=== PATIENT | female | born 1950 | race Caucasian/White ===

== ENCOUNTER 2016-11-13 13:39 | Emergency (ER) | payer MEDICARE, OTHER ==
--- NOTE | 2016-11-13 14:30 | EKG REPORT ---
SEVERITY:- NORMAL ECG - SINUS RHYTHM : Confirmed by: Royce Yeung 13-Nov-2016 14:30:10
--- NOTE | 2016-11-13 14:57 | ER Document Report ---
ED Medical Screen (RME) - General Chief Complaint: Chest Pain Stated Complaint: BODY PAIN,CHEST PAIN Time Seen by Provider: 11/13/16 14:43 Notes: Patient says that she went to her primary care provider here in town for a routine follow-up appointment today and was advised that her heart was swollen and she needed to come here for further evaluation. Patient says she has no symptoms and specifically denies having any chest pains, shortness of breath or difficulty breathing, swelling of her extremities, fever, chills, etc. Patient says she did have an x-ray taken at her doctor's office. Patient says that she has had some vomiting and nausea yesterday as well as some diarrhea a couple of weeks ago. She has some mild generalized abdominal pain. She describes having chronic chest and body aches for a couple of months but nothing new or different today. TRAVEL OUTSIDE OF THE [place] IN LAST 30 DAYS: No - Related Data Allergies/Adverse Reactions: aspirin [Aspirin] Allergy (Verified 06/24/12 12:50) Penicillins Allergy (Verified 11/13/16 13:57) Past Medical History - Past Medical History Cardiac Medical History: Reports: Hx Hypertension Renal/ Medical History: Denies: Hx Peritoneal Dialysis - Immunizations Hx Diphtheria, Pertussis, Tetanus Vaccination: No Physical Exam - Vital signs Vitals: Temp Pulse Resp BP Pulse Ox 98.3 F 95 22 H 107/58 L 93 11/13/16 13:57 11/13/16 13:57 11/13/16 13:57 11/13/16 13:57 11/13/16 13:57 Course - Vital Signs Vital signs: Temp Pulse Resp BP Pulse Ox 98.3 F 95 22 H 107/58 L 93 11/13/16 13:57 11/13/16 13:57 11/13/16 13:57 11/13/16 13:57 11/13/16 13:57
--- NOTE | 2016-11-13 16:39 | RADIOLOGY REPORT (SQ) ---
EXAM DESCRIPTION: CHEST PA/LAT COMPLETED DATE/TIME: 11/13/2016 4:32 pm REASON FOR STUDY: Patient told her heart was enlarged COMPARISON: 01/20/2015 EXAM PARAMETERS: NUMBER OF VIEWS: two views TECHNIQUE: Digital Frontal and Lateral radiographic views of the chest acquired. RADIATION DOSE: NA LIMITATIONS: none FINDINGS: LUNGS AND PLEURA: No opacities, masses or pneumothorax. No pleural effusion. MEDIASTINUM AND HILAR STRUCTURES: No masses or contour abnormalities. HEART AND VASCULAR STRUCTURES: Heart normal size. No evidence for failure. BONES: No acute findings. HARDWARE: None in the chest. OTHER: No other significant finding. IMPRESSION: NO SIGNIFICANT RADIOGRAPHIC FINDING IN THE CHEST. TECHNICAL DOCUMENTATION: JOB ID: [id number] [employer]- All Rights Reserved
--- NOTE | 2016-11-13 17:06 | ER Document Report ---
ED General - General Chief Complaint: Chest Pain Stated Complaint: BODY PAIN,CHEST PAIN Time Seen by Provider: 11/13/16 14:43 Mode of Arrival: Ambulatory Information source: Patient Notes: 66-year-old female hx of htn presents after an annual physical where xray was ocncerning for chf. pt denies any chest pain, sob, difficutly breathing or edema TRAVEL OUTSIDE OF THE [place] IN LAST 30 DAYS: No - HPI Onset: Just prior to arrival Onset/Duration: Sudden Quality of pain: No pain Severity: None Pain Level: Denies Associated symptoms: None Exacerbated by: Denies Relieved by: Denies Similar symptoms previously: No Recently seen / treated by doctor: Yes - sent by pcp - Related Data Allergies/Adverse Reactions: aspirin [Aspirin] Allergy (Verified 06/24/12 12:50) Penicillins Allergy (Verified 11/13/16 13:57) Past Medical History - Social History Smoking Status: Unknown if Ever Smoked Cigarette use (# per day): No Chew tobacco use (# tins/day): No Smoking Education Provided: No Family History: Reviewed & Not Pertinent Patient has suicidal ideation: No Patient has homicidal ideation: No - Past Medical History Cardiac Medical History: Reports: Hx Hypertension Renal/ Medical History: Denies: Hx Peritoneal Dialysis - Immunizations Hx Diphtheria, Pertussis, Tetanus Vaccination: No Review of Systems - Review of Systems Notes: REVIEW OF SYSTEMS: CONSTITUTIONAL : Denies fever, chills, or sweats. Denies recent illness. EENT: Denies eye, ear, throat, or mouth pain or symptoms. Denies nasal or sinus congestion or discharge. Denies throat, tongue, or mouth swelling or difficulty swallowing. CARDIOVASCULAR: Denies chest pain. Denies palpitations or racing or irregular heart beat. Denies ankle edema. RESPIRATORY: Denies cough, cold, or chest congestion. Denies shortness of breath, difficulty breathing, or wheezing. GASTROINTESTINAL: Denies abdominal pain or distention. Denies nausea, vomiting , or diarrhea. Denies blood in vomitus, stools, or per rectum. Denies black, tarry stools. Denies constipation. GENITOURINARY: Denies difficulty urinating, painful urination, burning, frequency, blood in urine, or discharge. FEMALE GENITOURINARY: Denies vaginal bleeding, heavy or abnormal periods, irregular periods. Denies vaginal discharge or odor. MUSCULOSKELETAL: Denies back or neck pain or stiffness. Denies joint pain or swelling. SKIN: Denies rash, lesions or sores. HEMATOLOGIC : Denies easy bruising or bleeding. LYMPHATIC: Denies swollen, enlarged glands. NEUROLOGICAL: Denies confusion or altered mental status. Denies passing out or loss of consciousness. Denies dizziness or lightheadedness. Denies headache. Denies weakness or paralysis or loss of use of either side. Denies problems with gait or speech. Denies sensory loss, numbness, or tingling. Denies seizures. PSYCHIATRIC: Denies anxiety or stress. Denies depression, suicidal ideation, or homicidal ideation. ALL OTHER SYSTEMS REVIEWED AND NEGATIVE. Dictation was performed using [employer] voice recognition software PHYSICAL EXAMINATION: GENERAL: Well-appearing, well-nourished and in no acute distress. HEAD: Atraumatic, normocephalic. EYES: Pupils equal round and reactive to light, extraocular movements intact, conjunctiva are normal. ENT: Nares patent, oropharynx clear without exudates. Moist mucous membranes. NECK: Normal range of motion, supple without lymphadenopathy LUNGS: Breath sounds clear to auscultation bilaterally and equal. No wheezes rales or rhonchi. HEART: Regular rate and rhythm without murmurs ABDOMEN: Soft, nontender, nondistended abdomen. No guarding, no rebound. No masses appreciated. Female : deferred Musculoskeletal: Normal range of motion, no pitting or edema. No cyanosis. NEUROLOGICAL: Cranial nerves grossly intact. Normal speech, normal gait. Normal sensory, motor exams PSYCH: Normal mood, normal affect. SKIN: Warm, Dry, normal turgor, no rashes or lesions noted. Physical Exam - Vital signs Vitals: Temp Pulse Resp BP Pulse Ox 98.3 F 95 22 H 107/58 L 93 11/13/16 13:57 11/13/16 13:57 11/13/16 13:57 11/13/16 13:57 11/13/16 13:57 Course - Re-evaluation Re-evalutation: 11/13/16 17:14 Patient is completely asymptomatic at this time, cardiac workup has been ordered and I am awaiting results I did speak with the patient's primary care physician with concerns for congestive heart failure 11/13/16 20:15 CT a was consistent with lung mass with metastases to liver. Patient and have been made aware of this, we have has been given to them. I will give them oncologist to follow-up with. I contacted patient's primary care physician as well After performing a Medical Screening Examination, I estimate there is LOW risk for ACUTE CORONARY SYNDROME, RESPIRATORY FAILURE, SEPSIS OR MENINGITIS, thus I consider the discharge disposition reasonable. I have reevaluated this patient multiple times and no significant life threatening changes are noted. The patient and I have discussed the diagnosis and risks, and we agree with discharging home with close follow-up. We also discussed returning to the Emergency Department immediately if new or worsening symptoms occur. We have discussed the symptoms which are most concerning (e.g., changing or worsening pain, trouble swallowing or breathing, neck stiffness, fever) that necessitate immediate return. - Vital Signs Vital signs: Temp Pulse Resp BP Pulse Ox 98.3 F 95 25 H 117/73 93 11/13/16 13:57 11/13/16 13:57 11/13/16 17:01 11/13/16 17:01 11/13/16 17:01 - Laboratory Result Diagrams: 11/13/16 17:02 11/13/16 17:02 Laboratory results interpreted by me: 11/13/16 11/13/16 17:02 17:02 WBC 20.6 H Seg Neuts % (Manual) 84 H Lymphocytes % (Manual) 10 L Monocytes % (Manual) 2 L Abs Neuts (Manual) 17.9 H Potassium 3.3 L Chloride 92 L Est GFR (Non-Af Amer) 49 L Direct Bilirubin 0.5 H AST 45 H ALT 56 H Albumin 3.3 L - Diagnostic Test Radiology reviewed: Image reviewed, Reports reviewed - report given to patient Discharge - Discharge Clinical Impression: Liver metastases Lung cancer Qualifiers: Laterality: right Lung location: upper lobe of lung Qualified Code(s): C34.11 - Malignant neoplasm of upper lobe, right bronchus or lung Condition: Stable Disposition: HOME, SELF-CARE Referrals: IVY TOTH MD [ACTIVE STAFF] - Follow up as needed CHELY DICKSON MD [ACTIVE STAFF] - Follow up tomorrow GEARRDO DRIVER MD [ACTIVE STAFF] - Follow up tomorrow KAMRAN SAAB MD [Primary Care Provider] - Follow up tomorrow
[2016-11-13 17:26] LABS: HEMATOCRIT 43.9 % (36.0-47.0); HEMOGLOBIN 14.5 g/dL (12.0-15.5); HGB HCT DIFFERENCE -0.4; MEAN CORPUSCULAR HEMOGLOBIN 29.6 pg (27.0-33.4); MEAN CORPUSCULAR HGB CONC 33.2 g/dL (32.0-36.0); MEAN CORPUSCULAR VOLUME 89 fl (80-97); RED BLOOD COUNT 4.91 10^6/uL (3.72-5.28); RED CELL DISTRIBUTION WIDTH 12.7 % (11.5-14.0); WHITE BLOOD COUNT 20.6 10^3/uL (4.0-10.5)
[2016-11-13 17:39] LABS: ALANINE AMINOTRANSFERASE 56 U/L (9-52); ALBUMIN 3.3 g/dL (3.5-5.0); ALKALINE PHOSPHATASE 110 U/L (38-126); ANION GAP 17 (5-19); ASPARTATE AMINO TRANSFERASE 45 U/L (14-36); BILIRUBIN,DIRECT 0.5 mg/dL (0.0-0.4); BILIRUBIN,TOTAL 0.9 mg/dL (0.2-1.3); BLOOD UREA NITROGEN 20 mg/dL (7-20); CALCIUM 10.2 mg/dL (8.4-10.2); CARBON DIOXIDE 29 mmol/L (22-30); CHLORIDE 92 mmol/L (98-107); GLUCOSE 100 mg/dL (75-110); POTASSIUM 3.3 mmol/L (3.6-5.0); SODIUM 137.5 mmol/L (137-145)
[2016-11-13 17:49] LABS: BAND NEUTROPHILS % (MANUAL) 3 % (3-5); BASOPHILS % (MANUAL) 0 % (0-2); EOSINOPHILS % (MANUAL) 1 % (0-6); LYMPHOCYTES % (MANUAL) 10 % (13-45); TOTAL CELLS COUNTED 100
[2016-11-13 17:50] LABS: TOXIC GRANULATION SLIGHT; TOXIC VACUOLATION PRESENT
[2016-11-13 17:51] LABS: RBC MORPHOLOGY COMMENT NORMO-CYTIC/CHROMIC
[2016-11-13 18:01] LABS: CREATINE KINASE MB 1.21 ng/mL (<4.55); TROPONIN I 0.017 ng/mL
--- NOTE | 2016-11-13 19:56 | RADIOLOGY REPORT (SQ) ---
EXAM DESCRIPTION: CTA CHEST COMPLETED DATE/TIME: 11/13/2016 7:17 pm REASON FOR STUDY: sob COMPARISON: Chest x-ray dated 11/13/2006 TECHNIQUE: CT scan of the chest performed using helical scanning technique with dynamic intravenous contrast injection. Images reviewed with lung, soft tissue and bone windows. Reconstructed coronal and sagittal MPR images reviewed. Additional 3 dimensional post-processing performed to develop Maximal Intensity Projection images (NE P). All images stored on PACS. All CT scanners at this facility use dose modulation, iterative reconstruction, and/or weight based d osing when appropriate to reduce radiation dose to as low as reasonably achievable (ALARA). [facility]: Dose Right [facility]: CareDose [facility]: Dose Right [facility]: Teradose 4D [facility]: OY LX Therapies CONTRAST TYPE AND DOSE: 80 mL Isovue 370 RENAL FUNCTION: Creatinine 1.1 RADIATION DOSE: 56.90 mGy. LIMITATIONS: None. FINDINGS: LUNGS AND PLEURA: A 1.6 cm in diameter mass lesion is identified in the right upper lung f ield best seen on image number 27 which could represent a primary lung neoplasm or metastatic disease . No other pulmonary nodules are identified. No airspace consolidations or pleural effusions are id entified. AORTA AND GREAT VESSELS: No aneurysm or dissection. HEART: No pericardial effusion. PULMONARY ARTERIES: No emboli visualized in the main pulmonary arteries or the segmental branches. HILAR AND MEDIASTINAL STRUCTURES: No hilar adenopathy is seen. There are enlarged pretracheal lymph nodes. HARDWARE: None in the chest. UPPER ABDOMEN: There is a 1.5 cm in diameter relative low density area in the right lobe of the liver which could possibly represent metastatic disease. There is loss of definition of the pancreatic ta il with surrounds relative low density which could represent edematous or inflammatory changes. Ther e are similar but less pronounced findings in the pancreatic head. The possibility of pancreatitis s hould be considered. Clinical correlation is recommended. I would recommend followup studies to exc lude an underlying mass. THYROID AND OTHER SOFT TISSUES: No masses. No adenopathy. BONES: No acute or significant finding. 3D MIPS: Confirm above findings. OTHER: No other significant finding. IMPRESSION: 1.6 cm in diameter mass lesion in the right upper lung field as noted above which could represent a primary lung neoplasm or metastatic disease. No other pulmonary nodules are identified. No airspace consolidations or pleural effusions are identified. No evidence for pulmonary embolic d isease. There are enlarged pretracheal lymph nodes. There is a 1.5 cm in diameter relative low dens ity area in the right lobe of the liver which could possibly represent metastatic disease. There is loss of definition of pancreatic tail with surrounding relative low density which could represent charly matous or inflammatory changes. There are similar but less pronounced findings in the pancreatic hea d. The possibility of pancreatitis should be considered. Clinical correlation is recommended. I wo uld recommend followup studies to exclude an underlying mass lesion. Other findings as noted above TECHNICAL DOCUMENTATION: JOB ID: [id number] Quality ID # [id number]: Final reports with documentation of one or more dose reduction techniques (e.g., Au tomated exposure control, adjustment of the mA and/or kV according to patient size, use of iterative reconstruction technique) 2010 [employer]- All Rights Reserved
[2016-11-13 20:31] VITALS: BP 124/60
== END 2016-11-13 20:28 | disposition home or self-care (01) ==
LOC: ER 13:39
DX: C34.11 Malignant neoplasm of upper lobe, right bronchus or lung (principal); C78.7 Secondary malignant neoplasm of liver and intrahepatic bile duct; I10 Essential (primary) hypertension; Z88.6 Allergy status to analgesic agent; Z88.0 Allergy status to penicillin
CPT/HCPCS: 36415; 71020; 71275; 80053; 82553; 83880; 84484; 85025; 93005; 93010; 99285

== ENCOUNTER 2016-11-22 06:00 | Day surgery (SDC) | payer MEDICARE, OTHER ==
[2016-11-22 06:45] LABS: HEMATOCRIT 42.2 % (36.0-47.0); HEMOGLOBIN 13.9 g/dL (12.0-15.5); HGB HCT DIFFERENCE -0.5; MEAN CORPUSCULAR HEMOGLOBIN 29.6 pg (27.0-33.4); MEAN CORPUSCULAR HGB CONC 32.9 g/dL (32.0-36.0); MEAN CORPUSCULAR VOLUME 90 fl (80-97); RED BLOOD COUNT 4.69 10^6/uL (3.72-5.28); RED CELL DISTRIBUTION WIDTH 13.3 % (11.5-14.0); WHITE BLOOD COUNT 11.6 10^3/uL (4.0-10.5)
[2016-11-22 06:56] LABS: BLOOD UREA NITROGEN 16 mg/dL (7-20); CREATININE RESULT 0.77 mg/dL (0.52-1.25)
[2016-11-22 06:59] LABS: PROTHROMBIN TIME 14.1 SEC (11.4-15.4)
[2016-11-22 07:00] LABS: PARTIAL THROMBOPLASTIN TIME 29.7 SEC (23.5-35.8)
[2016-11-22] MEDS ORDERED: FENTANYL CITRATE INJ/PF 100 MCG/2 ML AMPUL ONE (09:08)
[2016-11-22] MEDS ORDERED: MIDAZOLAM 2 MG/2 ML INJ ONE (09:08)
--- NOTE | 2016-11-22 10:05 | RADIOLOGY REPORT (SQ) ---
EXAM DESCRIPTION: CHEST SINGLE VIEW COMPLETED DATE/TIME: 11/22/2016 9:50 am REASON FOR STUDY: POST RIGHT LUNG BIOPSY COMPARISON: None. EXAM PARAMETERS: NUMBER OF VIEWS: One view. TECHNIQUE: Single frontal radiographic view of the chest acquired. RADIATION DOSE: NA LIMITATIONS: None. FINDINGS: LUNGS AND PLEURA: Increased density noted in the medial right upper lung field likely rela luis to biopsy blood patch/hemorrhage and the nodule. No pneumothorax is present. No other focal opa cities. MEDIASTINUM AND HILAR STRUCTURES: No masses. Contour normal. HEART AND VASCULAR STRUCTURES: Heart normal in size. Normal vasculature. BONES: No acute findings. HARDWARE: None in the chest. OTHER: No other significant finding. IMPRESSION: No pneumothorax post biopsy. Opacity needle all right upper lung field likely represent s a combination of the nodule and hemorrhage/ blood patch. TECHNICAL DOCUMENTATION: JOB ID: [id number]
--- NOTE | 2016-11-22 10:08 | RADIOLOGY REPORT (SQ) ---
EXAM DESCRIPTION: CT BIOPSY LUNG/MEDIASTINUM; CT NEEDLE PLACEMENT COMPLETED DATE/TIME: 11/22/2016 9:55 am REASON FOR STUDY: SOLITARY PULMONARY NODULE; LUNG BIOPSY R91.1 SOLITARY PULMONARY NODULE Z79.899 O THER RETIREMENT (CURRENT) DRUG THERAPY Z79.01 RETIREMENT (CURRENT) USE OF ANTICOAGULANTS COMPARISON: None. FLUORO TIME: 45 seconds LIMITATIONS: None. PROCEDURE: After obtaining informed consent, the patient was brought to the CT suite and was placed right lateral decubitus position on the CT table. The patient was prepped and draped in the usual bob rile fashion . Axial images were obtained for targeting of theright upper lobe mass. An appropriate access site was selected. IV sedation was administered and physician direction by the registered nurs e using 2 milligrams of Versed and 75 micrograms of fentanyl. Physiologic monitoring was provided bef ore, during, and after sedation. The total sedation time was 45 minutes. Documentation face to face time, the performing interventional radiologist, spent monitoring the eamon ent: 15minutes. The skin, soft tissues, pleural surface were anesthetized using 1% lidocaine. A small skin incision was made. Under CT fluoroscopic guidance, a 17 gauge Temno coaxial outer guiding trocar was advanced into to the right upper lobe nodule. Needle position was confirmed with dedicated CT imaging. The inner stylet was removed and multiple core biopsy samples were obtained using 18 gauge Temno coaxial core biopsy needle. Biopsy samples were placed in formalin and sent to the lab for analysis. Static noted in trocar was then removed as a visceral blood patch was applied. Postprocedural images demon strate hemorrhage/ blood patch adjacent to the biopsied nodule. No pneumothorax. A sterile dressing was placed over the wound. The patient left the CT suite in stable condition. No immediate complic ations identified. IMPRESSION: CT-guided right upper lobe lung nodule biopsy. Pathology pending. COMMENT: Patient medication list reviewed:Yes- Quality ID# [id number]:Eligible professional attests to docu menting in the medical record they obtained, updated, or reviewed the patient's current medications. Quality ID #76: The patient was prepped and draped using maximum sterile barrier technique including cap, mask, sterile gown, sterile gloves, a large sterile sheet, hand hygiene, and 2% Chlorhexidine fo r cutaneous antisepsis. When ultrasound is used, sterile ultrasound techniques are followed requiring sterile gel and sterile probes. Quality ID 145: Final reports for procedures using fluoroscopy that document radiation exposure misti ramses, or exposure time and number of fluorographic images (if radiation exposure indices are not avail able) TECHNICAL DOCUMENTATION: JOB ID: [id number] [employer]- All Rights Reserved
--- NOTE | 2016-11-22 12:52 | RADIOLOGY REPORT (SQ) ---
EXAM DESCRIPTION: CHEST SINGLE VIEW COMPLETED DATE/TIME: 11/22/2016 12:44 pm REASON FOR STUDY: POST RIGHT LUNG BIOPSY--- 2 HR FILM COMPARISON: None. EXAM PARAMETERS: NUMBER OF VIEWS: One view. TECHNIQUE: Single frontal radiographic view of the chest acquired. RADIATION DOSE: NA LIMITATIONS: None. FINDINGS: LUNGS AND PLEURA: No pneumothorax 2 hours post biopsy. The opacity in the right lung apex has decreased in comparison the prior study. MEDIASTINUM AND HILAR STRUCTURES: Stable HEART AND VASCULAR STRUCTURES: Stable BONES: No acute findings. HARDWARE: None in the chest. OTHER: No other significant finding. IMPRESSION: No pneumothorax 2 hours post biopsy. TECHNICAL DOCUMENTATION: JOB ID: [id number]
[2016-11-22 13:07] VITALS: BP 126/73
== END 2016-11-22 12:30 | disposition home or self-care (01) ==
LOC: RAD 06:00
PROVIDERS: ATTEND Internal Medicine Medical Oncology
PROC: 0BBC3ZX Excision of Right Upper Lung Lobe, Percutaneous Approach, Diagnostic (ICD-10-PCS; principal; 2016-11-22)
DX: C34.11 Malignant neoplasm of upper lobe, right bronchus or lung (principal); Z79.899 Other long term (current) drug therapy; Z79.01 Long term (current) use of anticoagulants; Z88.0 Allergy status to penicillin; Z88.6 Allergy status to analgesic agent
CPT/HCPCS: 36415; 84520; 82565; 85027; 85610; 85730; 88342 ×2; 88341 ×2; 88305 ×2; 88313 ×2; 71010; 77012; 32405; J2250; J3010

== ENCOUNTER 2016-12-13 10:01 | Emergency (ER) | payer MEDICARE, OTHER ==
[2016-12-13] MEDS ORDERED: NORMAL SALINE 1000 ML 1,000 ML IV ONE ×2 (10:25→13:29)
[2016-12-13] MEDS ORDERED: ONDANSETRON HCL INJ/PF 4 MG/2 ML SDV IV ONE (10:31)
--- NOTE | 2016-12-13 10:33 | ER Document Report ---
HPI - HPI Notes: Patient with a history of lung cancer with metastases to the liver presents to the ED finding of generalized weakness. Patient states that she has had this weakness for over a month but has worsened over the last couple days. Patient did have a dose of chemo last week which was her first 1. She was scheduled to have her labs for the 2nd course of chemo today but came to the ED because of the weakness. Patient also has associated nausea without vomiting. Patient has had a decreased appetite but is trying to drink fluids. Patient states her mouth has been dry in her urinary habits have been decreased from usual. Her last bowel movement was a day and a half ago. She continues to have abdominal cramping that has been there for the last month as well, but patient states that that discomfort and cramping is actually improved over the course of this month. Otherwise she has a history of hypertension. Denies any headaches, fever, changes in vision/mentation/speech, URI, sore throat, chest pain, palpitations, syncope, cough, wheeze, shortness breath, dyspnea, diarrhea, melena, hematochezia, hematuria, dysuria, focal muscle weakness/paralysis, or rash. - ROS Notes: REVIEW OF SYSTEMS: CONSTITUTIONAL : Denies fever, chills, or sweats. Denies recent illness. EENT: Denies eye, ear, throat, or mouth pain or symptoms. Denies nasal or sinus congestion or discharge. Denies throat, tongue, or mouth swelling or difficulty swallowing. CARDIOVASCULAR: Denies chest pain. Denies palpitations or racing or irregular heart beat. Denies ankle edema. RESPIRATORY: Denies cough, cold, or chest congestion. Denies shortness of breath, difficulty breathing, or wheezing. GASTROINTESTINAL: see hpi GENITOURINARY: Denies difficulty urinating, painful urination, burning, frequency, blood in urine, or discharge. FEMALE GENITOURINARY: Denies vaginal bleeding, heavy or abnormal periods, irregular periods. Denies vaginal discharge or odor. MUSCULOSKELETAL: Denies back or neck pain or stiffness. Denies joint pain or swelling. SKIN: Denies rash, lesions or sores. NEUROLOGICAL: Denies confusion or altered mental status. Denies passing out or loss of consciousness. Denies dizziness or lightheadedness. Denies headache. Denies paralysis or loss of use of either side. Denies problems with gait or speech. Denies sensory loss, numbness, or tingling. Denies seizures. PSYCHIATRIC: Denies anxiety or stress. Denies depression, suicidal ideation, or homicidal ideation. ALL OTHER SYSTEMS REVIEWED AND NEGATIVE. Dictation was performed using [employer] voice recognition software Past Medical History - Social History Smoking Status: Former Smoker Family History: Reviewed & Not Pertinent - Past Medical History Cardiac Medical History: Reports: Hx Hypertension Denies: Hx Coronary Artery Disease, Hx Heart Attack Pulmonary Medical History: Denies: Hx Asthma, Hx Bronchitis, Hx COPD, Hx Pneumonia Neurological Medical History: Denies: Hx Cerebrovascular Accident, Hx Seizures Renal/ Medical History: Denies: Hx Peritoneal Dialysis Musculoskeltal Medical History: Denies Hx Arthritis - Immunizations Hx Diphtheria, Pertussis, Tetanus Vaccination: No Vertical Provider Document - CONSTITUTIONAL Notes: PHYSICAL EXAMINATION: GENERAL: Well-appearing, well-nourished and in no acute distress. HEAD: Atraumatic, normocephalic. EYES: Pupils equal round and reactive to light, extraocular movements intact, sclera anicteric, conjunctiva are normal. ENT: EAC clear b/l. TM's intact b/l without erythema, fluid, or perforation. Nares patent and without discharge. oropharynx clear without exudates. No tonsilar hypertrophy or erythema. Moist mucous membranes. No sinus tenderness. Mouth: dry NECK: Normal range of motion, supple without lymphadenopathy. No rigidity. LUNGS: Breath sounds clear to auscultation bilaterally and equal. No wheezes rales or rhonchi. HEART: Regular rate and rhythm without murmurs, rubs, gallops. ABDOMEN: Soft, nondistended abdomen. No guarding, no rebound. No masses appreciated. Normal bowel sounds present. No CVA tenderness bilaterally. + mild tenderness, generalized. Musculoskeletal: FROM to passive/active. Strength 5+/5 b/l to extremities. No focal deficit noted. Extremities: No cyanosis, clubbing, or edema b/l. Peripheral pulses 2+. Capillary refill less than 3 seconds. NEUROLOGICAL: MSME intact. Cranial nerves grossly intact. Normal speech, Normal sensory, motor exams. GISSELLE's intact. pronator drift neg. Heel-sarabia, finger-nose intact. PSYCH: Normal mood, normal affect. SKIN: Warm, Dry, normal turgor, no rashes or lesions noted. - INFECTION CONTROL TRAVEL OUTSIDE OF THE [place] IN LAST 30 DAYS: No Course - Re-evaluation Re-evalutation: 12/13/16 14:[address] Loya: Patient is a 66-year-old afebrile female who presents the ED with generalized weakness. Vitals are stable. PE otherwise unremarkable for any neurological focal deficits. 2 L normal saline provided today along with IV Zofran, blood work, and EKG. Patient states that she is already feeling better than she had upon arrival. Blood work generally unremarkable for acute pathology that would keep her in the hospital. EKG did not show any acute ST-T changes. Cardiac enzymes unremarkable without any cardiac or respiratory symptoms. Patient's returned and she now has a ride home. Pt is feeling much better. Conservative measures for symptoms. Recheck with your oncologist and PCM the next couple days. Return to ED with any worsening/concerning symptoms as above otherwise reviewed. Patient is in agreement. - Laboratory Result Diagrams: 12/13/16 10:15 12/13/16 10:15 Discharge - Discharge Clinical Impression: Generalized weakness Condition: Stable Disposition: HOME, SELF-CARE Additional Instructions: Push fluids/food May use protein shakes if tolerated Continue medications as directed Strengthening exercises at home daily Recheck with PCM in 2-3 days Recheck and call your Oncologist in the next 1-2 days Return to the ED with any worsening symptoms and/or development of fever, headache, chest pain, palpitations, syncope, shortness of breath, trouble breathing, abdominal pain, n/v/d, blood in stool/urine, urinary retention, muscle weakness/paralysis, or other worsening symptoms that are concerning to you. Forms: Elevated Blood Pressure Referrals: LORENA KAISER FNP-C [Primary Care Provider] - Follow up as needed CHELY DICKSON MD [ACTIVE STAFF] - Follow up as needed
[2016-12-13 10:42] LABS: ABSOLUTE BASOPHILS # (AUTO) 0.1 10^3/uL (0.0-0.2); ABSOLUTE LYMPHOCYTES (AUTO) 2.2 10^3/uL (0.5-4.7); ABSOLUTE NEUT (AUTO) 11.4 10^3/uL (1.7-8.2); BASOPHILS % (AUTO) 0.5 % (0-2); EOSINOPHILS % (AUTO) 0.2 % (0-6); HEMOGLOBIN 13.5 g/dL (12.0-15.5); HGB HCT DIFFERENCE -0.5; MEAN CORPUSCULAR VOLUME 88 fl (80-97); MONOCYTES % (AUTO) 6.8 % (3-13); RED BLOOD COUNT 4.67 10^6/uL (3.72-5.28); RED CELL DISTRIBUTION WIDTH 13.6 % (11.5-14.0); SEGMENTED NEUTROPHILS % (AUTO) 77.5 % (42-78); WHITE BLOOD COUNT 14.7 10^3/uL (4.0-10.5)
[2016-12-13 10:49] LABS: ALANINE AMINOTRANSFERASE 39 U/L (9-52); ALBUMIN 2.9 g/dL (3.5-5.0); ALKALINE PHOSPHATASE 92 U/L (38-126); ANION GAP 11 (5-19); ASPARTATE AMINO TRANSFERASE 55 U/L (14-36); BILIRUBIN,DIRECT 0.7 mg/dL (0.0-0.4); BILIRUBIN,TOTAL 1.2 mg/dL (0.2-1.3); BLOOD UREA NITROGEN 17 mg/dL (7-20); CALCIUM 9.8 mg/dL (8.4-10.2); CARBON DIOXIDE 30 mmol/L (22-30); CHLORIDE 95 mmol/L (98-107); CREATINE KINASE 24 U/L (30-135); CREATININE RESULT 0.77 mg/dL (0.52-1.25); GLUCOSE 86 mg/dL (75-110); LIPASE 153.2 U/L (23-300); MAGNESIUM 1.7 mg/dL (1.6-2.3); POTASSIUM 3.5 mmol/L (3.6-5.0); SODIUM 136.4 mmol/L (137-145); TOTAL PROTEIN 6.5 g/dL (6.3-8.2)
[2016-12-13 10:52] LABS: PROTHROMBIN TIME 16.1 SEC (11.4-15.4)
[2016-12-13 11:01] LABS: CREATINE KINASE MB 0.83 ng/mL (<4.55)
[2016-12-13 11:18] LABS: TROPONIN I 0.04 ng/mL
--- NOTE | 2016-12-13 12:27 | RADIOLOGY REPORT (SQ) ---
EXAM DESCRIPTION: KUB/ABDOMEN (SINGLE VIEW)/ portable COMPLETED DATE/TIME: 12/13/2016 11:25 am REASON FOR STUDY: abdominal cramping COMPARISON: Chest x-ray 11/22/[address] chest 11/13/2016 TECHNIQUE: 2 portable supine views of the abdomen. LIMITATIONS: Detail limited on portable filming. FINDINGS: Mass effect left abdomen, with displacement of bowel. Corresponds to the pancreatic and mesenteric abnormality on prior CT chest. Consider current dedicated CT abdomen pelvis. Nonobstruc tive bowel pattern. Elevation noted left hemidiaphragm. Lungs clear. IMPRESSION: Large mass effect left abdomen. Nonobstructive bowel pattern. TECHNICAL DOCUMENTATION: JOB ID: [id number] [employer]- All Rights Reserved
--- NOTE | 2016-12-13 13:00 | EKG REPORT ---
SEVERITY:- NORMAL ECG - SINUS RHYTHM : Confirmed by: Nathaniel Xavier MD 13-Dec-2016 12:59:23
[2016-12-13 13:33] LABS: APPEARANCE,URINE SLIGHTLY-CLOUDY; BILIRUBIN,URINE NEGATIVE (NEGATIVE); GLUCOSE, URINE NEGATIVE (NEGATIVE); KETONES,URINE TRACE mg/dL (NEGATIVE); LEUKOCYTE ESTERASE,URINE NEGATIVE (NEGATIVE); NITRITE,URINE NEGATIVE (NEGATIVE); PROTEIN,URINE NEGATIVE (NEGATIVE); URINE SPECIFIC GRAVITY 1.015
[2016-12-13 15:33] VITALS: BP 141/77
== END 2016-12-13 15:33 | disposition home or self-care (01) ==
LOC: ER 10:01
DX: R53.1 Weakness (principal); C34.90 Malignant neoplasm of unspecified part of unspecified bronchus or lung; C78.7 Secondary malignant neoplasm of liver and intrahepatic bile duct; R11.0 Nausea; I10 Essential (primary) hypertension
CPT/HCPCS: 93005; 99285; 96361; 96374; 36415; 82553; 82140; 82550; 83690; 83735; 85025; 85610; 80053; 81001; 84484; 74000; 93010; J2405; J7030

== ENCOUNTER 2016-12-26 14:16 | Observation (INO) | payer MEDICARE, OTHER ==
--- NOTE | 2016-12-26 14:44 | ER Document Report ---
ED Syncope and Near Syncope - General Stated Complaint: POSSIBLE SYNCOPE Information source: Patient Notes: History all ready obtained from MRI as well as patient amnestic for the event. TRAVEL OUTSIDE OF THE [place] IN LAST 30 DAYS: No - HPI Notes: 66-year-old female history of fairly recently diagnosed lung cancer and hypertension presents as a CODE BLUE, probably more like a rapid response from MRI with the patient was undergoing an outpatient MRI of her liver for further evaluation. Taken her normal medication including Ativan for anxiety prior to the MRI. The tach was discussion with the patient and the patient stated she was feeling weak and developing some nausea and anxiety. He was able to help her get to the table but she ended up having a syncopal episode and was unresponsive for approximately 20-30 seconds and then slowly came around. There was no incontinence, seizure activity. She denies any other symptoms except being amnestic for the event as well as having some mild anxiety now. Denies any palpitations chest pain. No new focal neurologic symptoms numbness weakness or tingling. She has undergone she states approximately 4 rounds of chemotherapy to this point now. - Related Data Allergies/Adverse Reactions: aspirin [Aspirin] Allergy (Verified 12/26/16 15:13) lorazepam [From Ativan] Allergy (Verified 12/26/16 15:13) Penicillins Allergy (Verified 12/26/16 15:13) Past Medical History - Social History Smoking Status: Former Smoker Family History: Reviewed & Not Pertinent - Past Medical History Cardiac Medical History: Reports: Hx Hypertension Denies: Hx Coronary Artery Disease, Hx Heart Attack Pulmonary Medical History: Denies: Hx Asthma, Hx Bronchitis, Hx COPD, Hx Pneumonia Neurological Medical History: Denies: Hx Cerebrovascular Accident, Hx Seizures Renal/ Medical History: Denies: Hx Peritoneal Dialysis Musculoskeltal Medical History: Denies Hx Arthritis - Immunizations Hx Diphtheria, Pertussis, Tetanus Vaccination: No Review of Systems - Review of Systems -: Yes All other systems reviewed and negative Physical Exam - Vital signs Vitals: Temp Pulse Resp BP Pulse Ox 97.6 F 98 20 79/54 L 100 12/26/16 14:17 12/26/16 14:17 12/26/16 14:17 12/26/16 14:17 12/26/16 14:17 Interpretation: Normal, Hypotensive - Init pressure 79/54 - Notes Notes: Physical Exam: GENERAL: VS as per nursing doc. Well-appearing, well-nourished and in no acute distress. HEAD: Atraumatic, normocephalic. EYES: Pupils equal round and reactive to light, extraocular movements intact, sclera anicteric, no conjunctival injection or discharge. ENT: Nares patent, oropharynx clear without exudates. Moist mucous membranes. NECK: Normal range of motion, supple without lymphadenopathy. No JVD. No Carotid Bruits. LUNGS: Breath sounds clear to auscultation bilaterally and equal. No wheezes rales or rhonchi. HEART: Normal S1S2. Regular rate and rhythm without murmurs. Equal peripheral pulses. ABDOMEN: Soft, non-tender. No pulsatile mass. EXTREMITIES: Normal range of motion. No calf tenderness. Negative Homans. No edema. NEUROLOGICAL: Cranial nerves grossly intact. Normal speech. Normal sensory and motor exams. No gross cerebellar abnormalities. PSYCH: Normal mood, normal affect. SKIN: Warm, dry, no cyanosis, no splinter hemorrhages. Cap refill < 2 sec. Course - Re-evaluation Re-evalutation: 12/26/16 19:08 The patient has been hemodynamically stable here. I discussed discharge with her. Her repeat troponin only minimally elevated. She never had any chest pain. We discussed the associated risk and she does not feel comfortable with discharge at this point and is requesting admission. I will speak to the hospitalist and discuss potential for an observation admission. - Vital Signs Vital signs: Temp Pulse Resp BP Pulse Ox 97.6 F 82 28 H 102/82 98 12/26/16 14:17 12/26/16 19:55 12/26/16 19:53 12/26/16 19:55 12/26/16 19:53 - Laboratory Result Diagrams: 12/26/16 14:40 12/26/16 14:40 Laboratory results interpreted by me: 12/26/16 12/26/16 14:40 14:40 WBC 3.5 L Hct 35.7 L RDW 14.3 H Seg Neutrophils % 32.5 L Lymphocytes % 52.2 H Monocytes % 13.7 H Absolute Neutrophils 1.1 L Sodium 136.2 L Est GFR (Non-Af Amer) 56 L Glucose 128 H Direct Bilirubin 0.5 H AST 53 H Albumin 3.3 L - Diagnostic Test Radiology reviewed: Image reviewed, Reports reviewed - No acute process. - EKG Interpretation by Me EKG shows normal: Sinus rhythm - No clear ischemia noted. Rate 94. Normal sinus rhythm. Some J-point elevation. QRS of normal duration otherwise. - Consults Hospitalist Dr. Marla Esteban Time consulted: 20:01 Reason for consultation: 12/26/16 20:08 Admission but no answer to 2md call 12/26/16 20:[address] Esteban Reason for consultation: 12/26/16 20:10 Consult for admission but no answer exceptional children teacher #1. Dr. Esteban Time consulted: 20:10 Reason for consultation: 12/26/16 20:12 Discussion regarding admission for observation for syncope, arrhythmia versus other cause. After discussion, he did not feel patient warranted further observation in the hospital. Discussed with him the patient's comfort with this and he will come see the patient in the ED. Discharge - Discharge Clinical Impression: Syncope and collapse Condition: Fair
[2016-12-26 14:52] LABS: ABSOLUTE LYMPHOCYTES (AUTO) 1.8 10^3/uL (0.5-4.7); ABSOLUTE MONOCYTES (AUTO) 0.5 10^3/uL (0.1-1.4); ABSOLUTE NEUT (AUTO) 1.1 10^3/uL (1.7-8.2); BASOPHILS % (AUTO) 1.1 % (0-2); EOSINOPHILS % (AUTO) 0.5 % (0-6); HEMATOCRIT 35.7 % (36.0-47.0); HGB HCT DIFFERENCE 0.3; LYMPHOCYTES % (AUTO) 52.2 % (13-45); MEAN CORPUSCULAR HGB CONC 33.6 g/dL (32.0-36.0); MEAN CORPUSCULAR VOLUME 87 fl (80-97); MONOCYTES % (AUTO) 13.7 % (3-13); RED BLOOD COUNT 4.13 10^6/uL (3.72-5.28); RED CELL DISTRIBUTION WIDTH 14.3 % (11.5-14.0); SEGMENTED NEUTROPHILS % (AUTO) 32.5 % (42-78); WHITE BLOOD COUNT 3.5 10^3/uL (4.0-10.5)
[2016-12-26] MEDS ORDERED: NORMAL SALINE 1000 ML 2,000 ML IV ONE (14:57)
[2016-12-26 15:11] LABS: ALANINE AMINOTRANSFERASE 32 U/L (9-52); ALBUMIN 3.3 g/dL (3.5-5.0); ALKALINE PHOSPHATASE 81 U/L (38-126); ANION GAP 13 (5-19); ASPARTATE AMINO TRANSFERASE 53 U/L (14-36); BILIRUBIN,DIRECT 0.5 mg/dL (0.0-0.4); BILIRUBIN,TOTAL 1.1 mg/dL (0.2-1.3); BLOOD UREA NITROGEN 14 mg/dL (7-20); CARBON DIOXIDE 22 mmol/L (22-30); CHLORIDE 101 mmol/L (98-107); CREATININE RESULT 0.99 mg/dL (0.52-1.25); GLUCOSE 128 mg/dL (75-110); POTASSIUM 3.6 mmol/L (3.6-5.0); SODIUM 136.2 mmol/L (137-145); TOTAL PROTEIN 7.1 g/dL (6.3-8.2)
--- NOTE | 2016-12-26 16:01 | RADIOLOGY REPORT (SQ) ---
EXAM DESCRIPTION: CHEST SINGLE VIEW COMPLETED DATE/TIME: 12/26/2016 3:35 pm REASON FOR STUDY: Syncope COMPARISON: None. EXAM PARAMETERS: NUMBER OF VIEWS: One view. TECHNIQUE: Single frontal radiographic view of the chest acquired. RADIATION DOSE: NA LIMITATIONS: None. FINDINGS: LUNGS AND PLEURA: No opacities, masses or pneumothorax. No pleural effusion. MEDIASTINUM AND HILAR STRUCTURES: Thoracic aorta is tortuous. HEART AND VASCULAR STRUCTURES: Heart normal in size. Normal vasculature. BONES: No acute findings. HARDWARE: None in the chest. OTHER: No other significant finding. IMPRESSION: NO ACUTE RADIOGRAPHIC FINDING IN THE CHEST. TECHNICAL DOCUMENTATION: JOB ID: [id number]
--- NOTE | 2016-12-26 19:52 | EKG REPORT ---
SEVERITY:- NORMAL ECG - SINUS RHYTHM : Confirmed by: Royce Yeung 26-Dec-2016 19:51:45
[2016-12-26] MEDS ORDERED: MAG HYDROX/AL HYDROX/SIMETH SUSP 30 ML UDCUP PO PRN (23:19)
[2016-12-26] MEDS ORDERED: MAGNESIUM HYDROXIDE SUSP 30 ML UDCUP PO PRN (23:19)
[2016-12-26] MEDS ORDERED: ACETAMINOPHEN 325 MG TABLET PO PRN (23:19)
[2016-12-26] MEDS ORDERED: NORMAL SALINE 1000 ML 1,000 ML IV ONE (23:21)
[2016-12-26] MEDS ORDERED: TRAZODONE HCL 50 MG TABLET PO ONE (23:59)
[2016-12-27 00:37] LABS: CREATINE KINASE MB 1.79 ng/mL (<4.55)
[2016-12-27 00:40] LABS: TROPONIN I 0.044 ng/mL
[2016-12-27 04:58] VITALS: BP 133/70
--- NOTE | 2016-12-27 05:19 | PDOC H&P ---
History of Present Illness Admission Date/PCP: 12/26/16 23:19 Patient complains of: Syncope History of Present Illness: XIOMARA SETHI is a 66 year old female with history of hypertension, anxiety and recently diagnosed lung cancer status post chemotherapy 4 who was at [facility] for outpatient MRI and workup of possible hepatic metastasis. The patient had taken Ativan prior to arrival in anticipation of significant anxiety provoking MRI during preparation for the study she complained of nausea , weakness and panic to the fingerprint technician. She was assisted to the table and had a 20-30 seconds episode of unresponsiveness which resolved spontaneously without intervention. She has no limb shaking incontinence or injury or postictal state. She denies chest pain shortness of breath or nausea but admits to persistent anxiety she is brought to the emergency room for evaluation and has a unremarkable workup with exception of indeterminate troponin. She is referred to the hospitalist for observation. She denies recent change in medication with exception to Ativan taken 1 hour prior to study. Past Medical History Cardiac Medical History: Reports: Hypertension Denies: Coronary Artery Disease, Myocardial Infarction Pulmonary Medical History: Denies: Asthma, Bronchitis, Chronic Obstructive Pulmonary Disease (COPD), Pneumonia Neurological Medical History: Denies: Seizures Endocrine Medical History: Reports: Obesity Malignancy Medical History: Reports: Lung Cancer Musculoskeltal Medical History: Denies: Arthritis Psychiatric Medical History: Reports: General Anxiety Disorder Hematology: Denies: Anemia Social History Information Source: Patient, Relative, [facility] Records Lives with: Spouse/Significant other Smoking Status: Former Smoker Frequency of Alcohol Use: None Drugs: None - Advance Directive Resuscitation Status: Full Code Family History Family History: Hypertension Parental Family History Reviewed: Yes Children Family History Reviewed: Yes Sibling(s) Family History Reviewed.: Yes Medication/Allergy Home Medications: Amlodipine Besylate [Norvasc 2.5 mg Tablet] mg PO DAILY 06/24/12 Amlodipine Besylate/Benazepril [Lotrel 5-20 mg Capsule] 1 each PO DAILY #30 capsule 06/24/12 Metoprolol Tartrate [Lopressor 25 Mg Tablet] mg PO DAILY 06/24/12 Sertraline HCl [Zoloft 50 Mg Tablet] 50 mg PO DAILY 06/24/12 Allergies/Adverse Reactions: aspirin [Aspirin] Allergy (Verified 12/26/16 15:13) lorazepam [From Ativan] Allergy (Verified 12/26/16 15:13) Penicillins Allergy (Verified 12/26/16 15:13) Review of Systems Constitutional: PRESENT: fatigue, weakness, weight loss Eyes: ABSENT: visual disturbances Ears: ABSENT: hearing changes Cardiovascular: ABSENT: chest pain, dyspnea on exertion, edema, orthropnea, palpitations Respiratory: ABSENT: cough, hemoptysis Gastrointestinal: ABSENT: abdominal pain, constipation, diarrhea, hematemesis, hematochezia, nausea, vomiting Genitourinary: ABSENT: dysuria, hematuria Musculoskeletal: PRESENT: muscle weakness. ABSENT: joint swelling Integumentary: ABSENT: rash, wounds Neurological: PRESENT: memory loss. ABSENT: abnormal gait, abnormal speech, confusion, dizziness, focal weakness, syncope Psychiatric: PRESENT: anxiety. ABSENT: depression, homidical ideation, suicidal ideation Endocrine: ABSENT: cold intolerance, heat intolerance, polydipsia, polyuria Hematologic/Lymphatic: ABSENT: easy bleeding, easy bruising Physical Exam Vital Signs: Temp Pulse Resp BP Pulse Ox 97.8 F 85 22 H 113/76 95 12/27/16 03:17 12/27/16 04:18 12/27/16 03:17 12/27/16 03:17 12/27/16 03:17 General appearance: PRESENT: no acute distress, cooperative, mild distress - Visibly anxious, obese Head exam: PRESENT: atraumatic, normocephalic Eye exam: PRESENT: conjunctiva pink, EOMI, PERRLA. ABSENT: scleral icterus Ear exam: PRESENT: normal external ear exam Mouth exam: PRESENT: moist, tongue midline Neck exam: ABSENT: carotid bruit, JVD, lymphadenopathy, thyromegaly Respiratory exam: PRESENT: clear to auscultation melinda. ABSENT: rales, rhonchi, wheezes Cardiovascular exam: PRESENT: RRR. ABSENT: diastolic murmur, rubs, systolic murmur Pulses: PRESENT: normal dorsalis pedis pul Vascular exam: PRESENT: normal capillary refill GI/Abdominal exam: PRESENT: normal bowel sounds, soft. ABSENT: distended, guarding, mass, organolmegaly, rebound, tenderness Rectal exam: PRESENT: deferred Extremities exam: PRESENT: full ROM. ABSENT: calf tenderness, clubbing, pedal edema Neurological exam: PRESENT: alert, awake, oriented to person, oriented to place , oriented to time, oriented to situation, abnormal gait - Patient has had difficulty with ambulation since beginning chemotherapy requiring able to transfer from bed to chair otherwise requiring wheelchair, CN II-XII grossly intact. ABSENT: motor sensory deficit, normal gait Psychiatric exam: PRESENT: appropriate affect, normal mood. ABSENT: homicidal ideation, suicidal ideation Skin exam: PRESENT: dry, intact, warm. ABSENT: cyanosis, rash Results Laboratory Results: 12/27/16 00:04 TSH 2.13 12/27/16 12/27/16 00:04 00:04 Creatine Kinase < 20 L CK-MB (CK-2) 1.79 Troponin I 0.044 Impressions: Chest X-Ray 12/26/16 14:38 IMPRESSION: NO ACUTE RADIOGRAPHIC FINDING IN THE CHEST. Assessment & Plan - Diagnosis (1) Syncope and collapse Is this a current diagnosis for this admission?: YesPlan: Presentation strongly suggest hyperventilation syndrome related to panic observe her on monitored bed obtain serial cardiac enzymes. No tachycardia or hypoxia. Orthostatic vital signs were ordered. (2) Panic attack Is this a current diagnosis for this admission?: YesPlan: Ativan discontinued. Trazodone initiated. Consider medical cause TSH is ordered to follow-up (3) Encephalopathy Is this a current diagnosis for this admission?: YesPlan: Differential diagnosis may include chemotherapy related encephalopathy though chemotherapeutic agents are unknown to patient and MD. Consider consultation with her oncologist Dr. Darnell. (4) Obesity Is this a current diagnosis for this admission?: YesPlan: Obesity will evaluate for metabolic cause with evaluation of thyroid function and consider dietitian consultation.
[2016-12-27] MEDS ORDERED: HEPARIN SOD (PORCINE) 5,000 UNIT/ML 1 ML SYRINGE SUBCUT SCH (06:00)
[2016-12-27 06:25] LABS: CREATINE KINASE MB 2.05 ng/mL (<4.55); TROPONIN I 0.042 ng/mL
[2016-12-27] MEDS ORDERED: SERTRALINE HCL 50 MG TABLET PO SCH (10:00)
[2016-12-27] MEDS ORDERED: AMLODIPINE BESYLATE 2.5 MG TABLET PO SCH (10:00)
[2016-12-27] MEDS ORDERED: METOPROLOL TARTRATE 25 MG TABLET PO SCH (10:00)
--- NOTE | 2016-12-27 11:41 | PDOC DISCHARGE SUMMARY ---
General - Admit/Disc Date/PCP Admission Date/Primary Care Provider: 12/26/16 23:19 Discharge Date: 12/27/16 - Discharge Diagnosis (1) Syncope and collapse Is this a current diagnosis for this admission?: YesSummary: Likely vasovagal episode secondary to anxiety associated with the MRI. (2) Hypertension Is this a current diagnosis for this admission?: Yes (3) Lung cancer Is this a current diagnosis for this admission?: Yes (4) Obesity Is this a current diagnosis for this admission?: Yes - Additional Information Resuscitation Status: Full Code Discharge Diet: Cardiac Discharge Activity: Activity As Tolerated Home Medications: Amlodipine Besylate [Norvasc 2.5 mg Tablet] 2.5 mg PO DAILY tablet 12/27/16 Metoprolol Tartrate [Lopressor 25 mg Tablet] 25 mg PO DAILY tablet 12/27/16 Sertraline HCl [Zoloft 50 mg Tablet] 50 mg PO DAILY tablet 12/27/16 History of Present Illness History of Present Illness: XIOMARA SETHI is a 66 year old female history of hypertension anxiety who was recently diagnosed with chemotherapy. The patient presented to [facility] for outpatient MRI. The patient had taken Ativan prior to arrival but became very anxious and developed nausea and had a syncopal episode. Patient regained consciousness after 20-30 seconds and there was no evidence for any postictal state. She was transferred from the radiology department to the emergency room and admitted for overnight workup. Hospital Course Hospital Course: [id number] female with lung cancer and anxiety who presented to the radiology department for an outpatient MRI. She became very anxious and had a syncopal episode. The patient was monitored overnight and no cardiac arrhythmias. She had normal blood pressures also. It is felt that this most likely represented a vasovagal episode secondary to anxiety associated with the MRI. No changes made in her medications and she is to follow-up with the primary care doctor in the next week. Physical Exam Vital Signs: Temp Pulse Resp BP Pulse Ox 97.9 F 85 17 133/70 H 96 12/27/16 08:48 12/27/16 08:48 12/27/16 08:48 12/27/16 08:48 12/27/16 08:48 Intake & Output 12/26/16 12/27/16 12/28/16 06:59 06:59 06:59 Intake Total 120 Output Total 0 Balance 120 Weight 88.4 kg General appearance: PRESENT: no acute distress Eye exam: PRESENT: conjunctiva pink. ABSENT: scleral icterus Mouth exam: PRESENT: moist, tongue midline Neck exam: ABSENT: carotid bruit, JVD, lymphadenopathy, thyromegaly Respiratory exam: PRESENT: clear to auscultation melinda. ABSENT: rales, rhonchi, wheezes Cardiovascular exam: PRESENT: RRR. ABSENT: diastolic murmur, rubs, systolic murmur GI/Abdominal exam: PRESENT: normal bowel sounds, soft. ABSENT: distended, guarding, mass, organolmegaly, rebound, tenderness Extremities exam: ABSENT: calf tenderness, clubbing, pedal edema Neurological exam: PRESENT: alert, awake, oriented to person, oriented to place , oriented to time, oriented to situation, CN II-XII grossly intact. ABSENT: motor sensory deficit Psychiatric exam: PRESENT: appropriate affect Skin exam: PRESENT: dry, intact, warm. ABSENT: cyanosis, rash Results Laboratory Results: 12/27/16 00:04 TSH 2.13 12/27/16 12/27/16 12/27/16 00:04 00:04 05:35 Creatine Kinase < 20 L 24 L CK-MB (CK-2) 1.79 Troponin I 0.044 12/27/16 05:35 Creatine Kinase CK-MB (CK-2) 2.05 Troponin I 0.042 Impressions: Chest X-Ray 12/26/16 14:38 IMPRESSION: NO ACUTE RADIOGRAPHIC FINDING IN THE CHEST. Qualifiers PATEINT BEING DISCHARGED WITH ANY OF THE FOLLOWING DIAGNOSIS?: No Plan Discharge Plan: Patient is discharged to home. Follow-up with primary care in 1 week. Time Spent: Less than 30 Minutes
== END 2016-12-27 09:26 | disposition home or self-care (01) ==
LOC: ER 14:16 → EH 23:19 → 4S 12-27 04:06
PROVIDERS: ADMIT Internal Medicine; ATTEND Internal Medicine
DX: R55 Syncope and collapse (principal); I10 Essential (primary) hypertension; C34.90 Malignant neoplasm of unspecified part of unspecified bronchus or lung; E66.9 Obesity, unspecified; F41.1 Generalized anxiety disorder; R11.0 Nausea; R41.3 Other amnesia; F41.0 Panic disorder [episodic paroxysmal anxiety]; R26.2 Difficulty in walking, not elsewhere classified; T45.1X5S Adverse effect of antineoplastic and immunosuppressive drugs, sequela; G93.40 Encephalopathy, unspecified; I95.9 Hypotension, unspecified; Z99.3 Dependence on wheelchair; Z68.31 Body mass index [BMI] 31.0-31.9, adult; Z87.891 Personal history of nicotine dependence; Z79.899 Other long term (current) drug therapy; Z82.49 Family history of ischemic heart disease and other diseases of the circulatory system
CPT/HCPCS: 93005; 99285; 36415 ×2; 82553; 82550; 84443; 85025; 80053; 84484 ×2; 71010; 93010; A9270; J7030; G0378

== ENCOUNTER → 2016-12-26 | Outpatient (CLI) | payer MEDICARE, OTHER | LOC: RAD 12-19 10:55 | PROVIDERS: ATTEND Internal Medicine Medical Oncology | DX: R93.5 Abnormal findings on diagnostic imaging of other abdominal regions, including retroperitoneum (principal); Z53.8 Procedure and treatment not carried out for other reasons ==

== ENCOUNTER 2017-01-03 10:53 | Inpatient (IN) | payer MEDICARE, OTHER ==
[2017-01-03] MEDS ORDERED: NORMAL SALINE 1000 ML 1,000 ML IV ONE (11:34)
--- NOTE | 2017-01-03 11:36 | ER Document Report ---
ED Syncope and Near Syncope - General Chief Complaint: Passed Out Prior to Arrival Stated Complaint: POSSIBLE SYNCOPE Time Seen by Provider: 01/03/17 10:58 Mode of Arrival: Medic Information source: Patient Notes: Patient states that she had nausea last night and did not feel well. Patient reports that she went to her oncologist office today and passed out. Patient does report having diarrhea yesterday with one episode today. Patient denies any chest pain, shortness of breath, or abdominal pain. Patient is currently receiving chemotherapy every 3 weeks to treat lung cancer. TRAVEL OUTSIDE OF THE [place] IN LAST 30 DAYS: No - HPI Patient complains to provider of: Fainting Episode witnessed (by whom): Yes Symptoms prior to episode: Diarrhea, Nausea/vomiting - Nausea. No: Back pain, Chest pain, Fever, Headache, Short of breath Quality of pain: No pain Pain Level: Denies Context: Lost consciousness. denies: Confused after event, Recent seizures Injury location: None Current symptoms: Nausea Similar symptoms previously: Yes Recently seen / treated by doctor: Yes - Related Data Allergies/Adverse Reactions: aspirin [Aspirin] Allergy (Verified 01/03/17 12:57) lorazepam [From Ativan] Allergy (Verified 01/03/17 12:57) Penicillins Allergy (Verified 01/03/17 12:57) Past Medical History - General Information source: Patient - Social History Smoking Status: Never Smoker Frequency of alcohol use: None Drug Abuse: None Occupation: none Lives with: Spouse/Significant other Family History: Hypertension - Past Medical History Cardiac Medical History: Reports: Hx Hypertension Denies: Hx Coronary Artery Disease, Hx Heart Attack Pulmonary Medical History: Denies: Hx Asthma, Hx Bronchitis, Hx COPD, Hx Pneumonia Neurological Medical History: Denies: Hx Cerebrovascular Accident, Hx Seizures Renal/ Medical History: Denies: Hx Peritoneal Dialysis Malignancy Medical History: Reports: Hx Lung Cancer Musculoskeltal Medical History: Denies Hx Arthritis Psychiatric Medical History: Reports: Hx Anxiety Surgical Hx: Negative - Immunizations Hx Diphtheria, Pertussis, Tetanus Vaccination: No Review of Systems - Review of Systems Constitutional: No symptoms reported. denies: Fever, Recent illness EENT: No symptoms reported Cardiovascular: Syncope. denies: Chest pain, Palpitations, Dizziness Respiratory: No symptoms reported. denies: Cough, Short of breath Gastrointestinal: Nausea. denies: Vomiting Genitourinary: No symptoms reported Female Genitourinary: No symptoms reported Musculoskeletal: No symptoms reported. denies: Back pain Skin: No symptoms reported Hematologic/Lymphatic: No symptoms reported Neurological/Psychological: Lost consciousness. denies: Confusion, Headaches Physical Exam - Vital signs Vitals: Resp BP Pulse Ox 18 83/57 L 96 01/03/17 11:01 01/03/17 11:01 01/03/17 11:01 - General General appearance: Alert In distress: None - HEENT Head: Normocephalic, Atraumatic Eyes: Normal Conjunctiva: Normal Nasal: Normal Mouth/Lips: Normal Mucous membranes: Dry - cracked lips Pharynx: Normal. No: Erythema Neck: Normal, Supple - Respiratory Respiratory status: No respiratory distress Chest status: Nontender Breath sounds: Normal Chest palpation: Normal - Cardiovascular Rhythm: Tachycardia Heart sounds: S1 appreciated, S2 appreciated Murmur: No - Abdominal Inspection: Obese Distension: No distension Bowel sounds: Normal Tenderness: Tender - diffuse tendernss Organomegaly: No organomegaly - Back Back: Normal, Nontender. No: CVA tenderness - Extremities General upper extremity: Normal inspection, Normal ROM General lower extremity: Normal inspection, Normal ROM - Neurological Neuro grossly intact: Yes Cognition: Normal Donovan Coma Scale Eye Opening: Spontaneous Donovan Coma Scale Verbal: Oriented Donovan Coma Scale Motor: Obeys Commands Donovan Coma Scale Total: 15 - Psychological Associated symptoms: Normal affect, Normal mood - Skin Skin Temperature: Warm Skin Moisture: Dry Skin Color: Normal Course - Re-evaluation Re-evalutation: 01/03/17 12:[address] Zelaya who advises CTA, abd and pelvis after chemistry is resulted. 01/03/17 14:56 radiologist called critical report. consult placed to dr shankar, who recommends starting patient on Lovenox twice a day as well as surgical consultation regarding further evaluation of possible pancreatic mass. Dr. Zelaya recommends starting IV antibiotics to treat just in case for abdominal infection, recommends Flagyl as well as Cipro. 01/03/17 15:[address] Wood who agrees to come and evaluate patient. Consulted with Dr. Hood who agrees to admit patient to IMCU. Patient updated and is agreeable with plan of care. - Vital Signs Vital signs: Temp Pulse Resp BP Pulse Ox 22 H 101/65 98 01/03/17 17:01 01/03/17 17:01 01/03/17 17:40 - Laboratory Result Diagrams: 01/03/17 12:58 01/03/17 11:45 Laboratory results interpreted by me: 01/03/17 01/03/17 01/03/17 11:45 11:45 12:58 WBC 12.2 H RBC 3.69 L Hgb 10.9 L Hct 32.2 L RDW 15.1 H Seg Neutrophils % 83.5 H Lymphocytes % 8.9 L Absolute Neutrophils 10.2 H PT 16.4 H Sodium 134.0 L Potassium 3.5 L Chloride 95 L Glucose 121 H Direct Bilirubin 0.7 H AST 48 H Creatine Kinase < 20 L Albumin 2.7 L Labs- Entire Visit 01/03/17 01/03/17 01/03/17 11:45 11:45 11:45 WBC Cancelled RBC Cancelled Hgb Cancelled Hct Cancelled MCV Cancelled MCH Cancelled MCHC Cancelled RDW Cancelled Plt Count Cancelled Seg Neutrophils % Cancelled Lymphocytes % Cancelled Monocytes % Cancelled Eosinophils % Cancelled Basophils % Cancelled Absolute Neutrophils Cancelled Absolute Lymphocytes Cancelled Absolute Monocytes Cancelled Absolute Eosinophils Cancelled Absolute Basophils Cancelled Platelet Estimate Cancelled PT 16.4 H INR 1.24 VBG pH VBG pCO2 VBG HCO3 VBG Base Excess Sodium 134.0 L Potassium 3.5 L Chloride 95 L Carbon Dioxide 28 Anion Gap 11 BUN 14 Creatinine 0.85 Est GFR ( Amer) > 60 Est GFR (Non-Af Amer) > 60 Glucose 121 H Lactic Acid Calcium 9.1 Total Bilirubin 1.3 Direct Bilirubin 0.7 H Indirect Bilirubin Not Reportable Neonat Total Bilirubin Not Reportable AST 48 H ALT 39 Alkaline Phosphatase 91 Creatine Kinase < 20 L CK-MB (CK-2) Troponin I Total Protein 6.4 Albumin 2.7 L Slides for Path Review Cancelled 01/03/17 01/03/17 01/03/17 11:45 12:58 12:58 WBC RBC Hgb Hct MCV MCH MCHC RDW Plt Count Seg Neutrophils % Lymphocytes % Monocytes % Eosinophils % Basophils % Absolute Neutrophils Absolute Lymphocytes Absolute Monocytes Absolute Eosinophils Absolute Basophils Platelet Estimate PT INR VBG pH 7.41 VBG pCO2 49.4 VBG HCO3 30.3 VBG Base Excess 4.6 Sodium Potassium Chloride Carbon Dioxide Anion Gap BUN Creatinine Est GFR ( Amer) Est GFR (Non-Af Amer) Glucose Lactic Acid 1.7 Calcium Total Bilirubin Direct Bilirubin Indirect Bilirubin Neonat Total Bilirubin AST ALT Alkaline Phosphatase Creatine Kinase CK-MB (CK-2) 0.58 Troponin I 0.028 Total Protein Albumin Slides for Path Review 01/03/17 12:58 WBC 12.2 H RBC 3.69 L Hgb 10.9 L Hct 32.2 L MCV 87 MCH 29.6 MCHC 33.9 RDW 15.1 H Plt Count 243 Seg Neutrophils % 83.5 H Lymphocytes % 8.9 L Monocytes % 7.1 Eosinophils % 0.1 Basophils % 0.4 Absolute Neutrophils 10.2 H Absolute Lymphocytes 1.1 Absolute Monocytes 0.9 Absolute Eosinophils 0.0 Absolute Basophils 0.0 Platelet Estimate PT INR VBG pH VBG pCO2 VBG HCO3 VBG Base Excess Sodium Potassium Chloride Carbon Dioxide Anion Gap BUN Creatinine Est GFR ( Amer) Est GFR (Non-Af Amer) Glucose Lactic Acid Calcium Total Bilirubin Direct Bilirubin Indirect Bilirubin Neonat Total Bilirubin AST ALT Alkaline Phosphatase Creatine Kinase CK-MB (CK-2) Troponin I Total Protein Albumin Slides for Path Review - Diagnostic Test Radiology reviewed: Reports reviewed Discharge - Discharge Clinical Impression: Syncope and collapse, Bilateral pulmonary embolism Lung cancer Qualifiers: Laterality: unspecified laterality Lung location: unspecified part of lung Qualified Code(s): C34.90 - Malignant neoplasm of unspecified part of unspecified bronchus or lung Abdominal pain Qualifiers: Abdominal location: generalized Qualified Code(s): R10.84 - Generalized abdominal pain Abdominal mass Qualifiers: Abdominal location: unspecified location Qualified Code(s): R19.00 - Intra- abdominal and pelvic swelling, mass and lump, unspecified site Admitting Provider: Hospitalist Unit Admitted: [facility]
[2017-01-03] MEDS ORDERED: ONDANSETRON HCL INJ/PF 4 MG/2 ML SDV IV ONE (11:39)
[2017-01-03 12:10] LABS: PROTHROMBIN TIME 16.4 SEC (11.4-15.4)
[2017-01-03 12:17] LABS: ALANINE AMINOTRANSFERASE 39 U/L (9-52); ALBUMIN 2.7 g/dL (3.5-5.0); ALKALINE PHOSPHATASE 91 U/L (38-126); ANION GAP 11 (5-19); ASPARTATE AMINO TRANSFERASE 48 U/L (14-36); BILIRUBIN,DIRECT 0.7 mg/dL (0.0-0.4); BILIRUBIN,TOTAL 1.3 mg/dL (0.2-1.3); BLOOD UREA NITROGEN 14 mg/dL (7-20); CALCIUM 9.1 mg/dL (8.4-10.2); CARBON DIOXIDE 28 mmol/L (22-30); CHLORIDE 95 mmol/L (98-107); CREATININE RESULT 0.85 mg/dL (0.52-1.25); GLUCOSE 121 mg/dL (75-110); POTASSIUM 3.5 mmol/L (3.6-5.0); TOTAL PROTEIN 6.4 g/dL (6.3-8.2)
[2017-01-03 12:22] LABS: CREATINE KINASE < 20 U/L (30-135)
[2017-01-03 12:25] LABS: CREATINE KINASE MB 0.58 ng/mL (<4.55); TROPONIN I 0.028 ng/mL
--- NOTE | 2017-01-03 12:27 | RADIOLOGY REPORT (SQ) ---
EXAM DESCRIPTION: CT HEAD WITHOUT COMPLETED DATE/TIME: 01/03/2017 12:00 pm REASON FOR STUDY: syncope, hx lung Ca COMPARISON: None. TECHNIQUE: Axial images acquired through the brain without intravenous contrast. Images reviewed wi th bone, brain and subdural windows. Images stored on PACS. All CT scanners at this facility use dose modulation, iterative reconstruction, and/or weight based d osing when appropriate to reduce radiation dose to as low as reasonably achievable (ALARA). [facility]: Dose Right [facility]: CareDose [facility]: Dose Right [facility]: Teradose 4D [facility]: Smart [employer] RADIATION DOSE: Up-to-date CT equipment and radiation dose reduction techniques were employed. CTDIv ol: 64.6 mGy. DLP: 1034 mGy-cm. mGy. LIMITATIONS: None. FINDINGS: VENTRICLES: Prominent. CEREBRUM: No masses. No hemorrhage. No midline shift. Areas of low density in the white matter mos t likely due to chronic micro-vascular ischemic change. No evidence for acute infarction. CEREBELLUM: No masses. No hemorrhage. No alteration of density. No evidence for acute infarction. EXTRAAXIAL SPACES: Mild age-related involutional change. No fluid collections. No masses. ORBITS AND GLOBE: No intra- or extraconal masses. Normal contour of globe without masses. CALVARIUM: No fracture. PARANASAL SINUSES: Mucosal nodule in the right maxillary sinus. SOFT TISSUES: No mass or hematoma. OTHER: No other significant finding. IMPRESSION: MILD CHRONIC CHANGES OF ATROPHY AND MICROVASCULAR ISCHEMIA. NO ACUTE PROCESS. TECHNICAL DOCUMENTATION: JOB ID: [id number] Quality ID # [id number]: Final reports with documentation of one or more dose reduction techniques (e.g., Au tomated exposure control, adjustment of the mA and/or kV according to patient size, use of iterative reconstruction technique) 2010 [employer]- All Rights Reserved
--- NOTE | 2017-01-03 12:35 | RADIOLOGY REPORT (SQ) ---
EXAM DESCRIPTION: ACUTE ABDOMEN SERIES COMPLETED DATE/TIME: 01/03/2017 12:19 pm REASON FOR STUDY: hypotension, hx lung CA, abd tenderness COMPARISON: 12/13/2016. NUMBER OF VIEWS: Three views. TECHNIQUE: Frontal chest, supine abdomen and upright/decubitus abdomen radiographic images acquired. LIMITATIONS: None. FINDINGS: CHEST: Lungs clear of infiltrates. FREE AIR: None. No abnormal gas collections. BOWEL GAS PATTERN: Small bowel dilation. No air-fluid levels. CALCIFICATIONS: No suspicious calcifications. HARDWARE: None in the abdomen. SOFT TISSUES: No gross mass or suggestion of organomegaly. BONES: No acute fracture. Degenerative changes in the spine. No worrisome bone lesions. OTHER: No other significant finding. IMPRESSION: SMALL BOWEL DILATION. ILEUS VERSUS EARLY OBSTRUCTION. TECHNICAL DOCUMENTATION: JOB ID: [id number] [employer]- All Rights Reserved
[2017-01-03 13:12] LABS: ABSOLUTE LYMPHOCYTES (AUTO) 1.1 10^3/uL (0.5-4.7); ABSOLUTE MONOCYTES (AUTO) 0.9 10^3/uL (0.1-1.4); ABSOLUTE NEUT (AUTO) 10.2 10^3/uL (1.7-8.2); BASOPHILS % (AUTO) 0.4 % (0-2); EOSINOPHILS % (AUTO) 0.1 % (0-6); HEMATOCRIT 32.2 % (36.0-47.0); HEMOGLOBIN 10.9 g/dL (12.0-15.5); HGB HCT DIFFERENCE 0.5; LYMPHOCYTES % (AUTO) 8.9 % (13-45); MEAN CORPUSCULAR HEMOGLOBIN 29.6 pg (27.0-33.4); MEAN CORPUSCULAR HGB CONC 33.9 g/dL (32.0-36.0); MEAN CORPUSCULAR VOLUME 87 fl (80-97); MONOCYTES % (AUTO) 7.1 % (3-13); RED BLOOD COUNT 3.69 10^6/uL (3.72-5.28); RED CELL DISTRIBUTION WIDTH 15.1 % (11.5-14.0); SEGMENTED NEUTROPHILS % (AUTO) 83.5 % (42-78); VENOUS BLOOD BASE EXCESS 4.6 mmol/L; VENOUS BLOOD HCO3 30.3 mmol/L (20-32); VENOUS BLOOD PCO2 49.4 mmHg (35-63); VENOUS BLOOD PH 7.41 (7.30-7.42); WHITE BLOOD COUNT 12.2 10^3/uL (4.0-10.5)
--- NOTE | 2017-01-03 14:32 | RADIOLOGY REPORT (SQ) ---
EXAM DESCRIPTION: CTA CHEST COMPLETED DATE/TIME: 01/03/2017 2:09 pm REASON FOR STUDY: syncope, hx lung Ca COMPARISON: 11/13/2016. TECHNIQUE: CT scan of the chest performed using helical scanning technique with dynamic intravenous contrast injection. Images reviewed with lung, soft tissue and bone windows. Reconstructed coronal and sagittal MPR images reviewed. Additional 3 dimensional post-processing performed to develop Maximal Intensity Projection images (MN P). All images stored on PACS. All CT scanners at this facility use dose modulation, iterative reconstruction, and/or weight based d osing when appropriate to reduce radiation dose to as low as reasonably achievable (ALARA). [facility]: Dose Right [facility]: CareDose [facility]: Dose Right [facility]: Teradose 4D [facility]: Palmap CONTRAST TYPE AND DOSE: contrast/concentration: Isovue 370.00 mg/ml; Total Contrast Delivered: 77.0 ml; Total Saline Delivered: 76.0 ml RENAL FUNCTION: BUN 14 creatinine 0.85. RADIATION DOSE: Up-to-date CT equipment and radiation dose reduction techniques were employed. CTDIv ol: 13.2 - 24.5 mGy. DLP: 3235 mGy-cm. . LIMITATIONS: None. FINDINGS: LUNGS AND PLEURA: Previously seen mass in the right upper lobe has resolved. No masses, i nfiltrates, pneumothorax. No pleural effusions, calcifications. AORTA AND GREAT VESSELS: No aneurysm or dissection. HEART: No pericardial effusion. PULMONARY ARTERIES: Numerous filling defects in the pulmonary arteries bilaterally. HILAR AND MEDIASTINAL STRUCTURES: Interval improvement of the paratracheal adenopathy. HARDWARE: None in the chest. UPPER ABDOMEN: See separate report of the CT of the abdomen. THYROID AND OTHER SOFT TISSUES: No masses. No adenopathy. BONES: No acute or significant finding. 3D MIPS: Confirm above findings. OTHER: No other significant finding. IMPRESSION: 1. FAIRLY EXTENSIVE BILATERAL PULMONARY EMBOLISM. 2. PREVIOUS SEEN MASS IN THE RIGHT UPPER LOBE HAS RESOLVED FOLLOWING TREATMENT. THERE IS ALSO IMPROV EMENT IN THE PARATRACHEAL ADENOPATHY. COMMENT: Pertinent findings on the imaging study reported as a CRITICAL RESULT to ROBERT SETHI NP at14:27 on 01/03/2017. Category of Critical Result: Pulmonary embolism. TECHNICAL DOCUMENTATION: JOB ID: [id number] Quality ID # [id number]: Final reports with documentation of one or more dose reduction techniques (e.g., Au tomated exposure control, adjustment of the mA and/or kV according to patient size, use of iterative reconstruction technique) 2010 [employer]- All Rights Reserved
[2017-01-03] MEDS ORDERED: METRONIDAZOLE 500 MG/NS RTU 100 ML IV ONE (14:48)
[2017-01-03] MEDS ORDERED: CIPROFLOXACIN 400 MG/D5W RTU 200 ML IV ONE (14:48)
--- NOTE | 2017-01-03 14:52 | RADIOLOGY REPORT (SQ) ---
EXAM DESCRIPTION: CT ABD/PELVIS WITH IV ONLY COMPLETED DATE/TIME: 01/03/2017 2:09 pm REASON FOR STUDY: syncope, diffuse abd pain COMPARISON: CT chest dated 11/13/2016. TECHNIQUE: CT scan of the abdomen and pelvis performed using helical scanning technique with dynamic intravenous contrast injection. No oral contrast. Images reviewed with lung, soft tissue, and bone windows. Reconstructed coronal and sagittal MPR images reviewed. Delayed images for evaluation of the urinary system also acquired. All images stored on PACS. All CT scanners at this facility use dose modulation, iterative reconstruction, and/or weight based d osing when appropriate to reduce radiation dose to as low as reasonably achievable (ALARA). [facility]: Dose Right [facility]: CareDose [facility]: Dose Right [facility]: Teradose 4D [facility]: textmetix CONTRAST TYPE AND DOSE: 77 mm Isovue 370- low osmolar. RENAL FUNCTION: BUN 14 creatinine 0.85. RADIATION DOSE: . LIMITATIONS: None. FINDINGS: LOWER CHEST: See separate report of the CT of the chest. LIVER: Normal size. Small cyst in the right lobe unchanged No solid masses. No dilated ducts. SPLEEN: Normal size. No focal lesions. PANCREAS: No masses. No significant calcifications. Pancreatic duct not dilated. Large heterogenous fluid collection covering and surrounding almost the entire body and tail of the pancreas. Extensiv e gas throughout the fluid. The largest portion is adjacent to the tail of the pancreas, measuring 8 x 13 cm. GALLBLADDER: No identified stones by CT criteria. No inflammatory changes to suggest cholecystitis. ADRENAL GLANDS: No significant masses or asymmetry. RIGHT KIDNEY AND URETER: Stable small cortical cysts. No solid masses. No significant calcificatio ns. No hydronephrosis or hydroureter. LEFT KIDNEY AND URETER: Stable small cortical cysts. No solid masses. No significant calcification s. No hydronephrosis or hydroureter. AORTA AND VESSELS: No aneurysm. No dissection. Renal arteries, SMA, celiac without stenosis. RETROPERITONEUM: No retroperitoneal adenopathy, hemorrhage or masses. BOWEL AND PERITONEAL CAVITY: No masses or inflammatory changes. Mild small bowel dilation. No free fluid or peritoneal masses. APPENDIX: Not visualized. PELVIS: No mass. No free fluid. Normal bladder. ABDOMINAL WALL: No masses. No hernias. BONES: No significant or acute findings. OTHER: No other significant finding. IMPRESSION: 1. LARGE FLUID COLLECTION SURROUNDING THE BODY AND TAIL OF THE PANCREAS DESCRIBED WITH SCATTERED G . ON THE PRIOR CT THERE WAS SOFT TISSUE VERSUS INFLAMMATION IN THIS AREA. THIS MAY INDICATE A LAR GE PANCREATIC ABSCESS OR INFECTED PSEUDOCYST. LESS LIKELY WOULD BE OMENTAL TUMOR WITH NECROSIS. 2. SMALL CYST IN THE RIGHT LOBE OF THE LIVER AND NUMEROUS SMALL RENAL CYSTS UNCHANGED. 3. MILD SMALL BOWEL DILATION PROBABLY DUE TO ILEUS. OBSTRUCTION UNLIKELY. 4. NO OTHER SIGNIFICANT FINDINGS. TECHNICAL DOCUMENTATION: JOB ID: [id number] Quality ID # [id number]: Final reports with documentation of one or more dose reduction techniques (e.g., Au tomated exposure control, adjustment of the mA and/or kV according to patient size, use of iterative reconstruction technique) 2010 [employer]- All Rights Reserved
[2017-01-03] MEDS ORDERED: ACETAMINOPHEN 325 MG TABLET PO PRN (16:00)
[2017-01-03] MEDS ORDERED: ONDANSETRON HCL INJ/PF 4 MG/2 ML SDV IV PRN (16:00)
--- NOTE | 2017-01-03 16:21 | EKG REPORT ---
SEVERITY:- ABNORMAL ECG - SINUS TACHYCARDIA VENTRICULAR PREMATURE COMPLEX NONSPECIFIC T ABNORMALITIES, LATERAL LEADS : Confirmed by: Aixa Albright MD 03-Jan-2017 16:21:12
--- NOTE | 2017-01-03 16:39 | PDOC CONSULTATION ---
Consultation Consult Date: 01/03/17 Attending physician:: TERENCE CESAR Consult reason:: abdominal fullness History of Present Illness Admission Date/PCP: [facility] Patient complains of: abdominal fullness and pain upon turning x 2 months History of Present Illness: XIOMARA SETHI is a 66 year old female who states that she had nausea last night and did not feel well. Patient reports that she went to her oncologist office today and passed out. Patient does report having diarrhea yesterday with one episode today. Patient denies any chest pain, shortness of breath, or abdominal pain. Patient is currently receiving chemotherapy every 3 weeks to treat lung cancer. She has a hx of abdominal fullness, pain and nausea with little appetite for the past [address] scan A/P was done i November and revealed a possible pancreatic mas/abscess. A CT scan A/P done today reveals a large amount of fluid around the pancreas with bubbles of gas as per pancreatic abscess versus (less likely) metastatic tumor growing into the greater omentum with necrosis. A CT scan of the chest shows bilateral pulmonary emboli. The patient reports poor appetite, flatus and stools recently. Past Medical History Cardiac Medical History: Reports: Hypertension Denies: Coronary Artery Disease, Myocardial Infarction Pulmonary Medical History: Denies: Asthma, Bronchitis, Chronic Obstructive Pulmonary Disease (COPD), Pneumonia Neurological Medical History: Denies: Seizures Malignancy Medical History: Reports: Lung Cancer Musculoskeltal Medical History: Denies: Arthritis Hematology: Denies: Anemia Social History Lives with: Spouse/Significant other Smoking Status: Never Smoker Frequency of Alcohol Use: None Drugs: None Family History Family History: Hypertension Parental Family History Reviewed: No - unknown Children Family History Reviewed: Unknown - unknown Sibling(s) Family History Reviewed.: Unknown - unknown Medication/Allergy Home Medications: Amlodipine Besylate [Norvasc 2.5 mg Tablet] 2.5 mg PO DAILY tablet 12/27/16 Metoprolol Tartrate [Lopressor 25 mg Tablet] 25 mg PO DAILY tablet 12/27/16 Sertraline HCl [Zoloft 50 mg Tablet] 50 mg PO DAILY tablet 12/27/16 Allergies/Adverse Reactions: aspirin [Aspirin] Allergy (Verified 01/03/17 12:57) lorazepam [From Ativan] Allergy (Verified 01/03/17 12:57) Penicillins Allergy (Verified 01/03/17 12:57) Physical Exam Vital Signs: Temp Pulse Resp BP Pulse Ox 22 H 105/68 99 01/03/17 13:34 01/03/17 13:34 01/03/17 13:34 Intake & Output 01/02/17 01/03/17 01/04/17 06:59 06:59 06:59 Weight 86.5 kg General appearance: PRESENT: mild distress Eye exam: PRESENT: EOMI Neck exam: PRESENT: full ROM Respiratory exam: PRESENT: clear to auscultation melinda Cardiovascular exam: PRESENT: RRR GI/Abdominal exam: PRESENT: distended, firm, hypoactive bowel sounds Rectal exam: PRESENT: deferred Extremities exam: PRESENT: full ROM Results Laboratory Results: 01/03/17 12:58 01/03/17 11:45 01/03/17 01/03/17 01/03/17 11:45 11:45 12:58 WBC Cancelled RBC Cancelled Hgb Cancelled Hct Cancelled MCV Cancelled MCH Cancelled MCHC Cancelled RDW Cancelled Plt Count Cancelled Seg Neutrophils % Cancelled Lymphocytes % Cancelled Monocytes % Cancelled Eosinophils % Cancelled Basophils % Cancelled Absolute Neutrophils Cancelled Absolute Lymphocytes Cancelled Absolute Monocytes Cancelled Absolute Eosinophils Cancelled Absolute Basophils Cancelled VBG pH VBG pCO2 VBG HCO3 VBG Base Excess Sodium 134.0 L Potassium 3.5 L Chloride 95 L Carbon Dioxide 28 Anion Gap 11 BUN 14 Creatinine 0.85 Est GFR ( Amer) > 60 Est GFR (Non-Af Amer) > 60 Glucose 121 H Lactic Acid 1.7 Calcium 9.1 Total Bilirubin 1.3 AST 48 H ALT 39 Alkaline Phosphatase 91 Total Protein 6.4 Albumin 2.7 L 01/03/17 01/03/17 12:58 12:58 WBC 12.2 H RBC 3.69 L Hgb 10.9 L Hct 32.2 L MCV 87 MCH 29.6 MCHC 33.9 RDW 15.1 H Plt Count 243 Seg Neutrophils % 83.5 H Lymphocytes % 8.9 L Monocytes % 7.1 Eosinophils % 0.1 Basophils % 0.4 Absolute Neutrophils 10.2 H Absolute Lymphocytes 1.1 Absolute Monocytes 0.9 Absolute Eosinophils 0.0 Absolute Basophils 0.0 VBG pH 7.41 VBG pCO2 49.4 VBG HCO3 30.3 VBG Base Excess 4.6 Sodium Potassium Chloride Carbon Dioxide Anion Gap BUN Creatinine Est GFR ( Amer) Est GFR (Non-Af Amer) Glucose Lactic Acid Calcium Total Bilirubin AST ALT Alkaline Phosphatase Total Protein Albumin 01/03/17 01/03/17 11:45 11:45 Creatine Kinase < 20 L CK-MB (CK-2) 0.58 Troponin I 0.028 Impressions: Acute Abdomen Series 01/03/17 11:27 IMPRESSION: SMALL BOWEL DILATION. ILEUS VERSUS EARLY OBSTRUCTION. Head CT 01/03/17 11:27 IMPRESSION: MILD CHRONIC CHANGES OF ATROPHY AND MICROVASCULAR ISCHEMIA. NO ACUTE PROCESS. Abdomen/Pelvis CT 01/03/17 12:30 IMPRESSION: 1. LARGE FLUID COLLECTION SURROUNDING THE BODY AND TAIL OF THE PANCREAS DESCRIBED WITH SCATTERED GAS. ON THE PRIOR CT THERE WAS SOFT TISSUE VERSUS INFLAMMATION IN THIS AREA. THIS MAY INDICATE A LARGE PANCREATIC ABSCESS OR INFECTED PSEUDOCYST. LESS LIKELY WOULD BE OMENTAL TUMOR WITH NECROSIS. 2. SMALL CYST IN THE RIGHT LOBE OF THE LIVER AND NUMEROUS SMALL RENAL CYSTS UNCHANGED. 3. MILD SMALL BOWEL DILATION PROBABLY DUE TO ILEUS. OBSTRUCTION UNLIKELY. 4. NO OTHER SIGNIFICANT FINDINGS. Chest/Abdomen CTA 01/03/17 12:30 IMPRESSION: 1. FAIRLY EXTENSIVE BILATERAL PULMONARY EMBOLISM. 2. PREVIOUS SEEN MASS IN THE RIGHT UPPER LOBE HAS RESOLVED FOLLOWING TREATMENT. THERE IS ALSO IMPROVEMENT IN THE PARATRACHEAL ADENOPATHY. Assessment & Plan - Plan Summary Plan Summary: Assessment: Lung cancer, with radiographic regression large fluid collection of the upper abdomen around the pancreas I doubt that the fluid collection is secondary to a pancreatic infection as the patient is not very symptomatic The differencial diagnosis is tumor vs. infectious process. Plan: No General Surgery issues identified which might require our intervention Such a fluid collection is amenable of IR drainage with catheter placement We recommend that the fluid be examined for cytology and cultured for bacteria and fungi. At this point we will sign off. Please, call us back with questions.
[2017-01-03] MEDS ORDERED: HEPARIN SOD (PORCINE) 1,000 UNIT/ML 10 ML VIAL IV PRN (16:45)
[2017-01-03] MEDS ORDERED: HEPARIN SOD (PORCINE) 1,000 UNIT/ML 10 ML VIAL IV ONE (16:45)
--- NOTE | 2017-01-03 16:47 | PDOC H&P ---
History of Present Illness Admission Date/PCP: 01/03/17 16:00 [facility] Patient complains of: Syncope History of Present Illness: XIOMARA SETHI is a 66 year old female who states that she had nausea last night and did not feel well. Patient reports that she went to her oncologist office today and passed out. Patient does report having diarrhea yesterday with one episode today. Patient denies any chest pain, shortness of breath, or abdominal pain. Patient is currently receiving chemotherapy every 3 weeks to treat lung cancer. She has a hx of abdominal fullness, pain and nausea with little appetite for the past [address] scan A/P was done in November and revealed a possible pancreatic mass/abscess. A CT scan done today reveals a large amount of fluid around the pancreas with bubbles of gas as per pancreatic abscess versus (less likely) metastatic tumor growing into the greater omentum with necrosis. A CT scan of the chest shows bilateral pulmonary emboli. The patient reports poor appetite, flatus and stools recently. Past Medical History Cardiac Medical History: Reports: Hypertension Denies: Coronary Artery Disease, Myocardial Infarction Pulmonary Medical History: Denies: Asthma, Bronchitis, Chronic Obstructive Pulmonary Disease (COPD), Pneumonia Neurological Medical History: Denies: Seizures Malignancy Medical History: Reports: Lung Cancer Musculoskeltal Medical History: Denies: Arthritis Psychiatric Medical History: Reports: General Anxiety Disorder Hematology: Denies: Anemia Social History Information Source: Patient Lives with: Spouse/Significant other Smoking Status: Former Smoker Frequency of Alcohol Use: None Drugs: None - Advance Directive Resuscitation Status: Full Code Family History Family History: Hypertension Parental Family History Reviewed: Yes Children Family History Reviewed: Yes Sibling(s) Family History Reviewed.: Yes Medication/Allergy Home Medications: Amlodipine Besylate [Norvasc 2.5 mg Tablet] 2.5 mg PO DAILY tablet 12/27/16 Metoprolol Tartrate [Lopressor 25 mg Tablet] 25 mg PO DAILY tablet 12/27/16 Sertraline HCl [Zoloft 50 mg Tablet] 50 mg PO DAILY tablet 12/27/16 Allergies/Adverse Reactions: aspirin [Aspirin] Allergy (Verified 01/03/17 12:57) lorazepam [From Ativan] Allergy (Verified 01/03/17 12:57) Penicillins Allergy (Verified 01/03/17 12:57) Review of Systems Constitutional: ABSENT: chills, fever(s), headache(s), weight gain, weight loss Eyes: ABSENT: visual disturbances Ears: ABSENT: hearing changes Cardiovascular: ABSENT: chest pain, dyspnea on exertion, edema, orthropnea, palpitations Respiratory: PRESENT: dyspnea. ABSENT: cough, hemoptysis Gastrointestinal: PRESENT: abdominal pain. ABSENT: constipation, diarrhea, hematemesis, hematochezia, nausea, vomiting Genitourinary: ABSENT: dysuria, hematuria Musculoskeletal: ABSENT: joint swelling Integumentary: ABSENT: rash, wounds Neurological: PRESENT: syncope. ABSENT: abnormal gait, abnormal speech, confusion, dizziness, focal weakness Psychiatric: ABSENT: anxiety, depression, homidical ideation, suicidal ideation Endocrine: ABSENT: cold intolerance, heat intolerance, polydipsia, polyuria Hematologic/Lymphatic: ABSENT: easy bleeding, easy bruising Physical Exam Vital Signs: Temp Pulse Resp BP Pulse Ox 22 H 105/68 99 01/03/17 13:34 01/03/17 13:34 01/03/17 13:34 PHYSICAL EXAM: GENERAL: Appears well, no acute distress HEENT: Normocephalic, no scleral icterus, conjunctiva clear, EOEM intact, PERRLA , moist mucous membranes NECK: trachea midline, no thyromegally RESPIRATORY: Clear to auscultation, no wheezes/rhonchi CARDIAC: Regular rate and rhythm, no murmur/millie/rub ABDOMEN: Soft, no distension, upper abdominal tenderness, palpable mass in left upper quadrant, no guarding, normal bowel sounds, negative Whiteside sign RECTAL: deferred : deferred EXTREMITIES: No edema, cyanosis, clubbing MUSCULOSKELETAL: No joint swelling or deformity VASCULAR: normal peripheral pulses NEUROLOGIC: Alert, oriented to person/place/time, normal speech, cranial nerves grossly intact, 5/5 strength in all extremities, tactile sensation intact in all extremities SKIN: No rash, no wounds, no worrisome skin lesions PSYCHIATRIC: Normal mood, normal affect Results Laboratory Results: Labs- All tests 24 hr 01/03/17 01/03/17 01/03/17 11:45 11:45 11:45 WBC Cancelled RBC Cancelled Hgb Cancelled Hct Cancelled MCV Cancelled MCH Cancelled MCHC Cancelled RDW Cancelled Plt Count Cancelled Seg Neutrophils % Cancelled Lymphocytes % Cancelled Monocytes % Cancelled Eosinophils % Cancelled Basophils % Cancelled Absolute Neutrophils Cancelled Absolute Lymphocytes Cancelled Absolute Monocytes Cancelled Absolute Eosinophils Cancelled Absolute Basophils Cancelled Platelet Estimate Cancelled PT 16.4 H INR 1.24 VBG pH VBG pCO2 VBG HCO3 VBG Base Excess Sodium 134.0 L Potassium 3.5 L Chloride 95 L Carbon Dioxide 28 Anion Gap 11 BUN 14 Creatinine 0.85 Est GFR ( Amer) > 60 Est GFR (Non-Af Amer) > 60 Glucose 121 H Lactic Acid Calcium 9.1 Total Bilirubin 1.3 Direct Bilirubin 0.7 H Indirect Bilirubin Not Reportable Neonat Total Bilirubin Not Reportable AST 48 H ALT 39 Alkaline Phosphatase 91 Creatine Kinase < 20 L CK-MB (CK-2) Troponin I Total Protein 6.4 Albumin 2.7 L Slides for Path Review Cancelled 01/03/17 01/03/17 01/03/17 11:45 12:58 12:58 WBC RBC Hgb Hct MCV MCH MCHC RDW Plt Count Seg Neutrophils % Lymphocytes % Monocytes % Eosinophils % Basophils % Absolute Neutrophils Absolute Lymphocytes Absolute Monocytes Absolute Eosinophils Absolute Basophils Platelet Estimate PT INR VBG pH 7.41 VBG pCO2 49.4 VBG HCO3 30.3 VBG Base Excess 4.6 Sodium Potassium Chloride Carbon Dioxide Anion Gap BUN Creatinine Est GFR ( Amer) Est GFR (Non-Af Amer) Glucose Lactic Acid 1.7 Calcium Total Bilirubin Direct Bilirubin Indirect Bilirubin Neonat Total Bilirubin AST ALT Alkaline Phosphatase Creatine Kinase CK-MB (CK-2) 0.58 Troponin I 0.028 Total Protein Albumin Slides for Path Review 01/03/17 12:58 WBC 12.2 H RBC 3.69 L Hgb 10.9 L Hct 32.2 L MCV 87 MCH 29.6 MCHC 33.9 RDW 15.1 H Plt Count 243 Seg Neutrophils % 83.5 H Lymphocytes % 8.9 L Monocytes % 7.1 Eosinophils % 0.1 Basophils % 0.4 Absolute Neutrophils 10.2 H Absolute Lymphocytes 1.1 Absolute Monocytes 0.9 Absolute Eosinophils 0.0 Absolute Basophils 0.0 Platelet Estimate PT INR VBG pH VBG pCO2 VBG HCO3 VBG Base Excess Sodium Potassium Chloride Carbon Dioxide Anion Gap BUN Creatinine Est GFR ( Amer) Est GFR (Non-Af Amer) Glucose Lactic Acid Calcium Total Bilirubin Direct Bilirubin Indirect Bilirubin Neonat Total Bilirubin AST ALT Alkaline Phosphatase Creatine Kinase CK-MB (CK-2) Troponin I Total Protein Albumin Slides for Path Review Impressions: Acute Abdomen Series 01/03/17 11:27 IMPRESSION: SMALL BOWEL DILATION. ILEUS VERSUS EARLY OBSTRUCTION. Head CT 01/03/17 11:27 IMPRESSION: MILD CHRONIC CHANGES OF ATROPHY AND MICROVASCULAR ISCHEMIA. NO ACUTE PROCESS. Abdomen/Pelvis CT 01/03/17 12:30 IMPRESSION: 1. LARGE FLUID COLLECTION SURROUNDING THE BODY AND TAIL OF THE PANCREAS DESCRIBED WITH SCATTERED GAS. ON THE PRIOR CT THERE WAS SOFT TISSUE VERSUS INFLAMMATION IN THIS AREA. THIS MAY INDICATE A LARGE PANCREATIC ABSCESS OR INFECTED PSEUDOCYST. LESS LIKELY WOULD BE OMENTAL TUMOR WITH NECROSIS. 2. SMALL CYST IN THE RIGHT LOBE OF THE LIVER AND NUMEROUS SMALL RENAL CYSTS UNCHANGED. 3. MILD SMALL BOWEL DILATION PROBABLY DUE TO ILEUS. OBSTRUCTION UNLIKELY. 4. NO OTHER SIGNIFICANT FINDINGS. Chest/Abdomen CTA 01/03/17 12:30 IMPRESSION: 1. FAIRLY EXTENSIVE BILATERAL PULMONARY EMBOLISM. 2. PREVIOUS SEEN MASS IN THE RIGHT UPPER LOBE HAS RESOLVED FOLLOWING TREATMENT. THERE IS ALSO IMPROVEMENT IN THE PARATRACHEAL ADENOPATHY. Assessment & Plan - Diagnosis (1) Bilateral pulmonary embolism Is this a current diagnosis for this admission?: YesPlan: Case discussed with Dr. Darnell of hematology oncology. She is advised starting patient on anticoagulation. I think it would like to start patient on heparin drip so this can be abruptly stopped if she has she has advised consulting Dr. Gilmore for IVC filter placement. I will place consult for Dr. Darnell. I have had extensive discussion with patient regarding the risk of full anticoagulation in the setting of abdominal mass and lung malignancy. She understands risk and would like to treat pulmonary emboli. (2) Syncope and collapse Is this a current diagnosis for this admission?: YesPlan: Likely secondary to extensive pulmonary emboli. (3) Abdominal mass Qualifiers: Abdominal location: unspecified location Qualified Code(s): R19.00 - Intra-abdominal and pelvic swelling, mass and lump, unspecified site Is this a current diagnosis for this admission?: YesPlan: Patient was seen by Dr. Wood of surgery and he does not feel that surgical intervention is appropriate at this time. He has advised interventional radiology for biopsy of pancreatic mass. We will probably arrange this once patient has been stable on anticoagulation for couple of days from a pulmonary standpoint. Unfortunately anticoagulation will have to be held around the time of procedure. (4) Hypokalemia Is this a current diagnosis for this admission?: Yes (5) Hyponatremia Is this a current diagnosis for this admission?: Yes (6) Lung cancer Qualifiers: Laterality: unspecified laterality Lung location: unspecified part of lung Qualified Code(s): C34.90 - Malignant neoplasm of unspecified part of unspecified bronchus or lung Is this a current diagnosis for this admission?: YesPlan: Consult Dr. Darnell from oncology for recommendations. (7) Hypertension Is this a current diagnosis for this admission?: Yes - Time Time Spent: Greater than 70 Minutes
[2017-01-03 17:17] LABS: APPEARANCE,URINE CLOUDY; BILIRUBIN,URINE NEGATIVE (NEGATIVE); GLUCOSE, URINE NEGATIVE (NEGATIVE); KETONES,URINE TRACE mg/dL (NEGATIVE); LEUKOCYTE ESTERASE,URINE MODERATE (NEGATIVE); NITRITE,URINE NEGATIVE (NEGATIVE); PROTEIN,URINE NEGATIVE (NEGATIVE); URINE SPECIFIC GRAVITY 1.039
[2017-01-03] MEDS: HEPARIN SODIUM,PORCINE/D5W 250 ML IV PRN (18:21)
[2017-01-03] MEDS: POTASSI CL 20 MEQ/NS 1L 1,000 ML IV PRN (20:39)
[2017-01-03] MEDS ORDERED: ENOXAPARIN SODIUM INJ 100 MG/1 ML DISP.SYRIN SUBCUT SCH ×2 (22:00)
[2017-01-04 06:53] LABS: ABSOLUTE LYMPHOCYTES (AUTO) 1.2 10^3/uL (0.5-4.7); ABSOLUTE MONOCYTES (AUTO) 0.7 10^3/uL (0.1-1.4); BASOPHILS % (AUTO) 0.3 % (0-2); EOSINOPHILS % (AUTO) 0.1 % (0-6); HEMATOCRIT 29.2 % (36.0-47.0); HGB HCT DIFFERENCE 0.8; LYMPHOCYTES % (AUTO) 13.3 % (13-45); MEAN CORPUSCULAR HEMOGLOBIN 29.8 pg (27.0-33.4); MEAN CORPUSCULAR HGB CONC 34.4 g/dL (32.0-36.0); MEAN CORPUSCULAR VOLUME 87 fl (80-97); MONOCYTES % (AUTO) 7.7 % (3-13); RED BLOOD COUNT 3.37 10^6/uL (3.72-5.28); RED CELL DISTRIBUTION WIDTH 15.2 % (11.5-14.0); SEGMENTED NEUTROPHILS % (AUTO) 78.6 % (42-78); WHITE BLOOD COUNT 8.9 10^3/uL (4.0-10.5)
[2017-01-04] MEDS: POTASSI CL 20 MEQ/NS 1L 1,000 ML IV PRN (07:14)
[2017-01-04 07:24] LABS: ANION GAP 10 (5-19); BLOOD UREA NITROGEN 13 mg/dL (7-20); CALCIUM 8.7 mg/dL (8.4-10.2); CARBON DIOXIDE 26 mmol/L (22-30); CHLORIDE 99 mmol/L (98-107); CREATININE RESULT 0.73 mg/dL (0.52-1.25); GLUCOSE 91 mg/dL (75-110); MAGNESIUM 1.3 mg/dL (1.6-2.3); SODIUM 134.7 mmol/L (137-145)
[2017-01-04 07:29] LABS: POTASSIUM 2.7 mmol/L (3.6-5.0)
[2017-01-04] MEDS: MAGNESIUM SULFATE/D5W 100 ML IV SCH ×2 (08:30→09:56)
[2017-01-04] MEDS: POTASSI CL 20 MEQ/50 ML RIDER 20 MEQ/50 ML RTUPB IV SCH ×3 (09:28→12:30)
--- NOTE | 2017-01-04 10:15 | PDOC PROGRESS REPORT ---
Subjective Progress Note for:: 01/04/17 Subjective:: Patient has been stable overnight. Shortness of breath has improved. She states she has been having intermittent loose stools recently. No bleeding issues reported. Patient denies fever, chills, headache, new focal weakness, chest pain, abdominal pain, nausea, vomiting, diarrhea, constipation. Physical Exam Vital Signs: Temp Pulse Resp BP Pulse Ox 98.3 F 92 22 H 113/57 L 91 L 01/04/17 07:18 01/04/17 07:18 01/04/17 07:18 01/04/17 07:18 01/04/17 07:18 Intake & Output 01/03/17 01/04/17 01/05/17 06:59 06:59 06:59 Intake Total 1542 Balance 1542 Weight 84.7 kg GENERAL: No acute distress HEENT: Conjunctiva clear, nonicteric, moist mucous membranes, no JVD, midline trachea RESPIRATORY: Clear to auscultation bilaterally, no wheezes, no rhonchi CARDIAC: Regular rate and rhythm, no murmurs/gallops/rubs ABDOMEN: Soft, nondistended, nontender, positive bowel sounds, no rebound, no guarding EXTREMETIES: No edema, cyanosis, clubbing NEUROLOGIC: Alert, oriented to person/place/time, CN's grossly intact, no focal deficits SKIN: No rash, wounds PSYCH: Normal mood, normal affect Results Laboratory Results: 01/04/17 05:58 01/04/17 05:58 01/03/17 01/04/17 01/04/17 16:52 05:58 05:58 WBC 8.9 RBC 3.37 L Hgb 10.0 L Hct 29.2 L MCV 87 MCH 29.8 MCHC 34.4 RDW 15.2 H Plt Count 188 Seg Neutrophils % 78.6 H Lymphocytes % 13.3 Monocytes % 7.7 Eosinophils % 0.1 Basophils % 0.3 Absolute Neutrophils 7.0 Absolute Lymphocytes 1.2 Absolute Monocytes 0.7 Absolute Eosinophils 0.0 Absolute Basophils 0.0 Sodium 134.7 L Potassium 2.7 L* Chloride 99 Carbon Dioxide 26 Anion Gap 10 BUN 13 Creatinine 0.73 Est GFR ( Amer) > 60 Est GFR (Non-Af Amer) > 60 Glucose 91 Calcium 8.7 Magnesium 1.3 L Urine Color YELLOW Urine Appearance CLOUDY Urine pH 5.0 Ur Specific [place] 1.039 Urine Protein NEGATIVE Urine Glucose (UA) NEGATIVE Urine Ketones TRACE H Urine Blood SMALL H Urine Nitrite NEGATIVE Ur Leukocyte Esterase MODERATE H Urine WBC (Auto) 101 Urine RBC (Auto) 1 Impressions: Acute Abdomen Series 01/03/17 11:27 IMPRESSION: SMALL BOWEL DILATION. ILEUS VERSUS EARLY OBSTRUCTION. Head CT 01/03/17 11:27 IMPRESSION: MILD CHRONIC CHANGES OF ATROPHY AND MICROVASCULAR ISCHEMIA. NO ACUTE PROCESS. Abdomen/Pelvis CT 01/03/17 12:30 IMPRESSION: 1. LARGE FLUID COLLECTION SURROUNDING THE BODY AND TAIL OF THE PANCREAS DESCRIBED WITH SCATTERED GAS. ON THE PRIOR CT THERE WAS SOFT TISSUE VERSUS INFLAMMATION IN THIS AREA. THIS MAY INDICATE A LARGE PANCREATIC ABSCESS OR INFECTED PSEUDOCYST. LESS LIKELY WOULD BE OMENTAL TUMOR WITH NECROSIS. 2. SMALL CYST IN THE RIGHT LOBE OF THE LIVER AND NUMEROUS SMALL RENAL CYSTS UNCHANGED. 3. MILD SMALL BOWEL DILATION PROBABLY DUE TO ILEUS. OBSTRUCTION UNLIKELY. 4. NO OTHER SIGNIFICANT FINDINGS. Chest/Abdomen CTA 01/03/17 12:30 IMPRESSION: 1. FAIRLY EXTENSIVE BILATERAL PULMONARY EMBOLISM. 2. PREVIOUS SEEN MASS IN THE RIGHT UPPER LOBE HAS RESOLVED FOLLOWING TREATMENT. THERE IS ALSO IMPROVEMENT IN THE PARATRACHEAL ADENOPATHY. Assessment & Plan - Diagnosis (1) Bilateral pulmonary embolism Is this a current diagnosis for this admission?: YesPlan: Likely secondary to hypercoagulable state associated with lung malignancy. Case discussed with Dr. Darnell of hematology oncology. She is advised starting patient on anticoagulation. I think it would like to start patient on heparin drip so this can be abruptly stopped if she has bleeding complications. Dr. Darnell has advised consulting Dr. Gilmore for IVC filter placement. I will place consult for Dr. Darnell as well. (2) Syncope and collapse Is this a current diagnosis for this admission?: Yes (3) Abdominal mass Qualifiers: Abdominal location: unspecified location Qualified Code(s): R19.00 - Intra-abdominal and pelvic swelling, mass and lump, unspecified site Is this a current diagnosis for this admission?: YesPlan: Patient was seen by Dr. Wood of surgery and he does not feel that surgical intervention is appropriate at this time. He has advised interventional radiology for biopsy of pancreatic mass. We will probably arrange this once patient has been stable on anticoagulation for couple of days from a pulmonary standpoint. Unfortunately anticoagulation will have to be held around the time of procedure. I would like to coordinate biopsy with IVC filter placement so that anticoagulation only has to be held on one occasion. (4) Hypokalemia Is this a current diagnosis for this admission?: YesPlan: Replace. Repeat potassium and magnesium level in the morning (5) Hyponatremia Is this a current diagnosis for this admission?: Yes (6) Lung cancer Qualifiers: Laterality: unspecified laterality Lung location: unspecified part of lung Qualified Code(s): C34.90 - Malignant neoplasm of unspecified part of unspecified bronchus or lung Is this a current diagnosis for this admission?: YesPlan: Consult Dr. Darnell from oncology for recommendations. (7) Hypertension Is this a current diagnosis for this admission?: YesPlan: Continue to hold blood pressure medications secondary to low blood pressures. (8) Abnormal urinalysis Is this a current diagnosis for this admission?: YesPlan: Levaquin pending urine culture. (9) Hypomagnesemia Is this a current diagnosis for this admission?: YesPlan: Replace. (10) Diarrhea Is this a current diagnosis for this admission?: YesPlan: Possibly chemotherapy related. Check stool for C. difficile. - Time Time Spent with patient: 35 or more minutes
[2017-01-04] MEDS: NYSTATIN TOPICAL POWDER 15 GM TP SCH ×2 (11:00→16:50)
--- NOTE | 2017-01-04 11:52 | RADIOLOGY REPORT (SQ) ---
EXAM DESCRIPTION: PICC INSERTION; FLUORO/CV PLACEMENT; U/S GUIDE FOR VASCULAR ACCESS COMPLETED DATE/TIME: 01/04/2017 11:35 am REASON FOR STUDY: prolonged hospitalization, mult IV meds; IV ACCESS FOR ABX COMPARISON: None. FLUOROSCOPY TIME: 36 seconds 2 Images saved to PACS. TECHNIQUE: Fluoroscopic and ultrasound guided PICC placement. LIMITATIONS: None. PROCEDURE: After written consent and assessment were obtained, the patient was brought into the fluo roscopy room and place supine on the table. Ultrasound was used on the patient's right arm for PICC access. The right arm was prepped and draped in a sterile fashion along with the ultrasound probe. Th e entry site was anesthetized with 1% lidocaine. A 21 gauge 7 cm needle was advanced through the skin and into the basilic vein under live ultrasound guidance. An ultrasound image was saved to PACS con firming access site. A .018 guide wire was then inserted through the needle and into the venous syst em. The needle was the removed and an 11 blade scalpel was used to make a 1cm skin incision. A 5 fr peel-away sheath was advanced over the wire and into the venous system. A measurement was then made u sing the existing wire and live fluoroscopic guidance. The wire was then removed and the trimmed. The PICC was advanced through the peel-away sheath and into the venous system. The peel-away sheath was removed and the catheter was adhered to the patients arm with a stat lock. The catheter was then aspi rated and flushed and a sterile bandage was placed over the access site. A fluoroscopic spot image w as saved to PACS confirming the catheter tip within the SVC. IMPRESSION: SUCCESSFUL PLACEMENT OF A 5 FR DUAL LUMEN 36 CM PICC IN THE right basilic VEIN. COMMENT: Patient medication list reviewed: Yes- Quality ID# [id number]:Eligible professional attests to doc umenting in the medical record they obtained, updated, or reviewed the patient's current medications. . Quality ID 145: Final reports for procedures using fluoroscopy that document radiation exposure misti ramses, or exposure time and number of fluorographic images (if radiation exposure indices are not avail able) Quality ID #76: The patient was prepped and draped using maximum sterile barrier technique including cap, mask, sterile gown, sterile gloves, a large sterile sheet, hand hygiene, and 2% Chlorhexidine fo r cutaneous antisepsis. When ultrasound is used, sterile ultrasound techniques are followed requiring sterile gel and sterile probes. TECHNICAL DOCUMENTATION: JOB ID: [id number] [employer]- All Rights Reserved
[2017-01-04] MEDS: LEVOFLOXACIN 750 MG/D5W RTU 150 ML IV SCH (12:11)
[2017-01-04] MEDS: LOPERAMIDE HCL 2 MG CAPSULE PO PRN ×2 (12:12→17:58)
[2017-01-04] MEDS ORDERED: ONDANSETRON HCL INJ/PF 4 MG/2 ML SDV IV PRN (14:05)
[2017-01-04] MEDS ORDERED: NORMAL SALINE 10 ML SDV (AFTER EACH USE) IV PRN (14:17)
--- NOTE | 2017-01-04 15:43 | CONSULTATION REPORT E ---
Consultation Report NAME: XIOMARA SETHI : 1950 AGE: 66Y DATE: 01/04/2017 324 A TO: CHELY DICKSON M.D. FROM: CARSON CASTELAN Requesting Physician REASON FOR CONSULTATION Lung cancer. HISTORY OF PRESENT ILLNESS: The patient is a 66-year-old woman who was diagnosed with lung cancer, non-small cell, squamous cell. She was started on chemotherapy with Taxol and Carboplatin. She is status post 2 cycles. She came into the office this week for evaluation and unfortunately in the parking lot she had a syncopal episode. She was admitted into the hospital and found to have bilateral pulmonary embolism. In addition, a CAT scan of the abdomen that was done had shown possible pancreatic soft tissue area suggestive of abscess versus pseudocyst versus tumor necrosis. She is presently in the hospital on heparin drip. PAST MEDICAL HISTORY: As stated above, includes a history of lung cancer for which she is on chemotherapy. Other medical problems include heartburn, constipation, anxiety, depression. SOCIAL HISTORY: She lives at home with her boyfriend. PHYSICAL EXAMINATION: GENERAL: She is an elderly woman, frail, alert and answered all questions appropriately. VITAL SIGNS: Blood pressure 105/68, respiratory rate is about 20. She is on oxygen by nasal cannula. TEST RESULTS: CAT scan and CT of head January 03, 2017, fairly extensive bilateral pulmonary embolism, previously seen mass in the right upper lobe has resolved following treatment, also improvement in the prior tracheal adenopathy. CAT scan of the abdomen and pelvis, large fluid collection surrounding the body and the tail of the pancreas, small cyst on the right lobe of the liver, numerous small renal cysts. IMPRESSION/PLAN: The patient is a 66-year-old with non-small cell lung cancer squamous cell on chemotherapy with Taxol and carboplatin. She is status post 2 cycles. CAT scan showed improvement. Unfortunately, she now has bilateral pulmonary embolism. She had been started on heparin and she states that she is breathing a little bit easier, but she still continues to complain of tiredness and generalized feeling of being unwell. I agree with her management so far. It would be prudent to place an IVC filter due to the fact that she is high risk of bleeding and long-term anticoagulation might not be possible. I will also recommend obtaining a CT-guided biopsy of the pancreatic lesion to ascertain that this is not a new primary. With regards to her lung cancer, she appears to be improving on the chemotherapy she is on right now. This will be held until she is discharged from the hospital. I will be glad to follow as an outpatient following discharge from the hospital. I thank you for taking care of her during this hospitalization. Thank you for allowing me to be part of her care. DICTATING PHYSICIAN: CHELY DICKSON M.D. [id number] PHY#: [id number] ID: [id number] JOB#: [id number] ACCT: [id number] cc:CHELY DICKSON M.D. >
[2017-01-04] MEDS: NORMAL SALINE 10 ML SDV (SCHEDULED) IV SCH (21:49)
[2017-01-05] MEDS: HEPARIN SODIUM,PORCINE/D5W 250 ML IV PRN ×2 (02:26→20:25)
[2017-01-05 05:22] LABS: HEMOGLOBIN 9.5 g/dL (12.0-15.5); HGB HCT DIFFERENCE 0.5; MEAN CORPUSCULAR HEMOGLOBIN 29.6 pg (27.0-33.4); MEAN CORPUSCULAR HGB CONC 34.1 g/dL (32.0-36.0); MEAN CORPUSCULAR VOLUME 87 fl (80-97); RED BLOOD COUNT 3.22 10^6/uL (3.72-5.28); RED CELL DISTRIBUTION WIDTH 15.5 % (11.5-14.0); WHITE BLOOD COUNT 6.5 10^3/uL (4.0-10.5)
[2017-01-05 05:37] LABS: ANION GAP 7 (5-19); BLOOD UREA NITROGEN 9 mg/dL (7-20); CALCIUM 8.7 mg/dL (8.4-10.2); CARBON DIOXIDE 30 mmol/L (22-30); CHLORIDE 99 mmol/L (98-107); CREATININE RESULT 0.61 mg/dL (0.52-1.25); GLUCOSE 83 mg/dL (75-110); MAGNESIUM 1.6 mg/dL (1.6-2.3)
[2017-01-05 05:57] LABS: POTASSIUM 2.9 mmol/L (3.6-5.0)
[2017-01-05] MEDS: POTASSIUM CHLORIDE 20 MEQ/15 ML UDCUP PO SCH ×4 (06:20→12:13)
[2017-01-05] MEDS: LEVOFLOXACIN 750 MG/D5W RTU 150 ML IV SCH (09:56)
[2017-01-05] MEDS: MAGNESIUM OXIDE 400 MG TABLET PO SCH ×2 (09:56→18:22)
[2017-01-05] MEDS: NORMAL SALINE 10 ML SDV (SCHEDULED) IV SCH ×2 (10:00→20:28)
[2017-01-05] MEDS: NYSTATIN TOPICAL POWDER 15 GM TP SCH ×2 (10:00→18:20)
--- NOTE | 2017-01-05 12:06 | PDOC PROGRESS REPORT ---
Subjective Progress Note for:: 01/05/17 Subjective:: Patient states her shortness of breath is much improved. Patient denies fever, chills, headache, new focal weakness, chest pain, abdominal pain, nausea, vomiting, diarrhea, constipation. Physical Exam Vital Signs: Temp Pulse Resp BP Pulse Ox 98.4 F 89 22 H 114/69 96 01/05/17 08:00 01/05/17 08:00 01/05/17 08:00 01/05/17 08:00 01/05/17 08:00 Intake & Output 01/04/17 01/05/17 01/06/17 06:59 06:59 06:59 Intake Total 1542 1726 Balance 1542 1726 Weight 84.7 kg 84.9 kg GENERAL: No acute distress HEENT: Conjunctiva clear, nonicteric, moist mucous membranes, no JVD, midline trachea RESPIRATORY: Clear to auscultation bilaterally, no wheezes, no rhonchi CARDIAC: Regular rate and rhythm, no murmurs/gallops/rubs ABDOMEN: Soft, nondistended, nontender, positive bowel sounds, no rebound, no guarding EXTREMETIES: No edema, cyanosis, clubbing NEUROLOGIC: Alert, oriented to person/place/time, CN's grossly intact, no focal deficits SKIN: No rash, wounds PSYCH: Normal mood, normal affect Results Laboratory Results: 01/05/17 05:00 01/05/17 05:00 01/05/17 01/05/17 05:00 05:00 WBC 6.5 RBC 3.22 L Hgb 9.5 L Hct 28.0 L MCV 87 MCH 29.6 MCHC 34.1 RDW 15.5 H Plt Count 155 Sodium 136.0 L Potassium 2.9 L* Chloride 99 Carbon Dioxide 30 Anion Gap 7 BUN 9 Creatinine 0.61 Est GFR ( Amer) > 60 Est GFR (Non-Af Amer) > 60 Glucose 83 Calcium 8.7 Magnesium 1.6 Impressions: Acute Abdomen Series 01/03/17 11:27 IMPRESSION: SMALL BOWEL DILATION. ILEUS VERSUS EARLY OBSTRUCTION. Head CT 01/03/17 11:27 IMPRESSION: MILD CHRONIC CHANGES OF ATROPHY AND MICROVASCULAR ISCHEMIA. NO ACUTE PROCESS. Abdomen/Pelvis CT 01/03/17 12:30 IMPRESSION: 1. LARGE FLUID COLLECTION SURROUNDING THE BODY AND TAIL OF THE PANCREAS DESCRIBED WITH SCATTERED GAS. ON THE PRIOR CT THERE WAS SOFT TISSUE VERSUS INFLAMMATION IN THIS AREA. THIS MAY INDICATE A LARGE PANCREATIC ABSCESS OR INFECTED PSEUDOCYST. LESS LIKELY WOULD BE OMENTAL TUMOR WITH NECROSIS. 2. SMALL CYST IN THE RIGHT LOBE OF THE LIVER AND NUMEROUS SMALL RENAL CYSTS UNCHANGED. 3. MILD SMALL BOWEL DILATION PROBABLY DUE TO ILEUS. OBSTRUCTION UNLIKELY. 4. NO OTHER SIGNIFICANT FINDINGS. Chest/Abdomen CTA 01/03/17 12:30 IMPRESSION: 1. FAIRLY EXTENSIVE BILATERAL PULMONARY EMBOLISM. 2. PREVIOUS SEEN MASS IN THE RIGHT UPPER LOBE HAS RESOLVED FOLLOWING TREATMENT. THERE IS ALSO IMPROVEMENT IN THE PARATRACHEAL ADENOPATHY. Guidance Fluoroscopy 01/04/17 00:00 IMPRESSION: SUCCESSFUL PLACEMENT OF A 5 FR DUAL LUMEN 36 CM PICC IN THE right basilic VEIN. Interventional Vascular Procedure 01/04/17 00:00 IMPRESSION: SUCCESSFUL PLACEMENT OF A 5 FR DUAL LUMEN 36 CM PICC IN THE right basilic VEIN. PICC Line Insertion 01/04/17 00:00 IMPRESSION: SUCCESSFUL PLACEMENT OF A 5 FR DUAL LUMEN 36 CM PICC IN THE right basilic VEIN. Assessment & Plan - Diagnosis (1) Bilateral pulmonary embolism Is this a current diagnosis for this admission?: YesPlan: Likely secondary to hypercoagulable state associated with lung malignancy. Continue heparin drip. Dr. Darnell has advised consulting Dr. Gilmore for IVC filter placement. Consult from Dr. Darnell appreciated. (2) Syncope and collapse Is this a current diagnosis for this admission?: YesPlan: Likely secondary to extensive pulmonary emboli. (3) Abdominal mass Qualifiers: Abdominal location: unspecified location Qualified Code(s): R19.00 - Intra-abdominal and pelvic swelling, mass and lump, unspecified site Is this a current diagnosis for this admission?: YesPlan: Patient was seen by Dr. Wood of surgery and he does not feel that surgical intervention is appropriate at this time. He has advised interventional radiology for biopsy of pancreatic mass. We will probably arrange this once patient has been stable on anticoagulation for couple of days from a pulmonary standpoint. Unfortunately anticoagulation will have to be held around the time of procedure. I would like to coordinate biopsy with IVC filter placement so that anticoagulation only has to be held on one occasion. (4) Hypokalemia Is this a current diagnosis for this admission?: YesPlan: Replace. Repeat potassium and magnesium level in the morning (5) Hyponatremia Is this a current diagnosis for this admission?: Yes (6) Lung cancer Qualifiers: Laterality: unspecified laterality Lung location: unspecified part of lung Qualified Code(s): C34.90 - Malignant neoplasm of unspecified part of unspecified bronchus or lung Is this a current diagnosis for this admission?: YesPlan: Follow-up with Dr. Darnell as an outpatient. (7) Hypertension Is this a current diagnosis for this admission?: YesPlan: Continue to hold blood pressure medications secondary to low blood pressures. (8) Hypomagnesemia Is this a current diagnosis for this admission?: YesPlan: Replace. (9) Diarrhea Is this a current diagnosis for this admission?: Yes (10) Anemia Is this a current diagnosis for this admission?: YesPlan: Monitor H&H closely on heparin drip. (11) UTI (urinary tract infection) Is this a current diagnosis for this admission?: YesPlan: Continue Levaquin - Time Time Spent with patient: 35 or more minutes
[2017-01-05] MEDS: ACETAMINOPHEN 325 MG TABLET PO PRN (18:22)
[2017-01-06 06:35] LABS: ABSOLUTE LYMPHOCYTES (AUTO) 0.8 10^3/uL (0.5-4.7); ABSOLUTE MONOCYTES (AUTO) 0.5 10^3/uL (0.1-1.4); ABSOLUTE NEUT (AUTO) 4.4 10^3/uL (1.7-8.2); BASOPHILS % (AUTO) 0.3 % (0-2); EOSINOPHILS % (AUTO) 0.1 % (0-6); HEMATOCRIT 28.3 % (36.0-47.0); HEMOGLOBIN 9.7 g/dL (12.0-15.5); HGB HCT DIFFERENCE 0.8; LYMPHOCYTES % (AUTO) 14.4 % (13-45); MEAN CORPUSCULAR HGB CONC 34.1 g/dL (32.0-36.0); MEAN CORPUSCULAR VOLUME 88 fl (80-97); MONOCYTES % (AUTO) 8.3 % (3-13); RED BLOOD COUNT 3.22 10^6/uL (3.72-5.28); RED CELL DISTRIBUTION WIDTH 15.4 % (11.5-14.0); SEGMENTED NEUTROPHILS % (AUTO) 76.9 % (42-78); WHITE BLOOD COUNT 5.7 10^3/uL (4.0-10.5)
[2017-01-06 07:03] LABS: ANION GAP 7 (5-19); BLOOD UREA NITROGEN 9 mg/dL (7-20); CALCIUM 9.1 mg/dL (8.4-10.2); CARBON DIOXIDE 29 mmol/L (22-30); CHLORIDE 100 mmol/L (98-107); GLUCOSE 93 mg/dL (75-110); MAGNESIUM 1.5 mg/dL (1.6-2.3); POTASSIUM 3.5 mmol/L (3.6-5.0); SODIUM 136.1 mmol/L (137-145)
[2017-01-06] MEDS ORDERED: POTASSIUM CHLORIDE 10 MEQ TABLET.SA PO ONE (07:30)
[2017-01-06] MEDS: ACETAMINOPHEN 325 MG TABLET PO PRN (08:58)
--- NOTE | 2017-01-06 09:36 | PDOC PROGRESS REPORT ---
Subjective Progress Note for:: 01/06/17 Subjective:: Shortness of breath is much improved. Patient has continued diarrhea. She denies fever, chills, headache, chest pain, abdominal pain, nausea, vomiting. He denies any bleeding. Physical Exam Vital Signs: Temp Pulse Resp BP Pulse Ox 97.8 F 84 18 111/76 97 01/06/17 07:08 01/06/17 07:08 01/06/17 07:08 01/06/17 07:08 01/06/17 07:08 Intake & Output 01/05/17 01/06/17 01/07/17 06:59 06:59 06:59 Intake Total 1726 1209 Balance 1726 1209 Weight 84.9 kg GENERAL: No acute distress HEENT: Conjunctiva clear, nonicteric, moist mucous membranes, no JVD, midline trachea RESPIRATORY: Clear to auscultation bilaterally, no wheezes, no rhonchi CARDIAC: Regular rate and rhythm, no murmurs/gallops/rubs ABDOMEN: Soft, nondistended, nontender, positive bowel sounds, no rebound, no guarding EXTREMETIES: No edema, cyanosis, clubbing NEUROLOGIC: Alert, oriented to person/place/time, CN's grossly intact, no focal deficits SKIN: No rash, wounds PSYCH: Normal mood, normal affect Results Laboratory Results: 01/06/17 06:20 01/06/17 06:20 01/06/17 01/06/17 06:20 06:20 WBC 5.7 RBC 3.22 L Hgb 9.7 L Hct 28.3 L MCV 88 MCH 30.0 MCHC 34.1 RDW 15.4 H Plt Count 158 Seg Neutrophils % 76.9 Lymphocytes % 14.4 Monocytes % 8.3 Eosinophils % 0.1 Basophils % 0.3 Absolute Neutrophils 4.4 Absolute Lymphocytes 0.8 Absolute Monocytes 0.5 Absolute Eosinophils 0.0 Absolute Basophils 0.0 Sodium 136.1 L Potassium 3.5 L Chloride 100 Carbon Dioxide 29 Anion Gap 7 BUN 9 Creatinine 0.60 Est GFR ( Amer) > 60 Est GFR (Non-Af Amer) > 60 Glucose 93 Calcium 9.1 Magnesium 1.5 L 01/03/17 16:52 Catheterized Urine Urine Culture - Final Viridans Streptococcus Mixed Urogenital Gladys Impressions: Acute Abdomen Series 01/03/17 11:27 IMPRESSION: SMALL BOWEL DILATION. ILEUS VERSUS EARLY OBSTRUCTION. Head CT 01/03/17 11:27 IMPRESSION: MILD CHRONIC CHANGES OF ATROPHY AND MICROVASCULAR ISCHEMIA. NO ACUTE PROCESS. Abdomen/Pelvis CT 01/03/17 12:30 IMPRESSION: 1. LARGE FLUID COLLECTION SURROUNDING THE BODY AND TAIL OF THE PANCREAS DESCRIBED WITH SCATTERED GAS. ON THE PRIOR CT THERE WAS SOFT TISSUE VERSUS INFLAMMATION IN THIS AREA. THIS MAY INDICATE A LARGE PANCREATIC ABSCESS OR INFECTED PSEUDOCYST. LESS LIKELY WOULD BE OMENTAL TUMOR WITH NECROSIS. 2. SMALL CYST IN THE RIGHT LOBE OF THE LIVER AND NUMEROUS SMALL RENAL CYSTS UNCHANGED. 3. MILD SMALL BOWEL DILATION PROBABLY DUE TO ILEUS. OBSTRUCTION UNLIKELY. 4. NO OTHER SIGNIFICANT FINDINGS. Chest/Abdomen CTA 01/03/17 12:30 IMPRESSION: 1. FAIRLY EXTENSIVE BILATERAL PULMONARY EMBOLISM. 2. PREVIOUS SEEN MASS IN THE RIGHT UPPER LOBE HAS RESOLVED FOLLOWING TREATMENT. THERE IS ALSO IMPROVEMENT IN THE PARATRACHEAL ADENOPATHY. Guidance Fluoroscopy 01/04/17 00:00 IMPRESSION: SUCCESSFUL PLACEMENT OF A 5 FR DUAL LUMEN 36 CM PICC IN THE right basilic VEIN. Interventional Vascular Procedure 01/04/17 00:00 IMPRESSION: SUCCESSFUL PLACEMENT OF A 5 FR DUAL LUMEN 36 CM PICC IN THE right basilic VEIN. PICC Line Insertion 01/04/17 00:00 IMPRESSION: SUCCESSFUL PLACEMENT OF A 5 FR DUAL LUMEN 36 CM PICC IN THE right basilic VEIN. Assessment & Plan - Diagnosis (1) Bilateral pulmonary embolism Is this a current diagnosis for this admission?: YesPlan: Likely secondary to hypercoagulable state associated with lung malignancy. Continue heparin drip. Dr. Darnell has advised consulting Dr. Gilmore for IVC filter placement. (2) Syncope and collapse Is this a current diagnosis for this admission?: Yes (3) Abdominal mass Qualifiers: Abdominal location: unspecified location Qualified Code(s): R19.00 - Intra-abdominal and pelvic swelling, mass and lump, unspecified site Is this a current diagnosis for this admission?: YesPlan: Patient was seen by Dr. Wood of surgery and he does not feel that surgical intervention is appropriate at this time. He has advised interventional radiology for biopsy of pancreatic mass. We will probably arrange this once patient has been stable on anticoagulation for couple of days from a pulmonary standpoint. Anticoagulation will have to be held around the time of procedure. (4) Hypokalemia Is this a current diagnosis for this admission?: YesPlan: Replace. Repeat potassium and magnesium level in the morning (5) Hyponatremia Is this a current diagnosis for this admission?: Yes (6) Lung cancer Qualifiers: Laterality: unspecified laterality Lung location: unspecified part of lung Qualified Code(s): C34.90 - Malignant neoplasm of unspecified part of unspecified bronchus or lung Is this a current diagnosis for this admission?: YesPlan: Follow-up with Dr. Darnell as an outpatient. (7) Hypertension Is this a current diagnosis for this admission?: Yes (8) Hypomagnesemia Is this a current diagnosis for this admission?: Yes (9) Diarrhea Is this a current diagnosis for this admission?: YesPlan: Possibly chemotherapy related. C. difficile negative. Start probiotic. As needed Imodium. (10) Anemia Is this a current diagnosis for this admission?: YesPlan: Monitor H&H closely on heparin drip. (11) UTI (urinary tract infection) Is this a current diagnosis for this admission?: YesPlan: Continue Levaquin. - Time Time Spent with patient: 35 or more minutes
[2017-01-06] MEDS: LACTOBACILLUS ACIDOPHILUS 250 MG TAB PO SCH ×2 (10:44→18:11)
[2017-01-06] MEDS: MAGNESIUM OXIDE 400 MG TABLET PO SCH ×4 (10:45→18:13)
[2017-01-06] MEDS: LEVOFLOXACIN 750 MG TABLET PO SCH (10:45)
[2017-01-06] MEDS: NORMAL SALINE 10 ML SDV (SCHEDULED) IV SCH ×2 (10:46→21:47)
[2017-01-06] MEDS: NYSTATIN TOPICAL POWDER 15 GM TP SCH ×2 (10:47→18:13)
[2017-01-06] MEDS: LOPERAMIDE HCL 2 MG CAPSULE PO PRN (10:48)
[2017-01-06] MEDS: HEPARIN SODIUM,PORCINE/D5W 250 ML IV PRN (12:38)
[2017-01-07 06:15] LABS: ABSOLUTE LYMPHOCYTES (AUTO) 1.1 10^3/uL (0.5-4.7); ABSOLUTE MONOCYTES (AUTO) 0.5 10^3/uL (0.1-1.4); ABSOLUTE NEUT (AUTO) 3.3 10^3/uL (1.7-8.2); BASOPHILS % (AUTO) 0.3 % (0-2); EOSINOPHILS % (AUTO) 0.2 % (0-6); HEMATOCRIT 28.7 % (36.0-47.0); HEMOGLOBIN 9.7 g/dL (12.0-15.5); HGB HCT DIFFERENCE 0.4; LYMPHOCYTES % (AUTO) 21.9 % (13-45); MEAN CORPUSCULAR HEMOGLOBIN 30.1 pg (27.0-33.4); MEAN CORPUSCULAR VOLUME 89 fl (80-97); MONOCYTES % (AUTO) 10.1 % (3-13); RED BLOOD COUNT 3.24 10^6/uL (3.72-5.28); RED CELL DISTRIBUTION WIDTH 15.4 % (11.5-14.0); SEGMENTED NEUTROPHILS % (AUTO) 67.5 % (42-78); WHITE BLOOD COUNT 4.9 10^3/uL (4.0-10.5)
[2017-01-07 06:40] LABS: ANION GAP 6 (5-19); BLOOD UREA NITROGEN 11 mg/dL (7-20); CALCIUM 9.2 mg/dL (8.4-10.2); CARBON DIOXIDE 29 mmol/L (22-30); CHLORIDE 102 mmol/L (98-107); GLUCOSE 89 mg/dL (75-110); MAGNESIUM 1.5 mg/dL (1.6-2.3); POTASSIUM 3.7 mmol/L (3.6-5.0); SODIUM 137.2 mmol/L (137-145)
[2017-01-07] MEDS ORDERED: MAGNESIUM SULFATE/D5W 1 GM/100 ML RTUPB IV ONE (08:45)
[2017-01-07] MEDS ORDERED: LORAZEPAM 0.5 MG TABLET PO PRN (10:55)
[2017-01-07] MEDS ORDERED: HYDROCODONE/ACETAMINOPHEN 5-325 MG TABLET PO PRN ×2 (10:55→11:23)
[2017-01-07] MEDS: MAGNESIUM OXIDE 400 MG TABLET PO SCH ×2 (10:57→18:43)
[2017-01-07] MEDS: LACTOBACILLUS ACIDOPHILUS 250 MG TAB PO SCH ×2 (10:58→18:43)
[2017-01-07] MEDS: LEVOFLOXACIN 750 MG TABLET PO SCH (10:58)
[2017-01-07] MEDS: NORMAL SALINE 10 ML SDV (SCHEDULED) IV SCH ×2 (10:59→22:15)
--- NOTE | 2017-01-07 11:00 | PDOC PROGRESS REPORT ---
Subjective Progress Note for:: 01/07/17 Subjective:: Shortness of breath is much improved. Patient has continued diarrhea and also complaint of somatic pain worse with movement. She denies fever, chills, headache, chest pain, abdominal pain, nausea, vomiting. He denies any bleeding. Physical Exam Vital Signs: Temp Pulse Resp BP Pulse Ox 97.5 F 80 20 126/74 H 98 01/07/17 07:31 01/07/17 07:31 01/07/17 07:31 01/07/17 07:31 01/07/17 07:31 Intake & Output 01/06/17 01/07/17 01/08/17 06:59 06:59 06:59 Intake Total 1209 1175 Output Total 0 Balance 1209 1175 GENERAL: No acute distress HEENT: Conjunctiva clear, nonicteric, moist mucous membranes, no JVD, midline trachea RESPIRATORY: Clear to auscultation bilaterally, no wheezes, no rhonchi CARDIAC: Regular rate and rhythm, no murmurs/gallops/rubs ABDOMEN: Soft, obese, palpable mass in left upper quadrant, positive bowel sounds, no rebound, no guarding EXTREMETIES: No edema, cyanosis, clubbing NEUROLOGIC: Alert, oriented to person/place/time, CN's grossly intact, no focal deficits SKIN: No rash, wounds PSYCH: Normal mood, normal affect Results Laboratory Results: 01/07/17 06:00 01/07/17 06:00 01/07/17 01/07/17 06:00 06:00 WBC 4.9 RBC 3.24 L Hgb 9.7 L Hct 28.7 L MCV 89 MCH 30.1 MCHC 34.0 RDW 15.4 H Plt Count 168 Seg Neutrophils % 67.5 Lymphocytes % 21.9 Monocytes % 10.1 Eosinophils % 0.2 Basophils % 0.3 Absolute Neutrophils 3.3 Absolute Lymphocytes 1.1 Absolute Monocytes 0.5 Absolute Eosinophils 0.0 Absolute Basophils 0.0 Sodium 137.2 Potassium 3.7 Chloride 102 Carbon Dioxide 29 Anion Gap 6 BUN 11 Creatinine 0.60 Est GFR ( Amer) > 60 Est GFR (Non-Af Amer) > 60 Glucose 89 Calcium 9.2 Magnesium 1.5 L Impressions: Acute Abdomen Series 01/03/17 11:27 IMPRESSION: SMALL BOWEL DILATION. ILEUS VERSUS EARLY OBSTRUCTION. Head CT 01/03/17 11:27 IMPRESSION: MILD CHRONIC CHANGES OF ATROPHY AND MICROVASCULAR ISCHEMIA. NO ACUTE PROCESS. Abdomen/Pelvis CT 01/03/17 12:30 IMPRESSION: 1. LARGE FLUID COLLECTION SURROUNDING THE BODY AND TAIL OF THE PANCREAS DESCRIBED WITH SCATTERED GAS. ON THE PRIOR CT THERE WAS SOFT TISSUE VERSUS INFLAMMATION IN THIS AREA. THIS MAY INDICATE A LARGE PANCREATIC ABSCESS OR INFECTED PSEUDOCYST. LESS LIKELY WOULD BE OMENTAL TUMOR WITH NECROSIS. 2. SMALL CYST IN THE RIGHT LOBE OF THE LIVER AND NUMEROUS SMALL RENAL CYSTS UNCHANGED. 3. MILD SMALL BOWEL DILATION PROBABLY DUE TO ILEUS. OBSTRUCTION UNLIKELY. 4. NO OTHER SIGNIFICANT FINDINGS. Chest/Abdomen CTA 01/03/17 12:30 IMPRESSION: 1. FAIRLY EXTENSIVE BILATERAL PULMONARY EMBOLISM. 2. PREVIOUS SEEN MASS IN THE RIGHT UPPER LOBE HAS RESOLVED FOLLOWING TREATMENT. THERE IS ALSO IMPROVEMENT IN THE PARATRACHEAL ADENOPATHY. Guidance Fluoroscopy 01/04/17 00:00 IMPRESSION: SUCCESSFUL PLACEMENT OF A 5 FR DUAL LUMEN 36 CM PICC IN THE right basilic VEIN. Interventional Vascular Procedure 01/04/17 00:00 IMPRESSION: SUCCESSFUL PLACEMENT OF A 5 FR DUAL LUMEN 36 CM PICC IN THE right basilic VEIN. PICC Line Insertion 01/04/17 00:00 IMPRESSION: SUCCESSFUL PLACEMENT OF A 5 FR DUAL LUMEN 36 CM PICC IN THE right basilic VEIN. Assessment & Plan - Diagnosis (1) Bilateral pulmonary embolism Is this a current diagnosis for this admission?: YesPlan: Likely secondary to hypercoagulable state associated with lung malignancy. Continue heparin drip. Dr. Darnell has advised consulting Dr. Gilmore for IVC filter placement. (2) Abdominal mass Qualifiers: Abdominal location: unspecified location Qualified Code(s): R19.00 - Intra-abdominal and pelvic swelling, mass and lump, unspecified site Is this a current diagnosis for this admission?: YesPlan: Patient was seen by Dr. Wood of surgery and he does not feel that surgical intervention is appropriate at this time. He has advised interventional radiology for biopsy of pancreatic mass. We will probably arrange this once patient has been stable on anticoagulation for couple of days from a pulmonary standpoint. Anticoagulation will have to be held around the time of procedure. (3) Lung cancer Qualifiers: Laterality: unspecified laterality Lung location: unspecified part of lung Qualified Code(s): C34.90 - Malignant neoplasm of unspecified part of unspecified bronchus or lung Is this a current diagnosis for this admission?: YesPlan: Follow-up with Dr. Darnell as an outpatient. (4) Syncope and collapse Is this a current diagnosis for this admission?: Yes (5) Hypokalemia Is this a current diagnosis for this admission?: Yes (6) Hyponatremia Is this a current diagnosis for this admission?: Yes (7) Hypertension Is this a current diagnosis for this admission?: Yes (8) Hypomagnesemia Is this a current diagnosis for this admission?: YesPlan: Replace. (9) Diarrhea Is this a current diagnosis for this admission?: YesPlan: Possibly chemotherapy related. C. difficile negative. Continue probiotic. As needed Imodium. (10) Anemia Is this a current diagnosis for this admission?: YesPlan: Monitor H&H closely on heparin drip. (11) UTI (urinary tract infection) Is this a current diagnosis for this admission?: YesPlan: Continue Levaquin. - Time Time Spent with patient: 35 or more minutes
[2017-01-07] MEDS: HEPARIN SODIUM,PORCINE/D5W 250 ML IV PRN (11:01)
[2017-01-07] MEDS: NYSTATIN TOPICAL POWDER 15 GM TP SCH ×2 (11:06→18:44)
[2017-01-07] MEDS: LOPERAMIDE HCL 2 MG CAPSULE PO PRN (11:23)
[2017-01-08] MEDS: HEPARIN SODIUM,PORCINE/D5W 250 ML IV PRN (02:57)
[2017-01-08 06:39] LABS: HEMATOCRIT 31.5 % (36.0-47.0); HEMOGLOBIN 10.8 g/dL (12.0-15.5); HGB HCT DIFFERENCE 0.9; MEAN CORPUSCULAR HEMOGLOBIN 30.6 pg (27.0-33.4); MEAN CORPUSCULAR HGB CONC 34.4 g/dL (32.0-36.0); MEAN CORPUSCULAR VOLUME 89 fl (80-97); RED BLOOD COUNT 3.54 10^6/uL (3.72-5.28); RED CELL DISTRIBUTION WIDTH 15.8 % (11.5-14.0); WHITE BLOOD COUNT 4.7 10^3/uL (4.0-10.5)
[2017-01-08] MEDS: NYSTATIN TOPICAL POWDER 15 GM TP SCH ×2 (11:08→18:12)
[2017-01-08] MEDS: NORMAL SALINE 10 ML SDV (SCHEDULED) IV SCH ×2 (11:12→23:26)
[2017-01-08] MEDS: LEVOFLOXACIN 750 MG TABLET PO SCH (11:14)
[2017-01-08] MEDS: MAGNESIUM OXIDE 400 MG TABLET PO SCH ×2 (11:15→18:12)
[2017-01-08] MEDS: LACTOBACILLUS ACIDOPHILUS 250 MG TAB PO SCH ×2 (11:15→18:12)
[2017-01-08] MEDS ORDERED: LISINOPRIL 10 MG TABLET PO ONE (12:00)
[2017-01-08] MEDS ORDERED: DEXTROSE 50%-WATER 25 GM/50 ML DISP.SYRIN IV PRN (12:49)
--- NOTE | 2017-01-08 13:00 | PDOC PROGRESS REPORT ---
Subjective Progress Note for:: 01/08/17 Subjective:: Shortness of breath is much improved. Patient has continued diarrhea and also complaint of somatic pain worse with movement. She denies fever, chills, headache, chest pain, abdominal pain, nausea, vomiting. He denies any bleeding. Physical Exam Vital Signs: Temp Pulse Resp BP Pulse Ox 97.6 F 83 18 145/76 H 95 01/08/17 11:10 01/08/17 11:10 01/08/17 11:10 01/08/17 11:10 01/08/17 11:10 Intake & Output 01/07/17 01/08/17 01/09/17 06:59 06:59 06:59 Intake Total 1175 601 0 Output Total 0 0 Balance 1175 601 0 GENERAL: No acute distress HEENT: Conjunctiva clear, nonicteric, moist mucous membranes, no JVD, midline trachea RESPIRATORY: Clear to auscultation bilaterally, no wheezes, no rhonchi CARDIAC: Regular rate and rhythm, no murmurs/gallops/rubs ABDOMEN: Soft, obese, palpable mass in left upper quadrant, positive bowel sounds, no rebound, no guarding EXTREMETIES: No edema, cyanosis, clubbing NEUROLOGIC: Alert, oriented to person/place/time, CN's grossly intact, no focal deficits SKIN: No rash, wounds PSYCH: Normal mood, normal affect Results Laboratory Results: 01/08/17 06:20 01/07/17 06:00 01/08/17 06:20 WBC 4.7 RBC 3.54 L Hgb 10.8 L Hct 31.5 L MCV 89 MCH 30.6 MCHC 34.4 RDW 15.8 H Plt Count 196 Impressions: Acute Abdomen Series 01/03/17 11:27 IMPRESSION: SMALL BOWEL DILATION. ILEUS VERSUS EARLY OBSTRUCTION. Head CT 01/03/17 11:27 IMPRESSION: MILD CHRONIC CHANGES OF ATROPHY AND MICROVASCULAR ISCHEMIA. NO ACUTE PROCESS. Abdomen/Pelvis CT 01/03/17 12:30 IMPRESSION: 1. LARGE FLUID COLLECTION SURROUNDING THE BODY AND TAIL OF THE PANCREAS DESCRIBED WITH SCATTERED GAS. ON THE PRIOR CT THERE WAS SOFT TISSUE VERSUS INFLAMMATION IN THIS AREA. THIS MAY INDICATE A LARGE PANCREATIC ABSCESS OR INFECTED PSEUDOCYST. LESS LIKELY WOULD BE OMENTAL TUMOR WITH NECROSIS. 2. SMALL CYST IN THE RIGHT LOBE OF THE LIVER AND NUMEROUS SMALL RENAL CYSTS UNCHANGED. 3. MILD SMALL BOWEL DILATION PROBABLY DUE TO ILEUS. OBSTRUCTION UNLIKELY. 4. NO OTHER SIGNIFICANT FINDINGS. Chest/Abdomen CTA 01/03/17 12:30 IMPRESSION: 1. FAIRLY EXTENSIVE BILATERAL PULMONARY EMBOLISM. 2. PREVIOUS SEEN MASS IN THE RIGHT UPPER LOBE HAS RESOLVED FOLLOWING TREATMENT. THERE IS ALSO IMPROVEMENT IN THE PARATRACHEAL ADENOPATHY. Guidance Fluoroscopy 01/04/17 00:00 IMPRESSION: SUCCESSFUL PLACEMENT OF A 5 FR DUAL LUMEN 36 CM PICC IN THE right basilic VEIN. Interventional Vascular Procedure 01/04/17 00:00 IMPRESSION: SUCCESSFUL PLACEMENT OF A 5 FR DUAL LUMEN 36 CM PICC IN THE right basilic VEIN. PICC Line Insertion 01/04/17 00:00 IMPRESSION: SUCCESSFUL PLACEMENT OF A 5 FR DUAL LUMEN 36 CM PICC IN THE right basilic VEIN. Assessment & Plan - Diagnosis (1) Bilateral pulmonary embolism Is this a current diagnosis for this admission?: YesPlan: Likely secondary to hypercoagulable state associated with lung malignancy. Continue heparin drip. Dr. Darnell has advised consulting Dr. Gilmore for IVC filter placement. I have discussed the case with Dr. Gilmore today and he states he will plan on placing an IVC filter on 01/09/2017. I will hold heparin drip in the morning in anticipation. (2) Abdominal mass Qualifiers: Abdominal location: unspecified location Qualified Code(s): R19.00 - Intra-abdominal and pelvic swelling, mass and lump, unspecified site Is this a current diagnosis for this admission?: YesPlan: Patient was seen by Dr. Wood of surgery and he does not feel that surgical intervention is appropriate at this time. He has advised interventional radiology for biopsy of pancreatic mass. I have discussed the case with radiology interventional MEENU Orellana and he will plan on coordinating this procedure on 01/09/[address] Gilmore for IVC filter placement. I will hold heparin in the morning in preparation. Patient will be made n.p.o. after midnight. (3) Lung cancer Qualifiers: Laterality: unspecified laterality Lung location: unspecified part of lung Qualified Code(s): C34.90 - Malignant neoplasm of unspecified part of unspecified bronchus or lung Is this a current diagnosis for this admission?: YesPlan: Follow-up with Dr. Darnell as an outpatient. (4) Syncope and collapse Is this a current diagnosis for this admission?: Yes (5) Hypokalemia Is this a current diagnosis for this admission?: Yes (6) Hyponatremia Is this a current diagnosis for this admission?: Yes (7) Hypertension Is this a current diagnosis for this admission?: YesPlan: Restart lisinopril 20 mg daily. Continue to hold HCTZ secondary to hyponatremia. (8) Hypomagnesemia Is this a current diagnosis for this admission?: Yes (9) Diarrhea Is this a current diagnosis for this admission?: Yes (10) Anemia Is this a current diagnosis for this admission?: YesPlan: Monitor H&H closely on heparin drip. (11) UTI (urinary tract infection) Is this a current diagnosis for this admission?: Yes - Time Time Spent with patient: 35 or more minutes
[2017-01-08] MEDS: POTASSI CL 20 MEQ/D5NS 1L 1,000 ML IV PRN (18:12)
--- NOTE | 2017-01-08 22:14 | RADIOLOGY REPORT (SQ) ---
EXAM DESCRIPTION: CT HEAD WITHOUT COMPLETED DATE/TIME: 01/08/2017 9:34 pm REASON FOR STUDY: AVILES, dizziness, on heparin drip COMPARISON: 01/05/2017 TECHNIQUE: Axial images acquired through the brain without intravenous contrast. Images reviewed wi th bone, brain and subdural windows. Images stored on PACS. All CT scanners at this facility use dose modulation, iterative reconstruction, and/or weight based d osing when appropriate to reduce radiation dose to as low as reasonably achievable (ALARA). [facility]: Dose Right [facility]: CareDose [facility]: Dose Right [facility]: Teradose 4D [facility]: [employer] RADIATION DOSE: Up-to-date CT equipment and radiation dose reduction techniques were employed. CTDIv ol: 49.8 mGy. DLP: 878 mGy-cm. mGy. LIMITATIONS: None. FINDINGS: VENTRICLES: Prominent. CEREBRUM: No masses. No hemorrhage. No midline shift. Areas of low density in the white matter mos t likely due to chronic micro-vascular ischemic change. No evidence for acute infarction. CEREBELLUM: No masses. No hemorrhage. No alteration of density. No evidence for acute infarction. EXTRAAXIAL SPACES: Mild age-related involutional change. No fluid collections. No masses. ORBITS AND GLOBE: No intra- or extraconal masses. Normal contour of globe without masses. CALVARIUM: No fracture. PARANASAL SINUSES: Small mucosal polyp or retention cyst is again identified in the right maxillary a ntra SOFT TISSUES: No mass or hematoma. OTHER: No other significant finding. IMPRESSION: MILD CHRONIC CHANGES OF ATROPHY AND MICROVASCULAR ISCHEMIA. NO ACUTE PROCESS. TECHNICAL DOCUMENTATION: JOB ID: [id number] Quality ID # [id number]: Final reports with documentation of one or more dose reduction techniques (e.g., Au tomated exposure control, adjustment of the mA and/or kV according to patient size, use of iterative reconstruction technique) 2010 [employer]- All Rights Reserved
[2017-01-08] MEDS: DEXTROSE 5%-1/2 NORMAL SALINE 1,000 ML IV PRN (23:27)
[2017-01-08] MEDS: HEPARIN SODIUM,PORCINE/D5W 25,000 UNIT/250 ML RTUINJ IV PRN (23:58)
[2017-01-09] MEDS ORDERED: CLINDAMYCIN 600 MG/D5W RTU 600 MG/50 ML RTUPB IV PRN (05:00)
[2017-01-09 05:51] LABS: ABSOLUTE MONOCYTES (AUTO) 0.5 10^3/uL (0.1-1.4); ABSOLUTE NEUT (AUTO) 3.2 10^3/uL (1.7-8.2); BASOPHILS % (AUTO) 0.3 % (0-2); EOSINOPHILS % (AUTO) 0.2 % (0-6); HEMATOCRIT 28.8 % (36.0-47.0); HEMOGLOBIN 9.8 g/dL (12.0-15.5); HGB HCT DIFFERENCE 0.6; MEAN CORPUSCULAR HEMOGLOBIN 29.9 pg (27.0-33.4); MEAN CORPUSCULAR HGB CONC 33.9 g/dL (32.0-36.0); MEAN CORPUSCULAR VOLUME 88 fl (80-97); MONOCYTES % (AUTO) 11.2 % (3-13); RED BLOOD COUNT 3.26 10^6/uL (3.72-5.28); RED CELL DISTRIBUTION WIDTH 16.1 % (11.5-14.0); SEGMENTED NEUTROPHILS % (AUTO) 67.3 % (42-78); WHITE BLOOD COUNT 4.8 10^3/uL (4.0-10.5)
[2017-01-09 06:06] LABS: ALANINE AMINOTRANSFERASE 22 U/L (9-52); ALBUMIN 2.1 g/dL (3.5-5.0); ALKALINE PHOSPHATASE 73 U/L (38-126); ANION GAP 6 (5-19); ASPARTATE AMINO TRANSFERASE 24 U/L (14-36); BILIRUBIN,DIRECT 0.3 mg/dL (0.0-0.4); BILIRUBIN,TOTAL 0.4 mg/dL (0.2-1.3); BLOOD UREA NITROGEN 8 mg/dL (7-20); CARBON DIOXIDE 27 mmol/L (22-30); CHLORIDE 101 mmol/L (98-107); CREATININE RESULT 0.65 mg/dL (0.52-1.25); GLUCOSE 180 mg/dL (75-110); MAGNESIUM 1.8 mg/dL (1.6-2.3); POTASSIUM 3.6 mmol/L (3.6-5.0); TOTAL PROTEIN 5.4 g/dL (6.3-8.2)
[2017-01-09] MEDS ORDERED: ALBUTEROL SULFATE HFA (90 MCG/PUFF) 8 GM MDI (1 MDI/ER DISP) IH PRN (07:40)
[2017-01-09] MEDS ORDERED: ALBUTEROL SULFATE HFA (90 MCG/PUFF) 200 PUFF/8.5 GM MDI IH PRN (07:50)
[2017-01-09] MEDS: NORMAL SALINE 10 ML SDV (SCHEDULED) IV SCH ×2 (09:29→22:18)
[2017-01-09] MEDS: LISINOPRIL 10 MG TABLET PO SCH (09:29)
[2017-01-09] MEDS: LACTOBACILLUS ACIDOPHILUS 250 MG TAB PO SCH ×2 (09:30→17:24)
[2017-01-09] MEDS: MAGNESIUM OXIDE 400 MG TABLET PO SCH ×2 (09:30→17:24)
[2017-01-09] MEDS: NYSTATIN TOPICAL POWDER 15 GM TP SCH ×2 (09:30→17:24)
[2017-01-09] MEDS ORDERED: ZINC OXIDE 20% OINTMENT 28.35 GM TP PRN (09:37)
[2017-01-09] MEDS ORDERED: BUPIVACAINE HCL 0.25 % INJ/PF (2.5 MG/1 ML) 30 ML VIAL ONE (10:30)
[2017-01-09] MEDS ORDERED: LIDOCAINE 0.5% INJ-PF (5 MG/ML) 50 ML SDV ONE (10:30)
[2017-01-09] MEDS ORDERED: FENTANYL CITRATE INJ/PF 100 MCG/2 ML AMPUL ONE (10:54)
[2017-01-09] MEDS ORDERED: MIDAZOLAM 2 MG/2 ML INJ ONE ×2 (10:54→10:55)
[2017-01-09] MEDS ORDERED: EPHEDRINE SULFATE INJ 50 MG/1 ML AMPULE ONE (10:55)
[2017-01-09] MEDS ORDERED: PROPOFOL INJ 200 MG/20 ML VIAL IV ONE (10:55)
[2017-01-09] MEDS ORDERED: FENTANYL CITRATE INJ/PF 100 MCG/2 ML AMPUL IV PRN ×3 (12:25)
[2017-01-09] MEDS ORDERED: DIPHENHYDRAMINE HCL 50 MG/ML VIAL IV PRN (12:25)
--- NOTE | 2017-01-09 13:03 | Operative Report ---
Operative Report DATE OF SURGERY: 01/09/17 PREOPERATIVE DIAGNOSIS: 1. Pulmonary embolism. 2. History of lung cancer. 3. Pancreatic mass. 4. Hypertension. POSTOPERATIVE DIAGNOSIS: 1. Pulmonary embolism. Post insertion of inferior vena cava filter. 2. History of lung cancer. 3. Pancreatic mass. 4. Hypertension. OPERATION: 1. Ultrasound evaluation of the right internal jugular vein. 2. Insertion of inferior vena cava filter via real-time access in the right internal jugular vein. 3. Angiogram and interpretation. SURGEON: MC GOMES PLATFORM SOFTWARE ENGINEER: None ANESTHESIA: LMAC TISSUE REMOVED OR ALTERED: Not applicable. COMPLICATIONS: None ESTIMATED BLOOD LOSS: 2 mL. INTRAOPERATIVE FINDINGS: Satisfactory right internal jugular vein, somewhat small, perhaps about 1 cm in diameter. Adequate for access. Ultrasound of great value and safe access. The right renal renal vein blush seen nicely. The filter placed at about L3. Follow-up angiogram demonstrated patent filter patent IVC with the filter in the more distal IVC. The apex of the right lung looks fine the PICC line in place noted. Hard copy documentation done throughout. PROCEDURE: After obtaining informed consent, the patient was taken to the operating room and positioned supine. The right neck and upper chest were prepared with chlorhexidine and draped out with sterile linen. After the " universal timeout ", in which it was verified that the patient continued to receive antibiotic, the procedure commenced. A steriley sheathed ultrasound probe was used to evaluate the right external and internal jugular vein. Local anesthesia was infiltrated adjacent to the probe. Access into the right external jugular vein was obtained using a micropuncture needle, followed by micropuncture wire and then a micropuncture catheter. Manipulation into the central system proved difficult. A brief angiogram was done which showed a torturous route into the central system. Real-time ultrasound guidance was now used to access the internal jugular vein. This was done with a micropuncture needle, micropuncture wire followed by micropuncture catheter. This was followed by introduction of a 0.035 guidewire the tip of which was placed down into the inferior vena cava . The inferior vena cava filter introducer was now placed over the 0.035 Glidewire. The Glidewire was removed and an inferior vena cava angiogram obtained. A satisfactory position for the filter was ascertained and temporarily marked on the video screen. An appropriate angiogram still was placed on the adjacent screen. An [place] filter was now inserted into the introducer and positioned with the push arianna so that it was just in the sheath. Gentle manipulation optimally positioned the filter which is now deployed by removing the introducer sheath over the push arianna. The push arianna was removed and the inferior vena cava angiogram done demonstrates a patency of the filter in appropriate position. The introducer was removed. Pressure was placed on the entry point for several minutes before applying a band aid. Time: 2.4 minutes minutes. Exposure: 53.1 mcg/cms2. Contrast : 15 mils of Isovue-300, low osmolality. Copies of the dictated operative report for Dr. Mc Gilmore MD.
--- NOTE | 2017-01-09 13:08 | PDOC TRANSFER SUMMARY ---
General Admission Date/PCP: 01/03/17 16:00 BAO PHAM Admission Date: 01/03/17 Transfer Date: 01/09/17 Accepting Facility: [facility] Accepting Physician: Dr. mckee, medicine Resuscitation Status: Full Code - Transfer Diagnosis (1) Infected pancreatic pseudocyst Is this a current diagnosis for this admission?: Yes (2) Anemia Is this a current diagnosis for this admission?: Yes (3) Bilateral pulmonary embolism Is this a current diagnosis for this admission?: Yes (4) Hypomagnesemia Is this a current diagnosis for this admission?: Yes (5) Hyponatremia Is this a current diagnosis for this admission?: Yes (6) Lung cancer Is this a current diagnosis for this admission?: Yes (7) Syncope and collapse Is this a current diagnosis for this admission?: Yes (8) UTI (urinary tract infection) Is this a current diagnosis for this admission?: Yes (9) Encephalopathy Is this a current diagnosis for this admission?: Yes (10) Hypertension Is this a current diagnosis for this admission?: Yes (11) Obesity Is this a current diagnosis for this admission?: Yes (12) Physical debility Is this a current diagnosis for this admission?: Yes - Transfer Medications Home Medications: Albuterol Sulfate [Ventolin Hfa] 2 puff IH Q4HP PRN 01/03/17 Amlodipine Besylate [Norvasc 5 mg Tablet] 5 mg PO DAILY 01/03/17 Furosemide [Furosemide] 20 mg PO DAILY 01/03/17 Lisinopril/Hydrochlorothiazide [Lisinopril-Hctz 20-12.5 mg Tab] 1 each PO DAILY 01/03/17 Nystatin [Mycostatin Topical Powder 15 gm] 1 applic TP QID 01/03/17 Alprazolam [Xanax 0.25 mg Tablet] 0.25 mg PO Q8HP PRN 01/04/17 Diphenoxylate HCl/Atrop Sulf [Lomotil 2.5 mg Tablet] 1 tab PO Q6HP PRN 01/04/17 Hydrocodone Bit/Acetaminophen [Hydrocodon-Acetaminophen 5-325] 1 each PO Q8HP PRN 01/04/17 Lorazepam [Ativan 0.5 mg Tablet] 0.5 mg PO Q8HP PRN 01/04/17 Prochlorperazine Maleate [Compazine 10 mg Tablet] 10 mg PO Q6HP PRN 01/04/17 Transfer Medications: Current Medications Acetaminophen (Tylenol 325 Mg Tablet) 650 mg PO Q4HP PRN PRN Reason: FOR PAIN OR TEMP Stop: 02/04/17 16:47 Last Admin: 01/06/17 08:58 Dose: 650 mg Acetaminophen/Hydrocodone Bitart ([place] 5-325 Mg Tablet) 1 tab PO Q8HP PRN PRN Reason: FOR PAIN Stop: 01/14/17 11:22 Last Admin: 01/08/17 11:18 Dose: 1 tab Albuterol (Proair Hfa Inhalation Aerosol 8.5 Gm Mdi) 2 puff IH Q4HP PRN PRN Reason: SHORTNESS OF BREATH Stop: 02/08/17 07:49 Dextrose (Dextrose Inj 50% Syringe (25 Gm/50 Ml)) 25 gm IV PRN PRN; Protocol PRN Reason: See Label Comments Stop: 02/07/17 12:48 Fluticasone Propionate (Flonase Nasal [place] 50 Mcg/[place] 16 Gm) 2 spray NASL Q12 YAHAIRA Stop: 02/08/17 09:59 Heparin Sodium (Porcine) (Heparin Inj 1,000 Unit/Ml 10 Ml Vial) 0 - 15,000 unit IV .BOLUS PER PROTOCOL PRN; Protocol PRN Reason: RESPOND TO aPTT VALUE Stop: 02/02/17 16:44 Heparin Sodium (Porcine) (Heparin Flush 10 Unit/Ml 5 Ml Disp.Syrg) 30 unit IV Q12 YAHAIRA Stop: 02/03/17 21:59 Last Admin: 01/09/17 09:29 Dose: 30 unit Heparin Sodium (Porcine) (Heparin Flush 10 Unit/Ml 5 Ml Disp.Syrg) 30 unit IV .AFTER EACH USE PRN Stop: 02/03/17 14:16 Potassium Chloride/Dextrose/Sod Cl (D5ns 1000 Ml/Kcl 20 Meq Premix Bag) 1,000 mls @ 100 mls/hr IV CONTINUOUS PRN PRN Reason: THIS MED IS NOT "PRN" Stop: 02/07/17 12:49 Last Admin: 01/08/17 18:12 Dose: 1,000 ml Clindamycin Phosphate/Dextrose (Cleocin Rtu 600 Mg/D5w 50 Ml Premix) 600 mg in 50 mls @ 50 mls/hr IV .PROCEDURE PRN PRN Reason: THIS MED IS NOT "PRN" Stop: 01/09/17 23:59 Dextrose/Sodium Chloride (D5-1/2ns 1000 Ml Iv Soln) 1,000 mls @ 80 mls/hr IV CONTINUOUS PRN PRN Reason: THIS MED IS NOT "PRN" Stop: 01/09/17 23:59 Last Admin: 01/08/17 23:27 Dose: 1,000 ml Heparin Sodium/Dextrose (Heparin Rtu 25,000 Unit/250 Ml D5w Premix) 25,000 unit in 250 mls @ 0 mls/hr IV CONTINUOUS PRN; Protocol; Titrate PRN Reason: THIS MED IS NOT "PRN" Stop: 02/02/17 16:44 Last Admin: 01/08/17 23:58 Dose: 250 ml Ertapenem 1 gm/ Sodium (Chloride) 50 mls @ 100 mls/hr IV NOON [facility] Stop: 01/16/17 11:59 Lactobacillus Acidophilus (Bacid 250 Mg Tablet) 500 mg PO BID [facility] Stop: 02/05/17 09:59 Last Admin: 01/09/17 09:30 Dose: 500 mg Lisinopril (Prinivil 10 Mg Tablet) 20 mg PO DAILY [facility] Stop: 02/08/17 09:59 Last Admin: 01/09/17 09:29 Dose: 20 mg Loperamide HCl (Imodium 2 Mg Capsule) 2 mg PO Q6HP PRN Stop: 02/03/17 10:09 Last Admin: 01/07/17 11:23 Dose: 2 mg Magnesium Oxide (Mag-Ox 400 Mg Tablet) 800 mg PO BID [facility] Stop: 02/05/17 09:59 Last Admin: 01/09/17 09:30 Dose: 800 mg Multi-Ingredient Ointment (Zinc Oxide 20% Ointment 28.35 Gm) 1 applic TP TIDP PRN Stop: 02/08/17 09:36 Nystatin (Mycostatin Topical Powder 15 Gm) 1 applic TP BID [facility] Stop: 01/11/17 09:59 Last Admin: 01/09/17 09:30 Dose: 1 applic Nystatin (Mycostatin Cream 15 Gm) 1 applic TP BID [facility] Stop: 01/16/17 09:59 Ondansetron HCl (Zofran Inj/Pf 4 Mg/2 Ml Sdv) 4 mg IV Q8HP PRN PRN Reason: FOR NAUSEA/VOMITING Stop: 02/02/17 15:59 Sodium Chloride (Saline Flush 2.5 Ml Monoject Prefil Syrin) 2.5 ml IV Q8 YAHAIRA Stop: 02/02/17 21:59 Last Admin: 01/09/17 06:10 Dose: Not Given Sodium Chloride (Nacl 0.9% Inj/Pf 10 Ml Sdv) 10 ml IV Q12 YAHAIRA Stop: 02/03/17 21:59 Last Admin: 01/09/17 09:29 Dose: 10 ml Sodium Chloride (Nacl 0.9% Inj/Pf 10 Ml Sdv) 10 ml IV .AFTER EACH USE PRN Stop: 02/03/17 14:16 - Allergies Allergies/Adverse Reactions: aspirin [Aspirin] Allergy (Verified 01/03/17 12:57) lorazepam [From Ativan] Allergy (Verified 01/03/17 12:57) Penicillins Allergy (Verified 01/03/17 12:57) - Diet/Activity Discharge Diet: Cardiac Discharge Activity: Activity As Tolerated Hospital Course Hospital Course: XIOMARA SETHI is a 66 year old female who states that she had nausea last night and did not feel well. Patient reports that she went to her oncologist office today and passed out. Patient does report having diarrhea yesterday with one episode today. Patient denies any chest pain, shortness of breath, or abdominal pain. Patient is currently receiving chemotherapy every 3 weeks to treat NSCLC (squamous cell) lung cancer. She has a hx of abdominal fullness, pain and nausea with little appetite for the past [address] scan A/P was done in November and revealed a pancreatic mass/abscess. A CT scan done today reveals a large amount of fluid around the pancreas with bubbles of gas as per pancreatic abscess versus (less likely) metastatic tumor growing into the greater omentum with necrosis. A CT scan of the chest shows bilateral pulmonary emboli. The patient reports poor appetite, flatus and stools recently. Patient was admitted and started on a heparin drip and oxygen. Patient has been improving from a pulmonary standpoint. Patient was also started on Levaquin for apparent UTI whcih grew streptococcus viridins and felt to be a skin contaminant. Patient has been transitioned to Ertapenem for pancreatic pseudocyst with necrotic debris. Patient has significant abdominal pain over her palpable mass. Patient was found to be hyponatremic and her HCTZ was stopped with improvement. Patient was seen by her oncologist, Dr. Darnell, for her PE and recommended IVC filter placement, which was preformed today by Dr. Gilmore, vascular surgery. Patient was seen by surgery here who recommended IR drainage. IR is not comfortable with this and recommends transfer to outside facility. Risks and benefits were discussed with patient who is in agreement for transfer. Dr. Mckee, [facility], kindly accepted patient in transfer. Surgery at [facility] also agreed to see patient in transfer. Currently, here, GI is also unavailable. Physical Exam Vital Signs: Temp Pulse Resp BP Pulse Ox 98.1 F 85 21 H 126/73 H 100 01/09/17 07:43 01/09/17 07:43 01/09/17 07:43 01/09/17 07:43 01/09/17 07:43 Intake & Output 01/08/17 01/09/17 01/10/17 06:59 06:59 06:59 Intake Total 601 1692 Output Total 0 Balance 601 1692 Exam: GENERAL: No acute distress HEENT: Conjunctiva clear, nonicteric, moist mucous membranes, no JVD, midline trachea RESPIRATORY: Clear to auscultation bilaterally, no wheezes, no rhonchi CARDIAC: Regular rate and rhythm, no murmurs/gallops/rubs ABDOMEN: obese, soft, LUQ TTP, palpable mass in left upper quadrant, positive bowel sounds, no rebound, no guarding EXTREMETIES: No edema, cyanosis, clubbing NEUROLOGIC: Alert, oriented to person/place/time, CN's grossly intact, no focal deficits SKIN: excoriation and erythema of perineum PSYCH: flat mood and affect Results Laboratory Results: 01/09/17 05:26 01/09/17 05:26 01/08/17 01/09/17 01/09/17 21:00 05:26 05:26 WBC 4.8 RBC 3.26 L Hgb 9.8 L Hct 28.8 L MCV 88 MCH 29.9 MCHC 33.9 RDW 16.1 H Plt Count 214 Seg Neutrophils % 67.3 Lymphocytes % 21.0 Monocytes % 11.2 Eosinophils % 0.2 Basophils % 0.3 Absolute Neutrophils 3.2 Absolute Lymphocytes 1.0 Absolute Monocytes 0.5 Absolute Eosinophils 0.0 Absolute Basophils 0.0 Sodium 134.0 L Potassium 3.6 Chloride 101 Carbon Dioxide 27 Anion Gap 6 BUN 8 Creatinine 0.65 Est GFR ( Amer) > 60 Est GFR (Non-Af Amer) > 60 Glucose 180 H Calcium 9.0 Magnesium 1.8 Total Bilirubin 0.4 AST 24 ALT 22 Alkaline Phosphatase 73 Total Protein 5.4 L Albumin 2.1 L Lipase Stool Occult Blood NEGATIVE 01/09/17 05:26 WBC RBC Hgb Hct MCV MCH MCHC RDW Plt Count Seg Neutrophils % Lymphocytes % Monocytes % Eosinophils % Basophils % Absolute Neutrophils Absolute Lymphocytes Absolute Monocytes Absolute Eosinophils Absolute Basophils Sodium Potassium Chloride Carbon Dioxide Anion Gap BUN Creatinine Est GFR ( Amer) Est GFR (Non-Af Amer) Glucose Calcium Magnesium Total Bilirubin AST ALT Alkaline Phosphatase Total Protein Albumin Lipase 20.6 L Stool Occult Blood Impressions: Acute Abdomen Series 01/03/17 11:27 IMPRESSION: SMALL BOWEL DILATION. ILEUS VERSUS EARLY OBSTRUCTION. Abdomen/Pelvis CT 01/03/17 12:30 IMPRESSION: 1. LARGE FLUID COLLECTION SURROUNDING THE BODY AND TAIL OF THE PANCREAS DESCRIBED WITH SCATTERED GAS. ON THE PRIOR CT THERE WAS SOFT TISSUE VERSUS INFLAMMATION IN THIS AREA. THIS MAY INDICATE A LARGE PANCREATIC ABSCESS OR INFECTED PSEUDOCYST. LESS LIKELY WOULD BE OMENTAL TUMOR WITH NECROSIS. 2. SMALL CYST IN THE RIGHT LOBE OF THE LIVER AND NUMEROUS SMALL RENAL CYSTS UNCHANGED. 3. MILD SMALL BOWEL DILATION PROBABLY DUE TO ILEUS. OBSTRUCTION UNLIKELY. 4. NO OTHER SIGNIFICANT FINDINGS. Chest/Abdomen CTA 01/03/17 12:30 IMPRESSION: 1. FAIRLY EXTENSIVE BILATERAL PULMONARY EMBOLISM. 2. PREVIOUS SEEN MASS IN THE RIGHT UPPER LOBE HAS RESOLVED FOLLOWING TREATMENT. THERE IS ALSO IMPROVEMENT IN THE PARATRACHEAL ADENOPATHY. Guidance Fluoroscopy 01/04/17 00:00 IMPRESSION: SUCCESSFUL PLACEMENT OF A 5 FR DUAL LUMEN 36 CM PICC IN THE right basilic VEIN. Interventional Vascular Procedure 01/04/17 00:00 IMPRESSION: SUCCESSFUL PLACEMENT OF A 5 FR DUAL LUMEN 36 CM PICC IN THE right basilic VEIN. PICC Line Insertion 01/04/17 00:00 IMPRESSION: SUCCESSFUL PLACEMENT OF A 5 FR DUAL LUMEN 36 CM PICC IN THE right basilic VEIN. Head CT 01/08/17 00:00 IMPRESSION: MILD CHRONIC CHANGES OF ATROPHY AND MICROVASCULAR ISCHEMIA. NO ACUTE PROCESS. Status: Imported from PACS Plan Time Spent: Greater than 30 Minutes
[2017-01-09] MEDS: ERTAPENEM SODIUM 1 GM in NORMAL SALINE 50 ML IV SCH (13:18)
--- NOTE | 2017-01-09 14:10 | RADIOLOGY REPORT (SQ) ---
EXAM DESCRIPTION: NO CHG FLUORO; KUB/ABDOMEN (SINGLE VIEW) COMPLETED DATE/TIME: 01/09/2017 1:58 pm REASON FOR STUDY: IVC FILTER COMPARISON: None. FLUOROSCOPY TIME: 2.4 minutes. 6 images saved to PACS. TECHNIQUE: Intra-operative images acquired during surgical procedure to evaluate progress. NUMBER OF IMAGES: 6 images. LIMITATIONS: None. FINDINGS: Images acquired during inferior vena cava filter placement. IMPRESSION: IMAGE(S) OBTAINED DURING PROCEDURE. COMMENT: Quality ID [id number]: Final reports for procedures using fluoroscopy that document radiation exp osure indices, or exposure time and number of fluorographic images (if radiation exposure indices are not available) Please consult full operative report of the attending physician for description of the procedure. TECHNICAL DOCUMENTATION: JOB ID: [id number] [employer]- All Rights Reserved
--- NOTE | 2017-01-09 14:10 | RADIOLOGY REPORT (SQ) ---
EXAM DESCRIPTION: NO CHG FLUORO; KUB/ABDOMEN (SINGLE VIEW) COMPLETED DATE/TIME: 01/09/2017 1:58 pm REASON FOR STUDY: IVC FILTER COMPARISON: None. FLUOROSCOPY TIME: 2.4 minutes. 6 images saved to PACS. TECHNIQUE: Intra-operative images acquired during surgical procedure to evaluate progress. NUMBER OF IMAGES: 6 images. LIMITATIONS: None. FINDINGS: Images acquired during inferior vena cava filter placement. IMPRESSION: IMAGE(S) OBTAINED DURING PROCEDURE. COMMENT: Quality ID [id number]: Final reports for procedures using fluoroscopy that document radiation exp osure indices, or exposure time and number of fluorographic images (if radiation exposure indices are not available) Please consult full operative report of the attending physician for description of the procedure. TECHNICAL DOCUMENTATION: JOB ID: [id number] [employer]- All Rights Reserved
[2017-01-09] MEDS: FLUTICASONE NASAL SPRAY 50 MCG/SPRY 120 SPRAY/16 GM NASL SCH ×2 (14:26→22:28)
[2017-01-09] MEDS: NYSTATIN CREAM 15 GM TP SCH ×2 (14:27→17:24)
[2017-01-09] MEDS: DEXTROSE 5%-1/2 NORMAL SALINE 1,000 ML IV PRN (23:33)
[2017-01-10] MEDS: HEPARIN SODIUM,PORCINE/D5W 25,000 UNIT/250 ML RTUINJ IV PRN ×2 (06:37→22:56)
[2017-01-10 06:51] LABS: HEMATOCRIT 29.6 % (36.0-47.0); HEMOGLOBIN 10.1 g/dL (12.0-15.5); HGB HCT DIFFERENCE 0.7; MEAN CORPUSCULAR HEMOGLOBIN 30.4 pg (27.0-33.4); MEAN CORPUSCULAR HGB CONC 34.1 g/dL (32.0-36.0); MEAN CORPUSCULAR VOLUME 89 fl (80-97); RED BLOOD COUNT 3.32 10^6/uL (3.72-5.28); WHITE BLOOD COUNT 5.5 10^3/uL (4.0-10.5)
[2017-01-10 08:23] LABS: PROTHROMBIN TIME 15.4 SEC (11.4-15.4)
[2017-01-10 08:25] LABS: PARTIAL THROMBOPLASTIN TIME 59.7 SEC (23.5-35.8)
[2017-01-10 08:32] LABS: ALANINE AMINOTRANSFERASE 18 U/L (9-52); ALBUMIN 2.1 g/dL (3.5-5.0); ALKALINE PHOSPHATASE 66 U/L (38-126); ANION GAP 5 (5-19); ASPARTATE AMINO TRANSFERASE 24 U/L (14-36); BILIRUBIN,DIRECT 0.4 mg/dL (0.0-0.4); BILIRUBIN,TOTAL 0.4 mg/dL (0.2-1.3); BLOOD UREA NITROGEN 9 mg/dL (7-20); CALCIUM 9.1 mg/dL (8.4-10.2); CARBON DIOXIDE 28 mmol/L (22-30); CHLORIDE 103 mmol/L (98-107); CREATININE RESULT 0.65 mg/dL (0.52-1.25); GLUCOSE 105 mg/dL (75-110); POTASSIUM 3.7 mmol/L (3.6-5.0); TOTAL PROTEIN 5.4 g/dL (6.3-8.2)
[2017-01-10] MEDS: LISINOPRIL 10 MG TABLET PO SCH (10:51)
[2017-01-10] MEDS: FLUTICASONE NASAL SPRAY 50 MCG/SPRY 120 SPRAY/16 GM NASL SCH ×2 (10:51→22:30)
[2017-01-10] MEDS: NORMAL SALINE 10 ML SDV (SCHEDULED) IV SCH ×2 (10:51→22:28)
[2017-01-10] MEDS: LACTOBACILLUS ACIDOPHILUS 250 MG TAB PO SCH ×2 (10:51→17:34)
[2017-01-10] MEDS: MAGNESIUM OXIDE 400 MG TABLET PO SCH ×2 (10:52→17:34)
[2017-01-10] MEDS: NYSTATIN TOPICAL POWDER 15 GM TP SCH ×2 (10:52→17:35)
[2017-01-10] MEDS: ERTAPENEM SODIUM 1 GM in NORMAL SALINE 50 ML IV SCH (12:39)
[2017-01-10] MEDS: POTASSI CL 20 MEQ/D5NS 1L 1,000 ML IV PRN ×2 (12:39→22:58)
[2017-01-10] MEDS: NYSTATIN CREAM 15 GM TP SCH ×2 (14:20→17:34)
[2017-01-10] MEDS ORDERED: MORPHINE SULFATE 10 MG/ML INJ IV PRN (17:27)
--- NOTE | 2017-01-10 17:27 | PDOC PROGRESS REPORT ---
Subjective Progress Note for:: 01/10/17 Subjective:: Patient complains of diarrhea. She reports she feels better than yesterday. Patient denies chest pain, shortness of breath,nausea, vomiting, fevers, chills , constipation, headache, new onset weakness. Physical Exam Vital Signs: Temp Pulse Resp BP Pulse Ox 98.4 F 94 24 H 120/70 97 01/09/17 21:13 01/09/17 21:13 01/09/17 21:13 01/09/17 21:13 01/09/17 21:13 Intake & Output 01/09/17 01/10/17 01/11/17 06:59 06:59 06:59 Intake Total 1691 2033 Output Total 10 Balance 1691 2023 Exam: GENERAL: No acute distress, older than stated age appearing, chronically ill- appearing, HEENT: Conjunctiva clear, nonicteric, moist mucous membranes, no JVD, midline trachea RESPIRATORY: Clear to auscultation bilaterally, no wheezes, no rhonchi CARDIAC: Regular rate and rhythm, no murmurs/gallops/rubs ABDOMEN: obese, soft, LUQ TTP, palpable mass in left upper quadrant, positive bowel sounds, no rebound, no guarding EXTREMETIES: No edema, cyanosis, clubbing NEUROLOGIC: Alert, oriented to person/place/time, CN's grossly intact, no focal deficits SKIN: excoriation and erythema of perineum PSYCH: flat mood and affect Results Laboratory Results: 01/10/17 06:35 01/09/17 05:26 01/09/17 01/10/17 05:26 06:35 WBC 5.5 RBC 3.32 L Hgb 10.1 L Hct 29.6 L MCV 89 MCH 30.4 MCHC 34.1 RDW 16.0 H Plt Count 221 Lipase 20.6 L Impressions: Acute Abdomen Series 01/03/17 11:27 IMPRESSION: SMALL BOWEL DILATION. ILEUS VERSUS EARLY OBSTRUCTION. Abdomen/Pelvis CT 01/03/17 12:30 IMPRESSION: 1. LARGE FLUID COLLECTION SURROUNDING THE BODY AND TAIL OF THE PANCREAS DESCRIBED WITH SCATTERED GAS. ON THE PRIOR CT THERE WAS SOFT TISSUE VERSUS INFLAMMATION IN THIS AREA. THIS MAY INDICATE A LARGE PANCREATIC ABSCESS OR INFECTED PSEUDOCYST. LESS LIKELY WOULD BE OMENTAL TUMOR WITH NECROSIS. 2. SMALL CYST IN THE RIGHT LOBE OF THE LIVER AND NUMEROUS SMALL RENAL CYSTS UNCHANGED. 3. MILD SMALL BOWEL DILATION PROBABLY DUE TO ILEUS. OBSTRUCTION UNLIKELY. 4. NO OTHER SIGNIFICANT FINDINGS. Chest/Abdomen CTA 01/03/17 12:30 IMPRESSION: 1. FAIRLY EXTENSIVE BILATERAL PULMONARY EMBOLISM. 2. PREVIOUS SEEN MASS IN THE RIGHT UPPER LOBE HAS RESOLVED FOLLOWING TREATMENT. THERE IS ALSO IMPROVEMENT IN THE PARATRACHEAL ADENOPATHY. Guidance Fluoroscopy 01/04/17 00:00 IMPRESSION: SUCCESSFUL PLACEMENT OF A 5 FR DUAL LUMEN 36 CM PICC IN THE right basilic VEIN. Interventional Vascular Procedure 01/04/17 00:00 IMPRESSION: SUCCESSFUL PLACEMENT OF A 5 FR DUAL LUMEN 36 CM PICC IN THE right basilic VEIN. PICC Line Insertion 01/04/17 00:00 IMPRESSION: SUCCESSFUL PLACEMENT OF A 5 FR DUAL LUMEN 36 CM PICC IN THE right basilic VEIN. Head CT 01/08/17 00:00 IMPRESSION: MILD CHRONIC CHANGES OF ATROPHY AND MICROVASCULAR ISCHEMIA. NO ACUTE PROCESS. Fluoroscopy 01/09/17 00:00 IMPRESSION: IMAGE(S) OBTAINED DURING PROCEDURE. KUB X-Ray 01/09/17 00:00 IMPRESSION: IMAGE(S) OBTAINED DURING PROCEDURE. Assessment & Plan - Diagnosis (1) Infected pancreatic pseudocyst Is this a current diagnosis for this admission?: YesPlan: Patient has done well with transition to [facility]. Patient is currently pending transfer to [facility] for either surgical or IR drainage due to the size and infected nature of patient's pancreatic pseudocyst. (2) Anemia Qualifiers: Anemia type: unspecified type Qualified Code(s): D64.9 - Anemia, unspecified Is this a current diagnosis for this admission?: Yes (3) Bilateral pulmonary embolism Is this a current diagnosis for this admission?: YesPlan: Patient had IVC filter placed on 01/09/2017. Continue heparin drip. (4) Hypomagnesemia Is this a current diagnosis for this admission?: YesPlan: Improved. 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 (6) Lung cancer Qualifiers: Laterality: unspecified laterality Lung location: unspecified part of lung Qualified Code(s): C34.90 - Malignant neoplasm of unspecified part of unspecified bronchus or lung Is this a current diagnosis for this admission?: Yes (7) Syncope and collapse Is this a current diagnosis for this admission?: Yes (8) UTI (urinary tract infection) Is this a current diagnosis for this admission?: YesPlan: Patient grew out Streptococcus viridans which was felt to be a skin contaminant. (9) Encephalopathy Is this a current diagnosis for this admission?: Yes (10) Hypertension Is this a current diagnosis for this admission?: Yes (11) Obesity Is this a current diagnosis for this admission?: Yes (12) Physical debility Is this a current diagnosis for this admission?: YesPlan: Patient is encouraged to be out of bed and to work with physical therapy. Her significant other is at bedside and this is reiterated to them both. (13) Diarrhea Qualifiers: Diarrhea type: due to malabsorption Qualified Code(s): K90.9 - Intestinal malabsorption, unspecified; R19.7 - Diarrhea, unspecified Is this a current diagnosis for this admission?: YesPlan: See place patient on pancrelipase - Time Time Spent with patient: 35 or more minutes Medications reviewed and adjusted accordingly: Yes Anticipated discharge[facility]: when bed available - Inpatient Certification Based on my medical assessment, after consideration of the patient's comorbidities, presenting symptoms, or acuity I expect that the services needed warrant INPATIENT care.: Yes I certify that my determination is in accordance with my understanding of Medicare's requirements for reasonable and necessary INPATIENT services [42 CFR 412.3e].: Yes Medical Necessity: Need For IV Fluids, Need for IV Antibiotics, Need for Surgery , Risk of Complication if Not Cared For in Hospital Post Hospital Care: D/C Hatchery Supervisor Documentation
[2017-01-10 20:27] VITALS: BP 130/81
[2017-01-11] MEDS ORDERED: LIPASE/PROTEASE/AMYLASE 1 CAP CAPSULE.DR PO SCH ×3 (08:00)
== END 2017-01-10 23:24 | disposition short-term general hospital (02) | DRG 166 ==
LOC: ER 10:53 → EH 16:00 → 3W 18:48
PROVIDERS: ADMIT Family Medicine; ATTEND Family Medicine
PROC: 06H03DZ Insertion of Intraluminal Device into Inferior Vena Cava, Percutaneous Approach (ICD-10-PCS; principal; 2017-01-04)
PROC: B519ZZA Fluoroscopy of Inferior Vena Cava, Guidance (ICD-10-PCS; 2017-01-04)
PROC: B549ZZA Ultrasonography of Inferior Vena Cava, Guidance (ICD-10-PCS; 2017-01-04)
PROC: 02HV33Z Insertion of Infusion Device into Superior Vena Cava, Percutaneous Approach (ICD-10-PCS; 2017-01-04)
PROC: B518ZZA Fluoroscopy of Superior Vena Cava, Guidance (ICD-10-PCS; 2017-01-04)
PROC: B548ZZA Ultrasonography of Superior Vena Cava, Guidance (ICD-10-PCS; 2017-01-04)
DX: I26.99 Other pulmonary embolism without acute cor pulmonale (principal); G93.40 Encephalopathy, unspecified; K86.3 Pseudocyst of pancreas; E87.1 Hypo-osmolality and hyponatremia; N39.0 Urinary tract infection, site not specified; C34.90 Malignant neoplasm of unspecified part of unspecified bronchus or lung; D64.9 Anemia, unspecified; E83.42 Hypomagnesemia; I10 Essential (primary) hypertension; K76.89 Other specified diseases of liver; N28.1 Cyst of kidney, acquired; R12 Heartburn; K59.00 Constipation, unspecified; F32.9 Major depressive disorder, single episode, unspecified; F41.1 Generalized anxiety disorder; E66.9 Obesity, unspecified; E87.6 Hypokalemia; Z68.30 Body mass index [BMI] 30.0-30.9, adult; Z79.899 Other long term (current) drug therapy; Z88.6 Allergy status to analgesic agent; Z88.8 Allergy status to other drugs, medicaments and biological substances; Z88.0 Allergy status to penicillin; Z82.49 Family history of ischemic heart disease and other diseases of the circulatory system
CPT/HCPCS: 01930; 36415; 36569; 70450; 71275; 74000; 74022; 74177; 76937; 77001; 80048; 80053; 81001; 82272; 82550; 82553; 82803; 83605; 83690; 83735; 84484; 85025; 85027; 85610; 85730; 87040; 87086; 87493; 93005; 93010; 96361; 96365; 96368; 96375; 99285; C1752; C1769; C1880; G8978-GP; G8979-GP; J0744; J1335; J1642; J1644; J1956; J2250; J2405; J2704; J3010; J3475; J3480; J3490; J7030; Q9967

== ENCOUNTER 2017-01-12 19:49 | Inpatient (IN) | payer MEDICARE, OTHER ==
[2017-01-13] MEDS ORDERED: ONDANSETRON HCL INJ/PF 4 MG/2 ML SDV IV PRN (07:15)
[2017-01-13] MEDS ORDERED: IPRATROPIUM/ALBUTEROL 0.5-2.5 MG/3 ML AMPUL NEB PRN (07:15)
[2017-01-13] MEDS ORDERED: MAG HYDROX/AL HYDROX/SIMETH SUSP 30 ML UDCUP PO PRN (07:15)
[2017-01-13 08:37] LABS: ABSOLUTE LYMPHOCYTES (AUTO) 1.3 10^3/uL (0.5-4.7); ABSOLUTE MONOCYTES (AUTO) 0.5 10^3/uL (0.1-1.4); ABSOLUTE NEUT (AUTO) 3.8 10^3/uL (1.7-8.2); BASOPHILS % (AUTO) 0.4 % (0-2); EOSINOPHILS % (AUTO) 0.3 % (0-6); HEMATOCRIT 28.9 % (36.0-47.0); HEMOGLOBIN 9.6 g/dL (12.0-15.5); HGB HCT DIFFERENCE -0.1; LYMPHOCYTES % (AUTO) 23.2 % (13-45); MEAN CORPUSCULAR HEMOGLOBIN 29.4 pg (27.0-33.4); MEAN CORPUSCULAR HGB CONC 33.4 g/dL (32.0-36.0); MEAN CORPUSCULAR VOLUME 88 fl (80-97); MONOCYTES % (AUTO) 8.7 % (3-13); RED BLOOD COUNT 3.28 10^6/uL (3.72-5.28); RED CELL DISTRIBUTION WIDTH 16.4 % (11.5-14.0); SEGMENTED NEUTROPHILS % (AUTO) 67.4 % (42-78); WHITE BLOOD COUNT 5.7 10^3/uL (4.0-10.5)
[2017-01-13 08:52] LABS: ALANINE AMINOTRANSFERASE 21 U/L (9-52); ALBUMIN 1.9 g/dL (3.5-5.0); ALKALINE PHOSPHATASE 82 U/L (38-126); ANION GAP 5 (5-19); ASPARTATE AMINO TRANSFERASE 19 U/L (14-36); BILIRUBIN,DIRECT 0.3 mg/dL (0.0-0.4); BILIRUBIN,TOTAL 0.4 mg/dL (0.2-1.3); BLOOD UREA NITROGEN 8 mg/dL (7-20); CARBON DIOXIDE 26 mmol/L (22-30); CHLORIDE 104 mmol/L (98-107); CREATININE RESULT 0.68 mg/dL (0.52-1.25); GLUCOSE 80 mg/dL (75-110); POTASSIUM 3.8 mmol/L (3.6-5.0); SODIUM 134.9 mmol/L (137-145); TOTAL PROTEIN 5.2 g/dL (6.3-8.2)
[2017-01-13] MEDS ORDERED: ZINC OXIDE 20% OINTMENT 28.35 GM TP PRN (09:34)
[2017-01-13] MEDS ORDERED: NYSTATIN CREAM 15 GM TP PRN (09:34)
[2017-01-13] MEDS ORDERED: ALPRAZOLAM 0.25 MG TABLET PO PRN (09:39)
[2017-01-13] MEDS ORDERED: RIVAROXABAN 15 MG TABLET PO ONE (10:00)
[2017-01-13] MEDS ORDERED: FUROSEMIDE 20 MG TABLET PO SCH (10:00)
[2017-01-13] MEDS: ZINC SULFATE 220 MG CAPSULE PO SCH (10:47)
[2017-01-13] MEDS: ERTAPENEM SODIUM 1 GM in NORMAL SALINE 50 ML IV SCH (10:47)
[2017-01-13] MEDS: MEGESTROL ACETATE SUSP 400 MG/10 ML UDCUP PO SCH (10:47)
[2017-01-13] MEDS: LACTOBACILLUS ACIDOPHILUS 250 MG TAB PO SCH ×2 (10:48→17:45)
[2017-01-13] MEDS ORDERED: ALBUTEROL SULFATE HFA (90 MCG/PUFF) 8 GM MDI (1 MDI/ER DISP) IH PRN (12:45)
[2017-01-13] MEDS ORDERED: ALBUTEROL SULFATE HFA (90 MCG/PUFF) 200 PUFF/8.5 GM MDI IH PRN (12:47)
--- NOTE | 2017-01-13 14:20 | PDOC H&P ---
History of Present Illness Admission Date/PCP: 01/12/17 19:49 LORENA KAISER, ROLDAN-C History of Present Illness: XIOMARA SETHI is a 66 year old female who was transferred to [facility] ED on 01/10/17 for surgical evaluation of her necrotic pancreatic pseudocyst. Patient record was reviewed and summery is as follows. Patient underwent IR drainage on 01/12/17 which returned 200mL of francis pus. Hematology/oncology visited this patient and transitioned her to lovenox which they recommended continuing or using xarelto. Patient was also evaluated by surgery who agreed with IR intervention. The surgical recommendation was that the strain should remained in for 1 month. They also recommended irrigation techniques. They also recommended repeat CT when drainage was below 10 cc in 24 hours. Currently , this needs to be drained every 8 hours. Patient reports she is feeling somewhat better. She does continue to complain of diarrhea. Past Medical History Cardiac Medical History: Reports: Hypertension Denies: Coronary Artery Disease, Myocardial Infarction Pulmonary Medical History: Reports: Other - Pulmonary embolus,non small cell lung cancer Denies: Asthma, Bronchitis, Chronic Obstructive Pulmonary Disease (COPD), Pneumonia Neurological Medical History: Denies: Seizures Malignancy Medical History: Reports: Lung Cancer Musculoskeltal Medical History: Denies: Arthritis Psychiatric Medical History: Denies: Depression Hematology: Reports: Other - PE Denies: Anemia Past Surgical History Past Surgical History: Reports: Other - IR pancreatic pseudocyst drainage Social History Smoking Status: Former Smoker Frequency of Alcohol Use: None Hx Recreational Drug Use: No Drugs: None Hx Prescription Drug Abuse: No - Advance Directive Resuscitation Status: Full Code Surrogate healthcare decision maker:: Eduardo Arreguin, significant other Family History Family History: Hypertension Parental Family History Reviewed: Yes Children Family History Reviewed: Yes Sibling(s) Family History Reviewed.: Yes Medication/Allergy Home Medications: Albuterol Sulfate [Ventolin Hfa] 2 puff IH Q4HP PRN 01/03/17 Amlodipine Besylate [Norvasc 5 mg Tablet] 5 mg PO QHS 01/03/17 Lisinopril/Hydrochlorothiazide [Lisinopril-Hctz 20-12.5 mg Tab] 1 tab PO QAM Nystatin [Mycostatin Topical Powder 15 gm] 1 applic TP QID 01/03/17 Diphenoxylate HCl/Atrop Sulf [Lomotil 2.5 mg Tablet] 1 tab PO Q6HP PRN MDD FOR DIARRHEA 01/04/17 Lorazepam [Ativan 0.5 mg Tablet] 0.5 mg PO Q8HP PRN 01/04/17 Prochlorperazine Maleate [Compazine 10 mg Tablet] 10 mg PO Q6HP PRN 01/04/17 Ketoconazole [Nizoral] 1 applic TOP BID 01/13/17 Allergies/Adverse Reactions: aspirin [Aspirin] Allergy (Verified 01/03/17 12:57) lorazepam [From Ativan] Allergy (Verified 01/03/17 12:57) Penicillins Allergy (Verified 01/03/17 12:57) Review of Systems Constitutional: ABSENT: chills, fever(s), headache(s), weight gain, weight loss Eyes: ABSENT: visual disturbances Ears: ABSENT: hearing changes Cardiovascular: ABSENT: chest pain, dyspnea on exertion, edema, orthropnea, palpitations Respiratory: ABSENT: cough, hemoptysis Gastrointestinal: PRESENT: diarrhea. ABSENT: abdominal pain, constipation, hematemesis, hematochezia, melena, nausea, vomiting Genitourinary: ABSENT: dysuria, hematuria Musculoskeletal: ABSENT: joint swelling Integumentary: ABSENT: rash, wounds Neurological: ABSENT: abnormal gait, abnormal speech, confusion, dizziness, focal weakness, syncope Psychiatric: ABSENT: anxiety, depression, homidical ideation, suicidal ideation Endocrine: ABSENT: cold intolerance, heat intolerance, polydipsia, polyuria Hematologic/Lymphatic: ABSENT: easy bleeding, easy bruising Physical Exam Vital Signs: Temp Pulse Resp BP Pulse Ox 97.7 F 84 20 125/71 96 01/13/17 03:19 01/13/17 03:19 01/13/17 03:19 01/13/17 03:19 01/13/17 03:19 Intake & Output 01/12/17 01/13/17 01/14/17 06:59 06:59 06:59 Intake Total 0 Output Total 0 Balance 0 Weight 85.8 kg General appearance: PRESENT: mild distress, obese, well-developed, well- nourished, other - chronically ill appearing Head exam: PRESENT: atraumatic, normocephalic, other - thinning hair Eye exam: PRESENT: conjunctiva pink, EOMI, PERRLA. ABSENT: conjunctival injection, scleral icterus Ear exam: PRESENT: normal external ear exam Mouth exam: PRESENT: moist, tongue midline, other - thrush Neck exam: ABSENT: carotid bruit, JVD, lymphadenopathy, thyromegaly Respiratory exam: PRESENT: clear to auscultation melinda, symmetrical, tachypnea, unlabored. ABSENT: accessory muscle use, chest wall tenderness, rales, rhonchi , wheezes Cardiovascular exam: PRESENT: RRR, +S1, +S2, systolic murmur. ABSENT: diastolic murmur, gallop, rubs Pulses: PRESENT: normal dorsalis pedis pul Vascular exam: PRESENT: normal capillary refill GI/Abdominal exam: PRESENT: hypoactive bowel sounds, soft, tenderness - LUQ with JULIUS drain in place with mayer foul smelling drainage. ABSENT: distended, firm, guarding, mass, organolmegaly, rebound, rigid Rectal exam: PRESENT: deferred Extremities exam: PRESENT: full ROM. ABSENT: calf tenderness, clubbing, pedal edema Neurological exam: PRESENT: alert, awake, oriented to person, oriented to place , oriented to time, oriented to situation, CN II-XII grossly intact. ABSENT: motor sensory deficit Psychiatric exam: PRESENT: flat affect, normal mood. ABSENT: homicidal ideation , suicidal ideation Skin exam: PRESENT: dry, intact, warm. ABSENT: cyanosis, rash Results Laboratory Results: 01/08/17 01/13/17 01/13/17 21:00 08:20 08:20 WBC 5.7 Hgb 9.6 L Hct 28.9 L Plt Count 275 Sodium 134.9 L Creatinine 0.68 Total Protein 5.2 L Albumin 1.9 L C. difficile Tox (PCR) NEGATIVE Assessment & Plan - Diagnosis (1) Infected pancreatic pseudocyst Is this a current diagnosis for this admission?: YesPlan: Patient will need care and drainage over next 1 month. 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, unspecified; R19.7 - Diarrhea, unspecified Is this a current diagnosis for this admission?: YesPlan: Use lomotil and if this fails consider pancrealipase (5) Hypertension Qualifiers: Hypertension type: essential hypertension Qualified Code(s): I10 - Essential (primary) hypertension Is this a current diagnosis for this admission?: YesPlan: continue lisinopril/hctz (6) Hyponatremia Is this a current diagnosis for this admission?: YesPlan: 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 (7) Lung cancer Qualifiers: Laterality: unspecified laterality Lung location: unspecified part of lung Qualified Code(s): C34.90 - Malignant neoplasm of unspecified part of unspecified bronchus or lung Is this a current diagnosis for this admission?: Yes (8) Obesity Qualifiers: Obesity type: due to excess calories Body mass index: BMI 30.0-30.9 Is this a current diagnosis for this admission?: Yes (9) Physical debility Is this a current diagnosis for this admission?: YesPlan: Encourage OOB to chair tid and up to commode will need rehab - Time Time Spent: 50 to 70 Minutes Medications reviewed and adjusted accordingly: Yes Anticipated discharge: Acute Rehab Within: when bed available - Inpatient Certification Based on my medical assessment, after consideration of the patient's comorbidities, presenting symptoms, or acuity I expect that the services needed warrant INPATIENT care.: Yes I certify that my determination is in accordance with my understanding of Medicare's requirements for reasonable and necessary INPATIENT services [42 CFR 412.3e].: Yes Medical Necessity: Need for Pain Control, Need for IV Antibiotics Post Hospital Care: D/C School Age Program Associate Documentation
[2017-01-13] MEDS: NYSTATIN 500000 UNIT/5 ML UDCUP PO SCH ×3 (14:54→21:21)
[2017-01-13] MEDS: RIVAROXABAN 15 MG TABLET PO SCH (17:30)
[2017-01-13] MEDS ORDERED: (PENDING PHARMACY ID) (Ketoconazole [Nizoral] 1 APPLIC) TOP SCH (18:00)
[2017-01-13] MEDS: AMLODIPINE BESYLATE 5 MG TABLET PO SCH (21:21)
[2017-01-14 06:19] LABS: ABSOLUTE LYMPHOCYTES (AUTO) 1.5 10^3/uL (0.5-4.7); ABSOLUTE MONOCYTES (AUTO) 0.5 10^3/uL (0.1-1.4); ABSOLUTE NEUT (AUTO) 4.7 10^3/uL (1.7-8.2); BASOPHILS % (AUTO) 0.4 % (0-2); EOSINOPHILS % (AUTO) 0.2 % (0-6); HEMATOCRIT 30.1 % (36.0-47.0); HEMOGLOBIN 10.2 g/dL (12.0-15.5); HGB HCT DIFFERENCE 0.5; LYMPHOCYTES % (AUTO) 22.4 % (13-45); MEAN CORPUSCULAR HEMOGLOBIN 30.2 pg (27.0-33.4); MEAN CORPUSCULAR HGB CONC 34.1 g/dL (32.0-36.0); MEAN CORPUSCULAR VOLUME 89 fl (80-97); MONOCYTES % (AUTO) 7.4 % (3-13); RED BLOOD COUNT 3.39 10^6/uL (3.72-5.28); RED CELL DISTRIBUTION WIDTH 16.3 % (11.5-14.0); SEGMENTED NEUTROPHILS % (AUTO) 69.6 % (42-78); WHITE BLOOD COUNT 6.8 10^3/uL (4.0-10.5)
[2017-01-14 07:23] LABS: GLUCOSE 81 mg/dL (75-110)
[2017-01-14 07:24] LABS: ALANINE AMINOTRANSFERASE 13 U/L (9-52); ALBUMIN 2.1 g/dL (3.5-5.0); ALKALINE PHOSPHATASE 86 U/L (38-126); ANION GAP 6 (5-19); ASPARTATE AMINO TRANSFERASE 18 U/L (14-36); BILIRUBIN,DIRECT 0.3 mg/dL (0.0-0.4); BILIRUBIN,TOTAL 0.5 mg/dL (0.2-1.3); BLOOD UREA NITROGEN 7 mg/dL (7-20); CALCIUM 9.1 mg/dL (8.4-10.2); CARBON DIOXIDE 27 mmol/L (22-30); CHLORIDE 103 mmol/L (98-107); CREATININE RESULT 0.63 mg/dL (0.52-1.25); POTASSIUM 3.5 mmol/L (3.6-5.0); TOTAL PROTEIN 5.4 g/dL (6.3-8.2)
[2017-01-14] MEDS ORDERED: HYDROCHLOROTHIAZIDE 12.5 MG CAPSULE PO SCH (08:00)
[2017-01-14] MEDS ORDERED: (PENDING PHARMACY ID) (Lisinopril/Hydrochlorothiazide [Lisinopril-Hctz 20-12.5 Mg Tab] 1 T PO SCH (08:00)
[2017-01-14] MEDS: LISINOPRIL 10 MG TABLET PO SCH (08:31)
[2017-01-14] MEDS: PROCHLORPERAZINE MALEATE 10 MG TABLET PO PRN ×2 (08:32→13:54)
[2017-01-14] MEDS: RIVAROXABAN 15 MG TABLET PO SCH ×2 (08:33→15:54)
[2017-01-14] MEDS: DIPHENOXYLATE HCL/ATROP SULF 2.5-0.025 MG TABLET PO PRN ×2 (08:33→13:54)
[2017-01-14] MEDS ORDERED: POTASSIUM CHLORIDE 10 MEQ TABLET.SA PO ONE (10:23)
--- NOTE | 2017-01-14 10:38 | PDOC PROGRESS REPORT ---
Subjective Progress Note for:: 01/14/17 Subjective:: Have encouraged patient once again to get out of bed today. She states she is not getting out of bed because she does not feel well. I have explained in great detail to patient the need for her to be out of bed. Patient also refuses often to eat. Patient does not call nursing staff to inform them of the need to move her bowels or her bladder. She has been instructed again that she needs to do these things. Patient was offered hospice and she declined. Patient complains of nausea. Patient complains that the food isn't very tasty. Patient continues to have diarrhea. Patient denies chest pain, shortness of breath, vomiting, fevers, chills, diarrhea, constipation, headache, new onset weakness. Physical Exam Vital Signs: Temp Pulse Resp BP Pulse Ox 98.0 F 82 16 123/56 L 96 01/14/17 07:52 01/14/17 07:52 01/14/17 07:52 01/14/17 07:52 01/14/17 07:52 Intake & Output 01/13/17 01/14/17 01/15/17 06:59 06:59 06:59 Intake Total 0 70 Output Total 0 380 Balance 0 -310 Weight 85.8 kg 88.3 kg Exam: GENERAL: No acute distress, older than stated age appearing, chronically ill- appearing, HEENT: Conjunctiva clear, nonicteric, moist mucous membranes, no JVD, midline trachea RESPIRATORY: Clear to auscultation bilaterally, no wheezes, no rhonchi CARDIAC: Regular rate and rhythm, no murmurs/gallops/rubs ABDOMEN: obese, soft, LUQ TTP, JULIUS drain in place draining mayer material, positive bowel sounds, no rebound, no guarding EXTREMETIES: No edema, cyanosis, clubbing NEUROLOGIC: Alert, oriented to person/place/time, CN's grossly intact, no focal deficits PSYCH: flat mood and affect Results Laboratory Results: 01/14/17 06:05 01/14/17 06:05 01/14/17 01/14/17 06:05 06:05 WBC 6.8 RBC 3.39 L Hgb 10.2 L Hct 30.1 L MCV 89 MCH 30.2 MCHC 34.1 RDW 16.3 H Plt Count 309 Seg Neutrophils % 69.6 Lymphocytes % 22.4 Monocytes % 7.4 Eosinophils % 0.2 Basophils % 0.4 Absolute Neutrophils 4.7 Absolute Lymphocytes 1.5 Absolute Monocytes 0.5 Absolute Eosinophils 0.0 Absolute Basophils 0.0 Sodium 136.0 L Potassium 3.5 L Chloride 103 Carbon Dioxide 27 Anion Gap 6 BUN 7 Creatinine 0.63 Est GFR ( Amer) > 60 Est GFR (Non-Af Amer) > 60 Glucose 81 Calcium 9.1 Total Bilirubin 0.5 AST 18 ALT 13 Alkaline Phosphatase 86 Total Protein 5.4 L Albumin 2.1 L Assessment & Plan - Diagnosis (1) Infected pancreatic pseudocyst Is this a current diagnosis for this admission?: YesPlan: Patient will need care and drainage over next 1 month. 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, unspecified; R19.7 - Diarrhea, unspecified Is this a current diagnosis for this admission?: YesPlan: Patient has been receiving Lomotil without much success Initiate Pancreaze bid with meals (5) Hypertension Qualifiers: Hypertension type: essential hypertension Qualified Code(s): I10 - Essential (primary) hypertension Is this a current diagnosis for this admission?: YesPlan: continue lisinopril stop hctz as patient is having poor oral intake (6) Hyponatremia Is this a current diagnosis for this admission?: YesPlan: 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 Darnell as an outpatient (8) Obesity Qualifiers: Obesity type: due to excess calories Body mass index: BMI 30.0-30.9 Is this a current diagnosis for this admission?: Yes (9) Physical debility Is this a current diagnosis for this admission?: YesPlan: Encourage OOB to chair tid and up to commode will need rehab This patient has consistently been unwilling to participate in her care as far as tolieting and all other IADLs and some ADLs. I will consult psychology to determine if there is underlying depression. Significant other reports it was the same at home. (10) Malnutrition compromising bodily function Is this a current diagnosis for this admission?: YesPlan: Patient last albumin was 1.9-2.1. Patient is quite weak with poor hvac lead strength. Patient outcome affected by this as she will be functionally incapable of her iADLs and ADLs. Have consulted dietary. Ensure TID with meals Megace added - Time Time Spent with patient: 35 or more minutes Medications reviewed and adjusted accordingly: Yes Anticipated discharge: Acute Rehab Within: when bed available
[2017-01-14] MEDS: ERTAPENEM SODIUM 1 GM in NORMAL SALINE 50 ML IV SCH (11:53)
[2017-01-14] MEDS: MEGESTROL ACETATE SUSP 400 MG/10 ML UDCUP PO SCH (11:54)
[2017-01-14] MEDS: ZINC SULFATE 220 MG CAPSULE PO SCH (11:54)
[2017-01-14] MEDS: HYDROCODONE/ACETAMINOPHEN 5-325 MG TABLET PO PRN (12:04)
[2017-01-14] MEDS: NYSTATIN 500000 UNIT/5 ML UDCUP PO SCH ×4 (12:05→21:18)
[2017-01-14] MEDS: NORMAL SALINE 10 ML SDV (AFTER EACH USE) IV PRN ×2 (13:55→13:56)
[2017-01-14] MEDS: LIPASE/PROTEASE/AMYLASE 1 CAP CAPSULE.DR PO SCH ×3 (15:54)
[2017-01-14] MEDS: ASCORBIC ACID 500 MG TABLET PO SCH (17:09)
[2017-01-14] MEDS: LACTOBACILLUS ACIDOPHILUS 250 MG TAB PO SCH (17:10)
--- NOTE | 2017-01-14 17:53 | PSYCHOLOGICAL NOTE ---
Psych Note - Psych Note Psych Note: Patient is a 66 year old female who has been admitted to [facility] with extensive medical complications, to include pancreatic cyst, bilateral PE, etc. It appears, patient was initially admitted to [facility] late December , then transferred to [facility] and back to [facility] within the past few days (01/09- current). Patient has been referred for consultation due to concerns over possible depression, as noted due to her documented resistance to getting out of bed TID as instructed, toileting on the commode and or requesting assistance from nursing staff to properly toilet. Noted of concerns, was patient's reporting similar behaviors within the home setting. Patient's chart was reviewed in preparation for evaluation. Patient will be evaluated at a later time bedside, likely in the morning. Will follow.
[2017-01-14] MEDS: AMLODIPINE BESYLATE 5 MG TABLET PO SCH (21:18)
[2017-01-14] MEDS: NORMAL SALINE 10 ML SDV (SCHEDULED) IV SCH (21:18)
[2017-01-15 05:24] LABS: ABSOLUTE MONOCYTES (AUTO) 0.6 10^3/uL (0.1-1.4); ABSOLUTE NEUT (AUTO) 5.3 10^3/uL (1.7-8.2); BASOPHILS % (AUTO) 0.4 % (0-2); EOSINOPHILS % (AUTO) 0.4 % (0-6); HEMATOCRIT 30.6 % (36.0-47.0); HEMOGLOBIN 10.4 g/dL (12.0-15.5); HGB HCT DIFFERENCE 0.6; LYMPHOCYTES % (AUTO) 24.9 % (13-45); MEAN CORPUSCULAR HEMOGLOBIN 29.9 pg (27.0-33.4); MEAN CORPUSCULAR VOLUME 88 fl (80-97); MONOCYTES % (AUTO) 7.1 % (3-13); RED BLOOD COUNT 3.48 10^6/uL (3.72-5.28); RED CELL DISTRIBUTION WIDTH 16.5 % (11.5-14.0); SEGMENTED NEUTROPHILS % (AUTO) 67.2 % (42-78); WHITE BLOOD COUNT 7.9 10^3/uL (4.0-10.5)
[2017-01-15 05:50] LABS: ALANINE AMINOTRANSFERASE 19 U/L (9-52); ALBUMIN 2.2 g/dL (3.5-5.0); ALKALINE PHOSPHATASE 91 U/L (38-126); ANION GAP 7 (5-19); ASPARTATE AMINO TRANSFERASE 19 U/L (14-36); BILIRUBIN,DIRECT 0.4 mg/dL (0.0-0.4); BILIRUBIN,TOTAL 0.5 mg/dL (0.2-1.3); BLOOD UREA NITROGEN 8 mg/dL (7-20); CALCIUM 9.3 mg/dL (8.4-10.2); CARBON DIOXIDE 26 mmol/L (22-30); CHLORIDE 102 mmol/L (98-107); CREATININE RESULT 0.62 mg/dL (0.52-1.25); GLUCOSE 79 mg/dL (75-110); POTASSIUM 3.8 mmol/L (3.6-5.0); SODIUM 134.6 mmol/L (137-145); TOTAL PROTEIN 5.7 g/dL (6.3-8.2)
[2017-01-15] MEDS: LIPASE/PROTEASE/AMYLASE 1 CAP CAPSULE.DR PO SCH ×6 (07:34→15:51)
[2017-01-15] MEDS: LISINOPRIL 10 MG TABLET PO SCH (07:34)
[2017-01-15] MEDS: HYDROCODONE/ACETAMINOPHEN 5-325 MG TABLET PO PRN (07:34)
[2017-01-15] MEDS: PROCHLORPERAZINE MALEATE 10 MG TABLET PO PRN (07:34)
[2017-01-15] MEDS: RIVAROXABAN 15 MG TABLET PO SCH ×2 (07:34→18:24)
[2017-01-15] MEDS: ZINC SULFATE 220 MG CAPSULE PO SCH (09:48)
[2017-01-15] MEDS: MEGESTROL ACETATE SUSP 400 MG/10 ML UDCUP PO SCH (09:48)
[2017-01-15] MEDS: LACTOBACILLUS ACIDOPHILUS 250 MG TAB PO SCH ×2 (09:48→18:23)
[2017-01-15] MEDS: ERTAPENEM SODIUM 1 GM in NORMAL SALINE 50 ML IV SCH (09:48)
[2017-01-15] MEDS: NYSTATIN 500000 UNIT/5 ML UDCUP PO SCH ×4 (09:48→22:24)
[2017-01-15] MEDS: ASCORBIC ACID 500 MG TABLET PO SCH ×2 (09:48→18:24)
[2017-01-15] MEDS: NORMAL SALINE 10 ML SDV (SCHEDULED) IV SCH ×2 (09:49→22:25)
--- NOTE | 2017-01-15 10:18 | PDOC PROGRESS REPORT ---
Subjective Progress Note for:: 01/15/17 Subjective:: reason for visit: f/u infected pancreatic pseudocyst, bilat PE hospital course: per other's notes - "XIOMARA SETHI is a 66 year old female who was transferred to [facility] on 01/10/17 for surgical evaluation of her necrotic pancreatic pseudocyst. Patient record was reviewed and summery is as follows. Patient underwent IR drainage on 01/12/17 which returned 200mL of francis pus. Hematology/oncology visited this patient and transitioned her to lovenox which they recommended continuing or using xarelto. Patient was also evaluated by surgery who agreed with IR intervention. The surgical recommendation was that the dtrain should remain for 1 month. They also recommended irrigation techniques. They also recommended repeat CT when drainage was below 10 cc > 24 hours." she remains on Invanz, review of cultures from [facility] showed no growth at one day but no f/u results on the chart. c/o diarrhea but only 2 incontinent stools yesterday and 1 so far today. no mention of melena or hematochezia. ROS: c/o constant, dull aching pain in her left flank around where the drain remains but states her fevers "have broken" and overall she feels better. she denies chest pain, abdominal pain, n/v, AVILES, dizziness, SOA or cough. all systems reviewed, as above, remaining systems negative. Physical Exam Vital Signs: Temp Pulse Resp BP Pulse Ox 97.8 F 89 20 122/62 95 01/15/17 03:18 01/15/17 03:18 01/15/17 03:18 01/15/17 03:18 01/15/17 03:18 Intake & Output 01/14/17 01/15/17 01/16/17 06:59 06:59 06:59 Intake Total 70 166 Output Total 380 35 Balance -310 131 Weight 88.3 kg 87.3 kg General appearance: PRESENT: no acute distress - chronically ill appearing, well -developed. ABSENT: well-nourished - color and skin turgor suggest malnutrition Head exam: PRESENT: atraumatic, normocephalic Eye exam: PRESENT: EOMI. ABSENT: scleral icterus Neck exam: PRESENT: full ROM. ABSENT: lymphadenopathy Respiratory exam: PRESENT: crackles - at bases L>R. ABSENT: accessory muscle use, rhonchi, tachypnea, wheezes Cardiovascular exam: PRESENT: RRR. ABSENT: systolic murmur Pulses: PRESENT: normal radial pulses, normal dorsalis pedis pul GI/Abdominal exam: PRESENT: normal bowel sounds, soft, tenderness - some left flank tenderness to palpation but the drain remains in place with thick, nelson, cloudy and purulent material in the JULIUS bulb; 300ml reported yesterday Extremities exam: ABSENT: calf tenderness, pedal edema Musculoskeletal exam: PRESENT: full ROM. ABSENT: ambulatory - not without assitance, remains weak and unsteady but is up to bedside chair today Neurological exam: PRESENT: alert, awake, oriented to person, oriented to place , oriented to situation Psychiatric exam: PRESENT: appropriate affect, normal mood Skin exam: PRESENT: dry, warm Results Laboratory Results: 01/15/17 05:03 01/15/17 05:03 01/15/17 01/15/17 05:03 05:03 WBC 7.9 RBC 3.48 L Hgb 10.4 L Hct 30.6 L MCV 88 MCH 29.9 MCHC 34.0 RDW 16.5 H Plt Count 364 Seg Neutrophils % 67.2 Lymphocytes % 24.9 Monocytes % 7.1 Eosinophils % 0.4 Basophils % 0.4 Absolute Neutrophils 5.3 Absolute Lymphocytes 2.0 Absolute Monocytes 0.6 Absolute Eosinophils 0.0 Absolute Basophils 0.0 Sodium 134.6 L Potassium 3.8 Chloride 102 Carbon Dioxide 26 Anion Gap 7 BUN 8 Creatinine 0.62 Est GFR ( Amer) > 60 Est GFR (Non-Af Amer) > 60 Glucose 79 Calcium 9.3 Total Bilirubin 0.5 AST 19 ALT 19 Alkaline Phosphatase 91 Total Protein 5.7 L Albumin 2.2 L Assessment & Plan - Diagnosis (1) Infected pancreatic pseudocyst Is this a current diagnosis for this admission?: YesPlan: stable but not resolved; IR and general surgery at [facility] suggested leaving drain in place for one month; unclear how long they recommended abx, will need to reach out to ID for an opinion on this, so far cultures appear negative, will try to get latest results from [facility]. for now continue Invanz (2) Bilateral pulmonary embolism Is this a current diagnosis for this admission?: YesPlan: stable; continue xarelto, no hypoxia or hypotension so she seems to be tolerating well. 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, unspecified; R19.7 - Diarrhea, unspecified Is this a current diagnosis for this admission?: YesPlan: seems improved; continue to monitor and continue current regimen (8) Hypertension Qualifiers: Hypertension type: essential hypertension Qualified Code(s): I10 - Essential (primary) hypertension Is this a current diagnosis for this admission?: YesPlan: stable (9) Lung cancer Qualifiers: Laterality: unspecified laterality Lung location: unspecified part of lung Qualified Code(s): C34.90 - Malignant neoplasm of unspecified part of unspecified bronchus or lung Is this a current diagnosis for this admission?: YesPlan: stable; per oncology - Time Time Spent with patient: 35 or more minutes Medications reviewed and adjusted accordingly: Yes Anticipated discharge: Acute Rehab Within: within 72 hours
[2017-01-15] MEDS ORDERED: ONDANSETRON HCL INJ/PF 4 MG/2 ML SDV IV PRN (10:38)
[2017-01-15] MEDS ORDERED: ALPRAZOLAM 0.25 MG TABLET PO PRN (10:39)
[2017-01-15] MEDS ORDERED: MAG HYDROX/AL HYDROX/SIMETH SUSP 30 ML UDCUP PO PRN (10:40)
--- NOTE | 2017-01-15 16:56 | PSYCHOLOGICAL NOTE ---
Psych Note - Psych Note Psych Note: Patient is a 66 year old female who has been admitted to [facility] Hospitalist's Services due to a myriad of medical problems. Concerns over patient's mental status and suspected underlying depression were noted and patient was referred for consultation, notably due to her not following orders, such as getting out of bed tid, and requesting assistance with toileting. Met with patient today, who was sitting in her chair eating lunch. Patient was pleasant throughout conversation, made good eye contact, and remained on topic throughout discussions. Patient was initially guarded; however, discussed her home life and history willingly. Patient was bale to make jokes and engage in banter during evaluation. Patient states toileting has been something she cannot control, and often has accidents at home. Patient states she made the staff aware when she was first admitted, that she feels as though she has no prior warning and then no control to prevent an mishap. Patient states this occurs both at home and within this hospital setting. Patient states her boyfriend, with whom she resides, has helped her recently care for herself. Patient states she does not like to get out of bed because she is afraid of falling. She states there is no other reason, and that if she does not feel up to moving, she will not. Discussed with patient the noted concerns about any underlying depression, which she acknowledges she struggles with depression. Patient states she has been prescribed Zoloft for now 15 years, and clarifies it was first prescribed to her when living in [place] after she "had a mental breakdown and went away." Patient reports she is a , and that she and her had moved from [place] to [place] in 1997 to be closer to his family. She states he was killed in a MVC in 2007, but she has remained in contact with his remaining family members, a brother and sister. She states she speaks with them every so often, and counts them as support individuals, but denies they physically check in with her at her home. Patient denies having any other family members. Patient states she and her boyfriend have been together x2 years , and initially met online and messaged each others. Patient states she told him if he thought he could live there and not cause her problems, he could come. She states he relocated the next day from [place]. She reports her needs are met, and she does not feel as though she is being taken advantage of. Patient states her depressive symptoms manifest as sadness, and can culminate in one big ball and then explode. She also reports at times deep concern for her medical illnesses. Patient states, "sometimes I worry I'm falling apart." Patient reports she knows that she is not, and that she is experiencing some setbacks; however, overall the chemotherapy is helping. Patient additionally talks about going to a rehabilitative facility, and reports she and her boyfriend have talked about [facility]. Patient states she is worried because she has not been to one in the past, but would look forward to getting stronger. Patient states, "I'm not going to be locked up, am I?" Patient advised that this clinician had no knowledge of this type of facility, but would work to gather information or request the community development planner assist with providing this as it becomes available. Patient denies suicidal ideations. She states the Zoloft works for her, although states it could be stronger. Patient states she is not sure if she has received her medication while here at [facility]. Patient could not recall her dosage. Patient did provide consent to speak with her boyfriend. Patient's boyfriend, David states he has lived with the patient for 2 years. He states he has noticed her to be depressed and states when she gets depressed, she orders items online. She states when he first met her, she had inherited a little over $300,000, which he states has dwindled down to about $15,000. He reports he has worked with her to help her save money and let him know prior to purchasing something online. He denies these episodes are accompanied by elevated moods, lack of sleep, etc. Boyfriend denies concerns for her safety, and reports he wants her to feel better. Patient was A&O. Mood was euthymic with smiling affect. Patient denies suicidal/homicidal ideations, intent, plan or means. Patient denies A/V h; delusions not noted. Thought processes were organized. Conversational speech was WNL. Intellectual abilities were estimated within average range. Attention and focus were fair. Insight, judgment, and impulse control were poor to fair. Major Depressive Disorder, Recurrent, Mild Patient is psychiatrically cleared for discharge. Patient is recommended to follow up with an outpatient mental health provider of her choice, when able. Patient reports she thinks the Zoloft works were for her, and she would like to continue this medication. Per [facility] pharmacy, patient last filled a prescription for Zoloft September 2016 for a 90 day supply 50 mg qd. (pt would have run out of medications roughly around December 19). Note, patient has been admitted in and out of this hospital and [facility] since around December 26, which may account for the lapse in prescription due to possibly missing an appointment with the prescribing provider. This was discussed with both the patient and her boyfriend; however, neither could account for the lapse. Patient states she knows it is a little blue pill, and that she takes numerous pills, but identifies 3 of them as little blue pills taken in the morning. I consulted with Dr. Rae in regards to the care and management of this patient. Hospitalist made aware of recommendations. Thank you kindly for this consultation.
[2017-01-15] MEDS: AMLODIPINE BESYLATE 5 MG TABLET PO SCH (22:24)
[2017-01-16 06:01] LABS: ABSOLUTE LYMPHOCYTES (AUTO) 2.2 10^3/uL (0.5-4.7); ABSOLUTE MONOCYTES (AUTO) 0.6 10^3/uL (0.1-1.4); ABSOLUTE NEUT (AUTO) 5.4 10^3/uL (1.7-8.2); BASOPHILS % (AUTO) 0.4 % (0-2); EOSINOPHILS % (AUTO) 0.4 % (0-6); HEMATOCRIT 31.2 % (36.0-47.0); HEMOGLOBIN 10.6 g/dL (12.0-15.5); HGB HCT DIFFERENCE 0.6; LYMPHOCYTES % (AUTO) 26.7 % (13-45); MEAN CORPUSCULAR HEMOGLOBIN 30.1 pg (27.0-33.4); MEAN CORPUSCULAR HGB CONC 34.1 g/dL (32.0-36.0); MEAN CORPUSCULAR VOLUME 88 fl (80-97); MONOCYTES % (AUTO) 7.1 % (3-13); RED BLOOD COUNT 3.53 10^6/uL (3.72-5.28); RED CELL DISTRIBUTION WIDTH 16.7 % (11.5-14.0); SEGMENTED NEUTROPHILS % (AUTO) 65.4 % (42-78); WHITE BLOOD COUNT 8.2 10^3/uL (4.0-10.5)
[2017-01-16 06:25] LABS: ALANINE AMINOTRANSFERASE 18 U/L (9-52); ALBUMIN 2.2 g/dL (3.5-5.0); ALKALINE PHOSPHATASE 90 U/L (38-126); ANION GAP 6 (5-19); ASPARTATE AMINO TRANSFERASE 20 U/L (14-36); BILIRUBIN,DIRECT 0.4 mg/dL (0.0-0.4); BILIRUBIN,TOTAL 0.5 mg/dL (0.2-1.3); BLOOD UREA NITROGEN 8 mg/dL (7-20); CALCIUM 9.5 mg/dL (8.4-10.2); CARBON DIOXIDE 28 mmol/L (22-30); CHLORIDE 102 mmol/L (98-107); CREATININE RESULT 0.62 mg/dL (0.52-1.25); GLUCOSE 82 mg/dL (75-110); POTASSIUM 3.8 mmol/L (3.6-5.0); SODIUM 135.8 mmol/L (137-145); TOTAL PROTEIN 5.8 g/dL (6.3-8.2)
[2017-01-16] MEDS: LIPASE/PROTEASE/AMYLASE 1 CAP CAPSULE.DR PO SCH ×6 (08:16→17:25)
[2017-01-16] MEDS: RIVAROXABAN 15 MG TABLET PO SCH ×2 (08:16→17:25)
[2017-01-16] MEDS: LISINOPRIL 10 MG TABLET PO SCH (08:17)
[2017-01-16] MEDS: ASCORBIC ACID 500 MG TABLET PO SCH ×2 (09:30→17:25)
[2017-01-16] MEDS: ZINC SULFATE 220 MG CAPSULE PO SCH (09:30)
[2017-01-16] MEDS: PROCHLORPERAZINE MALEATE 10 MG TABLET PO PRN (09:30)
[2017-01-16] MEDS: NYSTATIN 500000 UNIT/5 ML UDCUP PO SCH ×4 (09:30→22:36)
[2017-01-16] MEDS: NORMAL SALINE 10 ML SDV (SCHEDULED) IV SCH ×2 (09:30→22:38)
[2017-01-16] MEDS: HYDROCODONE/ACETAMINOPHEN 5-325 MG TABLET PO PRN (09:30)
[2017-01-16] MEDS: MEGESTROL ACETATE SUSP 400 MG/10 ML UDCUP PO SCH (09:30)
[2017-01-16] MEDS: LACTOBACILLUS ACIDOPHILUS 250 MG TAB PO SCH ×2 (09:30→17:25)
--- NOTE | 2017-01-16 10:21 | PDOC PROGRESS REPORT ---
Subjective Progress Note for:: 01/16/17 Subjective:: reason for visit: f/u infected pancreatic pseudocyst, bilat PE hospital course: per other's notes - "XIOMARA SETHI is a 66 year old female who was transferred to [facility] on 01/10/17 for surgical evaluation of her necrotic pancreatic pseudocyst. Patient record was reviewed and summery is as follows. Patient underwent IR drainage on 01/12/17 which returned 200mL of francis pus. Hematology/oncology visited this patient and transitioned her to lovenox which they recommended continuing or using xarelto. Patient was also evaluated by surgery who agreed with IR intervention. The surgical recommendation was that the dtrain should remain for 1 month. They also recommended irrigation techniques. They also recommended repeat CT when drainage was below 10 cc > 24 hours." she remains on Invanz, review of cultures from [facility] showed no growth at one day but no f/u results on the chart. still c/o diarrhea described as loose watery foul smelling stools. no mention of melena or hematochezia. also complaining of sudden bout of nausa with vomiting at 0200 but thinks it might be the hot dog her boyfriend brought her as late night snack. ROS: c/o constant, dull aching diffuse nonradiating abdominal pain, pushing on it makes it worse, certain positions improves, no other asct'd symptoms. she denies chest pain, abdominal pain, n/v, AVILES, dizziness, SOA or cough. all systems reviewed, as above, remaining systems negative. Physical Exam Vital Signs: Temp Pulse Resp BP Pulse Ox 98.0 F 93 17 108/68 96 01/16/17 06:54 01/16/17 07:00 01/16/17 06:54 01/16/17 06:54 01/16/17 06:54 Intake & Output 01/15/17 01/16/17 01/17/17 06:59 06:59 06:59 Intake Total 166 517 Output Total 35 50 Balance 131 467 Weight 87.3 kg 86.4 kg General appearance: PRESENT: no acute distress - chronically ill appearing, well -developed. ABSENT: well-nourished - color and skin turgor suggest malnutrition Head exam: PRESENT: atraumatic, normocephalic Eye exam: PRESENT: EOMI. ABSENT: scleral icterus Neck exam: PRESENT: full ROM. ABSENT: lymphadenopathy Respiratory exam: PRESENT: crackles - at bases L>R. ABSENT: accessory muscle use, rhonchi, tachypnea, wheezes Cardiovascular exam: PRESENT: RRR. ABSENT: systolic murmur Pulses: PRESENT: normal radial pulses, normal dorsalis pedis pul GI/Abdominal exam: PRESENT: normal bowel sounds, soft, tenderness - right anterior tenderness to palpation with sausage shaped palpable mass tracking along the Rt colonic gutter I suspect a stool filled loop of bowel, left flank drain remains in place with thick, nelson, cloudy and purulent material in the JULIUS bulb; about 100ml last 24hrs Extremities exam: ABSENT: calf tenderness, pedal edema Musculoskeletal exam: PRESENT: full ROM. ABSENT: ambulatory - not without assitance, remains weak and unsteady, 2 person max assist Neurological exam: PRESENT: alert, awake, oriented to person, oriented to place , oriented to situation Psychiatric exam: PRESENT: appropriate affect, normal mood Skin exam: PRESENT: dry, warm Results Laboratory Results: 01/16/17 05:50 01/16/17 05:50 01/16/17 01/16/17 05:50 05:50 WBC 8.2 RBC 3.53 L Hgb 10.6 L Hct 31.2 L MCV 88 MCH 30.1 MCHC 34.1 RDW 16.7 H Plt Count 416 Seg Neutrophils % 65.4 Lymphocytes % 26.7 Monocytes % 7.1 Eosinophils % 0.4 Basophils % 0.4 Absolute Neutrophils 5.4 Absolute Lymphocytes 2.2 Absolute Monocytes 0.6 Absolute Eosinophils 0.0 Absolute Basophils 0.0 Sodium 135.8 L Potassium 3.8 Chloride 102 Carbon Dioxide 28 Anion Gap 6 BUN 8 Creatinine 0.62 Est GFR ( Amer) > 60 Est GFR (Non-Af Amer) > 60 Glucose 82 Calcium 9.5 Total Bilirubin 0.5 AST 20 ALT 18 Alkaline Phosphatase 90 Total Protein 5.8 L Albumin 2.2 L Assessment & Plan - Diagnosis (1) Nausea and vomiting Qualifiers: Vomiting type: bilious vomiting Qualified Code(s): R11.14 - Bilious vomiting Is this a current diagnosis for this admission?: YesPlan: new: unsure but worry about partial obstruction due to palpable mass, lack of solid stool. ck AXR, may need ct scan sooner than thought if symptoms persist. if no obstruction/dilatation may add scheduled cathartic, if obs then make NPO and place NGT for intractable vomiting should it occur and will need surgery input. (2) Infected pancreatic pseudocyst Is this a current diagnosis for this admission?: YesPlan: stable but not resolved; IR and general surgery at [facility] suggested leaving drain in place for one month; unclear how long they recommended abx, will need to reach out to ID for an opinion on this, final cultures show 2 strains of Strep viridans and anaerobes unidentified. will d/c invanz and switch to clinda monitoring for worsening, has the added advantage of oral regimen when time to d/c to [facility] (3) Bilateral pulmonary embolism Is this a current diagnosis for this admission?: YesPlan: stable; continue xarelto, no hypoxia or hypotension so she seems to be tolerating well. 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 (7) Physical debility Is this a current diagnosis for this admission?: Yes (8) Diarrhea Qualifiers: Diarrhea type: due to malabsorption Qualified Code(s): K90.9 - Intestinal malabsorption, unspecified; R19.7 - Diarrhea, unspecified Is this a current diagnosis for this admission?: Yes (9) Hypertension Qualifiers: Hypertension type: essential hypertension Qualified Code(s): I10 - Essential (primary) hypertension Is this a current diagnosis for this admission?: Yes (10) Lung cancer Qualifiers: Laterality: unspecified laterality Lung location: unspecified part of lung Qualified Code(s): C34.90 - Malignant neoplasm of unspecified part of unspecified bronchus or lung Is this a current diagnosis for this admission?: Yes - Time Time Spent with patient: 25-34 minutes Medications reviewed and adjusted accordingly: Yes Anticipated discharge: Acute Rehab - bed offer at [facility] Within: within 72 hours
--- NOTE | 2017-01-16 10:27 | RADIOLOGY REPORT (SQ) ---
EXAM DESCRIPTION: ABDOMEN 2 VIEWS COMPLETED DATE/TIME: 01/16/2017 10:10 am REASON FOR STUDY: abd pain, poss obstruction COMPARISON: None. NUMBER OF VIEWS: Two views. TECHNIQUE: Supine and erect radiographic images of the abdomen acquired. LIMITATIONS: None. FINDINGS: FREE AIR: None. No abnormal gas collections. LUNG BASES: Clear. BOWEL GAS PATTERN: There is some gas-filled small bowel including the dilated loop bowel is to the le ft of the midline. There is gas in the colon. CALCIFICATIONS: No suspicious calcifications. SOFT TISSUES: No gross mass or suggestion of organomegaly. HARDWARE: A catheter is present in the left side of the abdomen. IVC filter. BONES: No acute fracture. No worrisome bone lesions. OTHER: No other significant finding. IMPRESSION: There appears to be a partial small bowel obstruction. TECHNICAL DOCUMENTATION: JOB ID: [id number]- All Rights Reserved
[2017-01-16] MEDS: CLINDAMYCIN 600 MG/D5W RTU 50 ML IV SCH ×2 (15:00→22:36)
--- NOTE | 2017-01-16 18:40 | RADIOLOGY REPORT (SQ) ---
EXAM DESCRIPTION: CT ABD/PELVIS WITH IV ONLY COMPLETED DATE/TIME: 01/16/2017 6:21 pm REASON FOR STUDY: poss partial SBO, panc mass with drain f/u COMPARISON: 01/03/2017 TECHNIQUE: CT scan of the abdomen and pelvis performed using helical scanning technique with dynamic intravenous contrast injection. No oral contrast. Images reviewed with lung, soft tissue, and bone windows. Reconstructed coronal and sagittal MPR images reviewed. Delayed images for evaluation of the urinary system also acquired. All images stored on PACS. All CT scanners at this facility use dose modulation, iterative reconstruction, and/or weight based d osing when appropriate to reduce radiation dose to as low as reasonably achievable (ALARA). [facility]: Dose Right [facility]: CareDose [facility]: Dose Right [facility]: Teradose 4D [facility]: P[employer] CONTRAST TYPE AND DOSE: contrast/concentration: Isovue 370.00 mg/ml; Total Contrast Delivered: 93.0 ml; Total Saline Delivered: 67.0 ml RENAL FUNCTION: Creatinine 0.6 BUN 8 RADIATION DOSE: Up-to-date CT equipment and radiation dose reduction techniques were employed. CTDIv ol: 18.5 - 20.4 mGy. DLP: 1961 mGy-cm.. LIMITATIONS: None. FINDINGS: LOWER CHEST: There is a minimal left pleural effusion. There is no pulmonary infiltrate. LIVER: A stable hepatic cyst is present. SPLEEN: Normal size. No focal lesions. PANCREAS: There are residual inflammatory changes around the pancreas. A pigtail catheter lies next to the tail of the pancreas. The large fluid collection present on the earlier study is significantl y improved. There is still gas within the space. GALLBLADDER: No identified stones by CT criteria. No inflammatory changes to suggest cholecystitis. ADRENAL GLANDS: No significant masses or asymmetry. RIGHT KIDNEY AND URETER: No solid masses. Stable small cortical cysts. No significant calcificatio ns. No hydronephrosis or hydroureter. LEFT KIDNEY AND URETER: No solid masses. Stable small cortical cysts. No significant calcification s. No hydronephrosis or hydroureter. AORTA AND VESSELS: No aneurysm. No dissection. Renal arteries, SMA, celiac without stenosis. RETROPERITONEUM: No retroperitoneal adenopathy, hemorrhage or masses. BOWEL AND PERITONEAL CAVITY: Sigmoid diverticula are present with no acute inflammatory changes. APPENDIX: Not identified. PELVIS: The urinary bladder is normal. The uterus is normal for age. There is no adnexal mass or fl uid collection. ABDOMINAL WALL: No masses. No hernias. BONES: No significant or acute findings. OTHER: No other significant finding. IMPRESSION: 1. Minimal left pleural effusion. 2. The fluid collection around the pancreas is much smaller. There is gas in the residual space. T he pigtail catheter remains in position. 3. Diverticulosis coli. TECHNICAL DOCUMENTATION: JOB ID: [id number] Quality ID # [id number]: Final reports with documentation of one or more dose reduction techniques (e.g., Au tomated exposure control, adjustment of the mA and/or kV according to patient size, use of iterative reconstruction technique) 2010 [employer]- All Rights Reserved
[2017-01-16] MEDS: AMLODIPINE BESYLATE 5 MG TABLET PO SCH (22:38)
[2017-01-17] MEDS: CLINDAMYCIN 600 MG/D5W RTU 50 ML IV SCH ×3 (05:45→22:14)
[2017-01-17] MEDS: LIPASE/PROTEASE/AMYLASE 1 CAP CAPSULE.DR PO SCH ×6 (07:56→17:16)
[2017-01-17] MEDS: LISINOPRIL 10 MG TABLET PO SCH (07:56)
[2017-01-17] MEDS: RIVAROXABAN 15 MG TABLET PO SCH ×2 (07:57→17:16)
[2017-01-17] MEDS: NYSTATIN 500000 UNIT/5 ML UDCUP PO SCH ×4 (10:19→22:13)
[2017-01-17] MEDS: ASCORBIC ACID 500 MG TABLET PO SCH ×2 (10:19→17:16)
[2017-01-17] MEDS: MEGESTROL ACETATE SUSP 400 MG/10 ML UDCUP PO SCH (10:19)
[2017-01-17] MEDS: ZINC SULFATE 220 MG CAPSULE PO SCH (10:19)
[2017-01-17] MEDS: NORMAL SALINE 10 ML SDV (SCHEDULED) IV SCH ×2 (10:19→22:15)
[2017-01-17] MEDS: LACTOBACILLUS ACIDOPHILUS 250 MG TAB PO SCH ×2 (10:19→17:16)
--- NOTE | 2017-01-17 11:05 | PDOC PROGRESS REPORT ---
Subjective Progress Note for:: 01/17/17 Subjective:: reason for visit: f/u infected pancreatic pseudocyst, bilat PE hospital course: per other's notes - "XIOMARA SETHI is a 66 year old female who was transferred to [facility] on 01/10/17 for surgical evaluation of her necrotic pancreatic pseudocyst. Patient record was reviewed and summery is as follows. Patient underwent IR drainage on 01/12/17 which returned 200mL of francis pus. Hematology/oncology visited this patient and transitioned her to lovenox which they recommended continuing or using xarelto. Patient was also evaluated by surgery who agreed with IR intervention. The surgical recommendation was that the dtrain should remain for 1 month. They also recommended irrigation techniques. They also recommended repeat CT when drainage was below 10 cc > 24 hours." she remains on Invanz, review of cultures from [facility] showed no growth at one day but no f/u results on the chart. still c/o loose watery stools, no mention of melena or hematochezia. nausea and vomiting resolved ROS: c/o constant, dull aching diffuse nonradiating abdominal pain, waxing and waning, pushing on it makes it worse, certain positions improves, no other asct' d symptoms. she denies chest pain, abdominal pain, n/v, AVILES, dizziness, SOA or cough. all systems reviewed, as above, remaining systems negative. Physical Exam Vital Signs: Temp Pulse Resp BP Pulse Ox 97.4 F 88 18 105/72 95 01/17/17 07:11 01/17/17 07:11 01/17/17 07:11 01/17/17 07:11 01/17/17 07:11 Intake & Output 01/16/17 01/17/17 01/18/17 06:59 06:59 06:59 Intake Total 517 1450 Output Total 50 35 Balance 467 1415 Weight 86.4 kg 85.7 kg General appearance: PRESENT: no acute distress - chronically ill appearing, well -developed. ABSENT: well-nourished - color and skin turgor suggest malnutrition Head exam: PRESENT: atraumatic, normocephalic Eye exam: PRESENT: EOMI. ABSENT: scleral icterus Neck exam: PRESENT: full ROM. ABSENT: lymphadenopathy Respiratory exam: PRESENT: crackles - at bases L>R. ABSENT: accessory muscle use, rhonchi, tachypnea, wheezes Cardiovascular exam: PRESENT: RRR. ABSENT: systolic murmur Pulses: PRESENT: normal radial pulses, normal dorsalis pedis pul GI/Abdominal exam: PRESENT: normal bowel sounds, soft, tenderness - diffuse anterior tenderness to palpation with resolution of the sausage shaped palpable mass tracking along the Rt colonic gutter; left flank drain remains in place with thin, nelson, cloudy and purulent material in the JULIUS bulb; about 60ml last 24hrs Extremities exam: ABSENT: calf tenderness, pedal edema Musculoskeletal exam: PRESENT: full ROM. ABSENT: ambulatory - not without assitance, remains weak and unsteady, 2 person max assist Neurological exam: PRESENT: alert, awake, oriented to person, oriented to place , oriented to situation Psychiatric exam: PRESENT: appropriate affect, normal mood Skin exam: PRESENT: dry, warm Results Laboratory Results: 01/16/17 05:50 01/16/17 05:50 Impressions: Abdomen X-Ray 01/16/17 00:00 IMPRESSION: There appears to be a partial small bowel obstruction. Abdomen/Pelvis CT 01/16/17 00:00 IMPRESSION: 1. Minimal left pleural effusion. 2. The fluid collection around the pancreas is much smaller. There is gas in the residual space. The pigtail catheter remains in position. 3. Diverticulosis coli. Status: Image reviewed by me Assessment & Plan - Diagnosis (1) Nausea and vomiting Qualifiers: Vomiting type: bilious vomiting Qualified Code(s): R11.14 - Bilious vomiting Is this a current diagnosis for this admission?: YesPlan: resolved; unclear etiology, perhaps dietary indiscretion eating food from family (2) Infected pancreatic pseudocyst Is this a current diagnosis for this admission?: YesPlan: stable but not resolved; IR and general surgery at [facility] suggested leaving drain in place for one month; unclear how long they recommended abx, will need to reach out to ID for an opinion on this, final cultures show 2 strains of Strep viridans and anaerobes unidentified. d/c'd invanz and switched to clinda 01/16, monitoring for worsening, c;davion has the added advantage of oral regimen when time to d/c to [facility] (3) Bilateral pulmonary embolism Is this a current diagnosis for this admission?: YesPlan: stable; continue xarelto, no hypoxia or hypotension so she seems to be tolerating well. (4) Malnutrition compromising bodily function Is this a current diagnosis for this admission?: Yes (5) Anemia Qualifiers: Anemia type: unspecified type Qualified Code(s): D64.9 - Anemia, unspecified Is this a current diagnosis for this admission?: Yes (6) Hyponatremia Is this a current diagnosis for this admission?: Yes (7) Physical debility Is this a current diagnosis for this admission?: Yes (8) Diarrhea Qualifiers: Diarrhea type: due to malabsorption Qualified Code(s): K90.9 - Intestinal malabsorption, unspecified; R19.7 - Diarrhea, unspecified Is this a current diagnosis for this admission?: Yes (9) Hypertension Qualifiers: Hypertension type: essential hypertension Qualified Code(s): I10 - Essential (primary) hypertension Is this a current diagnosis for this admission?: YesPlan: stable (10) Lung cancer Qualifiers: Laterality: unspecified laterality Lung location: unspecified part of lung Qualified Code(s): C34.90 - Malignant neoplasm of unspecified part of unspecified bronchus or lung Is this a current diagnosis for this admission?: Yes - Time Time Spent with patient: 15-24 minutes
[2017-01-17] MEDS: AMLODIPINE BESYLATE 5 MG TABLET PO SCH (22:13)
[2017-01-18] MEDS: CLINDAMYCIN 600 MG/D5W RTU 50 ML IV SCH ×3 (05:43→21:23)
[2017-01-18] MEDS: NYSTATIN 500000 UNIT/5 ML UDCUP PO SCH ×4 (10:31→21:21)
[2017-01-18] MEDS: ASCORBIC ACID 500 MG TABLET PO SCH ×2 (10:31→18:56)
[2017-01-18] MEDS: ZINC SULFATE 220 MG CAPSULE PO SCH (10:32)
[2017-01-18] MEDS: LACTOBACILLUS ACIDOPHILUS 250 MG TAB PO SCH ×2 (10:32→18:55)
[2017-01-18] MEDS: LIPASE/PROTEASE/AMYLASE 1 CAP CAPSULE.DR PO SCH ×6 (10:32→18:55)
[2017-01-18] MEDS: RIVAROXABAN 15 MG TABLET PO SCH ×2 (10:33→18:55)
[2017-01-18] MEDS: LISINOPRIL 10 MG TABLET PO SCH (10:33)
[2017-01-18] MEDS: NORMAL SALINE 10 ML SDV (SCHEDULED) IV SCH ×2 (10:38→21:26)
--- NOTE | 2017-01-18 11:19 | PDOC PROGRESS REPORT ---
Subjective Progress Note for:: 01/18/17 Subjective:: reason for visit: f/u infected pancreatic pseudocyst, bilat PE hospital course: per other's notes - "XIOMARA SETHI is a 66 year old female who was transferred to [facility] on 01/10/17 for surgical evaluation of her necrotic pancreatic pseudocyst. Patient record was reviewed and summery is as follows. Patient underwent IR drainage on 01/12/17 which returned 200mL of francis pus. Hematology/oncology visited this patient and transitioned her to lovenox which they recommended continuing or using xarelto. Patient was also evaluated by surgery who agreed with IR intervention. The surgical recommendation was that the dtrain should remain for 1 month. They also recommended irrigation techniques. They also recommended repeat CT when drainage was below 10 cc > 24 hours." she remains on Invanz, review of cultures from [facility] showed no growth at one day but no f/u results on the chart. stools starting to firm up, no mention of melena or hematochezia. nausea and vomiting resolved, abd pain resolved; feels "great" today ROS: she denies chest pain, abdominal pain, n/v, AVILES, dizziness, SOA or cough. all systems reviewed, as above, remaining systems negative. Physical Exam Vital Signs: Temp Pulse Resp BP Pulse Ox 97.3 F 84 16 116/73 95 01/18/17 07:29 01/18/17 07:29 01/18/17 07:29 01/18/17 07:29 01/18/17 07:29 Intake & Output 01/17/17 01/18/17 01/19/17 06:59 06:59 06:59 Intake Total 1450 1008 Output Total 35 40 Balance 1415 968 Weight 85.7 kg 85.6 kg General appearance: PRESENT: no acute distress - chronically ill appearing, well -developed. ABSENT: well-nourished - color and skin turgor suggest malnutrition Head exam: PRESENT: atraumatic, normocephalic Eye exam: PRESENT: EOMI. ABSENT: scleral icterus Neck exam: PRESENT: full ROM. ABSENT: lymphadenopathy Respiratory exam: PRESENT: clearing crackles - at bases ABSENT: accessory muscle use, rhonchi, tachypnea, wheezes Cardiovascular exam: PRESENT: RRR. ABSENT: systolic murmur Pulses: PRESENT: normal radial pulses, normal dorsalis pedis pul GI/Abdominal exam: PRESENT: normal bowel sounds, soft, no tenderness; left flank drain remains in place with thin, nelson, cloudy and purulent material in the JULIUS bulb; about 100ml per shift Extremities exam: ABSENT: calf tenderness, pedal edema Musculoskeletal exam: PRESENT: full ROM. ABSENT: ambulatory - not without assitance, remains weak and unsteady, 2 person max assist Neurological exam: PRESENT: alert, awake, oriented to person, oriented to place , oriented to situation Psychiatric exam: PRESENT: appropriate affect, normal mood Skin exam: PRESENT: dry, warm Results Laboratory Results: 01/16/17 05:50 01/16/17 05:50 Assessment & Plan - Diagnosis (1) Infected pancreatic pseudocyst Is this a current diagnosis for this admission?: YesPlan: stable but not resolved; IR and general surgery at [facility] suggested leaving drain in place for one month; unclear how long they recommended abx, will need to reach out to ID for an opinion on this, final cultures show 2 strains of Strep viridans and anaerobes unidentified. d/c'd invanz and switched to clinda 01/16, clinda has the added advantage of oral regimen when time to d/c to [facility], seems to be doing well. continue lactobacillus for cdiff prophylaxis (2) Bilateral pulmonary embolism Is this a current diagnosis for this admission?: YesPlan: stable; continue xarelto, no hypoxia, bleeding or hypotension so she seems to be tolerating well. (3) Malnutrition compromising bodily function Is this a current diagnosis for this admission?: YesPlan: stable; encourage oral intake, continue supplements as tolerated (4) Hypertension Qualifiers: Hypertension type: essential hypertension Qualified Code(s): I10 - Essential (primary) hypertension Is this a current diagnosis for this admission?: YesPlan: stable (5) Anemia Qualifiers: Anemia type: unspecified type Qualified Code(s): D64.9 - Anemia, unspecified Is this a current diagnosis for this admission?: Yes (6) Hyponatremia Is this a current diagnosis for this admission?: Yes (7) Physical debility Is this a current diagnosis for this admission?: Yes (8) Diarrhea Qualifiers: Diarrhea type: due to malabsorption Qualified Code(s): K90.9 - Intestinal malabsorption, unspecified; R19.7 - Diarrhea, unspecified Is this a current diagnosis for this admission?: Yes (9) Lung cancer Qualifiers: Laterality: unspecified laterality Lung location: unspecified part of lung Qualified Code(s): C34.90 - Malignant neoplasm of unspecified part of unspecified bronchus or lung Is this a current diagnosis for this admission?: Yes (10) Nausea and vomiting Qualifiers: Vomiting type: bilious vomiting Qualified Code(s): R11.14 - Bilious vomiting Is this a current diagnosis for this admission?: YesPlan: resolved - Time Time Spent with patient: 25-34 minutes Anticipated discharge: SNF Within: within 24 hours - [facility]
[2017-01-18] MEDS: MEGESTROL ACETATE SUSP 400 MG/10 ML UDCUP PO SCH (14:52)
[2017-01-18] MEDS: AMLODIPINE BESYLATE 5 MG TABLET PO SCH (21:20)
[2017-01-18] MEDS: NORMAL SALINE 10 ML SDV (AFTER EACH USE) IV PRN (22:23)
[2017-01-19] MEDS: CLINDAMYCIN 600 MG/D5W RTU 50 ML IV SCH (05:35)
--- NOTE | 2017-01-19 09:44 | PDOC TRANSFER SUMMARY ---
General - Admit/Disc Date/PCP Admission Date/Primary Care Provider: 01/13/17 07:15 BAO PHAM Discharge Date: 01/19/17 - Discharge Diagnosis (1) Infected pancreatic pseudocyst Is this a current diagnosis for this admission?: YesSummary: IR and general surgery at [facility] suggested leaving drain in place for one month ; unclear how long they recommended abx, will need to reach out to ID for an opinion on this, final cultures show 2 strains of Strep viridans and anaerobes unidentified. d/c'd invanz and switched to clinda 01/16 for another 20d (total of 30d abx), clinda has the added advantage of oral regimen when time to d/c to [facility], seems to be doing well. continue lactobacillus for cdiff prophylaxis (2) Bilateral pulmonary embolism Is this a current diagnosis for this admission?: YesSummary: 21 d of xarelto at bid dosing and then once daily for total 6 months then re- evaluate (3) Malnutrition compromising bodily function Is this a current diagnosis for this admission?: YesSummary: continue to advance diet as tolerated (4) Hypertension Is this a current diagnosis for this admission?: YesSummary: well controlled on current regimen (5) Anemia Is this a current diagnosis for this admission?: YesSummary: H/H stable, no evidence to suggest active blood loss (6) Hyponatremia Is this a current diagnosis for this admission?: YesSummary: mild; resolved. avoid HCTZ (7) Physical debility Is this a current diagnosis for this admission?: YesSummary: progressing with PT but will need to continue at rehab, arrangements made for transfer (8) Diarrhea Is this a current diagnosis for this admission?: YesSummary: cdiff negative; improved with current regimen, continue same, consider pancrease (9) Lung cancer Is this a current diagnosis for this admission?: YesSummary: defer to her oncologist regarding further eval and management (10) Nausea and vomiting Is this a current diagnosis for this admission?: YesSummary: transient and resolved. - Additional Information Resuscitation Status: Full Code Discharge Diet: Cardiac Discharge Activity: Slowly Increase Activity, Supervised Activity Home Medications: Albuterol Sulfate [Ventolin Hfa] 2 puff IH Q4HP PRN 01/03/17 Amlodipine Besylate [Norvasc 5 mg Tablet] 5 mg PO QHS 01/03/17 Diphenoxylate HCl/Atrop Sulf [Lomotil 2.5 mg Tablet] 1 tab PO Q6HP PRN MDD FOR DIARRHEA 01/04/17 Prochlorperazine Maleate [Compazine 10 mg Tablet] 10 mg PO Q6HP PRN 01/04/17 Ketoconazole [Nizoral] 1 applic TOP BID 01/13/17 Alprazolam [Xanax 0.25 mg Tablet] 0.25 mg PO Q8HP PRN #10 tablet 01/19/17 Ascorbic Acid [Vitamin C 500 mg Tablet] 500 mg PO BID tablet 01/19/17 Clindamycin HCl 600 mg PO TID #120 capsule 01/19/17 Hydrocodone/Acetaminophen [[place] 5-325 mg Tablet] 1 tab PO Q6HP PRN #10 tablet 01/19/17 Lisinopril [Prinivil 10 mg Tablet] 20 mg PO QAM tablet 01/19/17 Megestrol Acetate [Megace Malia 400 mg/10 ml Udcup] 400 mg PO DAILY udc Nystatin [Mycostatin 500,000 Unit/5 ml Susp Udcup] 500,000 unit PO QID #20 udc 01/19/17 Nystatin [Mycostatin Cream 15 gm] 1 applic TP TIDP PRN tube 01/19/17 Rivaroxaban [Xarelto 15 mg Tablet] 15 mg PO BIDBS 14 Days 01/19/17 Rivaroxaban [Xarelto] 20 mg PO DAILY #30 tablet 01/19/17 Zinc Oxide [Zinc Oxide 20% Ointment 28.35 gm] 1 applic TP TIDP PRN tube History of Present Illness Admission Date/PCP: 01/13/17 07:15 JULIANN PHAMP-C Patient complains of: abdominal pain History of Present Illness: "XIOMARA SETHI is a 66 year old female who was transferred to [facility] on 01/10/17 for surgical evaluation of her necrotic pancreatic pseudocyst. Hospital Course Hospital Course: Patient record was reviewed and summery is as follows. Patient underwent IR drainage on 01/12/17 which returned 200mL of francis pus. Hematology/oncology visited this patient and transitioned her to lovenox which they recommended continuing or using xarelto. Patient was also evaluated by surgery who agreed with IR intervention. The surgical recommendation was that the dtrain should remain for 1 month. They also recommended irrigation techniques. They also recommended repeat CT when drainage was below 10 cc > 24 hours." she remains on Invanz, review of cultures from [facility] showed no growth at one day but on f/ u started growing 2 strains of Strep Viridans and anaerobes. she was switched to clindamycin for >48 hrs and is feeling better without recurrent fevers or leukocytosis. [facility] suggested the drain remain in place for 30d and at least until output <40ml/d and she is still putting out >100 in varying amounts. she should remain on clinda for the duration of the drain and f/u with her PCP and [facility] surgeons for discontinuation of the drain and further recommendations. stools starting to firm up, no mention of melena or hematochezia. nausea and vomiting resolved, abd pain resolved. she is stable for transfer to SNF for ongoing wound and drain care and continued rehab. return to the ED for worsening condition, high fevers, worsening abdominal pain or diarrhea suspicious for cdiff. feels great again today and is anxious for d/c to [facility] to continue her recovery. she is progressing with PT. Physical Exam Vital Signs: Temp Pulse Resp BP Pulse Ox 98.2 F 89 16 101/42 L 93 01/19/17 07:28 01/19/17 07:28 01/19/17 07:28 01/19/17 07:28 01/19/17 07:28 Intake & Output 01/18/17 01/19/17 01/20/17 06:59 06:59 06:59 Intake Total 1008 1083 Output Total 40 85 Balance 968 998 Weight 85.6 kg 85.8 kg General appearance: PRESENT: no acute distress, obese, well-developed, well- nourished Head exam: PRESENT: atraumatic, normocephalic Eye exam: PRESENT: EOMI. ABSENT: conjunctival injection, scleral icterus Mouth exam: PRESENT: moist Neck exam: PRESENT: full ROM. ABSENT: tenderness Respiratory exam: PRESENT: decreased breath sounds. ABSENT: accessory muscle use, rales, rhonchi, wheezes Cardiovascular exam: PRESENT: RRR. ABSENT: systolic murmur Pulses: PRESENT: normal radial pulses, normal dorsalis pedis pul GI/Abdominal exam: PRESENT: normal bowel sounds, soft, tenderness - some mild persistent tenderness RUQ and left flank at drain site, other - JULIUS remains in place with cloudy, thin milky fluid Extremities exam: ABSENT: calf tenderness, pedal edema Musculoskeletal exam: PRESENT: ambulatory - with assistance, full ROM Neurological exam: PRESENT: alert, awake, oriented to person Results Laboratory Results: 01/16/17 05:50 01/16/17 05:50 Impressions: Abdomen X-Ray 01/16/17 00:00 IMPRESSION: There appears to be a partial small bowel obstruction. Abdomen/Pelvis CT 01/16/17 00:00 IMPRESSION: 1. Minimal left pleural effusion. 2. The fluid collection around the pancreas is much smaller. There is gas in the residual space. The pigtail catheter remains in position. 3. Diverticulosis coli. Transfer Plan - Disposition Transfer Plan: to [facility] for ongoiing care; continue to f/u with her PCP and [facility] surgery per their instructions - Time Spent with Patient Time spent with patient: Greater than 30 Minutes Qualifiers PATEINT BEING DISCHARGED WITH ANY OF THE FOLLOWING DIAGNOSIS?: No VTE patient discharged on overlapping Therapy?: Yes
[2017-01-19] MEDS: RIVAROXABAN 15 MG TABLET PO SCH (10:07)
[2017-01-19] MEDS: NYSTATIN 500000 UNIT/5 ML UDCUP PO SCH (10:07)
[2017-01-19] MEDS: ZINC SULFATE 220 MG CAPSULE PO SCH (10:08)
[2017-01-19] MEDS: LACTOBACILLUS ACIDOPHILUS 250 MG TAB PO SCH (10:08)
[2017-01-19] MEDS: LIPASE/PROTEASE/AMYLASE 1 CAP CAPSULE.DR PO SCH ×3 (10:08)
[2017-01-19] MEDS: ASCORBIC ACID 500 MG TABLET PO SCH (10:09)
[2017-01-19] MEDS: NORMAL SALINE 10 ML SDV (SCHEDULED) IV SCH (10:10)
[2017-01-19] MEDS: LISINOPRIL 10 MG TABLET PO SCH (10:10)
[2017-01-19] MEDS: MEGESTROL ACETATE SUSP 400 MG/10 ML UDCUP PO SCH (10:10)
[2017-01-19 15:44] VITALS: BP 102/51
== END 2017-01-19 16:33 | DRG 438 ==
LOC: 3S 19:49 → UNDOADMIN 19:49 → 3S 01-13 07:15
PROVIDERS: ADMIT Family Medicine; ATTEND Family Medicine
DX: K86.3 Pseudocyst of pancreas (principal); I26.99 Other pulmonary embolism without acute cor pulmonale; E46 Unspecified protein-calorie malnutrition; E87.1 Hypo-osmolality and hyponatremia; C34.90 Malignant neoplasm of unspecified part of unspecified bronchus or lung; I10 Essential (primary) hypertension; D64.9 Anemia, unspecified; R19.7 Diarrhea, unspecified; Z79.899 Other long term (current) drug therapy; Z79.02 Long term (current) use of antithrombotics/antiplatelets; Z87.891 Personal history of nicotine dependence; Z88.6 Allergy status to analgesic agent; Z88.0 Allergy status to penicillin; Z88.8 Allergy status to other drugs, medicaments and biological substances; E66.9 Obesity, unspecified; Z68.30 Body mass index [BMI] 30.0-30.9, adult
CPT/HCPCS: 36415; 74020; 74177; 80053; 85025; G8978-GP; G8979-GP; J1335; J1642; J3490; S0183

== ENCOUNTER 2017-01-30 19:04 | Emergency (ER) | payer MEDICARE, OTHER ==
[2017-01-30] MEDS ORDERED: HYDROMORPHONE HCL INJ/PF 2 MG/ML AMPULE IV ONE ×2 (19:51→21:16)
[2017-01-30] MEDS ORDERED: NORMAL SALINE 1000 ML 1,000 ML IV ONE (19:51)
[2017-01-30] MEDS ORDERED: ONDANSETRON HCL INJ/PF 4 MG/2 ML SDV IV ONE ×2 (19:51→22:54)
[2017-01-30 19:57] LABS: ABSOLUTE BASOPHILS # (AUTO) 0.1 10^3/uL (0.0-0.2); ABSOLUTE EOSINOPHILS # (AUTO) 0.7 10^3/uL (0.0-0.6); ABSOLUTE LYMPHOCYTES (AUTO) 3.2 10^3/uL (0.5-4.7); ABSOLUTE MONOCYTES (AUTO) 1.3 10^3/uL (0.1-1.4); ABSOLUTE NEUT (AUTO) 11.8 10^3/uL (1.7-8.2); BASOPHILS % (AUTO) 0.5 % (0-2); HEMATOCRIT 34.4 % (36.0-47.0); HEMOGLOBIN 11.2 g/dL (12.0-15.5); HGB HCT DIFFERENCE -0.8; LYMPHOCYTES % (AUTO) 18.8 % (13-45); MEAN CORPUSCULAR HEMOGLOBIN 29.7 pg (27.0-33.4); MEAN CORPUSCULAR HGB CONC 32.7 g/dL (32.0-36.0); MEAN CORPUSCULAR VOLUME 91 fl (80-97); MONOCYTES % (AUTO) 7.8 % (3-13); RED BLOOD COUNT 3.79 10^6/uL (3.72-5.28); RED CELL DISTRIBUTION WIDTH 18.2 % (11.5-14.0); SEGMENTED NEUTROPHILS % (AUTO) 68.9 % (42-78); WHITE BLOOD COUNT 17.1 10^3/uL (4.0-10.5)
--- NOTE | 2017-01-30 19:58 | ER Document Report ---
ED GI/ - General Chief Complaint: Abdominal Pain >50 Stated Complaint: Pancreatitis Time Seen by Provider: 01/30/17 19:40 TRAVEL OUTSIDE OF THE [place] IN LAST 30 DAYS: No - HPI Notes: 01/30/17 19:53 66-year-old female with multiple medical problems including lung cancer with liver metastases and recent intrahepatic stent placement earlier in the month, pulmonary emboli on Xarelto, recent IR drainage of an infected pseudocyst presents with abdominal pain starting approximately an hour or so ago. Pain is severe more on the left shooting sharp pain to the right side. She has had nausea with it as well. She had a normal bowel movement earlier today without blood. She is having some nausea but no vomiting currently. Not much improvement with fentanyl that she received via EMS. She presents from [facility] where [facility] was [facility] approximately a week and a half ago [facility]. Denies current fever. No new back pain. She continues to have what she reports is fairly large amount of purulent drainage from her JULIUS drain. - Related Data Allergies/Adverse Reactions: aspirin [Aspirin] Allergy (Verified 01/03/17 12:57) lorazepam [From Ativan] Allergy (Verified 01/03/17 12:57) Penicillins Allergy (Verified 01/03/17 12:57) Past Medical History - Social History Smoking Status: Unknown if Ever Smoked Family History: Hypertension - Past Medical History Cardiac Medical History: Reports: Hx Hypertension Denies: Hx Coronary Artery Disease, Hx Heart Attack Pulmonary Medical History: Denies: Hx Asthma, Hx Bronchitis, Hx COPD, Hx Pneumonia Neurological Medical History: Denies: Hx Cerebrovascular Accident, Hx Seizures Renal/ Medical History: Denies: Hx Peritoneal Dialysis Malignancy Medical History: Reports: Hx Lung Cancer Musculoskeltal Medical History: Denies Hx Arthritis Psychiatric Medical History: Reports: Hx Anxiety Denies: Hx Depression Past Surgical History: Reports: Other - IR pancreatic pseudocyst drainage - Immunizations Hx Diphtheria, Pertussis, Tetanus Vaccination: No Review of Systems - Review of Systems -: Yes All other systems reviewed and negative Physical Exam - Vital signs Vitals: Temp Pulse BP Pulse Ox 97.6 F 102 H 104/83 95 01/30/17 19:11 01/30/17 19:11 01/30/17 19:11 01/30/17 19:11 Interpretation: Hypotensive - Notes Notes: GENERAL: VS as per nursing doc. Well-appearing, well-nourished and in mild to moderate distress secondary to pain. HEAD: Atraumatic, normocephalic. EYES: Pupils equal round and reactive to light, extraocular movements intact, sclera anicteric, no conjunctival injection or discharge. ENT: Nares patent, oropharynx clear without exudates, dry mucous membranes. NECK: Normal range of motion, supple without lymphadenopathy. LUNGS: Breath sounds clear to auscultation bilaterally and equal. No wheezes rales or rhonchi. HEART: Slightly tachycardic without murmurs. ABDOMEN: Distended, hypoactive bowel sounds with generalized tenderness. + guarding, BACK: Mild bilateral CVA tenderness. EXTREMITIES: Normal range of motion, no calf tenderness, no edema. NEUROLOGICAL: Normal speech. Normal sensory and motor exams. No gross cerebellar abnormalities. PSYCH: Anxious SKIN: Warm, dry. No abdominal discoloration Course - Re-evaluation Re-evalutation: 01/31/17 00:46 CT findings show severe joanne-pancreatic inflammatory changes consistent with her pancreatitis. She will need further admission for pain control as well as IV fluids. Dr. Galloway is currently in a code so we will attempt to contact him shortly after. 01/31/17 02:55 [facility] contacted as per Dr. Galloway or's request and will return my call. 01/31/17 03:03 Patient is becoming slightly hypoxic. We will assess with an ABG. She continues to look ill but I do not see any change. She seems to be developing some mild right-sided crackles. 01/31/17 04:18 Initially I spoke with Dr. Vaughn and no beds were available. But as the patient was decompensating we awaited labs which showed a increasing metabolic acidosis with worsening vital signs and increasing oxygen requirement. I spoke with Dr. Leonard at [facility] who accepts the patient to the intensive care unit for further evaluation and treatment. Patient wants transfer and is aware of risks. - Vital Signs Vital signs: Temp Pulse Resp BP Pulse Ox 97.8 F 102 H 22 H 111/75 100 01/31/17 07:18 01/30/17 19:11 01/31/17 06:46 01/31/17 06:46 01/31/17 06:46 - Laboratory Result Diagrams: 01/30/17 19:45 01/31/17 03:50 Laboratory results interpreted by me: 01/30/17 01/30/17 01/30/17 19:45 19:45 20:50 WBC 17.1 H Hgb 11.2 L Hct 34.4 L RDW 18.2 H Plt Count 558 H Absolute Neutrophils 11.8 H Absolute Eosinophils 0.7 H ABG pH ABG pO2 ABG HCO3 ABG Total CO2 ABG O2 Saturation Chloride Carbon Dioxide Creatinine Est GFR ( Amer) Est GFR (Non-Af Amer) 52 L Glucose 147 H Calcium 10.6 H Total Bilirubin 2.2 H Direct Bilirubin 1.9 H AST 306 H ALT 191 H Alkaline Phosphatase 400 H Total Protein 6.1 L Albumin 2.8 L Lipase 47953.3 H Urine Protein 30 H Urine Blood LARGE H Urine Ascorbic Acid 40 H 01/31/17 01/31/17 03:27 03:50 WBC Hgb Hct RDW Plt Count Absolute Neutrophils Absolute Eosinophils ABG pH 7.32 L ABG pO2 67.1 L ABG HCO3 19.7 L ABG Total CO2 20.9 L ABG O2 Saturation 91.9 L Chloride 109 H Carbon Dioxide 21 L Creatinine 1.35 H Est GFR ( Amer) 47 L Est GFR (Non-Af Amer) 39 L Glucose 160 H Calcium 10.3 H Total Bilirubin Direct Bilirubin AST ALT Alkaline Phosphatase Total Protein Albumin Lipase Urine Protein Urine Blood Urine Ascorbic Acid - Diagnostic Test Radiology reviewed: Image reviewed, Reports reviewed - Consults Laverne Time consulted: 02:27 - I spoke with Dr. Galloway and he recommended I contact [facility] to see if they would like the patient back as she recently had an IR procedure and continues to have a drain in place for the pancreatic pseudocyst. Critical Care Note - Critical Care Note Total time excluding time spent on procedures (mins): 40 Discharge - Discharge Clinical Impression: Pancreatitis, acute Condition: Poor Disposition: [facility] Referrals: LEO SILVA MD [Primary Care Provider] - Follow up as needed
[2017-01-30 20:15] LABS: ALANINE AMINOTRANSFERASE 191 U/L (9-52); ALBUMIN 2.8 g/dL (3.5-5.0); ALKALINE PHOSPHATASE 400 U/L (38-126); ANION GAP 11 (5-19); ASPARTATE AMINO TRANSFERASE 306 U/L (14-36); BILIRUBIN,DIRECT 1.9 mg/dL (0.0-0.4); BILIRUBIN,TOTAL 2.2 mg/dL (0.2-1.3); BLOOD UREA NITROGEN 16 mg/dL (7-20); CALCIUM 10.6 mg/dL (8.4-10.2); CARBON DIOXIDE 22 mmol/L (22-30); CHLORIDE 105 mmol/L (98-107); CREATININE RESULT 1.05 mg/dL (0.52-1.25); GLUCOSE 147 mg/dL (75-110); POTASSIUM 3.9 mmol/L (3.6-5.0); SODIUM 137.6 mmol/L (137-145); TOTAL PROTEIN 6.1 g/dL (6.3-8.2)
[2017-01-30 20:35] LABS: LIPASE 25731.3 U/L (23-300)
--- NOTE | 2017-01-30 20:37 | RADIOLOGY REPORT (SQ) ---
EXAM DESCRIPTION: ABDOMEN 2 VIEWS COMPLETED DATE/TIME: 01/30/2017 8:28 pm REASON FOR STUDY: Eval for free air, POSSIBLE PERF COMPARISON: January 2017 NUMBER OF VIEWS: Two views. TECHNIQUE: Supine and erect/decubitus radiographic images of the abdomen acquired. LIMITATIONS: None. FINDINGS: FREE AIR: None. No abnormal gas collections. LUNG BASES: Clear. BOWEL GAS PATTERN: Gas pattern is nonspecific. There is mild gastric distention. There is large stefanie unt of stool throughout the colon. CALCIFICATIONS: No suspicious calcifications. SOFT TISSUES: No gross mass or suggestion of organomegaly. HARDWARE: There is a left nephrostomy tube in place. BONES: No acute fracture. No worrisome bone lesions. OTHER: No other significant finding. IMPRESSION: NO RADIOGRAPHIC EVIDENCE FOR ACUTE ABDOMINAL DISEASE. TECHNICAL DOCUMENTATION: JOB ID: [id number] [employer]- All Rights Reserved
[2017-01-30 21:10] LABS: APPEARANCE,URINE TURBID; BILIRUBIN,URINE NEGATIVE (NEGATIVE); CALCIUM OXALATE CRYSTALS,URINE FEW /HPF; GLUCOSE, URINE NEGATIVE (NEGATIVE); KETONES,URINE NEGATIVE (NEGATIVE); LEUKOCYTE ESTERASE,URINE NEGATIVE (NEGATIVE); NITRITE,URINE NEGATIVE (NEGATIVE); PROTEIN,URINE 30 mg/dL (NEGATIVE); URINE SPECIFIC GRAVITY 1.015; UROBILINOGEN,URINE NEGATIVE mg/dL (<2.0)
[2017-01-30] MEDS ORDERED: ONDANSETRON HCL INJ/PF 4 MG/2 ML SDV ONE (21:59)
--- NOTE | 2017-01-31 00:04 | RADIOLOGY REPORT (SQ) ---
EXAM DESCRIPTION: CT ABD/PELVIS WITH IV ONLY COMPLETED DATE/TIME: 01/30/2017 11:48 pm REASON FOR STUDY: Abd pain, Drain in Necrotic Pseudocyst COMPARISON: 01/16/2017 TECHNIQUE: CT scan of the abdomen and pelvis performed using helical scanning technique with dynamic intravenous contrast injection. No oral contrast. Images reviewed with lung, soft tissue, and bone windows. Reconstructed coronal and sagittal MPR images reviewed. Delayed images for evaluation of the urinary system also acquired. All images stored on PACS. All CT scanners at this facility use dose modulation, iterative reconstruction, and/or weight based d osing when appropriate to reduce radiation dose to as low as reasonably achievable (ALARA). [facility]: Dose Right [facility]: CareDose [facility]: Dose Right [facility]: Teradose 4D [facility]: Spoqa CONTRAST TYPE AND DOSE: contrast/concentration: Isovue 370.00 mg/ml; Total Contrast Delivered: 100.0 ml; Total Saline Delivered: 53.0 ml RENAL FUNCTION: Not available at time of dictation. RADIATION DOSE: Up-to-date CT equipment and radiation dose reduction techniques were employed. CTDIv ol: 20.5 mGy. DLP: 2188 mGy-cm.. LIMITATIONS: None. FINDINGS: LOWER CHEST: There is minimal right basilar atelectasis. LIVER: Normal size. No masses. No dilated ducts. SPLEEN: Normal size. No focal lesions. PANCREAS: There are inflammatory changes surrounding the pancreatic head extending into the dada hep atis. Drainage catheter remains at the tail the pancreas in the pseudocyst. GALLBLADDER: The gallbladder is distended. ADRENAL GLANDS: No significant masses or asymmetry. RIGHT KIDNEY AND URETER: No solid masses. No significant calcifications. No hydronephrosis or hyd roureter. LEFT KIDNEY AND URETER: No solid masses. No significant calcifications. No hydronephrosis or hydr oureter. AORTA AND VESSELS: No aneurysm. No dissection. Renal arteries, SMA, celiac without stenosis. IVC alecia ter is in place. RETROPERITONEUM: No retroperitoneal adenopathy, hemorrhage or masses. BOWEL AND PERITONEAL CAVITY: There is large amount of stool throughout the colon. No evidence of obs truction. APPENDIX: Not visualized. PELVIS: No mass. No free fluid. Normal bladder. ABDOMINAL WALL: No masses. No hernias. BONES: No significant or acute findings. OTHER: No other significant finding. IMPRESSION: Severe peripancreatic inflammatory changes most marked surrounding the head. Free fluid extends into the right lateral gutter an along the inferior margin of the liver. TECHNICAL DOCUMENTATION: JOB ID: [id number] Quality ID # [id number]: Final reports with documentation of one or more dose reduction techniques (e.g., Au tomated exposure control, adjustment of the mA and/or kV according to patient size, use of iterative reconstruction technique) 2010 [employer]- All Rights Reserved
[2017-01-31] MEDS ORDERED: HYDROMORPHONE HCL INJ/PF 2 MG/ML AMPULE IV ONE ×2 (00:05→06:37)
[2017-01-31] MEDS ORDERED: NORMAL SALINE 1000 ML 1,000 ML IV ONE ×2 (01:17→03:46)
[2017-01-31 03:40] LABS: ARTERIAL BLOOD O2 SATURATION 91.9 % (94-98)
--- NOTE | 2017-01-31 03:54 | RADIOLOGY REPORT (SQ) ---
EXAM DESCRIPTION: CHEST SINGLE VIEW COMPLETED DATE/TIME: 01/31/2017 3:23 am REASON FOR STUDY: Dyspnea COMPARISON: 12/26/2016. 01/04/2017. EXAM PARAMETERS: NUMBER OF VIEWS: One view. TECHNIQUE: Single frontal radiographic view of the chest acquired. RADIATION DOSE: NA LIMITATIONS: None. FINDINGS: LUNGS AND PLEURA: Prominent interstitium. MEDIASTINUM AND HILAR STRUCTURES: No masses. Contour normal. HEART AND VASCULAR STRUCTURES: Borderline cardiac silhouette size. Atherosclerosis. BONES: No acute findings. HARDWARE: None in the chest. OTHER: No other significant finding. IMPRESSION: No acute cardiopulmonary findings. TECHNICAL DOCUMENTATION: JOB ID: [id number]
[2017-01-31 04:20] LABS: ANION GAP 10 (5-19); BLOOD UREA NITROGEN 16 mg/dL (7-20); CALCIUM 10.3 mg/dL (8.4-10.2); CARBON DIOXIDE 21 mmol/L (22-30); CHLORIDE 109 mmol/L (98-107); CREATININE RESULT 1.35 mg/dL (0.52-1.25); GLUCOSE 160 mg/dL (75-110); POTASSIUM 4.8 mmol/L (3.6-5.0); SODIUM 139.5 mmol/L (137-145)
[2017-01-31] MEDS ORDERED: VANCOMYCIN HCL INJ 1000 MG VIAL IV ONE (04:33)
[2017-01-31] MEDS ORDERED: AZTREONAM INJ 1 GM VIAL IV ONE (04:33)
--- NOTE | 2017-01-31 06:37 | ER Document Report ---
Doctor's Note Notes: 01/31/17 06:37 Nurse informed of the patient's blood pressure has been steadily going up. I did not reevaluate the patient. She appears to be in a lot of pain. She does admit to being in pain. I will try to treat her pain to see if this helps lower blood pressure makes her more comfortable. Dictation of this chart was performed using voice recognition software; therefore, there may be some unintended grammatical errors. 01/31/17 06:37
[2017-01-31] MEDS ORDERED: HYDROMORPHONE HCL INJ/PF 2 MG/ML AMPULE ONE (06:41)
[2017-01-31 06:49] VITALS: BP 111/75
== END 2017-01-31 07:18 | disposition short-term general hospital (02) ==
LOC: ER 19:04
DX: K85.90 Acute pancreatitis without necrosis or infection, unspecified (principal); K86.3 Pseudocyst of pancreas; Z98.890 Other specified postprocedural states; E87.2 Acidosis; C34.90 Malignant neoplasm of unspecified part of unspecified bronchus or lung; C78.7 Secondary malignant neoplasm of liver and intrahepatic bile duct; R11.0 Nausea; I95.9 Hypotension, unspecified; R09.02 Hypoxemia; R00.0 Tachycardia, unspecified; I10 Essential (primary) hypertension; I26.99 Other pulmonary embolism without acute cor pulmonale; Z79.01 Long term (current) use of anticoagulants; Z88.6 Allergy status to analgesic agent; Z88.8 Allergy status to other drugs, medicaments and biological substances; Z88.0 Allergy status to penicillin
CPT/HCPCS: 96376; 99291; 96361; 96375; 96365; 96367; 36415; 87040; 82803; 83690; 85025; 80048; 80053; 81001; 83605; 74020; 71010; 74177; J1170 ×2; J2405; J7030 ×2; J3370; J3490

== ENCOUNTER 2017-02-27 18:20 | Inpatient (IN) | payer MEDICARE, OTHER ==
--- NOTE | 2017-02-27 18:32 | ER Document Report ---
ED General - General Mode of Arrival: Medic Information source: Patient, Transfer Record, Emergency Med Personnel, [facility] Records TRAVEL OUTSIDE OF THE [place] IN LAST 30 DAYS: No - HPI Onset: Other - Refer to HPI Notes Similar symptoms previously: No Recently seen / treated by doctor: No <GUILLERMO BABB - Last Filed: 02/27/17 21:39> <TRE CAMILO - Last Filed: 02/27/17 23:40> - General Stated Complaint: WEAKNESS Time Seen by Provider: 02/27/17 18:35 Notes: Patient is a 66 year old female presenting to the emergency department from [facility] for generalized weakness. Patient's blood pressure was taken at this facility and was found to be hypotensive at 90/60. Patient has not been eating or drinking for the past 2 days. Patient complains of abdominal pain and diarrhea and was diagnosed with C. Diff last week. Patent denies any recent fever. Patient's initial blood pressure with EMS was 60/30. Patient received 500 mL of NS with EMS and they reported another blood pressure of 70/ 50. Patient is still hypotensive in the department. Patient has a history of hypertension but denies getting her medications for such today. Patient's PCP is Dr. Lopez. Patient is allergic to aspirin, lorazepam and penicillins. (GUILLERMO BABB) - Related Data Allergies/Adverse Reactions: aspirin [Aspirin] Allergy (Verified 01/03/17 12:57) lorazepam [From Ativan] Allergy (Verified 01/03/17 12:57) Penicillins Allergy (Verified 01/03/17 12:57) Home Medications: Current Home Medications Albuterol Sulfate [Ventolin Hfa] 2 puff IH Q4HP PRN 02/27/17 [History] Bisacodyl [Dulcolax 10 mg Supp.rect] 10 mg [place] DAILYP PRN 02/27/17 [History] Enoxaparin Sodium [Lovenox Inj 100 mg/1 ml Disp.syrin] 90 mg SQ Q12 02/27/17 [ History] Hydrocodone/Acetaminophen [Laurel 5-325 mg Tablet] 1 tab PO Q6HP PRN 02/27/17 [ History] Ketoconazole [Nizoral] 1 applic TP Q12 02/27/17 [History] Lansoprazole [Prevacid 30 mg Odt Tablet] 30 mg PO Q12 02/27/17 [History] Lisinopril/Hydrochlorothiazide [Zestoretic 20-12.5 mg Tablet] 1 tab PO DAILY [History] Metronidazole [Flagyl 500 mg Tablet] 500 mg PO Q8 02/27/17 [History] Nystatin [Mycostatin Topical Powder 15 gm] 1 applic TP Q6 02/27/17 [History] Sertraline HCl [Zoloft 50 mg Tablet] 50 mg PO DAILY 02/27/17 [History] Past Medical History - General Information source: Patient - Social History Smoking Status: Never Smoker Cigarette use (# per day): No Chew tobacco use (# tins/day): No Smoking Education Provided: No Frequency of alcohol use: None Drug Abuse: None Family History: Hypertension Patient has suicidal ideation: No Patient has homicidal ideation: No - Past Medical History Cardiac Medical History: Reports: Hx Hypertension Malignancy Medical History: Reports: Hx Lung Cancer GI Medical History: Reports: Other - C. Diff. Psychiatric Medical History: Reports: Hx Anxiety Past Surgical History: Reports: Hx Abdominal Surgery - IR pancreatic pseudocyst drainage - Immunizations Hx Diphtheria, Pertussis, Tetanus Vaccination: No <GUILLERMO BABB - Last Filed: 02/27/17 21:39> Review of Systems - Review of Systems Constitutional: See HPI, Weakness, Other - hypotensive. denies: Fever EENT: No symptoms reported Cardiovascular: See HPI, Dizziness, Lightheaded. denies: Chest pain Respiratory: See HPI, Short of breath Gastrointestinal: See HPI, Abdominal pain, Diarrhea, Nausea, Poor appetite, Poor fluid intake Genitourinary: See HPI Female Genitourinary: No symptoms reported Musculoskeletal: No symptoms reported Skin: No symptoms reported Hematologic/Lymphatic: No symptoms reported Neurological/Psychological: See HPI, Weakness -: Yes All other systems reviewed and negative <GUILLERMO BABB - Last Filed: 02/27/17 21:39> Physical Exam - Vital signs Interpretation: Hypotensive <GUILLERMO BABB - Last Filed: 02/27/17 21:39> <TRE CAMILO - Last Filed: 02/27/17 23:40> - Vital signs Vitals: BP 75/50 L 02/27/17 18:28 - Notes Notes: GENERAL: Alert, interacts well, ill appearing, Mild distress. HEAD: Normocephalic, atraumatic. EYES: Pupils equal, round, and reactive to light. Extraocular movements intact. ENT: Oral mucosa dry, tongue midline. NECK: Full range of motion. Supple. Trachea midline. LUNGS: Clear to auscultation bilaterally, no wheezes, rales, or rhonchi. No respiratory distress. HEART: Regular rate and rhythm. No murmurs, gallops, or rubs. ABDOMEN: Obese. Diffuse abdominal tenderness with palpation, small amount of guarding, no rigidity or rebound. Non-distended. Hypoactive bowel sounds present in all 4 quadrants. EXTREMITIES: Moves all 4 extremities spontaneously. No edema. No cyanosis. NEUROLOGICAL: Alert and oriented x3. Normal speech. PSYCH: Normal affect, normal mood. SKIN: Warm, dry, pale, tenting. (GUILLERMO BABB) Course - Laboratory Result Diagrams: 02/27/17 18:57 02/27/17 18:57 - Consults Dr. Spicer Time consulted: 18:42 Dr. Galloway Time consulted: 20:15 <GUILLERMO BABB - Last Filed: 02/27/17 21:39> - Laboratory Result Diagrams: 02/27/17 18:57 02/27/17 18:57 <TRE CAMILO - Last Filed: 02/27/17 23:40> - Re-evaluation Re-evalutation: 02/27/17 21:43 Patient does appear to be in septic shock, I was concerned by her abdominal exam so I did consult the surgeon behavioral modification assistant Dr. Spicer and order a stat CT scan of the abdomen with IV contrast. I asked this to be performed before renal function was back as I was worried about an acute abdominal perforation. Dr. Spicer and examine the patient at the bedside, is also in agreement with getting the IV contrasted CAT scan. Empiric antibiotics were started in the form of aztreonam, vancomycin and Flagyl as she is allergic to penicillins and we wanted to cover C. difficile as well as other causes of sepsis. Patient was given 3 L of normal saline with some improvement in her blood pressure. Mentation continues to be normal, blood work shows leukocytosis at 16.7, with anemia and a hemoglobin 11.9, platelets actually elevated at 458, coags prolonged, PT is 18.9, INR 1.48, venous blood gas shows metabolic acidosis with pH of 7.29 and a bicarb of 19.2, CMP shows low potassium at 3.1, low CO2 at 15, acute renal failure with BUN of 78 and creatinine of 6.76 I suspect this is from dehydration and septic shock, glucose low at 64, lactic acid normal at 1.5 , LFTs grossly unremarkable, lipase normal at 70.7, urinalysis concerning for acute urinary tract infection with moderate leukocyte esterase, this was a catheterized specimen. CT scan of the abdomen pelvis shows that the severe peripancreatic inflammation has almost completely resolved from prior study, the drainage catheter has been removed, there appears to be a fluid collection remaining that may have fistulized with the stomach, diffuse thickening of the contreras of the entire colon is consistent with colitis, there is also air in the bladder which may have a fistula but is more likely related to the catheterized urine that was performed prior to being sent to CT scan. Discussed the patient with Dr. Spicer after the CT scan results returned, we both agreed that there is no acute surgical pathology at this time. Patient was discussed with Dr. Galloway who accepts the patient to his service in admission status to the intensive care unit. Patient was also given stress dose steroids for septic shock in the form of Solu-Cortef. If the patient's blood pressure does not remain in the 90s-100 systolic or better then the patient will have a central line started and pressors started, at this time the patient's blood pressure has at least temporarily improved. 02/27/17 22:09 Discussed with the fact that the patient's pressure has once again worsen, he is going to discuss the patient with the surgical list and surgical us will insert a central line in the intensive care unit if he feels it is indicated. (TRE CAMILO) - Vital Signs Vital signs: Temp Pulse Resp BP Pulse Ox 98.9 F 23 H 87/42 L 100 02/27/17 21:41 02/27/17 23:15 02/27/17 23:11 02/27/17 23:15 - Laboratory Laboratory results interpreted by de: 02/27/17 02/27/17 02/27/17 18:57 18:57 18:57 WBC 16.7 H Hgb 11.9 L Hct 35.6 L RDW 14.7 H Plt Count 458 H Seg Neuts % (Manual) 80 H Abs Neuts (Manual) 13.9 H PT 18.9 H VBG pH VBG HCO3 Sodium 132.7 L Potassium 3.1 L Carbon Dioxide 15 L BUN 78 H Creatinine 6.76 H Est GFR ( Amer) 7 L Est GFR (Non-Af Amer) 6 L Glucose 64 L Direct Bilirubin 0.5 H Total Protein 5.2 L Albumin 2.3 L Urine Protein Urine Blood Ur Leukocyte Esterase 02/27/17 02/27/17 18:57 18:57 WBC Hgb Hct RDW Plt Count Seg Neuts % (Manual) Abs Neuts (Manual) PT VBG pH 7.29 L VBG HCO3 19.2 L Sodium Potassium Carbon Dioxide BUN Creatinine Est GFR ( Amer) Est GFR (Non-Af Amer) Glucose Direct Bilirubin Total Protein Albumin Urine Protein 100 H Urine Blood SMALL H Ur Leukocyte Esterase MODERATE H - Consults Dr. Spicer Reason for consultation: 02/27/17 18:[address] Spicer, he will come evaluate the patient. (GUILLERMO BABB) Dr. Galloway Reason for consultation: 02/27/17 20:[address] Galloway for admission. 02/27/17 20:[address] Galloway, he will admit the patient to ICU. (GUILLERMO BABB) Critical Care Note - Critical Care Note Total time excluding time spent on procedures (mins): 45 <TRE CAMILO - Last Filed: 02/27/17 23:40> Discharge <GUILLERMO BABB - Last Filed: 02/27/17 21:39> - Discharge Admitting Provider: Cindy Galloway Unit Admitted: ICU <TRE CAMILO - Last Filed: 02/27/17 23:40> - Discharge Clinical Impression: Septic shock, Metabolic acidosis UTI (urinary tract infection) Qualifiers: Urinary tract infection type: acute pyelonephritis Qualified Code(s): N10 - Acute pyelonephritis Acute renal failure Qualifiers: Acute renal failure type: unspecified Qualified Code(s): N17.9 - Acute kidney failure, unspecified Condition: Critical Disposition: ADMITTED INPATIENT Scribe Attestation: 02/27/17 23:40 I personally performed the services described in the documentation, reviewed and edited the documentation which was dictated to the scribe in my presence, and it accurately records my words and actions. (TRE CAMILO) Scribe Documentation - Scribe Written by Kelseyibhumberto:: Harris Gabriel 02/27/2017 18:46 acting as scribe for :: Akira <GUILLERMO BABB - Last Filed: 02/27/17 21:39>
[2017-02-27] MEDS ORDERED: VANCOMYCIN HCL INJ 1000 MG VIAL IV ONE (18:40)
[2017-02-27] MEDS ORDERED: AZTREONAM INJ 1 GM VIAL IV ONE (18:40)
[2017-02-27] MEDS ORDERED: NORMAL SALINE 1000 ML 1,000 ML IV ONE (18:40)
[2017-02-27 19:39] LABS: PROTHROMBIN TIME 18.9 SEC (11.4-15.4)
[2017-02-27 19:41] LABS: VENOUS BLOOD BASE EXCESS -6.9 mmol/L; VENOUS BLOOD HCO3 19.2 mmol/L (20-32); VENOUS BLOOD PCO2 40.8 mmHg (35-63); VENOUS BLOOD PH 7.29 (7.30-7.42)
[2017-02-27 19:47] LABS: HEMATOCRIT 35.6 % (36.0-47.0); HEMOGLOBIN 11.9 g/dL (12.0-15.5); HGB HCT DIFFERENCE 0.1; MEAN CORPUSCULAR HEMOGLOBIN 29.9 pg (27.0-33.4); MEAN CORPUSCULAR HGB CONC 33.5 g/dL (32.0-36.0); MEAN CORPUSCULAR VOLUME 89 fl (80-97); RED BLOOD COUNT 3.99 10^6/uL (3.72-5.28); RED CELL DISTRIBUTION WIDTH 14.7 % (11.5-14.0); WHITE BLOOD COUNT 16.7 10^3/uL (4.0-10.5)
[2017-02-27 19:49] LABS: APPEARANCE,URINE TURBID; BILIRUBIN,URINE NEGATIVE (NEGATIVE); GLUCOSE, URINE NEGATIVE (NEGATIVE); KETONES,URINE NEGATIVE (NEGATIVE); LEUKOCYTE ESTERASE,URINE MODERATE (NEGATIVE); NITRITE,URINE NEGATIVE (NEGATIVE); PROTEIN,URINE 100 mg/dL (NEGATIVE); URINE SPECIFIC GRAVITY 1.015; UROBILINOGEN,URINE NEGATIVE mg/dL (<2.0)
[2017-02-27] MEDS ORDERED: METRONIDAZOLE 500 MG/NS RTU 100 ML IV ONE (19:51)
[2017-02-27 19:55] LABS: ALANINE AMINOTRANSFERASE 24 U/L (9-52); ALBUMIN 2.3 g/dL (3.5-5.0); ALKALINE PHOSPHATASE 86 U/L (38-126); ANION GAP 19 (5-19); ASPARTATE AMINO TRANSFERASE 25 U/L (14-36); BILIRUBIN,DIRECT 0.5 mg/dL (0.0-0.4); BILIRUBIN,TOTAL 0.5 mg/dL (0.2-1.3); BLOOD UREA NITROGEN 78 mg/dL (7-20); CALCIUM 8.9 mg/dL (8.4-10.2); CARBON DIOXIDE 15 mmol/L (22-30); CHLORIDE 99 mmol/L (98-107); GLUCOSE 64 mg/dL (75-110); POTASSIUM 3.1 mmol/L (3.6-5.0); SODIUM 132.7 mmol/L (137-145); TOTAL PROTEIN 5.2 g/dL (6.3-8.2)
--- NOTE | 2017-02-27 19:58 | RADIOLOGY REPORT (SQ) ---
EXAM DESCRIPTION: CT ABD/PELVIS WITH IV ONLY COMPLETED DATE/TIME: 02/27/2017 7:34 pm REASON FOR STUDY: hypotensive, abd TTP diffuse COMPARISON: January 2017 TECHNIQUE: CT scan of the abdomen and pelvis performed using helical scanning technique with dynamic intravenous contrast injection. No oral contrast. Images reviewed with lung, soft tissue, and bone windows. Reconstructed coronal and sagittal MPR images reviewed. Delayed images for evaluation of the urinary system also acquired. All images stored on PACS. All CT scanners at this facility use dose modulation, iterative reconstruction, and/or weight based d osing when appropriate to reduce radiation dose to as low as reasonably achievable (ALARA). [facility]: Dose Right [facility]: CareDose [facility]: Dose Right [facility]: Teradose 4D [facility]: Ufree CONTRAST TYPE AND DOSE: contrast/concentration: Isovue 370.00 mg/ml; Total Contrast Delivered: 98.0 ml; Total Saline Delivered: 49.0 ml RENAL FUNCTION: Not available RADIATION DOSE: Up-to-date CT equipment and radiation dose reduction techniques were employed. CTDIv ol: 13.4 - 16.2 mGy. DLP: 1533 mGy-cm.. LIMITATIONS: None. FINDINGS: LOWER CHEST: A small right pleural effusion is identified with some associated airspace co nsolidation which could represent atelectatic changes or pneumonic consolidation. LIVER: Normal size. No masses. No dilated ducts. Small hepatic cysts remain stable. SPLEEN: Normal size. No focal lesions. PANCREAS: The previously described severe peripancreatic inflammatory changes have almost completely resolved. Drainage catheter at the level of the pancreatic tail has been removed since the previous study. A fluid collection is identified surrounding the pancreatic tail measure 5.3 x 3.3 cm in diam eters. The appearance is consistent with a pseudocyst. Air is identified within the fluid collectio n and the fluid collection is inseparable from the stomach such that I cannot exclude a fistulous com munication. GALLBLADDER: No identified stones by CT criteria. No inflammatory changes to suggest cholecystitis. ADRENAL GLANDS: No significant masses or asymmetry. RIGHT KIDNEY AND URETER: No solid masses. No significant calcifications. No hydronephrosis or hyd roureter. LEFT KIDNEY AND URETER: No solid masses. No significant calcifications. No hydronephrosis or hydr oureter. AORTA AND VESSELS: No aneurysm. No dissection. Renal arteries, SMA, celiac without stenosis. RETROPERITONEUM: No retroperitoneal adenopathy, hemorrhage or masses. BOWEL AND PERITONEAL CAVITY: There is diffuse thickening of the contreras of entire colon and the possibi lity of a colitis should be considered. APPENDIX: Not identified PELVIS: No mass. No free fluid. Air is identified within the bladder. The possibility of a fistulo us communication cannot be excluded. ABDOMINAL WALL: No masses. No hernias. BONES: No significant or acute findings. OTHER: Vena cava filter is identified. IMPRESSION: Previously described severe peripancreatic inflammatory or changes have almost completel y resolved. Drainage catheter at the level the pancreatic tail has been removed since the previous s tudy. Fluid collection is identified surround the pancreatic tail as noted above consistent with a p seudocysts. Air is identified within the fluid collection in the fluid collection is inseparable fro m the stomach such that I cannot exclude a fistulous communication. There is diffuse thickening of t he contreras of the entire colon consistent with a colitis. Clinical correlation is recommended. Air is identified in the bladder and I cannot exclude a fistulous communication. Other findings as noted nisha rosario TECHNICAL DOCUMENTATION: JOB ID: [id number] Quality ID # [id number]: Final reports with documentation of one or more dose reduction techniques (e.g., Au tomated exposure control, adjustment of the mA and/or kV according to patient size, use of iterative reconstruction technique) 2010 [employer]- All Rights Reserved
--- NOTE | 2017-02-27 19:58 | RADIOLOGY REPORT (SQ) ---
EXAM DESCRIPTION: CHEST SINGLE VIEW COMPLETED DATE/TIME: 02/27/2017 7:42 pm REASON FOR STUDY: WEAKNESS COMPARISON: January 2017 EXAM PARAMETERS: NUMBER OF VIEWS: One view. TECHNIQUE: Single frontal radiographic view of the chest acquired. RADIATION DOSE: NA LIMITATIONS: None. FINDINGS: LUNGS AND PLEURA: No opacities, masses or pneumothorax. No pleural effusion. MEDIASTINUM AND HILAR STRUCTURES: No masses. Contour normal. HEART AND VASCULAR STRUCTURES: Heart normal in size. Normal vasculature. BONES: No acute findings. HARDWARE: None in the chest. OTHER: No other significant finding. IMPRESSION: NO ACUTE RADIOGRAPHIC FINDING IN THE CHEST. TECHNICAL DOCUMENTATION: JOB ID: [id number]
[2017-02-27 20:00] LABS: BAND NEUTROPHILS % (MANUAL) 3 % (3-5); BASOPHILS % (MANUAL) 0 % (0-2); CREATININE RESULT 6.76 mg/dL (0.52-1.25); EOSINOPHILS % (MANUAL) 0 % (0-6); LYMPHOCYTES % (MANUAL) 13 % (13-45); TOTAL CELLS COUNTED 100
[2017-02-27 20:02] LABS: ANISOCYTOSIS SLIGHT; TOXIC GRANULATION SLIGHT
[2017-02-27] MEDS: NORMAL SALINE 1000 ML 1,000 ML IV PRN ×2 (20:31→21:27)
[2017-02-27] MEDS ORDERED: POTASSI CL 20 MEQ/50 ML RIDER 20 MEQ/50 ML RTUPB IV SCH (21:45)
[2017-02-27] MEDS ORDERED: NORMAL SALINE 1000 ML 2,000 ML IV ONE (21:58)
[2017-02-27] MEDS ORDERED: DEXTROSE 5%-WATER 250 ML with NOREPINEPHRINE BITARTRATE 4 MG IV PRN ×2 (22:01)
[2017-02-27] MEDS ORDERED: IPRATROPIUM/ALBUTEROL 0.5-2.5 MG/3 ML AMPUL NEB PRN (22:13)
[2017-02-27] MEDS ORDERED: DEXTROSE 50%-WATER 25 GM/50 ML DISP.SYRIN IV PRN ×2 (22:16)
[2017-02-27] MEDS ORDERED: DEXTROSE 40% GEL 15 GM TUBE PO PRN ×2 (22:16)
[2017-02-27] MEDS ORDERED: GLUCAGON,HUMAN RECOMB 1 MG INJ IM PRN (22:16)
[2017-02-27] MEDS ORDERED: ACETAMINOPHEN 325 MG TABLET PO PRN (22:23)
[2017-02-27] MEDS ORDERED: PHARMACY COMMUNICATION ORDER MC SCH (22:45)
[2017-02-27 22:47] LABS: ADD ON TESTING BLD IN LAB ACKNOWLEDGE
--- NOTE | 2017-02-27 22:50 | PDOC H&P ---
History of Present Illness Admission Date/PCP: 02/27/17 20:43 BAO PHAM/ Dr. Lopez ([facility]) Patient complains of: weakness, low BP History of Present Illness: XIOMARA SEHTI is a 66 year old female with a fairly complicated both acute and chronic medical history, including immunosuppression due to chemotherapy for left lung carcinoma, recently discovered pulmonary emboli, on Lovenox for same, and status post recent interventional radiology drainage of a pancreatic tail abscess at [facility], currently at [facility] for rehab from [facility], who presents to the emergency room for evaluation of above complaints. Patient has been discussed with emergency room physician who evaluated the patient. Blood pressure at [facility] reportedly 90/60, but initial pressure with EMS was 60/30. Has remained hypotensive in the emergency room, although pressures are slowly increasing with IV fluid boluses. Reportedly diagnosed with Clostridium difficile last week. On oral Flagyl for same. Still having quite a bit of diarrhea at times. Intermittent mild lower abdominal cramping discomfort. She has had nausea but no vomiting. Prior to my being contacted about the patient, patient had been seen and examined by surgeon space controller, who did not feel there was a role for surgery at this point in time, but who will follow the patient in consultation. Nonambulatory since her stay at [facility] earlier this year. Dictation via voice recognition software. Laboratory results are listed in [facility] and are reviewed. X-ray summary results are listed below, with full report(s) reviewed. . EKG reviewed. Computer interpretation of atrial fibrillation, but rhythm appears to be fairly regular. Patient denies any history of atrial fibrillation or atrial flutter. Social history/personal habits: . No children. Male woodworking shop hand at her side, with her permission. Former smoker. No alcohol or illicit drug use. Allergies/adverse reactions are listed in [facility] and are reviewed. Home medications initially autopopulated into [facility] may not accurately reflect patient's true medications, dosages, and/or frequencies. gastrointestinal technician to reconcile medications. Unfortunately, patient not certain of all medications/dosages/frequencies. REVIEW OF SYSTEMS: Constitutional: No fever or chills. Eyes: Wears glasses. ENT: No swallowing problems or complaints. Denies hearing loss. Pulmonary: No current complaints. Cardiovascular: No current complaints, including chest pain. Gastrointestinal: See history and present illness. Skin: No current complaints, including rashes. Hematologic: Denies easy bruising. Neurologic: Chronic weakness on dorsiflexion of her right foot, without recent change. See history and present illness. Musculoskeletal: Joint pain from arthritis. Psychiatric: Anxiety and depression. Denies suicidal or homicidal ideation. Endocrine: No current complaints, including polyuria. Genitourinary: No current complaints, including dysuria. PHYSICAL EXAMINATION: Neither height nor weight are recorded on the chart. Blood pressure 75/51, with her third normal saline bolus finishing; systolic pressure 104 shortly before this. Pulse 83 and regular. 97% saturation on room air. Respirations are 23 and unlabored. Temperature 98.9. Slightly overweight chronically ill-appearing female who appears a number of years older than her stated age. Appears not to feel very well. Somewhat fatigued. Female emergency room nurse Christiana is present. Skin is warm and dry. No grossly obvious evidence of rash in areas of skin examined. No subcutaneous nodules palpated. ENT: Hearing grossly normal to normal conversation. Tongue midline on protrusion pink and slightly tacky. Eyes: No scleral icterus. Pupils equal and reactive to light at 4 mm. [place] conjunctivae. Neck is supple and nontender to gentle active range of motion and palpation. Midline trachea. No palpable thyroid nodule mass enlargement or tenderness. Lymphatic: No palpable cervical or clavicular nodes. Neck and lymphatic exams limited by patient body habitus. Psychiatric: Reasonable insight into acute and chronic medical issues. Oriented to time location and why here. Lungs: Auscultation reveals clear and equal breath sounds bilaterally. No use of accessory respiratory muscles. Cardiovascular: Heart regular rate and rhythm, without gallop murmur or rub. No carotid or abdominal aortic bruits. No ankle or pedal edema. Faintly palpable dorsalis pedis pulses. Abdomen:soft slightly distended with positive bowel sounds. Mild diffuse lower abdominal discomfort to palpation, without guarding or peritoneal signs. Unable to adequately evaluate abdomen for masses or organomegaly due to distention. Extremities: Feet are warm and dry. No calf tenderness to compression. No grossly obvious visual evidence of calf swelling. Gentle manipulation of lower extremities fails to reveal any obvious evidence of injury or instability to knees hips or ankles, although some chronic stiffness and discomfort at her knees, secondary to arthritis. Neurologic: Moves upper extremities grossly normally. Patellar reflexes absent. Absent Babinski. Light touch is intact at feet. Plantarflexion of feet 5 / 5 and symmetric. Dorsiflexion left foot 5/5; 4/5 on right, a chronic finding, without recent change, per patient. Past Medical History Cardiac Medical History: Reports: Hyperlipidema, Hypertension, Pulmonary Embolism Denies: Atrial Fibrillation, Coronary Artery Disease, Myocardial Infarction Pulmonary Medical History: Reports: Chronic Obstructive Pulmonary Disease (COPD) Denies: Asthma, Bronchitis, Pneumonia, Sleep Apnea EENT Medical History: Reports: Eyes - Wears glasses Denies: Ears, Throat Neurological Medical History: Denies: Hemorrhagic CVA, Ischemic CVA, Seizures Endocrine Medical History: Denies: Diabetes Mellitus Type 1, Diabetes Mellitus Type 2, Hyperthyroidism, Hypothyroidism Renal/ Medical History: Reports: None Malignancy Medical History: Reports: Lung Cancer - On chemotherapy for same GI Medical History: Denies: Cirrhosis, Gastroesophageal Reflux Disease, Hepatitis, Peptic Ulcer Disease Musculoskeltal Medical History: Reports: Arthritis Skin Medical History: Reports: None Psychiatric Medical History: Reports: Depression, General Anxiety Disorder Denies: Alcohol Dependency, Tobacco Dependency, Other Hematology: Denies: Anemia Infectious Medical History: Reports: Clostridium Difficile Denies: Hepatitis B, Hepatitis C Past Surgical History Past Surgical History: Reports: Other - IR pancreatic pseudocyst drainage Social History Information Source: Patient, Emergency Med Personnel, [facility] Records Smoking Status: Former Smoker Frequency of Alcohol Use: None Hx Recreational Drug Use: No Drugs: None Hx Prescription Drug Abuse: No - Advance Directive Resuscitation Status: Do Not Resuscitate Family History Family History: Hypertension Parental Family History Reviewed: Yes - Father in motor vehicle collision; mother of stroke Children Family History Reviewed: NA Sibling(s) Family History Reviewed.: Yes - Healthy Medication/Allergy Home Medications: Albuterol Sulfate [Ventolin Hfa] 2 puff IH Q4HP PRN 02/27/17 Bisacodyl [Dulcolax 10 mg Supp.rect] 10 mg GA DAILYP PRN 02/27/17 Enoxaparin Sodium [Lovenox Inj 100 mg/1 ml Disp.syrin] 90 mg SQ Q12 02/27/17 Hydrocodone/Acetaminophen [Slemp 5-325 mg Tablet] 1 tab PO Q6HP PRN 02/27/17 Ketoconazole [Nizoral] 1 applic TP Q12 02/27/17 Lansoprazole [Prevacid 30 mg Odt Tablet] 30 mg PO Q12 02/27/17 Lisinopril/Hydrochlorothiazide [Zestoretic 20-12.5 mg Tablet] 1 tab PO DAILY Metronidazole [Flagyl 500 mg Tablet] 500 mg PO Q8 02/27/17 Nystatin [Mycostatin Topical Powder 15 gm] 1 applic TP Q6 02/27/17 Sertraline HCl [Zoloft 50 mg Tablet] 50 mg PO DAILY 02/27/17 Allergies/Adverse Reactions: aspirin [Aspirin] Allergy (Verified 01/03/17 12:57) lorazepam [From Ativan] Allergy (Verified 01/03/17 12:57) Penicillins Allergy (Verified 01/03/17 12:57) Physical Exam Vital Signs: Temp Pulse Resp BP Pulse Ox 98.9 F 16 72/38 L 94 02/27/17 21:41 02/27/17 22:25 02/27/17 22:21 02/27/17 22:25 Results Impressions: Chest X-Ray 02/27/17 00:00 IMPRESSION: NO ACUTE RADIOGRAPHIC FINDING IN THE CHEST. Abdomen/Pelvis CT 02/27/17 18:41 IMPRESSION: Previously described severe peripancreatic inflammatory or changes have almost completely resolved. Drainage catheter at the level the pancreatic tail has been removed since the previous study. Fluid collection is identified surround the pancreatic tail as noted above consistent with a pseudocysts. Air is identified within the fluid collection in the fluid collection is inseparable from the stomach such that I cannot exclude a fistulous communication. There is diffuse thickening of the contreras of the entire colon consistent with a colitis. Clinical correlation is recommended. Air is identified in the bladder and I cannot exclude a fistulous communication. Other findings as noted above Assessment & Plan - Diagnosis (1) Abnormal CT of the abdomen Is this a current diagnosis for this admission?: Yes Plan: Atelectasis versus consolidation, right base. Incentive spirometry twice daily. IV antibiotics. (2) Acute renal failure Qualifiers: Acute renal failure type: unspecified Qualified Code(s): N17.9 - Acute kidney failure, unspecified Is this a current diagnosis for this admission?: Yes Plan: Likely prerenal in nature. No obstruction on CT scan. IV fluids. Serial chemistry. (3) DNR (do not resuscitate) Is this a current diagnosis for this admission?: Yes Plan: Implications of DO NOT RESUSCITATE/DO NOT INTUBATE status discussed with patient. Discussed in layperson's terms. Implications understood. Patient is the health care decision maker. Patient conversation is lucid and appropriate. Patient desires DO NOT RESUSCITATE/DO NOT INTUBATE status, with patient recently having come to this decision, according to both patient and her male woodworking shop hand at her side. Will honor patient wishes. (4) Metabolic acidosis Is this a current diagnosis for this admission?: Yes Plan: Should clear with time and treatment. (5) Septic shock due to Clostridium difficile Is this a current diagnosis for this admission?: Yes Plan: Vigorous IV fluid. Levo fed. GI consult. Knee high SCDs for DVT prophylaxis; with plans for heparin drip, no need for prophylactic dose. Impression and plans were discussed with patient and male woodworking shop hand, both of whom concur. Time spent in evaluation and management of patient: 90 critical care minutes. (6) UTI (urinary tract infection) Qualifiers: Urinary tract infection type: acute pyelonephritis Qualified Code(s): N10 - Acute pyelonephritis Is this a current diagnosis for this admission?: Yes Plan: Blood and urine cultures. Aztreonam. (7) Immunosuppressed due to chemotherapy Is this a current diagnosis for this admission?: Yes (8) Hypokalemia Is this a current diagnosis for this admission?: Yes Plan: Follow-up chemistry, with potassium replacement as needed. (9) Ambulatory dysfunction Is this a current diagnosis for this admission?: Yes (10) Anticoagulated Is this a current diagnosis for this admission?: Yes Plan: Heparin drip protocol. (11) History of inferior vena caval filter placement Is this a current diagnosis for this admission?: Yes (12) History of pulmonary embolism Is this a current diagnosis for this admission?: Yes (13) Lung cancer Qualifiers: Laterality: unspecified laterality Lung location: unspecified part of lung Qualified Code(s): C34.90 - Malignant neoplasm of unspecified part of unspecified bronchus or lung Is this a current diagnosis for this admission?: Yes (14) Abnormal EKG Is this a current diagnosis for this admission?: Yes Plan: Computer interpretation of atrial fib, but appears to have regular rhythm. No prior a fib on old EKG's; pt. denies atrial fib/flutter history. Will repeat EKG. - Time Critical Time spent with patient: 35 or more minutes Anticipated discharge: SNF Within: Other - Inpatient Certification Based on my medical assessment, after consideration of the patient's comorbidities, presenting symptoms, or acuity I expect that the services needed warrant INPATIENT care.: Yes I certify that my determination is in accordance with my understanding of Medicare's requirements for reasonable and necessary INPATIENT services [42 CFR 412.3e].: Yes Medical Necessity: Need Close Monitoring Due to Risk of Patient Decompensation, Need For IV Fluids, Need For Continuous Telemetry Monitoring, Need for IV Antibiotics, Risk of Diagnosis Which Will Require Inpatient Eval/Care/Monitoring Post Hospital Care: D/C or Transfer Summary
[2017-02-27] MEDS ORDERED: NOREPINEPHRINE BITARTRATE INJ/PF 4 MG/4 ML SDV IV ONE (22:57)
[2017-02-27 23:12] LABS: MAGNESIUM 1.6 mg/dL (1.6-2.3)
[2017-02-27 23:28] LABS: ANION GAP 14 (5-19); BLOOD UREA NITROGEN 66 mg/dL (7-20); CALCIUM 7.8 mg/dL (8.4-10.2); CARBON DIOXIDE 12 mmol/L (22-30); CHLORIDE 107 mmol/L (98-107); GLUCOSE 63 mg/dL (75-110); SODIUM 133.1 mmol/L (137-145)
[2017-02-28] MEDS ORDERED: HEPARIN SOD (PORCINE) 1,000 UNIT/ML 10 ML VIAL IV PRN (00:14)
[2017-02-28] MEDS ORDERED: HEPARIN SODIUM,PORCINE/D5W 25,000 UNIT/250 ML RTUINJ IV PRN (00:14)
[2017-02-28] MEDS ORDERED: POTASSI CL 20 MEQ/50 ML RIDER 20 MEQ/50 ML RTUPB IV ONE (00:28)
[2017-02-28 00:30] LABS: POTASSIUM 2.6 mmol/L (3.6-5.0)
[2017-02-28] MEDS ORDERED: AZTREONAM INJ 1 GM VIAL IV SCH ×2 (00:45→06:00)
--- NOTE | 2017-02-28 01:20 | Operative Report ---
Operative Report DATE OF SURGERY: 02/28/17 Operative Report: Clinical indications: Mrs Samano is a 66 year old female who presented to [facility] ER with acute hypotension from the custodial. ER workup revealed leukocytosis and CT findings c/w pancolitis corroborating a history of CDiff colitis. Consent was obtained from the patient explaining the complications risks and benefits of the procedure including but not limited to bleeding infection need for operation and pneumothorax which she accepted. Procedure in detail: She sterilely prepped and draped in usual manner. Prior to access local was instilled in the tissue superficial to the clavicle. Patient was positioned and mild Trendelenburg. Access to the subclavicular vein was done with the accessing needle directed the posterior to the clavicle directed towards the sternoclavicular notch. With return of venous blood guidewire was placed within the lumen and needle was withdrawn. Guidewire is maintained at all times. Dilation was accomplished at the site. Triple lumen catheter that was then fed over the guidewire into the vessel with guidewire removed in its entirety. Triple-lumen had been flushed prior to entry all 3 ports were aspirated with easy return of venous blood and flushed with 10 mL's of normal saline. Site was then affixed to the chest wall using accompanying silk stitch to the chest wall as well as the antibiotic impregnated OpSite to the access point through the skin for the triple-lumen. Patient tolerated procedure well currently pending portable chest x-ray for catheter placement. PREOPERATIVE DIAGNOSIS: Septic shock POSTOPERATIVE DIAGNOSIS: Septic shock OPERATION: Left Subclavicular CVC SURGEON: KRISTINE MILLER ANESTHESIA: Local COMPLICATIONS: none ESTIMATED BLOOD LOSS: 5mls
[2017-02-28] MEDS ORDERED: NORMAL SALINE INJ/PF 0.9% 10 ML SDV IV PRN (01:24)
[2017-02-28] MEDS ORDERED: VANCOMYCIN HCL INJ 500 MG VIAL ONE ×2 (01:29→06:26)
--- NOTE | 2017-02-28 01:31 | PDOC CONSULTATION ---
Consultation Consult Date: 02/28/17 Attending physician:: TERENCE HOLT Consult reason:: Septic shock. Colitis History of Present Illness Admission Date/PCP: 02/27/17 22:13 BAO PHAM Patient complains of: Abdominal pain History of Present Illness: Mrs Samano is a 66-year-old female that presents to the ER today with acute episodes of hypotension. Prior significant history was that of C. difficile colitis for she has been chronically treated for the last several months per the patient. Ultimately she is also had prior history of pancreatitis and a pancreatic pseudocyst that was drained prior. ER workup did reveal leukocytosis and CT findings of pancolonic colitis. She did respond well to IV fluid resuscitation regardless given continued resuscitative efforts and needs for medication central line was placed today at bedside. Currently she has complaints minimally of abdominal pain markedly improved now 3 out of 10. Currently denying any fever chest pain shortness of breath nausea vomiting diarrhea. Past Medical History Medical History: Other - Pancreatitis, pancreatic pseudocyst, cdiff colitis Cardiac Medical History: Reports: Hypertension Denies: Coronary Artery Disease, Myocardial Infarction Pulmonary Medical History: Denies: Asthma, Bronchitis, Chronic Obstructive Pulmonary Disease (COPD), Pneumonia Neurological Medical History: Denies: Seizures Malignancy Medical History: Reports: Lung Cancer GI Medical History: Reports: Other - C. Diff. Musculoskeltal Medical History: Denies: Arthritis Psychiatric Medical History: Denies: Depression Hematology: Denies: Anemia Past Surgical History Past Surgical History: Reports: Other - IR pancreatic pseudocyst drainage, central venous catheterization Social History Smoking Status: Former Smoker Cigarettes Packs Per Day: 2 Last Time Smoked: 5 years Frequency of Alcohol Use: None Hx Recreational Drug Use: No Drugs: None Hx Prescription Drug Abuse: No - Advance Directive Resuscitation Status: Do Not Resuscitate Family History Family History: Reviewed & Not Pertinent, Hypertension Parental Family History Reviewed: Yes Children Family History Reviewed: Yes Sibling(s) Family History Reviewed.: Yes Medication/Allergy Home Medications: Albuterol Sulfate [Ventolin Hfa] 2 puff IH Q4HP PRN 02/27/17 Bisacodyl [Dulcolax 10 mg Supp.rect] 10 mg RI DAILYP PRN 02/27/17 Enoxaparin Sodium [Lovenox Inj 100 mg/1 ml Disp.syrin] 90 mg SQ Q12 02/27/17 Hydrocodone/Acetaminophen [[place] 5-325 mg Tablet] 1 tab PO Q6HP PRN 02/27/17 Ketoconazole [Nizoral] 1 applic TP Q12 02/27/17 Lansoprazole [Prevacid 30 mg Odt Tablet] 30 mg PO Q12 02/27/17 Lisinopril/Hydrochlorothiazide [Zestoretic 20-12.5 mg Tablet] 1 tab PO DAILY Metronidazole [Flagyl 500 mg Tablet] 500 mg PO Q8 02/27/17 Nystatin [Mycostatin Topical Powder 15 gm] 1 applic TP Q6 02/27/17 Sertraline HCl [Zoloft 50 mg Tablet] 50 mg PO DAILY 02/27/17 Allergies/Adverse Reactions: aspirin [Aspirin] Allergy (Verified 01/03/17 12:57) lorazepam [From Ativan] Allergy (Verified 01/03/17 12:57) Penicillins Allergy (Verified 01/03/17 12:57) Review of Systems Constitutional: PRESENT: fatigue, weakness. ABSENT: fever(s), headache(s) Eyes: ABSENT: visual disturbances Ears: ABSENT: hearing changes Cardiovascular: ABSENT: palpitations Respiratory: PRESENT: cough. ABSENT: dyspnea, hemoptysis Gastrointestinal: PRESENT: abdominal pain, diarrhea, nausea, vomiting - resolved. ABSENT: constipation, melena Neurological: ABSENT: abnormal gait, abnormal speech, confusion, dizziness, focal weakness, syncope Psychiatric: PRESENT: anxiety Physical Exam Vital Signs: Temp Pulse Resp BP Pulse Ox 97.0 F 82 24 H 95/53 L 97 02/27/17 23:49 02/27/17 23:49 02/27/17 23:49 02/27/17 23:49 02/27/17 23:49 Intake & Output 02/26/17 02/27/17 02/28/17 06:59 06:59 06:59 Output Total 15 Balance -15 Weight 78.7 kg General appearance: PRESENT: no acute distress, cooperative Head exam: PRESENT: atraumatic, normocephalic Eye exam: PRESENT: conjunctiva pink Mouth exam: PRESENT: moist, neck supple Neck exam: ABSENT: lymphadenopathy, tenderness, thyromegaly, tracheal deviation Respiratory exam: PRESENT: clear to auscultation melinda Cardiovascular exam: PRESENT: RRR Pulses: PRESENT: normal dorsalis pedis pul GI/Abdominal exam: PRESENT: diminished bowel sounds, distended, tenderness - mild, improved. ABSENT: firm, guarding Neurological exam: PRESENT: alert, awake, oriented to person, oriented to place , oriented to time, oriented to situation, CN II-XII grossly intact. ABSENT: motor sensory deficit Results Laboratory Results: 02/27/17 22:50 02/27/17 02/28/17 22:50 00:40 Sodium 133.1 L Potassium 2.6 L* Chloride 107 Carbon Dioxide 12 L Anion Gap 14 BUN 66 H Glucose 63 L Calcium 7.8 L Stool Occult Blood NEGATIVE Impressions: Chest X-Ray 02/27/17 00:00 IMPRESSION: NO ACUTE RADIOGRAPHIC FINDING IN THE CHEST. Abdomen/Pelvis CT 02/27/17 18:41 IMPRESSION: Previously described severe peripancreatic inflammatory or changes have almost completely resolved. Drainage catheter at the level the pancreatic tail has been removed since the previous study. Fluid collection is identified surround the pancreatic tail as noted above consistent with a pseudocysts. Air is identified within the fluid collection in the fluid collection is inseparable from the stomach such that I cannot exclude a fistulous communication. There is diffuse thickening of the contreras of the entire colon consistent with a colitis. Clinical correlation is recommended. Air is identified in the bladder and I cannot exclude a fistulous communication. Other findings as noted above Status: Imported from PACS Assessment & Plan - Diagnosis (1) Septic shock due to Clostridium difficile Is this a current diagnosis for this admission?: Yes Plan: NPO IVF, resuscitate and replace electrolytes IV flagyl and oral vancomycin, consider RI without clinical improvement Consider either inpatient or outpatient stool transplant if options available Pain control Pulmonary toilet DVT/GI prophylaxis Monitor UOP Use CVP for directing resuscitation as needed Will follow - Time Time Spent: 30 to 50 Minutes Critical Time spent with patient: Less than 15 minutes
[2017-02-28] MEDS: NORMAL SALINE 1000 ML 1,000 ML IV PRN ×2 (01:34→04:59)
[2017-02-28 01:59] LABS: HEMATOCRIT 32.3 % (36.0-47.0); HEMOGLOBIN 10.8 g/dL (12.0-15.5); HGB HCT DIFFERENCE 0.1; MEAN CORPUSCULAR HEMOGLOBIN 29.8 pg (27.0-33.4); MEAN CORPUSCULAR HGB CONC 33.5 g/dL (32.0-36.0); MEAN CORPUSCULAR VOLUME 89 fl (80-97); RED BLOOD COUNT 3.63 10^6/uL (3.72-5.28); RED CELL DISTRIBUTION WIDTH 14.4 % (11.5-14.0); WHITE BLOOD COUNT 20.3 10^3/uL (4.0-10.5)
--- NOTE | 2017-02-28 02:04 | RADIOLOGY REPORT (SQ) ---
EXAM DESCRIPTION: CHEST SINGLE VIEW COMPLETED DATE/TIME: 02/28/2017 1:29 am REASON FOR STUDY: Central line placement COMPARISON: 02/27/2017. EXAM PARAMETERS: NUMBER OF VIEWS: One view. TECHNIQUE: Single frontal radiographic view of the chest acquired. RADIATION DOSE: NA LIMITATIONS: None. FINDINGS: LUNGS AND PLEURA: No opacities, masses or pneumothorax. No pleural effusion. MEDIASTINUM AND HILAR STRUCTURES: No masses. Contour normal. HEART AND VASCULAR STRUCTURES: Heart normal in size. Normal vasculature. BONES: No acute findings. HARDWARE: Left subclavian central line tip at the right atrium; consider 4.3 cm retraction. OTHER: No other significant finding. IMPRESSION: NO ACUTE RADIOGRAPHIC FINDING IN THE CHEST. Left subclavian central line. TECHNICAL DOCUMENTATION: JOB ID: [id number]
[2017-02-28 02:05] LABS: PARTIAL THROMBOPLASTIN TIME 43.8 SEC (23.5-35.8)
[2017-02-28 02:34] LABS: BASOPHILS % (MANUAL) 0 % (0-2); EOSINOPHILS % (MANUAL) 0 % (0-6); LYMPHOCYTES % (MANUAL) 6 % (13-45); TOTAL CELLS COUNTED 100
[2017-02-28 02:35] LABS: ANISOCYTOSIS SLIGHT; TOXIC GRANULATION SLIGHT
[2017-02-28] MEDS: POTASSI CL 20 MEQ/50 ML RIDER 20 MEQ/50 ML RTUPB IV SCH ×3 (03:11→06:11)
[2017-02-28] MEDS ORDERED: METRONIDAZOLE 500 MG/NS RTU 100 ML IV SCH ×3 (04:00→14:00)
[2017-02-28] MEDS ORDERED: METRONIDAZOLE 500 MG/NS RTU 100 ML IV ONE (04:45)
[2017-02-28 05:41] LABS: ALANINE AMINOTRANSFERASE 18 U/L (9-52); ALBUMIN 1.7 g/dL (3.5-5.0); ALKALINE PHOSPHATASE 69 U/L (38-126); ANION GAP 14 (5-19); ASPARTATE AMINO TRANSFERASE 18 U/L (14-36); BILIRUBIN,DIRECT 0.3 mg/dL (0.0-0.4); BILIRUBIN,TOTAL 0.3 mg/dL (0.2-1.3); BLOOD UREA NITROGEN 64 mg/dL (7-20); CALCIUM 7.9 mg/dL (8.4-10.2); CARBON DIOXIDE 13 mmol/L (22-30); CHLORIDE 108 mmol/L (98-107); GLUCOSE 81 mg/dL (75-110); SODIUM 135.4 mmol/L (137-145); TOTAL PROTEIN 4.2 g/dL (6.3-8.2)
[2017-02-28 05:54] LABS: CREATININE RESULT 5.81 mg/dL (0.52-1.25); POTASSIUM 2.5 mmol/L (3.6-5.0)
[2017-02-28] MEDS ORDERED: POTASSI CL 20 MEQ/50 ML RIDER 20 MEQ/50 ML RTUPB IV SCH (06:04)
[2017-02-28] MEDS ORDERED: AZTREONAM INJ 1 GM VIAL ONE (06:26)
[2017-02-28] MEDS: VANCOMYCIN HCL INJ 500 MG VIAL PO SCH ×2 (06:40→13:05)
[2017-02-28] MEDS: AZTREONAM 0.25 GM in DEXTROSE 5%-WATER 50 ML IV SCH ×2 (06:40→15:18)
[2017-02-28 06:46] LABS: ARTERIAL BLOOD BASE EXCESS -11.8 mmol/L; ARTERIAL BLOOD O2 SATURATION 95.7 % (94-98)
[2017-02-28 06:56] LABS: ADD ON TESTING BLD IN LAB ACKNOWLEDGE
[2017-02-28 07:10] LABS: MAGNESIUM 1.6 mg/dL (1.6-2.3)
--- NOTE | 2017-02-28 08:22 | EKG REPORT ---
SEVERITY:- ABNORMAL ECG - SINUS RHYTHM LOW VOLTAGE THROUGHOUT NONSPECIFIC T ABNORMALITIES, DIFFUSE LEADS : Confirmed by: Nathaniel Xavier MD 28-Feb-2017 08:21:42
--- NOTE | 2017-02-28 08:23 | EKG REPORT ---
SEVERITY:- ABNORMAL ECG - SINUS RHYTHM ABNORMAL T, CONSIDER ISCHEMIA, DIFFUSE LEADS IVCD : Confirmed by: Nathaniel Xavier MD 28-Feb-2017 08:22:34
[2017-02-28] MEDS: POTASSIUM CHLORIDE 20 MEQ/50 ML RTU IV SCH ×3 (08:41→14:07)
[2017-02-28] MEDS ORDERED: NORMAL SALINE 1000 ML 1,000 ML IV ONE (08:45)
[2017-02-28 09:16] LABS: HEMATOCRIT 31.1 % (36.0-47.0); HEMOGLOBIN 10.3 g/dL (12.0-15.5); HGB HCT DIFFERENCE -0.2; MEAN CORPUSCULAR HEMOGLOBIN 29.9 pg (27.0-33.4); MEAN CORPUSCULAR HGB CONC 33.3 g/dL (32.0-36.0); MEAN CORPUSCULAR VOLUME 90 fl (80-97); RED BLOOD COUNT 3.46 10^6/uL (3.72-5.28); RED CELL DISTRIBUTION WIDTH 14.4 % (11.5-14.0); WHITE BLOOD COUNT 16.9 10^3/uL (4.0-10.5)
--- NOTE | 2017-02-28 09:24 | PDOC PROGRESS REPORT ---
Subjective Progress Note for:: 02/28/17 Subjective:: Pt states that she is doing ok this morning. Pt states that she is DNR. Pt states that she does not want to be transferred to another facility. Pt states that she does not have any children. Pt states that she wants her boyfriend to make decisions for her if she is unable. Pt states that her family lives in [place] and she has not seen them for a while. Nursing states that pt urine is concentrated and thick. Nursing states that levo was restarted due to pt's blood pressure being low. Physical Exam Vital Signs: Temp Pulse Resp BP Pulse Ox 97.0 F 82 13 101/71 98 02/27/17 23:49 02/27/17 23:49 02/28/17 06:05 02/28/17 06:03 02/28/17 06:05 Intake & Output 02/27/17 02/28/17 03/01/17 06:59 06:59 06:59 Intake Total 3461 Output Total 80 Balance 3381 Weight 78.7 kg General appearance: PRESENT: other - alert, pleasant, answering questions appropriately, appears toxic, obese Head exam: PRESENT: atraumatic, normocephalic Eye exam: PRESENT: conjunctiva pink, EOMI. ABSENT: scleral icterus Ear exam: PRESENT: normal external ear exam Mouth exam: PRESENT: moist, tongue midline Neck exam: ABSENT: carotid bruit, JVD, lymphadenopathy, thyromegaly Respiratory exam: PRESENT: clear to auscultation melinda. ABSENT: rales, rhonchi, wheezes Cardiovascular exam: PRESENT: RRR. ABSENT: diastolic murmur, rubs, systolic murmur Pulses: PRESENT: normal dorsalis pedis pul GI/Abdominal exam: PRESENT: other - +abd tenderness diffuse with palpation, Rectal exam: PRESENT: deferred Gentrourinary exam: PRESENT: indwelling catheter Extremities exam: PRESENT: full ROM. ABSENT: calf tenderness, clubbing, pedal edema Neurological exam: PRESENT: alert, awake, oriented to person, oriented to place , oriented to time, CN II-XII grossly intact Psychiatric exam: PRESENT: appropriate affect, normal mood. ABSENT: homicidal ideation, suicidal ideation Skin exam: PRESENT: dry, intact, warm. ABSENT: cyanosis, rash Results Laboratory Results: 02/28/17 04:48 09/02/28/17 02/28/17 22:50 00:40 01:51 WBC 20.3 H RBC 3.63 L Hgb 10.8 L Hct 32.3 L MCV 89 MCH 29.8 MCHC 33.5 RDW 14.4 H Plt Count 477 H Seg Neutrophils % Not Reportable Lymphocytes % Not Reportable Monocytes % Not Reportable Eosinophils % Not Reportable Basophils % Not Reportable Absolute Neutrophils Not Reportable Absolute Lymphocytes Not Reportable Absolute Monocytes Not Reportable Absolute Eosinophils Not Reportable Absolute Basophils Not Reportable Carbonic Acid HCO3/H2CO3 Ratio ABG pH ABG pCO2 ABG pO2 ABG HCO3 ABG O2 Saturation ABG Base Excess FiO2 Sodium 133.1 L Potassium 2.6 L* Chloride 107 Carbon Dioxide 12 L Anion Gap 14 BUN 66 H Creatinine 6.60 H Est GFR ( Amer) 8 L Est GFR (Non-Af Amer) 6 L Glucose 63 L Calcium 7.8 L Magnesium Total Bilirubin AST ALT Alkaline Phosphatase Total Protein Albumin Stool Occult Blood NEGATIVE 02/28/17 02/28/17 02/28/17 04:48 04:48 06:25 WBC RBC Hgb Hct MCV MCH MCHC RDW Plt Count Seg Neutrophils % Lymphocytes % Monocytes % Eosinophils % Basophils % Absolute Neutrophils Absolute Lymphocytes Absolute Monocytes Absolute Eosinophils Absolute Basophils Carbonic Acid 0.78 L HCO3/H2CO3 Ratio 16:1 ABG pH 7.32 L ABG pCO2 25.8 L ABG pO2 84.0 ABG HCO3 12.9 L ABG O2 Saturation 95.7 ABG Base Excess -11.8 FiO2 ROOM AIR Sodium 135.4 L Potassium 2.5 L* Chloride 108 H Carbon Dioxide 13 L Anion Gap 14 BUN 64 H Creatinine 5.81 H Est GFR ( Amer) 9 L Est GFR (Non-Af Amer) 7 L Glucose 81 Calcium 7.9 L Magnesium 1.6 Total Bilirubin 0.3 AST 18 ALT 18 Alkaline Phosphatase 69 Total Protein 4.2 L Albumin 1.7 L Stool Occult Blood Impressions: Abdomen/Pelvis CT 02/27/17 18:41 IMPRESSION: Previously described severe peripancreatic inflammatory or changes have almost completely resolved. Drainage catheter at the level the pancreatic tail has been removed since the previous study. Fluid collection is identified surround the pancreatic tail as noted above consistent with a pseudocysts. Air is identified within the fluid collection in the fluid collection is inseparable from the stomach such that I cannot exclude a fistulous communication. There is diffuse thickening of the contreras of the entire colon consistent with a colitis. Clinical correlation is recommended. Air is identified in the bladder and I cannot exclude a fistulous communication. Other findings as noted above Chest X-Ray 02/28/17 00:00 IMPRESSION: NO ACUTE RADIOGRAPHIC FINDING IN THE CHEST. Left subclavian central line. Assessment & Plan - Diagnosis (1) Septic shock due to Clostridium difficile Is this a current diagnosis for this admission?: Yes Plan: Pt is receiving aggressive IV fluid administration. Will continue to check Lactic acid. Will give additional saline bolus X 3. Pt urine output has increase but not at goal. Will add rectal Vancomycin to treatment plan. Pt continues to refuse transfer to Tertiary center. Lactic Acids not ordered by admitting physician. (2) C. difficile colitis Is this a current diagnosis for this admission?: Yes Plan: Pt currently on Vancomycin and Flagyl. (3) Acute cystitis Is this a current diagnosis for this admission?: Yes Plan: Suspected Acute Cystitis: Pt currently on Aztreonam. If urine culture neg for growth will discontinue treatment. (4) Acute renal failure Qualifiers: Acute renal failure type: unspecified Qualified Code(s): N17.9 - Acute kidney failure, unspecified Is this a current diagnosis for this admission?: Yes Plan: Most likely Prerenal and Sepsis: Will check renal ultrasound and continue IVF. Will check BMP later today. (5) Abnormal EKG Is this a current diagnosis for this admission?: Yes Plan: Will repeat EKG today. (6) Metabolic acidosis Is this a current diagnosis for this admission?: Yes Plan: Secondary to Sepsis and Acute Renal Failure: Will continue IVFs. (7) Encephalopathy Is this a current diagnosis for this admission?: Yes Plan: Acute Metabolic Encephalopathy: Resolving. Pt was alert, oriented X 3. (8) Abdominal pain Qualifiers: Abdominal location: generalized Qualified Code(s): R10.84 - Generalized abdominal pain Is this a current diagnosis for this admission?: Yes Plan: Secondary to C. Diff: Will continue current treatment. (9) Bilateral pulmonary embolism Is this a current diagnosis for this admission?: Yes Plan: Pt on Heparin (10) Hypokalemia Is this a current diagnosis for this admission?: Yes Plan: Will continue potassium replacement. Will check BMP at 2 pm. (11) Hypomagnesemia Is this a current diagnosis for this admission?: Yes Plan: Will give 3 grams of Magnesium. (12) Obesity Qualifiers: Obesity type: due to excess calories Body mass index: BMI 30.0-30.9 Is this a current diagnosis for this admission?: Yes Plan: Will encourage dietary changes. (13) Lung cancer Qualifiers: Laterality: unspecified laterality Lung location: unspecified part of lung Qualified Code(s): C34.90 - Malignant neoplasm of unspecified part of unspecified bronchus or lung Is this a current diagnosis for this admission?: Yes Plan: Pt has been receiving Chemo as outpatient. (14) DNR (do not resuscitate) Is this a current diagnosis for this admission?: Yes Plan: Pt has declined transfer this morning after explaining to pt the severity of her condition. - Time Time Spent with patient: 25-34 minutes
[2017-02-28] MEDS ORDERED: POTASSIUM CHLORIDE 10 MEQ TABLET.SA PO ONE (09:30)
[2017-02-28 09:44] LABS: PARTIAL THROMBOPLASTIN TIME 120.4 SEC (23.5-35.8)
[2017-02-28 09:48] LABS: BAND NEUTROPHILS % (MANUAL) 1 % (3-5); BASOPHILS % (MANUAL) 0 % (0-2); EOSINOPHILS % (MANUAL) 0 % (0-6); LYMPHOCYTES % (MANUAL) 10 % (13-45); NUCLEATED RED BLOOD CELLS 1 /100 WBC (0); TOTAL CELLS COUNTED 100; TOXIC GRANULATION 1+
[2017-02-28 09:49] LABS: ANISOCYTOSIS SLIGHT
[2017-02-28 09:50] LABS: POLYCHROMASIA SLIGHT
[2017-02-28 09:51] LABS: PLATELET CLUMPS PRESENT
[2017-02-28 09:52] LABS: BURR CELLS 1+
[2017-02-28] MEDS: MAGNESIUM SULFATE/D5W 1 GM/100 ML RTUPB IV SCH ×2 (09:52→11:40)
[2017-02-28] MEDS ORDERED: POTASSIUM CHLORIDE 20 MEQ/15 ML UDCUP PO ONE (10:00)
[2017-02-28] MEDS ORDERED: FAMOTIDINE INJ/PF 20 MG/2 ML SDV IV SCH (10:00)
[2017-02-28] MEDS ORDERED: SERTRALINE HCL 50 MG TABLET PO SCH (10:00)
[2017-02-28] MEDS ORDERED: DEXTROSE 5%-1/2 NORMAL SALINE 1,000 ML IV PRN (10:58)
[2017-02-28] MEDS: PROMETHAZINE HCL INJ 25 MG/1 ML VIAL IV PRN ×2 (11:01→16:51)
--- NOTE | 2017-02-28 11:47 | PDOC CONSULTATION ---
Consultation Consult Date: 02/28/17 Attending physician:: LUCA HEREDIA Consult reason:: pancolitis , sepsis History of Present Illness Admission Date/PCP: 02/27/17 22:13 BAO PHAM History of Present Illness: asked to see this patient by overnight hospitalist patient does have a history of lung cancer and has been receiving chemo patient admitted to the ICU with sepsis CT scan is remarkable for a pancolitis she does require BP support with levophed patient does not want to be transferred to a tertiary institution patient does have a elevated WBC count she does have C diff and is on antibiotics lactic acid is pending patient is currently not a candidate for any colonoscopic studies she is at high risk for perforation at this point I would treat her conservatively she should have BP maintained she should be covered with broad spectrum antibiotics for gram negative coverage and C,Diff coverage Past Medical History Cardiac Medical History: Reports: Hyperlipidema, Hypertension, Pulmonary Embolism Denies: Atrial Fibrillation, Coronary Artery Disease, Myocardial Infarction Pulmonary Medical History: Reports: Chronic Obstructive Pulmonary Disease (COPD) Denies: Asthma, Bronchitis, Pneumonia, Sleep Apnea EENT Medical History: Reports: Eyes - Wears glasses Denies: Ears, Throat Neurological Medical History: Denies: Hemorrhagic CVA, Ischemic CVA, Seizures Endocrine Medical History: Denies: Diabetes Mellitus Type 1, Diabetes Mellitus Type 2, Hyperthyroidism, Hypothyroidism Renal/ Medical History: Reports: None Malignancy Medical History: Reports: Lung Cancer - On chemotherapy for same GI Medical History: Reports: Other - C. Diff. Denies: Cirrhosis, Gastroesophageal Reflux Disease, Hepatitis, Peptic Ulcer Disease Musculoskeltal Medical History: Reports: Arthritis Skin Medical History: Reports: None Psychiatric Medical History: Reports: Depression, General Anxiety Disorder Denies: Alcohol Dependency, Tobacco Dependency, Other Hematology: Denies: Anemia Infectious Medical History: Reports: Clostridium Difficile Denies: Hepatitis B, Hepatitis C Past Surgical History Past Surgical History: Reports: Other - IR pancreatic pseudocyst drainage Social History Smoking Status: Former Smoker Cigarettes Packs Per Day: 2 Last Time Smoked: 5 years Frequency of Alcohol Use: None Hx Recreational Drug Use: No Drugs: None Hx Prescription Drug Abuse: No - Advance Directive Resuscitation Status: Do Not Resuscitate Family History Family History: Hypertension Parental Family History Reviewed: Yes Children Family History Reviewed: Unknown Sibling(s) Family History Reviewed.: Unknown Medication/Allergy Home Medications: Albuterol Sulfate [Ventolin Hfa] 2 puff IH Q4HP PRN 02/27/17 Bisacodyl [Dulcolax 10 mg Supp.rect] 10 mg VT DAILYP PRN 02/27/17 Enoxaparin Sodium [Lovenox Inj 100 mg/1 ml Disp.syrin] 90 mg SQ Q12 02/27/17 Hydrocodone/Acetaminophen [Heiskell 5-325 mg Tablet] 1 tab PO Q6HP PRN 02/27/17 Ketoconazole [Nizoral] 1 applic TP Q12 02/27/17 Lansoprazole [Prevacid 30 mg Odt Tablet] 30 mg PO Q12 02/27/17 Lisinopril/Hydrochlorothiazide [Zestoretic 20-12.5 mg Tablet] 1 tab PO DAILY Metronidazole [Flagyl 500 mg Tablet] 500 mg PO Q8 02/27/17 Nystatin [Mycostatin Topical Powder 15 gm] 1 applic TP Q6 02/27/17 Sertraline HCl [Zoloft 50 mg Tablet] 50 mg PO DAILY 02/27/17 Allergies/Adverse Reactions: aspirin [Aspirin] Allergy (Verified 01/03/17 12:57) lorazepam [From Ativan] Allergy (Verified 01/03/17 12:57) Penicillins Allergy (Verified 01/03/17 12:57) Review of Systems Constitutional: ABSENT: headache(s), night sweats, weakness Eyes: ABSENT: visual disturbances Ears: ABSENT: hearing changes Nose, Mouth, and Throat: ABSENT: mouth pain, sore throat Cardiovascular: ABSENT: chest pain, edema Respiratory: ABSENT: hemoptysis Gastrointestinal: PRESENT: diarrhea. ABSENT: coffee ground emesis, hematemesis , melena Genitourinary: PRESENT: dysuria. ABSENT: hematuria Integumentary: ABSENT: pruritus Neurological: ABSENT: syncope, tingling, tremor(s), vertigo Endocrine: ABSENT: polydipsia, polyphagia, polyuria Physical Exam Vital Signs: Temp Pulse Resp BP Pulse Ox 97.0 F 82 20 90/80 L 96 02/27/17 23:49 02/27/17 23:49 02/28/17 10:18 02/28/17 10:18 02/28/17 10:18 Intake & Output 02/27/17 02/28/17 03/01/17 06:59 06:59 06:59 Intake Total 3461 Output Total 80 65 Balance 3381 -65 Weight 78.7 kg General appearance: PRESENT: mild distress Head exam: PRESENT: atraumatic, normocephalic Eye exam: PRESENT: EOMI, PERRLA. ABSENT: periorbital swelling, scleral icterus Mouth exam: PRESENT: moist Throat exam: ABSENT: tonsillar exudate, tonsillogmegaly Neck exam: ABSENT: meningismus, tenderness, thyromegaly Respiratory exam: PRESENT: symmetrical, unlabored. ABSENT: tachypnea Cardiovascular exam: PRESENT: RRR, +S1, +S2 GI/Abdominal exam: PRESENT: soft, tenderness. ABSENT: Whiteside's sign, rebound Extremities exam: ABSENT: joint swelling Neurological exam: PRESENT: oriented to time, oriented to situation, CN II-XII grossly intact Psychiatric exam: PRESENT: appropriate affect Skin exam: PRESENT: normal color. ABSENT: mottled, pallor, petechiae, urticaria , vesicles Results Laboratory Results: 02/28/17 08:40 02/28/17 04:48 02/27/17 02/28/17 02/28/17 22:50 00:40 01:51 WBC 20.3 H RBC 3.63 L Hgb 10.8 L Hct 32.3 L MCV 89 MCH 29.8 MCHC 33.5 RDW 14.4 H Plt Count 477 H Seg Neutrophils % Not Reportable Lymphocytes % Not Reportable Monocytes % Not Reportable Eosinophils % Not Reportable Basophils % Not Reportable Absolute Neutrophils Not Reportable Absolute Lymphocytes Not Reportable Absolute Monocytes Not Reportable Absolute Eosinophils Not Reportable Absolute Basophils Not Reportable Carbonic Acid HCO3/H2CO3 Ratio ABG pH ABG pCO2 ABG pO2 ABG HCO3 ABG O2 Saturation ABG Base Excess FiO2 Sodium 133.1 L Potassium 2.6 L* Chloride 107 Carbon Dioxide 12 L Anion Gap 14 BUN 66 H Creatinine 6.60 H Est GFR ( Amer) 8 L Est GFR (Non-Af Amer) 6 L Glucose 63 L Lactic Acid Calcium 7.8 L Magnesium Total Bilirubin AST ALT Alkaline Phosphatase Total Protein Albumin Stool Occult Blood NEGATIVE 02/28/17 02/28/17 02/28/17 04:48 04:48 06:25 WBC RBC Hgb Hct MCV MCH MCHC RDW Plt Count Seg Neutrophils % Lymphocytes % Monocytes % Eosinophils % Basophils % Absolute Neutrophils Absolute Lymphocytes Absolute Monocytes Absolute Eosinophils Absolute Basophils Carbonic Acid 0.78 L HCO3/H2CO3 Ratio 16:1 ABG pH 7.32 L ABG pCO2 25.8 L ABG pO2 84.0 ABG HCO3 12.9 L ABG O2 Saturation 95.7 ABG Base Excess -11.8 FiO2 ROOM AIR Sodium 135.4 L Potassium 2.5 L* Chloride 108 H Carbon Dioxide 13 L Anion Gap 14 BUN 64 H Creatinine 5.81 H Est GFR ( Amer) 9 L Est GFR (Non-Af Amer) 7 L Glucose 81 Lactic Acid Calcium 7.9 L Magnesium 1.6 Total Bilirubin 0.3 AST 18 ALT 18 Alkaline Phosphatase 69 Total Protein 4.2 L Albumin 1.7 L Stool Occult Blood 02/28/17 02/28/17 08:40 09:35 WBC 16.9 H RBC 3.46 L Hgb 10.3 L Hct 31.1 L MCV 90 MCH 29.9 MCHC 33.3 RDW 14.4 H Plt Count 427 Seg Neutrophils % Not Reportable Lymphocytes % Not Reportable Monocytes % Not Reportable Eosinophils % Not Reportable Basophils % Not Reportable Absolute Neutrophils Not Reportable Absolute Lymphocytes Not Reportable Absolute Monocytes Not Reportable Absolute Eosinophils Not Reportable Absolute Basophils Not Reportable Carbonic Acid HCO3/H2CO3 Ratio ABG pH ABG pCO2 ABG pO2 ABG HCO3 ABG O2 Saturation ABG Base Excess FiO2 Sodium Potassium Chloride Carbon Dioxide Anion Gap BUN Creatinine Est GFR ( Amer) Est GFR (Non-Af Amer) Glucose Lactic Acid 0.7 Calcium Magnesium Total Bilirubin AST ALT Alkaline Phosphatase Total Protein Albumin Stool Occult Blood 02/28/17 08:40 Troponin I 0.155 Impressions: Abdomen/Pelvis CT 02/27/17 18:41 IMPRESSION: Previously described severe peripancreatic inflammatory or changes have almost completely resolved. Drainage catheter at the level the pancreatic tail has been removed since the previous study. Fluid collection is identified surround the pancreatic tail as noted above consistent with a pseudocysts. Air is identified within the fluid collection in the fluid collection is inseparable from the stomach such that I cannot exclude a fistulous communication. There is diffuse thickening of the contreras of the entire colon consistent with a colitis. Clinical correlation is recommended. Air is identified in the bladder and I cannot exclude a fistulous communication. Other findings as noted above Chest X-Ray 02/28/17 00:00 IMPRESSION: NO ACUTE RADIOGRAPHIC FINDING IN THE CHEST. Left subclavian central line. Assessment & Plan - Diagnosis (1) Abnormal CT of the abdomen Is this a current diagnosis for this admission?: Yes Plan: CT scan showing anaya-colitis etiology would include C.Diff colitis, vs colitis due to chemo in past hydration maintain BP not a candidate for colonoscopy at this point in time patient is refusing transfer to tertiary institution despite the gravity of the situation (2) C. difficile colitis Is this a current diagnosis for this admission?: Yes Plan: keep on antibiotic coverage occasionally a binder is also useful to absorb toxin (3) Septic shock Plan: maintain BP, broad spectrum antibiotics as noted (4) Diarrhea Qualifiers: Diarrhea type: due to malabsorption Qualified Code(s): K90.9 - Intestinal malabsorption, unspecified Plan: multiple causes, C.Diff, ? chemo induced will continue to follow - Time Time Spent: Greater than 70 Minutes
[2017-02-28] MEDS ORDERED: VANCOMYCIN HCL INJ 500 MG VIAL PR SCH (12:00)
[2017-02-28 13:08] LABS: ANION GAP 13 (5-19); BLOOD UREA NITROGEN 59 mg/dL (7-20); CALCIUM 7.8 mg/dL (8.4-10.2); CARBON DIOXIDE 12 mmol/L (22-30); CHLORIDE 112 mmol/L (98-107); GLUCOSE 100 mg/dL (75-110); SODIUM 137.3 mmol/L (137-145)
[2017-02-28 13:14] LABS: CREATININE RESULT 4.92 mg/dL (0.52-1.25)
[2017-02-28 13:20] LABS: POTASSIUM 3.5 mmol/L (3.6-5.0)
--- NOTE | 2017-02-28 14:02 | EKG REPORT ---
SEVERITY:- ABNORMAL ECG - SINUS RHYTHM FIRST DEGREE AV BLOCK LOW VOLTAGE THROUGHOUT BORDERLINE R WAVE PROGRESSION, ANTERIOR LEADS NONSPECIFIC T ABNORMALITIES, DIFFUSE LEADS : Confirmed by: Nathaniel Xavier MD 28-Feb-2017 14:01:09
--- NOTE | 2017-02-28 15:21 | PDOC TRANSFER SUMMARY ---
General Admission Date/PCP: 02/27/17 22:13 JULIANN PHAMP-Narinder Admission Date: 02/27/17 Transfer Date: 02/28/17 Accepting Facility: [facility] Accepting Physician: Dr. Broderick Resuscitation Status: Do Not Resuscitate - Transfer Diagnosis (1) Septic shock due to Clostridium difficile Is this a current diagnosis for this admission?: Yes Diagnosis Summary: Pt had received 6-8 NS bolus with maintenance. Pt on oral vanco, rectal vanco, and flagyl. (2) C. difficile colitis Is this a current diagnosis for this admission?: Yes Diagnosis Summary: Will continue oral vancomycin, rectal vancomycin, and flagyl. (3) Acute cystitis Is this a current diagnosis for this admission?: Yes Diagnosis Summary: Secondary to Gram Neg Stepan >100,000: Pt currently on Aztreonam. (4) Acute renal failure Is this a current diagnosis for this admission?: Yes Diagnosis Summary: Most likely Secondary to Prerenal and Sepsis: Cr was 6.9 at admission and at transfer Cr. 4.92. Pt urine output only 200 cc since being admitted to our facility. Pt is currently receiving more NS boluses. (5) Abnormal EKG Is this a current diagnosis for this admission?: Yes Diagnosis Summary: Will continue to monitor. (6) Metabolic acidosis Is this a current diagnosis for this admission?: Yes Diagnosis Summary: Secondary to Sepsis and Acute Renal Failure: Will continue IVF. (7) Encephalopathy Is this a current diagnosis for this admission?: Yes Diagnosis Summary: Acute Metabolic Encephalopathy: Pt on follow up oriented to self and year. (8) Abdominal pain Is this a current diagnosis for this admission?: Yes Diagnosis Summary: Secondary to C.diff: Will continue current treatment. (9) Bilateral pulmonary embolism Is this a current diagnosis for this admission?: Yes Diagnosis Summary: heparin (10) Hypokalemia Is this a current diagnosis for this admission?: Yes Diagnosis Summary: Improved. Currently 3.5. Will continue to monitor. (11) Hypomagnesemia Is this a current diagnosis for this admission?: Yes Diagnosis Summary: Pt given Magnesium replacement. (12) Obesity Is this a current diagnosis for this admission?: Yes Diagnosis Summary: Supportive. (13) Lung cancer Is this a current diagnosis for this admission?: Yes (14) DNR (do not resuscitate) Is this a current diagnosis for this admission?: Yes - Transfer Medications Home Medications: Albuterol Sulfate [Ventolin Hfa] 2 puff IH Q4HP PRN 02/27/17 Bisacodyl [Dulcolax 10 mg Supp.rect] 10 mg [place] DAILYP PRN 02/27/17 Enoxaparin Sodium [Lovenox Inj 100 mg/1 ml Disp.syrin] 90 mg SQ Q12 02/27/17 Hydrocodone/Acetaminophen [[place] 5-325 mg Tablet] 1 tab PO Q6HP PRN 02/27/17 Ketoconazole [Nizoral] 1 applic TP Q12 02/27/17 Lansoprazole [Prevacid 30 mg Odt Tablet] 30 mg PO Q12 02/27/17 Lisinopril/Hydrochlorothiazide [Zestoretic 20-12.5 mg Tablet] 1 tab PO DAILY Metronidazole [Flagyl 500 mg Tablet] 500 mg PO Q8 02/27/17 Nystatin [Mycostatin Topical Powder 15 gm] 1 applic TP Q6 02/27/17 Sertraline HCl [Zoloft 50 mg Tablet] 50 mg PO DAILY 02/27/17 Transfer Medications: Current Medications Acetaminophen (Tylenol 325 Mg Tablet) 650 mg PO Q8HP PRN Stop: 03/29/17 22:22 Albuterol/Ipratropium (Duoneb 3 Ml Ampul) 3 ml NEB RTQ4HP PRN Stop: 03/29/17 22:12 Dextrose (Dextrose Inj 50% Syringe (25 Gm/50 Ml)) 12.5 gm IV PRN PRN; Protocol PRN Reason: FOR BG 50-69 IN ALERT PATIENT Stop: 03/29/17 22:15 Dextrose (Dextrose Inj 50% Syringe (25 Gm/50 Ml)) 25 gm IV PRN PRN PRN Reason: Protocol Stop: 03/29/17 22:15 Famotidine (Pepcid Inj/Pf 20 Mg/2 Ml Sdv) 10 mg IV Q12 YAHAIRA Stop: 03/30/17 09:59 Last Admin: 02/28/17 09:52 Dose: 10 mg Glucagon (Glucagen Inj 1 Mg Vial) 1 mg IM PRN PRN; Protocol PRN Reason: Evaluate for BG < 70 Stop: 03/29/17 22:15 Glucose (Glutose 40% Gel 15 Gm Tube) 15 gm PO PRN PRN; Protocol PRN Reason: FOR BG 50-69 IN ALERT PATIENT Stop: 03/29/17 22:15 Last Admin: 02/28/17 11:00 Dose: 15 gm Glucose (Glutose 40% Gel 15 Gm Tube) 30 gm PO PRN PRN; Protocol PRN Reason: FOR BG < 50 IN ALERT PATIENT Stop: 03/29/17 22:15 Heparin Sodium (Porcine) (Heparin Inj 1,000 Unit/Ml 10 Ml Vial) 0 - 15,000 unit IV .BOLUS PER PROTOCOL PRN; Protocol PRN Reason: RESPOND TO aPTT VALUE Stop: 03/30/17 00:13 Heparin Sodium (Porcine) (Heparin Flush 10 Unit/Ml 5 Ml Disp.Syrg) 30 unit IV Q8 [facility] Stop: 03/30/17 05:59 Last Admin: 02/28/17 14:47 Dose: Not Given Heparin Sodium (Porcine) (Heparin Flush 10 Unit/Ml 5 Ml Disp.Syrg) 30 unit IV .AFTER EACH USE PRN PRN Reason: AFTER EACH INTERMITTENT USE Stop: 03/30/17 01:23 Norepinephrine Bitartrate 4 mg (/ Dextrose) 250 mls @ 0 mls/hr IV CONTINUOUS PRN; Protocol; Titrate PRN Reason: THIS MED IS NOT "PRN" Stop: 03/29/17 22:00 Last Admin: 02/27/17 23:00 Dose: 4 mg Heparin Sodium/Dextrose (Heparin Rtu 25,000 Unit/250 Ml D5w Premix) 25,000 unit in 250 mls @ 0 mls/hr IV CONTINUOUS PRN; Protocol; Titrate PRN Reason: THIS MED IS NOT "PRN" Stop: 03/30/17 00:13 Last Admin: 02/28/17 03:13 Dose: 250 ml Aztreonam 0.25 gm/ Dextrose 50 mls @ 100 mls/hr IV Q8 [facility] Stop: 03/07/17 05:59 Last Admin: 02/28/17 06:40 Dose: 0.25 gm Metronidazole (Flagyl Rtu 500 Mg/Ns 100ml Premix) 100 mls @ 100 mls/hr IV Q8 [facility] Stop: 03/07/17 13:59 Last Admin: 02/28/17 14:43 Dose: 100 ml Dextrose/Sodium Chloride (D5-1/2ns 1000 Ml Iv Soln) 1,000 mls @ 150 mls/hr IV CONTINUOUS PRN PRN Reason: THIS MED IS NOT "PRN" Stop: 03/30/17 10:57 Last Admin: 02/28/17 11:46 Dose: 1,000 ml Promethazine HCl (Phenergan Inj 25 Mg/1 Ml Vial) 6.25 mg IV Q6HP PRN PRN Reason: FOR NAUSEA/VOMITING Stop: 03/29/17 22:22 Last Admin: 02/28/17 11:01 Dose: 6.25 mg Sertraline HCl (Zoloft 50 Mg Tablet) 25 mg PO DAILY [facility] Stop: 03/30/17 09:59 Last Admin: 02/28/17 09:44 Dose: 25 mg Sodium Chloride (Saline Flush 2.5 Ml Monoject Prefil Syrin) 2.5 ml IV Q8 YAHAIRA Stop: 03/30/17 05:59 Last Admin: 02/28/17 14:47 Dose: Not Given Sodium Chloride (Nacl 0.9% Inj/Pf 10 Ml Sdv) 10 ml IV .AFTER EACH USE PRN PRN Reason: AFTER EACH INTERMITTENT USE Stop: 03/30/17 01:23 Vancomycin HCl (Vancocin Inj 500 Mg Vial) 500 mg PO Q6 YAHAIRA Stop: 03/06/17 22:14 Last Admin: 02/28/17 13:05 Dose: 500 mg Vancomycin HCl (Vancocin Inj 500 Mg Vial) 500 mg [place] Q6 YAHAIRA Stop: 03/07/17 11:59 Last Admin: 02/28/17 14:04 Dose: 500 mg - Allergies Allergies/Adverse Reactions: aspirin [Aspirin] Allergy (Verified 01/03/17 12:57) lorazepam [From Ativan] Allergy (Verified 01/03/17 12:57) Penicillins Allergy (Verified 01/03/17 12:57) Hospital Course Hospital Course: Patient is 66-year-old female that was admitted overnight to our facility after being found at the long term with a blood pressure of 90/60. EMS had documented the patient's blood pressure was 60/30. When patient arrived to the emergency room patient was given IV fluid boluses. Patient had been diagnosed with C. difficile as outpatient and study was repeated here at our facility and positive for C. difficile. Patient has CT of the abdomen that showed diffuse colitis. Patient was also noted to have low potassium at time of admission. Patient had recently been admitted to [facility] where she had been treated for pancreatic tail abscess. Patient also has lung cancer and has been receiving chemo. Patient was also recently diagnosed with pulmonary emboli and had been on Lovenox which was changed to heparin. When patient was in the emergency room patient had refused transfer to outside facility therefore patient was admitted to our facility for continuation of care. Patient's boyfriend David arrives to the hospital and contacted patient's family in [place] i.e. sister who spoke with patient about transferring to a tertiary center. Pt was made aware at time of admission that we do not have cook supervisor, renal, or infectious disease. This was readdressed with family this morning who understood that patient would benefit from the services. Please [facility] and Dr. Broderick accepted patient. Physical Exam Vital Signs: Temp Pulse Resp BP Pulse Ox 97.0 F 83 18 98/62 L 98 02/27/17 23:49 02/28/17 12:00 02/28/17 14:03 02/28/17 14:03 02/28/17 14:03 Intake & Output 02/27/17 02/28/17 03/01/17 06:59 06:59 06:59 Intake Total 3461 Output Total 80 200 Balance 3381 -200 Weight 78.7 kg General appearance: PRESENT: no acute distress Head exam: PRESENT: atraumatic, normocephalic Eye exam: PRESENT: conjunctiva pink, EOMI. ABSENT: scleral icterus Ear exam: PRESENT: normal external ear exam Mouth exam: PRESENT: moist, tongue midline Neck exam: ABSENT: carotid bruit, JVD, lymphadenopathy, thyromegaly Respiratory exam: PRESENT: clear to auscultation melinda. ABSENT: rales, rhonchi, wheezes Cardiovascular exam: PRESENT: RRR. ABSENT: diastolic murmur, rubs, systolic murmur Pulses: PRESENT: normal dorsalis pedis pul GI/Abdominal exam: PRESENT: tenderness - +diffuse tenderness to palpation., other Rectal exam: PRESENT: deferred Extremities exam: PRESENT: full ROM. ABSENT: calf tenderness, clubbing, pedal edema Neurological exam: PRESENT: alert, awake, oriented to person, oriented to place. ABSENT: motor sensory deficit Psychiatric exam: PRESENT: appropriate affect, normal mood. ABSENT: homicidal ideation, suicidal ideation Skin exam: PRESENT: dry, intact, warm. ABSENT: cyanosis, rash Results Laboratory Results: 02/28/17 08:40 02/28/17 12:00 02/27/17 02/28/17 02/28/17 22:50 00:40 01:51 WBC 20.3 H RBC 3.63 L Hgb 10.8 L Hct 32.3 L MCV 89 MCH 29.8 MCHC 33.5 RDW 14.4 H Plt Count 477 H Seg Neutrophils % Not Reportable Lymphocytes % Not Reportable Monocytes % Not Reportable Eosinophils % Not Reportable Basophils % Not Reportable Absolute Neutrophils Not Reportable Absolute Lymphocytes Not Reportable Absolute Monocytes Not Reportable Absolute Eosinophils Not Reportable Absolute Basophils Not Reportable Carbonic Acid HCO3/H2CO3 Ratio ABG pH ABG pCO2 ABG pO2 ABG HCO3 ABG O2 Saturation ABG Base Excess FiO2 Sodium 133.1 L Potassium 2.6 L* Chloride 107 Carbon Dioxide 12 L Anion Gap 14 BUN 66 H Creatinine 6.60 H Est GFR ( Amer) 8 L Est GFR (Non-Af Amer) 6 L Glucose 63 L Lactic Acid Calcium 7.8 L Magnesium Total Bilirubin AST ALT Alkaline Phosphatase Total Protein Albumin Stool Occult Blood NEGATIVE 02/28/17 02/28/17 02/28/17 04:48 04:48 06:25 WBC RBC Hgb Hct MCV MCH MCHC RDW Plt Count Seg Neutrophils % Lymphocytes % Monocytes % Eosinophils % Basophils % Absolute Neutrophils Absolute Lymphocytes Absolute Monocytes Absolute Eosinophils Absolute Basophils Carbonic Acid 0.78 L HCO3/H2CO3 Ratio 16:1 ABG pH 7.32 L ABG pCO2 25.8 L ABG pO2 84.0 ABG HCO3 12.9 L ABG O2 Saturation 95.7 ABG Base Excess -11.8 FiO2 ROOM AIR Sodium 135.4 L Potassium 2.5 L* Chloride 108 H Carbon Dioxide 13 L Anion Gap 14 BUN 64 H Creatinine 5.81 H Est GFR ( Amer) 9 L Est GFR (Non-Af Amer) 7 L Glucose 81 Lactic Acid Calcium 7.9 L Magnesium 1.6 Total Bilirubin 0.3 AST 18 ALT 18 Alkaline Phosphatase 69 Total Protein 4.2 L Albumin 1.7 L Stool Occult Blood 02/28/17 02/28/17 02/28/17 08:40 09:35 12:00 WBC 16.9 H RBC 3.46 L Hgb 10.3 L Hct 31.1 L MCV 90 MCH 29.9 MCHC 33.3 RDW 14.4 H Plt Count 427 Seg Neutrophils % Not Reportable Lymphocytes % Not Reportable Monocytes % Not Reportable Eosinophils % Not Reportable Basophils % Not Reportable Absolute Neutrophils Not Reportable Absolute Lymphocytes Not Reportable Absolute Monocytes Not Reportable Absolute Eosinophils Not Reportable Absolute Basophils Not Reportable Carbonic Acid HCO3/H2CO3 Ratio ABG pH ABG pCO2 ABG pO2 ABG HCO3 ABG O2 Saturation ABG Base Excess FiO2 Sodium 137.3 Potassium 3.5 L D Chloride 112 H Carbon Dioxide 12 L Anion Gap 13 BUN 59 H Creatinine 4.92 H Est GFR ( Amer) 11 L Est GFR (Non-Af Amer) 9 L Glucose 100 Lactic Acid 0.7 Calcium 7.8 L Magnesium Total Bilirubin AST ALT Alkaline Phosphatase Total Protein Albumin Stool Occult Blood 02/28/17 12:00 WBC RBC Hgb Hct MCV MCH MCHC RDW Plt Count Seg Neutrophils % Lymphocytes % Monocytes % Eosinophils % Basophils % Absolute Neutrophils Absolute Lymphocytes Absolute Monocytes Absolute Eosinophils Absolute Basophils Carbonic Acid HCO3/H2CO3 Ratio ABG pH ABG pCO2 ABG pO2 ABG HCO3 ABG O2 Saturation ABG Base Excess FiO2 Sodium Potassium Chloride Carbon Dioxide Anion Gap BUN Creatinine Est GFR ( Amer) Est GFR (Non-Af Amer) Glucose Lactic Acid 1.1 Calcium Magnesium Total Bilirubin AST ALT Alkaline Phosphatase Total Protein Albumin Stool Occult Blood 02/28/17 08:40 Troponin I 0.155 Impressions: Abdomen/Pelvis CT 02/27/17 18:41 IMPRESSION: Previously described severe peripancreatic inflammatory or changes have almost completely resolved. Drainage catheter at the level the pancreatic tail has been removed since the previous study. Fluid collection is identified surround the pancreatic tail as noted above consistent with a pseudocysts. Air is identified within the fluid collection in the fluid collection is inseparable from the stomach such that I cannot exclude a fistulous communication. There is diffuse thickening of the contreras of the entire colon consistent with a colitis. Clinical correlation is recommended. Air is identified in the bladder and I cannot exclude a fistulous communication. Other findings as noted above Chest X-Ray 02/28/17 00:00 IMPRESSION: NO ACUTE RADIOGRAPHIC FINDING IN THE CHEST. Left subclavian central line.
[2017-02-28] MEDS ORDERED: NORMAL SALINE 1000 ML 3,000 ML IV PRN (16:12)
[2017-02-28 17:53] VITALS: BP 105/74
--- NOTE | 2017-02-28 19:31 | XCELERA REPORT ---
[address] [address] Transthoracic Echocardiogram Report Name: XIOMARA SETHI Age: 66 yrs Gender: Female : 1950 Patient Status: Inpatient Patient Location: ICU^2^A Study Date: 02/28/2017 10:08 AM Height: 66 in Weight: 173 lb BSA: 1.9 m2 Procedure: A complete two-dimensional transthoracic echocardiogram was performed (2D, M-mode, spectral and color flow Doppler). The study was technically difficult with many images being suboptimal in quality. Reason For Study: Sepsis Ordering Physician: CELINA TATUM Performed By: Jeimy Griffin Interpretation Summary The study was technically difficult with many images being suboptimal in quality. The left ventricular ejection fraction is normal. There is mild concentric left ventricular hypertrophy. Doppler measurements suggest pseudonormalized left ventricular relaxation, which is associated with grade II/IV or mild to moderate diastolic dysfunction Wall motion cannot be accurately commented on, but no definite regional wall motion abnormalities noted. The left ventricle is grossly normal size. The right ventricular systolic function is normal. The right atrium is borderline dilated. Borderline left atrial enlargement. There is a trace amount of mitral regurgitation There is no mitral valve stenosis. There is no aortic valve stenosis No aortic regurgitation is present. There is a trace to mild amount of tricuspid regurgitation Right ventricular systolic pressure is estimated to be elevated at 40- 50mmHg. There is mild to moderate pulmonary hypertension by echo The aortic root is not well visualized. The inferior vena cava was not well visualized Minimal pericardial effusion. No definite vegetations noted but if clinical suspicion is high, then consider BRANDY and multiple blood cultures. MMode/2D Measurements & Calculations RVDd: 3.2 cm LVIDd: 4.7 cm FS: 40.7 % Ao root diam: 2.5 cm IVSd: 1.0 cm LVIDs: 2.8 cm EDV(Teich): 101.7 ml LVPWd: 0.98 cm ESV(Teich): 29.0 ml Ao root area: 5.1 cm2 EF(Teich): 71.4 % LA dimension: 3.6 cm Doppler Measurements & Calculations MV E max florence: MV P1/2t max florence: Ao V2 max: LV V1 max P.0 cm/sec 75.3 cm/sec 161.0 cm/sec 5.6 mmHg MV A max florence: MV P1/2t: 70.8 msec Ao max PG: LV V1 max: 103.7 cm/sec 10.4 mmHg 117.8 cm/sec MV E/A: 0.71 MVA(P1/2t): 3.1 cm2 MV dec slope: 311.2 cm/sec2 MV dec time: 0.22 sec PA V2 max: TR max florence: 115.4 cm/sec 310.8 cm/sec PA max P.3 mmHgTR max P.6 mmHg Left Ventricle The left ventricle is grossly normal size. There is mild concentric left ventricular hypertrophy. The left ventricular ejection fraction is normal. Doppler measurements suggest pseudonormalized left ventricular relaxation, which is associated with grade II/IV or mild to moderate diastolic dysfunction. Wall motion cannot be accurately commented on, but no definite regional wall motion abnormalities noted. Right Ventricle The right ventricle is mildly dilated. There is normal right ventricular wall thickness. The right ventricular systolic function is normal. Atria The right atrium is borderline dilated. Borderline left atrial enlargement. Interarterial septum not well visualized and not well dopplered. Cannot comment on ASD/PFO presence. Mitral Valve The mitral valve is grossly normal. There is no mitral valve stenosis. There is a trace amount of mitral regurgitation. Aortic Valve The aortic valve is not well visualized secondary to technical limitations. There is no aortic valve stenosis. No aortic regurgitation is present. Tricuspid Valve The tricuspid valve is not well visualized secondary to technical limitations. There is no tricuspid stenosis. There is a trace to mild amount of tricuspid regurgitation. Right ventricular systolic pressure is estimated to be elevated at 40-50mmHg. There is mild to moderate pulmonary hypertension by echo. Pulmonic Valve The pulmonic valve is not well visualized. Great Vessels The aortic root is not well visualized. The inferior vena cava was not well visualized. Effusions Minimal pericardial effusion. Incidental Findings No definite vegetations noted but if clinical suspicion is high, then consider BRANDY and multiple blood cultures. : CELINA TATUM > Royce Yeung
--- NOTE | 2017-03-01 09:46 | PDOC CONSULTATION ---
Consultation Consult Date: 02/28/17 Attending physician:: CELINA TATUM Consult reason:: Hypotension History of Present Illness Admission Date/PCP: 02/27/17 22:13 BAO PHAM Patient complains of: General fatigue and tiredness History of Present Illness: This patient was seen yesterday. Report was dictated but was in depending box, today I could not find it therefore was redictated. XIOMARA SETHI is a 66 year old female with a fairly complicated both acute and chronic medical history, including immunosuppression due to chemotherapy for left lung carcinoma, recently discovered pulmonary emboli, on Lovenox for same, and status post recent interventional radiology drainage of a pancreatic tail abscess at [facility], currently at [facility] for rehab from [facility], who presents to the emergency room for evaluation of above complaints. Patient claims that she was feeling generally bad therefore blood pressure was obtained at [facility]. Blood pressure at [facility] reportedly 90/60, but initial pressure with EMS was 60/30. Has remained hypotensive in the emergency room, although pressures are slowly increasing with IV fluid boluses. Reportedly diagnosed with Clostridium difficile last week. On oral Flagyl for same. Still having quite a bit of diarrhea at times. Intermittent mild lower abdominal cramping discomfort. She has had nausea but no vomiting. Patient examined by surgeon sewer connector, who did not feel there was a role for surgery at this point in time, but who will follow the patient in consultation. Nonambulatory since her stay at [facility] earlier this year. When I saw the patient, she was in the intensive care unit, getting IV fluids and on Levophed drip which was being tapered. Patient denied any chest pain. Patient denied any significant dyspnea. A 2D echo was ordered. Past Medical History Cardiac Medical History: Reports: Hyperlipidema, Hypertension, Pulmonary Embolism Denies: Atrial Fibrillation, Coronary Artery Disease, Myocardial Infarction Pulmonary Medical History: Reports: Chronic Obstructive Pulmonary Disease (COPD) Denies: Asthma, Bronchitis, Pneumonia, Sleep Apnea EENT Medical History: Reports: Eyes - Wears glasses Denies: Ears, Throat Neurological Medical History: Denies: Hemorrhagic CVA, Ischemic CVA, Seizures Endocrine Medical History: Denies: Diabetes Mellitus Type 1, Diabetes Mellitus Type 2, Hyperthyroidism, Hypothyroidism Renal/ Medical History: Reports: None Malignancy Medical History: Reports: Lung Cancer - On chemotherapy for same GI Medical History: Reports: Other - C. Diff. Denies: Cirrhosis, Gastroesophageal Reflux Disease, Hepatitis, Peptic Ulcer Disease Musculoskeltal Medical History: Reports: Arthritis Skin Medical History: Reports: None Psychiatric Medical History: Reports: Depression, General Anxiety Disorder Denies: Alcohol Dependency, Tobacco Dependency, Other Hematology: Denies: Anemia Infectious Medical History: Reports: Clostridium Difficile Denies: Hepatitis B, Hepatitis C Past Surgical History Past Surgical History: Reports: Other - IR pancreatic pseudocyst drainage Social History Information Source: Patient Smoking Status: Former Smoker Cigarettes Packs Per Day: 2 Last Time Smoked: 5 years Frequency of Alcohol Use: None Hx Recreational Drug Use: No Drugs: None Hx Prescription Drug Abuse: No - Advance Directive Resuscitation Status: Do Not Resuscitate Surrogate healthcare decision maker:: Patient's sister is the surrogate decision-maker. Family History Family History: Hypertension Parental Family History Reviewed: Yes Children Family History Reviewed: Yes Sibling(s) Family History Reviewed.: Yes Medication/Allergy Home Medications: Albuterol Sulfate [Ventolin Hfa] 2 puff IH Q4HP PRN 02/27/17 Bisacodyl [Dulcolax 10 mg Supp.rect] 10 mg WI DAILYP PRN 02/27/17 Enoxaparin Sodium [Lovenox Inj 100 mg/1 ml Disp.syrin] 90 mg SQ Q12 02/27/17 Hydrocodone/Acetaminophen [Minier 5-325 mg Tablet] 1 tab PO Q6HP PRN 02/27/17 Ketoconazole [Nizoral] 1 applic TP Q12 02/27/17 Lansoprazole [Prevacid 30 mg Odt Tablet] 30 mg PO Q12 02/27/17 Lisinopril/Hydrochlorothiazide [Zestoretic 20-12.5 mg Tablet] 1 tab PO DAILY Metronidazole [Flagyl 500 mg Tablet] 500 mg PO Q8 02/27/17 Nystatin [Mycostatin Topical Powder 15 gm] 1 applic TP Q6 02/27/17 Sertraline HCl [Zoloft 50 mg Tablet] 50 mg PO DAILY 02/27/17 Allergies/Adverse Reactions: aspirin [Aspirin] Allergy (Verified 01/03/17 12:57) lorazepam [From Ativan] Allergy (Verified 01/03/17 12:57) Penicillins Allergy (Verified 01/03/17 12:57) Review of Systems Review of Systems: Please see history of present illness and past medical history as wall. Constitutional: No recent fever or chills reported. Patient been feeling fatigued and tired. Head : No recent chronic headaches, recent head injury. Eyes: No recent eye pain, diplopia, redness, discharge, acute visual changes. Ears: No recent chronic ear pain, acute hearing loss, ear discharge. Oral cavity: No recent ulcerations, bleeding, oral cavity discomfort. Neck: No recent acute neck pain reported. Hematologic: No recent easy bruising or bleeding or hematologic malignancy reported. Lymphatic: No recent lymphatic malignancy, chronic lymphadenopathy reported yet Cardiovascular system review: See history of present illness. Respiratory system review: No recent chronic cough, hemoptysis, positive for recent diagnosis of pulmonary embolism and shortness of breath. Gastrointestinal system review: Positive for diarrhea and lower abdominal pain but no recent hematemesis, melena. Genitourinary system review: No recent acute or chronic hematuria, flank pain, UTI etc. reported. Skin system review: Negative for any recent abnormal bruising, no rash, no pruritus reported. Neurologic: No prior history of strokes, mini strokes, seizure disorder. Psychologic: No history of major psychosis or major depression reported. Musculoskeletal: Minor aches and pains reported. No acute joint swelling reported. Endocrine: No recent polyuria, polydipsia, recent heat or cold intolerance. Physical Exam Vital Signs: Temp Pulse Resp BP Pulse Ox 97.5 F 84 22 H 105/74 99 02/28/17 17:10 02/28/17 17:10 02/28/17 17:10 02/28/17 17:10 02/28/17 17:10 Intake & Output 02/28/17 03/01/17 03/02/17 06:59 06:59 06:59 Intake Total 3461 5708 Output Total 80 305 Balance 3381 5403 Weight 78.7 kg Exam: GENERAL: well-nourished and in no acute distress. Alert and oriented x3 HEAD: Atraumatic, normocephalic. EYES: Pupils equal round and reactive to light, extraocular movements intact, sclera anicteric, conjunctiva are normal. ENT: TMs normal, nares patent, oropharynx clear without exudates. Moist mucous membranes. No oral ulcerations or bleeding gums noted NECK: supple without lymphadenopathy. Trachea is central. No cervical or axillary lymphadenopathy noted. Carotids are 2+, JVD WNL LUNGS: Respiration seems nonlabored, no significant accessory muscle action noted. Breath sounds clear to auscultation bilaterally and equal noted. No wheezes rales or rhonchi noted. No significant dullness noted on percussion. CHEST: Palpation of the chest wall shows no significant chest wall tenderness. No other significant abnormalities noted. 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 ABDOMEN: Soft, mild lower quadrant tenderness appreciated, normoactive bowel sounds. No guarding, no rebound. No rigidity noted . No masses appreciated. EXTREMITIES: Pedal pulses are 1-2+, no calf tenderness noted. No clubbing or cyanosis.trace to 1+ pedal edema noted NEUROLOGICAL: Focused neurological exam showed no significant neurologic deficit. Normal speech, no focal weakness appreciated. PSYCH: Normal mood, normal affect. Judgment and insight within normal limits. SKIN: No significant ecchymosis, rash, ulcerations or signs of pruritus noted. MUSCULOSKELETAL EXAM: No significant joint swelling noted. Results Laboratory Results: 02/28/17 08:40 02/28/17 12:00 02/28/17 02/28/17 02/28/17 09:35 12:00 12:00 Sodium 137.3 Potassium 3.5 L D Chloride 112 H Carbon Dioxide 12 L Anion Gap 13 BUN 59 H Creatinine 4.92 H Est GFR ( Amer) 11 L Est GFR (Non-Af Amer) 9 L Glucose 100 Lactic Acid 0.7 1.1 Calcium 7.8 L 02/28/17 08:40 Troponin I 0.155 EKG Comments: Sinus rhythm, low voltage QRS complex, nonspecific T-wave inversions noted. Impressions: Abdomen/Pelvis CT 02/27/17 18:41 IMPRESSION: Previously described severe peripancreatic inflammatory or changes have almost completely resolved. Drainage catheter at the level the pancreatic tail has been removed since the previous study. Fluid collection is identified surround the pancreatic tail as noted above consistent with a pseudocysts. Air is identified within the fluid collection in the fluid collection is inseparable from the stomach such that I cannot exclude a fistulous communication. There is diffuse thickening of the contreras of the entire colon consistent with a colitis. Clinical correlation is recommended. Air is identified in the bladder and I cannot exclude a fistulous communication. Other findings as noted above Chest X-Ray 02/28/17 00:00 IMPRESSION: NO ACUTE RADIOGRAPHIC FINDING IN THE CHEST. Left subclavian central line. Assessment & Plan - Diagnosis (1) Abnormal EKG Is this a current diagnosis for this admission?: Yes (2) Hypotension (arterial) Qualifiers: Hypotension type: other hypotension type Qualified Code(s): I95.89 - Other hypotension Is this a current diagnosis for this admission?: Yes (3) Septic shock Is this a current diagnosis for this admission?: Yes (4) Abdominal pain Qualifiers: Abdominal location: generalized Qualified Code(s): R10.84 - Generalized abdominal pain Is this a current diagnosis for this admission?: Yes - Notes Notes: Abnormal electrocardiogram: Have ordered a echocardiogram. Preliminary report shows relatively well-preserved LVEF. Full report to be dictated. At this point patient without any chest pain. Continue to follow patient closely Hypotension: This is secondary to combination of sepsis and dehydration volume depletion. Agree with IV fluids and Levophed drip. Septic shock: Exact etiology not clear. 2D echo negative for any definite vegetation. Continue broad-spectrum antibiotic and other antibacterial coverage as needed. Abdominal pain: Currently stable. Surgeon seen the patient and does not think patient has a surgical abdomen. Will continue to follow patient. - Time Time Spent: 30 to 50 Minutes - CODE STATUS : was discussed, patient remains DO NOT RESUSCITATE. Surrogate decision-maker unchanged. Multiple medical problems were addressed. More than 50% of the time spent coordinating care, discussing management plans with involved caregivers. Management plans discussed with involved personnels. Medical decision making was of moderate to high complexity, patient's has multiple comorbidities. Discussed with hospitalist Dr. Celina Tatum Medications reviewed and adjusted accordingly: Yes
== END 2017-02-28 17:10 | disposition short-term general hospital (02) | DRG 871 ==
LOC: ER 18:20 → EH 20:43 → UNDOADMIN 20:43 → EH 22:13 → ICU 23:34
PROVIDERS: ADMIT Family Medicine; ATTEND Family Medicine
DX: A41.9 Sepsis, unspecified organism (principal); R65.21 Severe sepsis with septic shock; G93.41 Metabolic encephalopathy; A04.7 Enterocolitis due to Clostridium difficile; N30.00 Acute cystitis without hematuria; N17.9 Acute kidney failure, unspecified; C34.92 Malignant neoplasm of unspecified part of left bronchus or lung; Z66 Do not resuscitate; B96.89 Other specified bacterial agents as the cause of diseases classified elsewhere; E87.6 Hypokalemia; E83.42 Hypomagnesemia; J44.9 Chronic obstructive pulmonary disease, unspecified; I10 Essential (primary) hypertension; E78.5 Hyperlipidemia, unspecified; F32.9 Major depressive disorder, single episode, unspecified; F41.1 Generalized anxiety disorder; E66.9 Obesity, unspecified; Z79.899 Other long term (current) drug therapy; Z88.0 Allergy status to penicillin; Z88.6 Allergy status to analgesic agent; Z88.8 Allergy status to other drugs, medicaments and biological substances; Z86.711 Personal history of pulmonary embolism; Z87.891 Personal history of nicotine dependence; Z68.28 Body mass index [BMI] 28.0-28.9, adult
CPT/HCPCS: 36415; 71010; 74177; 80048; 80053; 81001; 82272; 82803; 82962; 83605; 83690; 83735; 84484; 85025; 85610; 85730; 87040; 87045; 87086; 87088; 87186; 87205; 93005; 93010; 93306; 99291; C1751; J1644; J2550; J3370; J3475; J3480; J3490; J7030; J7060; S0028

== ENCOUNTER 2017-04-27 15:26 | Emergency (ER) | payer MEDICARE, OTHER ==
[2017-04-27 16:24] LABS: ABSOLUTE LYMPHOCYTES (AUTO) 1.4 10^3/uL (0.5-4.7); ABSOLUTE MONOCYTES (AUTO) 0.4 10^3/uL (0.1-1.4); ABSOLUTE NEUT (AUTO) 9.8 10^3/uL (1.7-8.2); BASOPHILS % (AUTO) 0.2 % (0-2); HEMATOCRIT 38.2 % (36.0-47.0); HEMOGLOBIN 12.8 g/dL (12.0-15.5); HGB HCT DIFFERENCE 0.2; MEAN CORPUSCULAR HEMOGLOBIN 28.7 pg (27.0-33.4); MEAN CORPUSCULAR HGB CONC 33.4 g/dL (32.0-36.0); MEAN CORPUSCULAR VOLUME 86 fl (80-97); MONOCYTES % (AUTO) 3.5 % (3-13); RED BLOOD COUNT 4.44 10^6/uL (3.72-5.28); SEGMENTED NEUTROPHILS % (AUTO) 84.3 % (42-78); WHITE BLOOD COUNT 11.6 10^3/uL (4.0-10.5)
[2017-04-27 16:43] LABS: ALANINE AMINOTRANSFERASE 86 U/L (9-52); ALBUMIN 2.7 g/dL (3.5-5.0); ALKALINE PHOSPHATASE 780 U/L (38-126); ANION GAP 11 (5-19); ASPARTATE AMINO TRANSFERASE 317 U/L (14-36); BILIRUBIN,DIRECT 1.5 mg/dL (0.0-0.4); BILIRUBIN,TOTAL 1.7 mg/dL (0.2-1.3); BLOOD UREA NITROGEN 21 mg/dL (7-20); CALCIUM 10.5 mg/dL (8.4-10.2); CARBON DIOXIDE 28 mmol/L (22-30); CHLORIDE 99 mmol/L (98-107); CREATININE RESULT 1.06 mg/dL (0.52-1.25); GLUCOSE 140 mg/dL (75-110); POTASSIUM 4.1 mmol/L (3.6-5.0); SODIUM 138.2 mmol/L (137-145); TOTAL PROTEIN 6.4 g/dL (6.3-8.2)
[2017-04-27] MEDS ORDERED: MORPHINE SULFATE 10 MG/ML INJ IV ONE (17:12)
[2017-04-27] MEDS ORDERED: ONDANSETRON HCL INJ/PF 4 MG/2 ML SDV IV ONE (17:12)
[2017-04-27] MEDS ORDERED: NORMAL SALINE 1000 ML 1,000 ML IV ONE ×2 (17:12→18:20)
--- NOTE | 2017-04-27 17:21 | ER Document Report ---
ED GI/ <NOE WORKMAN - Last Filed: 04/27/17 22:45> - General Mode of Arrival: Medic Information source: Patient TRAVEL OUTSIDE OF THE [place] IN LAST 30 DAYS: Yes <SAWYER PORTER - Last Filed: 04/28/17 05:34> - General Chief Complaint: Abdominal Pain Stated Complaint: ABDOMINAL PAIN Time Seen by Provider: 04/27/17 17:08 Notes: 66 yo female sent from [facility] after d/c'd from [facility] Diff-chronic diarrhea. colitis, UTI, Pancreatitis (d/c 04-01), no surgery. PCP: Tori Jade. c/o low abdominal pain since this am, had it before but never this bad.. Vomiting and diarrhea, has diaper on. No abd. surgery. (SAWYER PORTER) - Related Data Allergies/Adverse Reactions: aspirin [Aspirin] Allergy (Verified 01/03/17 12:57) lorazepam [From Ativan] Allergy (Verified 01/03/17 12:57) Penicillins Allergy (Verified 01/03/17 12:57) Past Medical History - General Information source: Patient - Social History Smoking Status: Never Smoker Chew tobacco use (# tins/day): No Frequency of alcohol use: None Drug Abuse: None Family History: Hypertension Patient has suicidal ideation: No Patient has homicidal ideation: No - Past Medical History Cardiac Medical History: Reports: Hx Hypercholesterolemia, Hx Hypertension, Hx Pulmonary Embolism Pulmonary Medical History: Reports: Hx COPD Renal/ Medical History: Denies: Hx Peritoneal Dialysis Malignancy Medical History: Reports: Hx Lung Cancer - On chemotherapy for same Musculoskeltal Medical History: Reports Hx Arthritis Psychiatric Medical History: Reports: Hx Anxiety, Hx Depression Infectious Medical History: Reports: Hx C-Diff Past Surgical History: Reports: Hx Abdominal Surgery - IR pancreatic pseudocyst drainage, february 2017, Hx Hysterectomy, Other - IR pancreatic pseudocyst drainage - Immunizations Hx Diphtheria, Pertussis, Tetanus Vaccination: No <SAWYER PORTER - Last Filed: 04/28/17 05:34> Review of Systems - Review of Systems Constitutional: See HPI EENT: No symptoms reported Cardiovascular: No symptoms reported Respiratory: No symptoms reported Gastrointestinal: See HPI Genitourinary: No symptoms reported Female Genitourinary: No symptoms reported Musculoskeletal: No symptoms reported Skin: No symptoms reported Hematologic/Lymphatic: No symptoms reported Neurological/Psychological: No symptoms reported <SAWYER PORTER - Last Filed: 04/28/17 05:34> Physical Exam <NOE WORKMAN - Last Filed: 04/27/17 22:45> - Vital signs Interpretation: Normal - General General appearance: Alert - HEENT Head: Normocephalic, Atraumatic Eyes: Normal Conjunctiva: Normal Pupils: PERRL Mucous membranes: Dry Pharynx: Erythema Neck: Supple. No: Lymphadenopathy - Respiratory Respiratory status: No respiratory distress Chest status: Nontender Breath sounds: Normal Chest palpation: Normal - Cardiovascular Rhythm: Regular Heart sounds: Normal auscultation Murmur: No - Abdominal Inspection: Normal Distension: No distension Bowel sounds: Normal Tenderness: Tender - throughout no point tenderness. No: Guarding, Rebound Organomegaly: No organomegaly - Rectal Tenderness: No Stool: Heme negative - Back Back: Normal, Nontender. No: Tender - Extremities General upper extremity: Normal inspection, Nontender, Normal color, Normal ROM , Normal temperature General lower extremity: Normal inspection, Nontender, Normal color, Normal ROM , Normal temperature, Normal weight bearing. No: Yevgeniy's sign - Neurological Neuro grossly intact: Yes Cognition: Normal Orientation: AAOx4 Kimper Coma Scale Eye Opening: Spontaneous Kimper Coma Scale Verbal: Oriented Kimper Coma Scale Motor: Obeys Commands Donovan Coma Scale Total: 15 Speech: Normal Motor strength normal: LUE, RUE, LLE, RLE Sensory: Normal - Psychological Associated symptoms: Normal affect, Normal mood - Skin Skin Temperature: Warm Skin Moisture: Dry Skin Color: Normal Skin irregularity: negative: Rash <SAWYER PORTER - Last Filed: 04/28/17 05:34> - Vital signs Vitals: Pulse Resp 93 23 H 04/27/17 15:40 04/27/17 15:40 - General Notes: chonically ill, dry (SAWYER PORTER) - Rectal Notes: pasty green (SAWYER PORTER) Course - Laboratory Result Diagrams: 04/27/17 15:59 04/27/17 15:59 <NOE WORKMAN - Last Filed: 04/27/17 22:45> - Laboratory Result Diagrams: 04/27/17 15:59 04/27/17 15:59 <SAWYER PORTER - Last Filed: 04/28/17 05:34> - Re-evaluation Re-evalutation: Patient appears comfortable on examination, has received IV fluids and pain medication. No hypotension, tachycardia, or signs of distress. Concern because of elevated bilirubin, elevated liver enzymes, acute on chronic pancreatitis, and abnormal CAT scan including air in the pancreas with uncertain source. We do not have gastroenterology. 04/27/17 20:[address] Bravo, internal medicine at [facility] , patient will be accepted for transfer. 04/27/17 22:45 Transport is about 15 minutes away. Patient re-evaluated again at bedside. No current complaints. Unchanged vital signs. Patient is actually well appearing at this time. Stable for transport. (NOE WORKMAN) 04/27/17 17:34 lfts elevated , lipase 3700 which is not the 25,000 (feb) but is dehydrated, vomiting this afternoon, states the pain is low abdomen. cath urine ordered. Spoke with the radiologist about getting IV contrast CT due to pain level and age, since creat. 1.07 today, bun 21, Gfr 52 he states it is OK to give the contrast. She was in [facility] feb[facility]. Will wait for ct until UA is resulted. Green stool pasty in diaper. 04/27/17 18:20 Urine positive with greater than 143 WBCs and plus bacteria, and Rocephin was sensitive to the last UTI of E. coli so I have ordered 1 g IV. I also ordered a CT abdomen and pelvis with IV contrast because she is tender no matter where you touch her although she is bit rigid, abd is soft, but yells throughout with exam. 04/27/17 18:21 04/27/17 19:44 I have called [facility] for hospitalist admission because her CT scan shows acute on chronic pancreatitis with increased gas component which could be secondary to superinfection versus fistula communication with the stomach or adjacent bowel. Lipase and liver enzymes are all elevated. The liver enzymes on March 16 at [facility] were normal. She was admitted to [facility] February 28, 2017 through March 30, 2017 for sepsis, urinary tract infection and Clostridium difficile colitis. 04/27/17 19:55 pt refuses to go to [facility] because it took 2 hours to be taken care of. I have called [facility]. 04/27/17 20:15 care transferred to Noe CORRIGAN at the bedside. 04/28/17 05:34 (SAWYER PORTER) - Vital Signs Vital signs: Temp Pulse Resp BP Pulse Ox 98.6 F 93 16 123/81 95 04/27/17 23:09 04/27/17 15:52 04/27/17 23:09 04/27/17 23:09 04/27/17 23:09 - Laboratory Laboratory results interpreted by me: 04/27/17 04/27/17 04/27/17 15:59 15:59 17:35 WBC 11.6 H RDW 16.0 H Plt Count 460 H Seg Neutrophils % 84.3 H Lymphocytes % 12.0 L Absolute Neutrophils 9.8 H BUN 21 H Est GFR (Non-Af Amer) 52 L Glucose 140 H Calcium 10.5 H Total Bilirubin 1.7 H Direct Bilirubin 1.5 H AST 317 H ALT 86 H Alkaline Phosphatase 780 H Albumin 2.7 L Lipase 3743.0 H Urine Protein 30 H Ur Leukocyte Esterase LARGE H Discharge <NOE WORKMAN - Last Filed: 04/27/17 22:45> <SAWYER PORTER - Last Filed: 04/28/17 05:34> - Discharge Clinical Impression: Vomiting Urinary tract infection Qualifiers: Urinary tract infection type: site unspecified Hematuria presence: without hematuria Qualified Code(s): N39.0 - Urinary tract infection, site not specified Pancreatitis Qualifiers: Chronicity: acute Pancreatitis type: unspecified pancreatitis type Acute pancreatitis complication: unspecified Qualified Code(s): K85.90 - Acute pancreatitis without necrosis or infection, unspecified Condition: Stable Disposition: [facility] Referrals: LEO SILVA MD [Primary Care Provider] - Follow up as needed
[2017-04-27 18:12] LABS: APPEARANCE,URINE CLOUDY; BILIRUBIN,URINE NEGATIVE (NEGATIVE); GLUCOSE, URINE NEGATIVE (NEGATIVE); KETONES,URINE NEGATIVE (NEGATIVE); LEUKOCYTE ESTERASE,URINE LARGE (NEGATIVE); NITRITE,URINE NEGATIVE (NEGATIVE); PROTEIN,URINE 30 mg/dL (NEGATIVE); URINE SPECIFIC GRAVITY 1.015; UROBILINOGEN,URINE NEGATIVE mg/dL (<2.0)
[2017-04-27] MEDS ORDERED: CEFTRIAXONE 1 GM/D5W RTU 1 GM/50 ML RTUPB IV ONE (18:16)
--- NOTE | 2017-04-27 19:13 | RADIOLOGY REPORT (SQ) ---
EXAM DESCRIPTION: CT ABD/PELVIS WITH IV ONLY COMPLETED DATE/TIME: 04/27/2017 6:51 pm REASON FOR STUDY: abd pain, hx obstructive pancreatitis COMPARISON: 02/27/2017 TECHNIQUE: CT scan of the abdomen and pelvis performed using helical scanning technique with dynamic intravenous contrast injection. No oral contrast. Images reviewed with lung, soft tissue, and bone windows. Reconstructed coronal and sagittal MPR images reviewed. Delayed images for evaluation of the urinary system also acquired. All images stored on PACS. All CT scanners at this facility use dose modulation, iterative reconstruction, and/or weight based d osing when appropriate to reduce radiation dose to as low as reasonably achievable (ALARA). [facility]: Dose Right [facility]: CareDose [facility]: Dose Right [facility]: Teradose 4D [facility]: [employer] CONTRAST TYPE AND DOSE: contrast/concentration: Isovue 370.00 mg/ml; Total Contrast Delivered: 71.0 ml; Total Saline Delivered: 41.0 ml RENAL FUNCTION: Creatinine measures 1.06 RADIATION DOSE: Up-to-date CT equipment and radiation dose reduction techniques were employed. CTDIv ol: 9.3 - 13.3 mGy. DLP: 1148 mGy-cm.. LIMITATIONS: None. FINDINGS: LOWER CHEST: No significant findings. No nodules or infiltrates. LIVER: Normal size. Stable low attenuating lesion right hepatic lobe series 3, image 23 presumably r epresenting a benign cyst. No masses. No dilated ducts. SPLEEN: Normal size. No focal lesions. PANCREAS: There has been interval decrease in size of previously identified pseudocyst adjacent to th e body/ tail of the pancreas however there is increased gas component which could be due to superinfe ction versus fistulous communication with the stomach or adjacent bowel. There is increased inflamma tory change involving the head of the pancreas compatible with superimposed acute on chronic pancreat itis. GALLBLADDER: No identified stones by CT criteria. No inflammatory changes to suggest cholecystitis. ADRENAL GLANDS: No significant masses or asymmetry. RIGHT KIDNEY AND URETER: Stable low attenuating lesions presumably representing benign cysts. No so lid masses. No significant calcifications. No hydronephrosis or hydroureter. LEFT KIDNEY AND URETER: Stable low attenuating lesions presumably representing benign cysts. No jeff d masses. No significant calcifications. No hydronephrosis or hydroureter. AORTA AND VESSELS: No aneurysm. No dissection. Renal arteries, SMA, celiac without stenosis. RETROPERITONEUM: No retroperitoneal adenopathy, hemorrhage or masses. BOWEL AND PERITONEAL CAVITY: Scattered colonic diverticula. No masses or inflammatory changes. No fr ee fluid or peritoneal masses. APPENDIX: Not visualized. PELVIS: No mass. No free fluid. Normal bladder. ABDOMINAL WALL: No masses. No hernias. BONES: Stable degenerative change without fracture or suspicious osseous lesion. OTHER: No other significant finding. IMPRESSION: INCREASED INFLAMMATORY CHANGE INVOLVING THE HEAD OF THE PANCREAS COMPATIBLE WITH ACUTE O N CHRONIC PANCREATITIS. PREVIOUSLY IDENTIFIED PSEUDOCYSTS ADJACENT TO THE BODY/ TAIL HAVE DECREASED IN SIZE HOWEVER IS INCREA SED GAS COMPONENT WHICH COULD BE SECONDARY TO SUPERINFECTION VERSUS FISTULOUS COMMUNICATION WITH THE STOMACH/ADJACENT BOWEL. ADDITIONAL CHRONIC CHANGES ABOVE. TECHNICAL DOCUMENTATION: JOB ID: [id number] Quality ID # [id number]: Final reports with documentation of one or more dose reduction techniques (e.g., Au tomated exposure control, adjustment of the mA and/or kV according to patient size, use of iterative reconstruction technique) 2010 [employer]- All Rights Reserved
[2017-04-27 23:07] VITALS: BP 123/81
== END 2017-04-27 23:23 | disposition short-term general hospital (02) ==
LOC: ER 15:26
DX: N39.0 Urinary tract infection, site not specified (principal); K85.90 Acute pancreatitis without necrosis or infection, unspecified; R11.10 Vomiting, unspecified; R19.7 Diarrhea, unspecified; R10.30 Lower abdominal pain, unspecified
CPT/HCPCS: 99285; 96361; 51701; 96375; 96365; 36415; 87040; 87086; 83690; 85025; 82272; 87088; 80053; 81001; 87186; 83605; 74177; J2270; J2405; J7030; J0696

== ENCOUNTER 2017-06-27 16:59 | Inpatient (IN) | payer MEDICARE, OTHER ==
--- NOTE | 2017-06-27 17:19 | ER Document Report ---
ED General - General Stated Complaint: VOMITING Time Seen by Provider: 06/27/17 17:16 Notes: 66-year-old female from skilled nursing for evaluation of vomiting and abdominal pain. Was recently admitted for pancreatitis. Subsequently discharged to nursing facility. By report patient was vomiting and looked like she had some blood in her vomit. Denies any major abdominal pain at this time. States that she feels weak. Denies fever, chills or sweats at this time. Also complaining of severe pain in her rectum. Has not had a bowel movement. On pain medications. In between nursing facilities. Scheduled to be admitted at a [facility] today when she got there she was complaining of severe rectal pain and was noted to be hypotensive. TRAVEL OUTSIDE OF THE [place] IN LAST 30 DAYS: Yes - HPI Onset: Just prior to arrival Onset/Duration: Constant Quality of pain: No pain Severity: Moderate - Related Data Allergies/Adverse Reactions: aspirin [Aspirin] Allergy (Verified 01/03/17 12:57) lorazepam [From Ativan] Allergy (Verified 01/03/17 12:57) Penicillins Allergy (Verified 01/03/17 12:57) Past Medical History - General Information source: Patient - Social History Smoking Status: Former Smoker Cigarette use (# per day): Yes Frequency of alcohol use: Occasional Drug Abuse: None Lives with: [facility] Family History: Reviewed & Not Pertinent, Hypertension - Past Medical History Cardiac Medical History: Reports: Hx Hypercholesterolemia, Hx Hypertension, Hx Pulmonary Embolism Denies: Hx Atrial Fibrillation, Hx Coronary Artery Disease, Hx Heart Attack Pulmonary Medical History: Reports: Hx COPD Denies: Hx Asthma, Hx Bronchitis, Hx Pneumonia, Hx Sleep Apnea Neurological Medical History: Denies: Hx Cerebrovascular Accident, Hx Seizures Endocrine Medical History: Denies: Hx Diabetes Mellitus Type 1, Hx Diabetes Mellitus Type 2, Hx Hyperthyroidism, Hx Hypothyroidism Renal/ Medical History: Denies: Hx Peritoneal Dialysis Malignancy Medical History: Reports: Hx Lung Cancer - On chemotherapy for same GI Medical History: Denies: Hx Cirrhosis, Hx Gastroesophageal Reflux Disease, Hx Hepatitis Musculoskeltal Medical History: Reports Hx Arthritis Psychiatric Medical History: Reports: Hx Anxiety, Hx Depression Infectious Medical History: Reports: Hx C-Diff. Denies: Hx Hepatitis Past Surgical History: Reports: Hx Abdominal Surgery - IR pancreatic pseudocyst drainage, february 2017, Hx Hysterectomy, Other - IR pancreatic pseudocyst drainage - Immunizations Hx Diphtheria, Pertussis, Tetanus Vaccination: No Review of Systems - Review of Systems Constitutional: Malaise, Weakness EENT: No symptoms reported Cardiovascular: Palpitations Respiratory: No symptoms reported Gastrointestinal: Diarrhea, Vomiting Genitourinary: No symptoms reported Female Genitourinary: No symptoms reported Musculoskeletal: No symptoms reported Skin: No symptoms reported Hematologic/Lymphatic: No symptoms reported Neurological/Psychological: No symptoms reported Physical Exam - Vital signs Vitals: Resp 23 H 06/27/17 17:06 Interpretation: Normal - General General appearance: Appears well, Alert - HEENT Head: Normocephalic, Atraumatic Eyes: Normal Pupils: PERRL - Respiratory Respiratory status: No respiratory distress Chest status: Nontender Breath sounds: Normal Chest palpation: Normal - Cardiovascular Rhythm: Regular Heart sounds: Normal auscultation Murmur: No - Abdominal Inspection: Normal Distension: No distension Bowel sounds: Normal Tenderness: Nontender Organomegaly: No organomegaly - Rectal Stool: Heme positive Hemorrhoids: None Notes: Large fecal disimpaction performed on rectal exam. - Back Back: Normal, Nontender - Extremities General upper extremity: Normal inspection, Nontender, Normal color, Normal ROM , Normal temperature General lower extremity: Normal inspection, Nontender, Normal color, Normal ROM , Normal temperature, Normal weight bearing. No: Yevgeniy's sign - Neurological Neuro grossly intact: Yes Cognition: Normal Orientation: AAOx4 [place] Coma Scale Eye Opening: Spontaneous [place] Coma Scale Verbal: Oriented [place] Coma Scale Motor: Obeys Commands [place] Coma Scale Total: 15 Speech: Normal Motor strength normal: LUE, RUE, LLE, RLE Sensory: Normal - Psychological Associated symptoms: Normal affect, Normal mood - Skin Skin Temperature: Warm Skin Moisture: Dry Skin Color: Normal Course - Re-evaluation Re-evalutation: 06/27/17 20:14 Initially seen on arrival. Was hypotensive. Fluids were ordered. Blood ordered. 06/27/17 20:31 On the fact that patient was hypotensive with a UTI will admit to the hospitalist at this time. Starting on fluids. Potassium added due to her hypokalemia. hospitalist. Dr. Esteban to admit. - Vital Signs Vital signs: Temp Pulse Resp BP Pulse Ox 98.4 F 18 102/79 96 06/27/17 17:26 06/27/17 19:00 06/27/17 19:01 06/27/17 19:01 - Laboratory Result Diagrams: 06/27/17 17:15 18 18:31 Laboratory results interpreted by me: 06/27/17 06/27/17 06/27/17 17:15 18:31 19:20 WBC 11.3 H Hgb 11.9 L Hct 35.8 L RDW 17.5 H Plt Count 460 H Absolute Neutrophils 8.7 H Potassium 3.1 L Chloride 114 H Carbon Dioxide 19 L Calcium 7.6 L AST 13 L Creatine Kinase < 20 L Total Protein 4.2 L Albumin 1.6 L Lipase 16.7 L Urine Protein 100 H Urine Blood MODERATE H Ur Leukocyte Esterase MODERATE H - EKG Interpretation by Me EKG shows normal: Vaughn, Intervals, QRS Complexes, ST-T Waves Rate: Tachycardia Critical Care Note - Critical Care Note Total time excluding time spent on procedures (mins): 45 Comments: Hypotension tachycardia Discharge - Discharge Clinical Impression: Obstipation Urinary tract infection Qualifiers: Urinary tract infection type: site unspecified Hematuria presence: without hematuria Qualified Code(s): N39.0 - Urinary tract infection, site not specified Hypotension Qualifiers: Hypotension type: unspecified hypotension type Qualified Code(s): I95.9 - Hypotension, unspecified Disposition: ADMITTED INPATIENT Admitting Provider: Hospitalist Unit Admitted: Telemetry - Dr. Esteban Referrals: LEO SILVA MD [Primary Care Provider] - Follow up as needed
[2017-06-27] MEDS ORDERED: IPRATROPIUM/ALBUTEROL 0.5-2.5 MG/3 ML AMPUL NEB ONE (17:28)
[2017-06-27] MEDS: NORMAL SALINE 1000 ML 1,000 ML IV PRN ×3 (17:32→17:34)
[2017-06-27 17:45] LABS: ABSOLUTE LYMPHOCYTES (AUTO) 1.8 10^3/uL (0.5-4.7); ABSOLUTE MONOCYTES (AUTO) 0.7 10^3/uL (0.1-1.4); ABSOLUTE NEUT (AUTO) 8.7 10^3/uL (1.7-8.2); BASOPHILS % (AUTO) 0.4 % (0-2); EOSINOPHILS % (AUTO) 0.3 % (0-6); HEMATOCRIT 35.8 % (36.0-47.0); HEMOGLOBIN 11.9 g/dL (12.0-15.5); LYMPHOCYTES % (AUTO) 16.3 % (13-45); MEAN CORPUSCULAR HEMOGLOBIN 28.3 pg (27.0-33.4); MEAN CORPUSCULAR HGB CONC 33.1 g/dL (32.0-36.0); MEAN CORPUSCULAR VOLUME 85 fl (80-97); MONOCYTES % (AUTO) 6.3 % (3-13); PLATELET COUNT 460 10^3/uL (150-450); RED CELL DISTRIBUTION WIDTH 17.5 % (11.5-14.0); SEGMENTED NEUTROPHILS % (AUTO) 76.7 % (42-78); TOTAL CELLS COUNTED % (AUTO) 100 %; WHITE BLOOD COUNT 11.3 10^3/uL (4.0-10.5)
[2017-06-27 17:51] LABS: INTERNATIONAL RATION (INR) 1.04; PROTHROMBIN TIME 14.3 SEC (11.4-15.4)
[2017-06-27 17:52] LABS: PARTIAL THROMBOPLASTIN TIME 30.2 SEC (23.5-35.8)
--- NOTE | 2017-06-27 17:58 | RADIOLOGY REPORT (SQ) ---
EXAM DESCRIPTION: CHEST SINGLE VIEW COMPLETED DATE/TIME: 06/27/2017 5:47 pm REASON FOR STUDY: sob COMPARISON: None. EXAM PARAMETERS: NUMBER OF VIEWS: One view. TECHNIQUE: Single frontal radiographic view of the chest acquired. RADIATION DOSE: NA LIMITATIONS: None. FINDINGS: LUNGS AND PLEURA: No opacities, masses or pneumothorax. No pleural effusion. MEDIASTINUM AND HILAR STRUCTURES: No masses. Contour normal. HEART AND VASCULAR STRUCTURES: Heart normal in size. Normal vasculature. BONES: No acute findings. HARDWARE: None in the chest. OTHER: No other significant finding. IMPRESSION: NO ACUTE RADIOGRAPHIC FINDING IN THE CHEST. TECHNICAL DOCUMENTATION: JOB ID: [id number] [employer]- All Rights Reserved
[2017-06-27 19:03] LABS: ALANINE AMINOTRANSFERASE 15 U/L (9-52); ALBUMIN 1.6 g/dL (3.5-5.0); ALKALINE PHOSPHATASE 78 U/L (38-126); ANION GAP 5 (5-19); ASPARTATE AMINO TRANSFERASE 13 U/L (14-36); BILIRUBIN,DIRECT 0.2 mg/dL (0.0-0.4); BILIRUBIN,TOTAL 0.3 mg/dL (0.2-1.3); BLOOD UREA NITROGEN 14 mg/dL (7-20); CALCIUM 7.6 mg/dL (8.4-10.2); CARBON DIOXIDE 19 mmol/L (22-30); CHLORIDE 114 mmol/L (98-107); GLUCOSE 94 mg/dL (75-110); LIPASE 16.7 U/L (23-300); POTASSIUM 3.1 mmol/L (3.6-5.0); SODIUM 138.4 mmol/L (137-145); TOTAL PROTEIN 4.2 g/dL (6.3-8.2)
[2017-06-27 19:06] LABS: CREATINE KINASE < 20 U/L (30-135)
[2017-06-27 19:15] LABS: TROPONIN I 0.016 ng/mL
[2017-06-27 19:16] LABS: CREATINE KINASE MB < 0.22 ng/mL (<4.55)
[2017-06-27 20:00] LABS: APPEARANCE,URINE TURBID; BILIRUBIN,URINE NEGATIVE (NEGATIVE); COLOR,URINE YELLOW; GLUCOSE, URINE NEGATIVE (NEGATIVE); KETONES,URINE NEGATIVE (NEGATIVE); LEUKOCYTE ESTERASE,URINE MODERATE (NEGATIVE); NITRITE,URINE NEGATIVE (NEGATIVE); PROTEIN,URINE 100 mg/dL (NEGATIVE); URINE SPECIFIC GRAVITY 1.015; UROBILINOGEN,URINE NEGATIVE mg/dL (<2.0)
[2017-06-27] MEDS ORDERED: FENTANYL CITRATE INJ/PF 100 MCG/2 ML AMPUL IV ONE (20:09)
[2017-06-27] MEDS ORDERED: CEFTRIAXONE 1 GM/D5W RTU 1 GM/50 ML RTUPB IV ONE (20:11)
[2017-06-27] MEDS ORDERED: BISACODYL 10 MG SUPP.RECT PR PRN (20:30)
[2017-06-27] MEDS ORDERED: MAG HYDROX/AL HYDROX/SIMETH SUSP 30 ML UDCUP PO PRN (20:31)
[2017-06-27] MEDS ORDERED: ACETAMINOPHEN 325 MG TABLET PO PRN (20:31)
[2017-06-27] MEDS ORDERED: CEFTRIAXONE INJ 1000 MG VIAL ONE (20:39)
[2017-06-27] MEDS ORDERED: NORMAL SALINE 1000 ML 1,000 ML IV SCH (20:45)
[2017-06-27] MEDS ORDERED: ALPRAZOLAM 0.25 MG TABLET PO PRN (21:33)
[2017-06-27] MEDS ORDERED: HEPARIN SOD (PORCINE) 5,000 UNIT/ML 1 ML SYRINGE SUBCUT SCH (22:00)
[2017-06-27] MEDS ORDERED: LACTULOSE SYRUP 20 GM/30 ML UDCUP PO ONE (22:00)
[2017-06-27] MEDS ORDERED: ENOXAPARIN SODIUM SQ SCH (22:00)
[2017-06-27] MEDS: ENOXAPARIN SODIUM INJ 80 MG/0.8 ML DISP.SYRIN SUBCUT SCH (22:39)
[2017-06-27] MEDS: MAGNESIUM SULFATE/D5W 1 GM/100 ML RTUPB IV SCH (22:39)
--- NOTE | 2017-06-27 23:17 | EKG REPORT ---
SEVERITY:- ABNORMAL ECG - SINUS RHYTHM LOW VOLTAGE THROUGHOUT BORDERLINE PROLONGED QT INTERVAL : Confirmed by: Royce Yeung 27-Jun-2017 23:16:03
[2017-06-27] MEDS: IPRATROPIUM/ALBUTEROL 0.5-2.5 MG/3 ML AMPUL NEB SCH (23:34)
[2017-06-28 01:05] LABS: CREATINE KINASE MB 0.43 ng/mL (<4.55); TROPONIN I 0.019 ng/mL
--- NOTE | 2017-06-28 01:29 | PDOC H&P ---
History of Present Illness Admission Date/PCP: 06/27/17 20:37 LEO SILVA MD Patient complains of: Hypotension History of Present Illness: XIOMARA SETHI is a 66 year old female with past medical history of necrotic pancreatic pseudocyst, C. difficile colitis, COPD, pulmonary emboli, non-small cell lung cancer with generalized debility. Patient presents after complaining of rectal pain and hypotension. In the emergency room she is found to have severe sepsis with a blood pressure of 80/50, severe fecal impaction, and a urinary tract infection. She receives manual disimpaction, started on empiric antibiotics and referred to the hospitalist for admission. Patient is an extremely poor historian and unable to provide history. Chemotherapy was discontinued 3 months ago secondary to intolerance. Past Medical History Cardiac Medical History: Reports: Hyperlipidema, Hypertension, Pulmonary Embolism Denies: Atrial Fibrillation, Coronary Artery Disease, Myocardial Infarction Pulmonary Medical History: Reports: Chronic Obstructive Pulmonary Disease (COPD) Denies: Asthma, Bronchitis, Pneumonia, Sleep Apnea Neurological Medical History: Denies: Seizures Endocrine Medical History: Denies: Diabetes Mellitus Type 1, Diabetes Mellitus Type 2, Hyperthyroidism, Hypothyroidism Malignancy Medical History: Reports: Lung Cancer - On chemotherapy for same GI Medical History: Denies: Cirrhosis, Gastroesophageal Reflux Disease, Hepatitis Musculoskeltal Medical History: Reports: Arthritis Psychiatric Medical History: Reports: Depression Hematology: Denies: Anemia Infectious Medical History: Reports: Clostridium Difficile Past Surgical History Past Surgical History: Reports: Hysterectomy, Other - IR pancreatic pseudocyst drainage Social History Information Source: [facility] Records Lives with: [facility] Smoking Status: Former Smoker Frequency of Alcohol Use: None Hx Recreational Drug Use: No Drugs: None Hx Prescription Drug Abuse: No - Advance Directive Resuscitation Status: Full Code Family History Family History: Hypertension Parental Family History Reviewed: Yes - Unobtainable Children Family History Reviewed: Yes - Unobtainable Sibling(s) Family History Reviewed.: Yes - Unobtainable Medication/Allergy Home Medications: Alprazolam [Xanax 0.25 mg Tablet] 0.25 mg PO TIDP PRN 06/27/17 Amlodipine Besylate [Norvasc 5 mg Tablet] 5 mg PO QHS 06/27/17 Cholestyramine/Aspartame [Questran Light 4 Gm Packet] 1 packet PO TID 06/27/17 Dronabinol [Marinol 2.5 mg Capsule] 2.5 mg PO BID 06/27/17 Hydrocodone/Acetaminophen [[place] 5-325 mg Tablet] 1 tab PO Q4HP PRN 06/27/17 Lisinopril [Prinivil] 20 mg PO DAILY 06/27/17 Naph,Mb-Db/K pH,Mbdb [Neutra-Phos Packet] 1 packet PO ACHS 06/27/17 Ondansetron HCl [Zofran 4 mg Tablet] 1 tab PO Q6HP PRN 06/27/17 Sertraline HCl [Zoloft 50 mg Tablet] 50 mg PO DAILY 06/27/17 Allergies/Adverse Reactions: aspirin [Aspirin] Allergy (Verified 01/03/17 12:57) lorazepam [From Ativan] Allergy (Verified 01/03/17 12:57) Penicillins Allergy (Verified 01/03/17 12:57) Review of Systems ROS unobtainable: Due to mental status Physical Exam Vital Signs: Temp Pulse Resp BP Pulse Ox 97.5 F 87 16 96/59 L 96 06/28/17 00:07 06/28/17 00:07 06/28/17 00:07 06/28/17 00:07 06/28/17 00:07 General appearance: PRESENT: cooperative, mild distress Head exam: PRESENT: atraumatic, normocephalic Eye exam: PRESENT: conjunctiva pink, EOMI, PERRLA. ABSENT: scleral icterus Ear exam: PRESENT: normal external ear exam Mouth exam: PRESENT: dry mucosa, tongue midline Neck exam: ABSENT: carotid bruit, JVD, lymphadenopathy, thyromegaly Respiratory exam: PRESENT: clear to auscultation melinda. ABSENT: rales, rhonchi, wheezes Cardiovascular exam: PRESENT: RRR. ABSENT: diastolic murmur, rubs, systolic murmur Pulses: PRESENT: normal dorsalis pedis pul Vascular exam: PRESENT: normal capillary refill GI/Abdominal exam: PRESENT: hypoactive bowel sounds, soft, tenderness. ABSENT: guarding, rebound, rigid Rectal exam: PRESENT: deferred Extremities exam: PRESENT: full ROM. ABSENT: calf tenderness, clubbing, pedal edema Neurological exam: PRESENT: alert, awake, oriented to person, oriented to place , oriented to situation, CN II-XII grossly intact. ABSENT: motor sensory deficit Psychiatric exam: PRESENT: appropriate affect, normal mood. ABSENT: homicidal ideation, suicidal ideation Skin exam: PRESENT: dry, intact, warm. ABSENT: cyanosis, rash Results Laboratory Results: 06/28/17 00:16 Lactic Acid 1.2 06/28/17 06/28/17 00:16 00:16 Creatine Kinase 20 L CK-MB (CK-2) 0.43 Troponin I 0.019 Impressions: Chest X-Ray 06/27/17 17:28 IMPRESSION: NO ACUTE RADIOGRAPHIC FINDING IN THE CHEST. Assessment & Plan - Diagnosis (1) Severe sepsis Is this a current diagnosis for this admission?: Yes Plan: Secondary to urinary tract infection, IMCU admission, IV fluid challenge reevaluate lactic acid, CBC and chemistry. (2) Fecal impaction Is this a current diagnosis for this admission?: Yes Plan: Manual disimpaction initiated. Clear liquid diet and bowel regiment ordered (3) UTI (urinary tract infection) Qualifiers: Urinary tract infection type: site unspecified Hematuria presence: without hematuria Qualified Code(s): N39.0 - Urinary tract infection, site not specified Is this a current diagnosis for this admission?: Yes Plan: IV Rocephin initiated aloe up urine culture (4) Physical debility Is this a current diagnosis for this admission?: Yes Plan: Discharge planning for placement secondary to severe debility. (5) Lung cancer Is this a current diagnosis for this admission?: Yes Plan: Non-small cell lung cancer last treatment 3 months ago complicated by severe debility and pulmonary emboli - Time Time Spent: 50 to 70 Minutes - Inpatient Certification Medical Necessity: Need Close Monitoring Due to Risk of Patient Decompensation
[2017-06-28] MEDS: POTASSI CL 20 MEQ/50 ML RIDER 20 MEQ/50 ML RTUPB IV SCH ×2 (01:43→06:06)
[2017-06-28] MEDS: MAGNESIUM SULFATE/D5W 1 GM/100 ML RTUPB IV SCH (02:20)
[2017-06-28] MEDS: KETOCONAZOLE 2% SHAMPOO 120 ML BOTTLE TP SCH ×3 (02:20→23:00)
[2017-06-28] MEDS: LANSOPRAZOLE 30 MG TAB.RAP.DR PO SCH ×2 (06:06→18:12)
[2017-06-28] MEDS: IPRATROPIUM/ALBUTEROL 0.5-2.5 MG/3 ML AMPUL NEB SCH ×2 (07:47→15:37)
[2017-06-28 08:07] LABS: ABSOLUTE LYMPHOCYTES (AUTO) 1.8 10^3/uL (0.5-4.7); ABSOLUTE MONOCYTES (AUTO) 0.4 10^3/uL (0.1-1.4); BASOPHILS % (AUTO) 0.5 % (0-2); EOSINOPHILS % (AUTO) 0.6 % (0-6); HEMATOCRIT 30.1 % (36.0-47.0); HEMOGLOBIN 10.1 g/dL (12.0-15.5); LYMPHOCYTES % (AUTO) 28.9 % (13-45); MEAN CORPUSCULAR HEMOGLOBIN 28.7 pg (27.0-33.4); MEAN CORPUSCULAR HGB CONC 33.6 g/dL (32.0-36.0); MEAN CORPUSCULAR VOLUME 85 fl (80-97); MONOCYTES % (AUTO) 6.2 % (3-13); PLATELET COUNT 301 10^3/uL (150-450); RED BLOOD COUNT 3.53 10^6/uL (3.72-5.28); RED CELL DISTRIBUTION WIDTH 17.3 % (11.5-14.0); SEGMENTED NEUTROPHILS % (AUTO) 63.8 % (42-78); TOTAL CELLS COUNTED % (AUTO) 100 %; WHITE BLOOD COUNT 6.2 10^3/uL (4.0-10.5)
[2017-06-28 08:39] LABS: CREATINE KINASE MB 0.51 ng/mL (<4.55); TROPONIN I 0.02 ng/mL
[2017-06-28 08:43] LABS: ANION GAP 5 (5-19); BLOOD UREA NITROGEN 14 mg/dL (7-20); CALCIUM 9.2 mg/dL (8.4-10.2); CARBON DIOXIDE 24 mmol/L (22-30); CHLORIDE 111 mmol/L (98-107); GLUCOSE 75 mg/dL (75-110); POTASSIUM 3.6 mmol/L (3.6-5.0); SODIUM 139.8 mmol/L (137-145)
[2017-06-28] MEDS ORDERED: CEFTRIAXONE 1 GM/D5W RTU 1 GM/50 ML RTUPB IV SCH (10:00)
[2017-06-28] MEDS: ENOXAPARIN SODIUM INJ 80 MG/0.8 ML DISP.SYRIN SUBCUT SCH ×2 (10:33→23:00)
[2017-06-28] MEDS: DOCUSATE SODIUM 100 MG CAPSULE PO SCH ×2 (10:33→18:12)
[2017-06-28] MEDS: SERTRALINE HCL 50 MG TABLET PO SCH (10:33)
[2017-06-28 12:58] LABS: CREATINE KINASE MB 0.54 ng/mL (<4.55); TROPONIN I 0.019 ng/mL
--- NOTE | 2017-06-28 16:44 | PDOC PROGRESS REPORT ---
Subjective Progress Note for:: 06/28/17 Subjective:: Patient states that she is doing well She has no fever no chills She does not have any abdominal pain She is incontinent of stool so is not sure if she actually moved her bowel She has no dysuria and is hemodynamically stable Reason For Visit: SEPSIS UTI FECAL IMPACTION Physical Exam Vital Signs: Temp Pulse Resp BP Pulse Ox 98.1 F 91 17 117/87 H 96 06/28/17 16:00 06/28/17 16:00 06/28/17 16:00 06/28/17 16:00 06/28/17 16:00 Intake & Output 06/27/17 06/28/17 06/29/17 00:59 00:59 00:59 Intake Total 1150 Balance 1150 Weight 70.3 kg General appearance: PRESENT: no acute distress, well-developed, well-nourished Head exam: PRESENT: atraumatic, normocephalic Eye exam: PRESENT: conjunctiva pink, EOMI, PERRLA. ABSENT: scleral icterus Neck exam: ABSENT: carotid bruit, JVD, lymphadenopathy, thyromegaly Respiratory exam: PRESENT: clear to auscultation melinda. ABSENT: rales, rhonchi, wheezes GI/Abdominal exam: PRESENT: normal bowel sounds, soft. ABSENT: distended, guarding, mass, organolmegaly, rebound, tenderness Extremities exam: ABSENT: calf tenderness, pedal edema Neurological exam: PRESENT: alert, awake, oriented to person, oriented to place , CN II-XII grossly intact Results Laboratory Results: 06/28/17 07:45 06/28/17 07:45 06/28/17 06/28/17 06/28/17 00:16 07:45 07:45 WBC 6.2 RBC 3.53 L Hgb 10.1 L Hct 30.1 L MCV 85 MCH 28.7 MCHC 33.6 RDW 17.3 H Plt Count 301 Seg Neutrophils % 63.8 Lymphocytes % 28.9 Monocytes % 6.2 Eosinophils % 0.6 Basophils % 0.5 Absolute Neutrophils 4.0 Absolute Lymphocytes 1.8 Absolute Monocytes 0.4 Absolute Eosinophils 0.0 Absolute Basophils 0.0 Sodium 139.8 Potassium 3.6 Chloride 111 H Carbon Dioxide 24 Anion Gap 5 BUN 14 Creatinine 0.71 Est GFR ( Amer) > 60 Est GFR (Non-Af Amer) > 60 Glucose 75 Lactic Acid 1.2 Calcium 9.2 06/28/17 06/28/17 06/28/17 00:16 00:16 07:45 Creatine Kinase 20 L < 20 L CK-MB (CK-2) 0.43 Troponin I 0.019 06/28/17 06/28/17 06/28/17 07:45 12:24 12:24 Creatine Kinase < 20 L CK-MB (CK-2) 0.51 0.54 Troponin I 0.020 0.019 Impressions: Chest X-Ray 06/27/17 17:28 IMPRESSION: NO ACUTE RADIOGRAPHIC FINDING IN THE CHEST. Assessment & Plan - Diagnosis (1) Fecal impaction Is this a current diagnosis for this admission?: Yes (2) Hypotension (arterial) Qualifiers: Hypotension type: unspecified hypotension type Qualified Code(s): I95.9 - Hypotension, unspecified (3) UTI (urinary tract infection) Qualifiers: Urinary tract infection type: site unspecified Hematuria presence: without hematuria Qualified Code(s): N39.0 - Urinary tract infection, site not specified Is this a current diagnosis for this admission?: Yes (4) Lung cancer Qualifiers: Laterality: unspecified laterality Lung location: unspecified part of lung Qualified Code(s): C34.90 - Malignant neoplasm of unspecified part of unspecified bronchus or lung Is this a current diagnosis for this admission?: Yes (5) Hx pulmonary embolism Is this a current diagnosis for this admission?: No (6) Infected pancreatic pseudocyst Is this a current diagnosis for this admission?: No (7) History of inferior vena caval filter placement Is this a current diagnosis for this admission?: No (8) Candiduria Is this a current diagnosis for this admission?: Yes Plan: may be just colonization but patient has known malignancy and is immunocompromised will treat with fluconazole po for 7 days - Time Time Spent with patient: 25-34 minutes
--- NOTE | 2017-06-28 17:16 | RADIOLOGY REPORT (SQ) ---
EXAM DESCRIPTION: KUB/ABDOMEN (SINGLE VIEW) COMPLETED DATE/TIME: 06/28/2017 5:00 pm REASON FOR STUDY: constipation COMPARISON: January 2017 NUMBER OF VIEWS: One view. TECHNIQUE: Supine radiographic image of the abdomen acquired. LIMITATIONS: None. FINDINGS: BOWEL GAS PATTERN: There is mild gaseous distention of multiple bowel loops most consisten t with an ileus pattern although the possibility of an underlying obstruction cannot be completely ex cluded. CALCIFICATIONS: No suspicious calcifications. SOFT TISSUES: No gross mass or suggestion of organomegaly. HARDWARE: Vena cava filter is again identified. Surgical clips are identified in the right upper bakari drant BONES: Thoracolumbar scoliosis convex to the right is identified. OTHER: No other significant finding. IMPRESSION: There is mild gaseous distention of multiple bowel loops most consistent with an ileus p attern although the possibility of an underlying obstruction cannot be completely excluded. Other fi ndings as noted above TECHNICAL DOCUMENTATION: JOB ID: [id number] [employer]- All Rights Reserved
[2017-06-28] MEDS ORDERED: CEFTRIAXONE SODIUM 1,000 MG in DEXTROSE 5%-WATER 50 ML IV SCH (18:00)
[2017-06-28] MEDS: FLUCONAZOLE 100 MG TABLET PO SCH (18:13)
[2017-06-28] MEDS ORDERED: INFLUENZA ADLT QUAD (36MOS+) 2017-18 VAC 0.5 ML SYR IM PRN (18:38)
[2017-06-29] MEDS: IPRATROPIUM/ALBUTEROL 0.5-2.5 MG/3 ML AMPUL NEB SCH ×3 (00:33→16:31)
[2017-06-29 05:00] LABS: HEMATOCRIT 29.8 % (36.0-47.0); MEAN CORPUSCULAR HEMOGLOBIN 28.5 pg (27.0-33.4); MEAN CORPUSCULAR HGB CONC 33.4 g/dL (32.0-36.0); MEAN CORPUSCULAR VOLUME 85 fl (80-97); PLATELET COUNT 259 10^3/uL (150-450); RED BLOOD COUNT 3.49 10^6/uL (3.72-5.28); RED CELL DISTRIBUTION WIDTH 17.2 % (11.5-14.0); WHITE BLOOD COUNT 8.3 10^3/uL (4.0-10.5)
[2017-06-29] MEDS: LANSOPRAZOLE 30 MG TAB.RAP.DR PO SCH ×2 (06:05→17:59)
[2017-06-29] MEDS: SERTRALINE HCL 50 MG TABLET PO SCH (09:41)
[2017-06-29] MEDS: KETOCONAZOLE 2% SHAMPOO 120 ML BOTTLE TP SCH ×2 (09:41→22:18)
[2017-06-29] MEDS: ENOXAPARIN SODIUM INJ 80 MG/0.8 ML DISP.SYRIN SUBCUT SCH ×2 (09:41→22:18)
[2017-06-29] MEDS: DOCUSATE SODIUM 100 MG CAPSULE PO SCH ×2 (09:41→18:00)
--- NOTE | 2017-06-29 11:17 | PDOC PROGRESS REPORT ---
Subjective Progress Note for:: 06/29/17 Subjective:: Patient is doing well She has a she had a bowel movement she is hungry No abdominal pain no nausea vomiting she has not undergone PT evaluation yet Reason For Visit: SEPSIS UTI FECAL IMPACTION Physical Exam Vital Signs: Temp Pulse Resp BP Pulse Ox 98.4 F 77 16 130/78 H 97 06/29/17 07:45 06/29/17 08:57 06/29/17 08:57 06/29/17 07:45 06/29/17 08:57 Intake & Output 06/28/17 06/29/17 06/30/17 00:59 00:59 00:59 Intake Total 2645 266 Balance 2645 266 Weight 70.3 kg 70.3 kg General appearance: PRESENT: no acute distress, well-developed, well-nourished Head exam: PRESENT: atraumatic, normocephalic Eye exam: PRESENT: conjunctiva pink, EOMI, PERRLA. ABSENT: scleral icterus Neck exam: ABSENT: carotid bruit, JVD, lymphadenopathy, thyromegaly Respiratory exam: PRESENT: clear to auscultation melinda. ABSENT: rales, rhonchi, wheezes Cardiovascular exam: PRESENT: RRR. ABSENT: diastolic murmur, rubs, systolic murmur Pulses: PRESENT: normal dorsalis pedis pul GI/Abdominal exam: PRESENT: normal bowel sounds, soft. ABSENT: distended, guarding, mass, organolmegaly, rebound, tenderness Results Laboratory Results: 06/29/17 04:17 06/28/17 07:45 06/29/17 04:17 WBC 8.3 RBC 3.49 L Hgb 10.0 L Hct 29.8 L MCV 85 MCH 28.5 MCHC 33.4 RDW 17.2 H Plt Count 259 06/28/17 06/28/17 06/28/17 00:16 00:16 07:45 Creatine Kinase 20 L < 20 L CK-MB (CK-2) 0.43 Troponin I 0.019 06/28/17 06/28/17 06/28/17 07:45 12:24 12:24 Creatine Kinase < 20 L CK-MB (CK-2) 0.51 0.54 Troponin I 0.020 0.019 Impressions: Chest X-Ray 06/27/17 17:28 IMPRESSION: NO ACUTE RADIOGRAPHIC FINDING IN THE CHEST. KUB X-Ray 06/28/17 16:41 IMPRESSION: There is mild gaseous distention of multiple bowel loops most consistent with an ileus pattern although the possibility of an underlying obstruction cannot be completely excluded. Other findings as noted above Assessment & Plan - Diagnosis (1) Fecal impaction Is this a current diagnosis for this admission?: Yes Plan: Resolved A KUB still shows some mild ileus but patient clinically is totally asymptomatic ; we will increase the diet Continue cathartics And evaluate the patient clinically (2) Hypotension (arterial) Qualifiers: Hypotension type: unspecified hypotension type Qualified Code(s): I95.9 - Hypotension, unspecified (3) UTI (urinary tract infection) Qualifiers: Urinary tract infection type: site unspecified Hematuria presence: without hematuria Qualified Code(s): N39.0 - Urinary tract infection, site not specified Is this a current diagnosis for this admission?: Yes Plan: Urine culture was negative except for Lisbeth We initiated fluconazole as the patient is somewhat immunocompromised Patient to be treated 7-10 days on fluconazole p.o. (4) Lung cancer Qualifiers: Laterality: unspecified laterality Lung location: unspecified part of lung Qualified Code(s): C34.90 - Malignant neoplasm of unspecified part of unspecified bronchus or lung Is this a current diagnosis for this admission?: Yes (5) Hx pulmonary embolism Is this a current diagnosis for this admission?: No Plan: Continue chronic anticoagulation (6) Infected pancreatic pseudocyst Is this a current diagnosis for this admission?: No (7) History of inferior vena caval filter placement Is this a current diagnosis for this admission?: No (8) Candiduria Is this a current diagnosis for this admission?: Yes (9) Ambulatory dysfunction Is this a current diagnosis for this admission?: Yes Plan: Patient will be evaluated by physical therapy She did reside in a [facility] and is now going to [facility] Patient will remain at [facility] over the weekend Encourage ambulation Discharge on Sunday to assisted living if clinically stable - Time Time Spent with patient: 25-34 minutes
[2017-06-29 11:47] LABS: ABSOLUTE RETICS # 0.042 10^6/uL (0.028-0.122); RETICULOCYTE COUNT (AUTO) 1.14 % (0.66-2.85)
[2017-06-29 12:07] LABS: IRON(TIBC) 31.3 ug/dL (37-170)
[2017-06-29 13:14] LABS: FOLATE 3.32 ng/mL (>2.76)
[2017-06-29] MEDS: FLUCONAZOLE 100 MG TABLET PO SCH (17:59)
[2017-06-30] MEDS: IPRATROPIUM/ALBUTEROL 0.5-2.5 MG/3 ML AMPUL NEB SCH ×4 (00:02→23:20)
[2017-06-30] MEDS: LANSOPRAZOLE 30 MG TAB.RAP.DR PO SCH ×2 (05:43→17:06)
[2017-06-30] MEDS: SERTRALINE HCL 50 MG TABLET PO SCH (09:28)
[2017-06-30] MEDS: KETOCONAZOLE 2% SHAMPOO 120 ML BOTTLE TP SCH ×2 (09:29→21:33)
[2017-06-30] MEDS: ENOXAPARIN SODIUM INJ 80 MG/0.8 ML DISP.SYRIN SUBCUT SCH ×2 (09:29→21:33)
[2017-06-30] MEDS: DOCUSATE SODIUM 100 MG CAPSULE PO SCH ×2 (09:29→17:07)
[2017-06-30] MEDS: FLUCONAZOLE 100 MG TABLET PO SCH (17:06)
--- NOTE | 2017-06-30 17:31 | PDOC PROGRESS REPORT ---
Subjective Progress Note for:: 06/30/17 Subjective:: Patient is doing well She has a she had a bowel movement She is tolerating her diet well No nausea vomiting or diarrhea No abdominal pain no distention She had bowel movements Reason For Visit: SEPSIS UTI FECAL IMPACTION Physical Exam Vital Signs: Temp Pulse Resp BP Pulse Ox 97.4 F 75 16 118/77 96 06/30/17 15:07 06/30/17 16:13 06/30/17 16:13 06/30/17 15:07 06/30/17 16:13 Intake & Output 06/29/17 06/30/17 07/01/17 00:59 00:59 00:59 Intake Total 2645 656 200 Balance 2645 656 200 Weight 70.3 kg 70.3 kg 57.3 kg General appearance: PRESENT: no acute distress, well-developed, well-nourished Head exam: PRESENT: atraumatic, normocephalic Eye exam: PRESENT: conjunctiva pink, EOMI, PERRLA. ABSENT: scleral icterus Ear exam: PRESENT: normal external ear exam Mouth exam: PRESENT: moist, tongue midline Neck exam: ABSENT: carotid bruit, JVD, lymphadenopathy, thyromegaly Respiratory exam: PRESENT: clear to auscultation melinda. ABSENT: rales, rhonchi, wheezes Cardiovascular exam: PRESENT: RRR. ABSENT: diastolic murmur, rubs, systolic murmur Pulses: PRESENT: normal dorsalis pedis pul Vascular exam: PRESENT: normal capillary refill GI/Abdominal exam: PRESENT: normal bowel sounds, soft. ABSENT: distended, guarding, mass, organolmegaly, rebound, tenderness Rectal exam: PRESENT: deferred Extremities exam: PRESENT: full ROM. ABSENT: calf tenderness, clubbing, pedal edema Neurological exam: PRESENT: alert, awake, CN II-XII grossly intact - I think the worst thing to do this is to intubate him as is is is brittany Liriano and is Psychiatric exam: PRESENT: appropriate affect Skin exam: PRESENT: dry, intact, warm. ABSENT: cyanosis, rash Results Laboratory Results: 06/29/17 04:17 06/28/17 07:45 06/29/17 23:09 Stool Occult Blood POSITIVE 06/28/17 06/28/17 06/28/17 00:16 00:16 07:45 Creatine Kinase 20 L < 20 L CK-MB (CK-2) 0.43 Troponin I 0.019 06/28/17 06/28/17 06/28/17 07:45 12:24 12:24 Creatine Kinase < 20 L CK-MB (CK-2) 0.51 0.54 Troponin I 0.020 0.019 Impressions: Chest X-Ray 06/27/17 17:28 IMPRESSION: NO ACUTE RADIOGRAPHIC FINDING IN THE CHEST. KUB X-Ray 06/28/17 16:41 IMPRESSION: There is mild gaseous distention of multiple bowel loops most consistent with an ileus pattern although the possibility of an underlying obstruction cannot be completely excluded. Other findings as noted above Assessment & Plan - Diagnosis (1) Fecal impaction Is this a current diagnosis for this admission?: Yes (2) Hypotension (arterial) Qualifiers: Hypotension type: unspecified hypotension type Qualified Code(s): I95.9 - Hypotension, unspecified (3) UTI (urinary tract infection) Qualifiers: Urinary tract infection type: site unspecified Hematuria presence: without hematuria Qualified Code(s): N39.0 - Urinary tract infection, site not specified Is this a current diagnosis for this admission?: Yes (4) Lung cancer Qualifiers: Laterality: unspecified laterality Lung location: unspecified part of lung Qualified Code(s): C34.90 - Malignant neoplasm of unspecified part of unspecified bronchus or lung Is this a current diagnosis for this admission?: Yes (5) Hx pulmonary embolism Is this a current diagnosis for this admission?: No (6) Infected pancreatic pseudocyst Is this a current diagnosis for this admission?: No (7) History of inferior vena caval filter placement Is this a current diagnosis for this admission?: No (8) Candiduria Is this a current diagnosis for this admission?: Yes (9) Ambulatory dysfunction Is this a current diagnosis for this admission?: Yes - Time Time Spent with patient: Patient extremely stable Fecal impaction and mild ileus have resolved To be discharged to assisted living on Sunday - House - Time Spent with patient: 25-34 minutes
[2017-07-01] MEDS: LANSOPRAZOLE 30 MG TAB.RAP.DR PO SCH ×2 (05:25→17:44)
[2017-07-01] MEDS: IPRATROPIUM/ALBUTEROL 0.5-2.5 MG/3 ML AMPUL NEB SCH ×3 (08:10→23:57)
[2017-07-01] MEDS: ENOXAPARIN SODIUM INJ 80 MG/0.8 ML DISP.SYRIN SUBCUT SCH ×2 (11:16→21:21)
[2017-07-01] MEDS: SERTRALINE HCL 50 MG TABLET PO SCH (11:16)
[2017-07-01] MEDS: DOCUSATE SODIUM 100 MG CAPSULE PO SCH ×2 (11:16→17:44)
[2017-07-01] MEDS: KETOCONAZOLE 2% SHAMPOO 120 ML BOTTLE TP SCH ×2 (11:17→21:21)
--- NOTE | 2017-07-01 16:15 | PDOC PROGRESS REPORT ---
Subjective Progress Note for:: 07/01/17 Subjective:: Overall the patient is improving. She has no complaints today. She denies fever chills. No chest pain, shortness of breath or heart palpitations. No nausea, vomiting or diarrhea. No dysuria, frequency or hematuria. Of note the patient told me that she was going to rehabilitation tomorrow and she had a bed offer. In reviewing the notes it looks as if she declined this. She has been refusing physical therapy. We will need to discuss this further with her tomorrow. Reason For Visit: SEPSIS UTI FECAL IMPACTION Physical Exam Vital Signs: Temp Pulse Resp BP Pulse Ox 98.0 F 77 17 138/73 H 97 07/01/17 11:58 07/01/17 14:00 07/01/17 11:58 07/01/17 11:58 07/01/17 11:58 Intake & Output 06/30/17 07/01/17 07/02/17 06:59 06:59 06:59 Intake Total 590 1500 3 Balance 590 1500 3 Weight 57.3 kg 58 kg General appearance: PRESENT: no acute distress, well-developed, well-nourished Head exam: PRESENT: atraumatic, normocephalic Mouth exam: PRESENT: moist, tongue midline Respiratory exam: PRESENT: clear to auscultation melinda. ABSENT: rales, rhonchi, wheezes Cardiovascular exam: PRESENT: RRR. ABSENT: diastolic murmur, rubs, systolic murmur GI/Abdominal exam: PRESENT: normal bowel sounds, soft. ABSENT: distended, guarding, mass, organolmegaly, rebound, tenderness Rectal exam: PRESENT: deferred Extremities exam: PRESENT: full ROM. ABSENT: calf tenderness, clubbing, pedal edema Neurological exam: PRESENT: alert, awake, oriented to person, oriented to place , oriented to time, oriented to situation, CN II-XII grossly intact. ABSENT: motor sensory deficit Skin exam: PRESENT: dry, intact, warm. ABSENT: cyanosis, rash Results Laboratory Results: 06/29/17 04:17 06/28/17 07:45 06/28/17 06/28/17 06/28/17 00:16 00:16 07:45 Creatine Kinase 20 L < 20 L CK-MB (CK-2) 0.43 Troponin I 0.019 06/28/17 06/28/17 06/28/17 07:45 12:24 12:24 Creatine Kinase < 20 L CK-MB (CK-2) 0.51 0.54 Troponin I 0.020 0.019 Impressions: Chest X-Ray 06/27/17 17:28 IMPRESSION: NO ACUTE RADIOGRAPHIC FINDING IN THE CHEST. KUB X-Ray 06/28/17 16:41 IMPRESSION: There is mild gaseous distention of multiple bowel loops most consistent with an ileus pattern although the possibility of an underlying obstruction cannot be completely excluded. Other findings as noted above Assessment & Plan - Diagnosis (1) Sepsis Plan: Previously documented to severe sepsis. The patient did have leukocytosis, low- grade fever, tachypnea and evidence of infection. I do not believe this meets the criteria for severe sepsis. In any event her sepsis is likely due to a urinary tract infection and infected pancreatic pseudocyst. She is improved at this point and her sepsis symptoms have resolved (2) Candiduria Is this a current diagnosis for this admission?: Yes Plan: Continue Diflucan. (3) Pancreatic pseudocyst Is this a current diagnosis for this admission?: Yes Plan: Stable (4) Lung cancer Qualifiers: Laterality: unspecified laterality Lung location: unspecified part of lung Qualified Code(s): C34.90 - Malignant neoplasm of unspecified part of unspecified bronchus or lung Is this a current diagnosis for this admission?: Yes Plan: No longer considered a candidate for therapy. She apparently lives with a partner at home. 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 She may be appropriate for hospice services in the home. I will discuss this with her further tomorrow. Certainly she seems to be too debilitated to go home at this point. (5) Hx pulmonary embolism Is this a current diagnosis for this admission?: Yes Plan: She has an IVC filter in place. (6) Fecal impaction Is this a current diagnosis for this admission?: Yes Plan: She was disimpacted and has had no further issues. (7) Ileus Is this a current diagnosis for this admission?: Yes Plan: Resolved (8) Anemia Qualifiers: Anemia type: unspecified type Qualified Code(s): D64.9 - Anemia, unspecified Is this a current diagnosis for this admission?: Yes Plan: This is an anemia of chronic disease related to her underlying malignancy. (9) Hypokalemia Is this a current diagnosis for this admission?: Yes Plan: Resolved (10) Full code status Is this a current diagnosis for this admission?: Yes Plan: I will try to discuss this further with her tomorrow. - Time Time Spent with patient: 25-34 minutes - Inpatient Certification Medical Necessity: Other - Inpatient hospitalization remains necessary. Overall I believe the patient is improving and could be considered stable for discharge. I am not sure whether she can go home in her current position. She may need further rehabilitation or even a transition to hospice services. Further discussions will be had tomorrow.
[2017-07-01] MEDS: FLUCONAZOLE 100 MG TABLET PO SCH (17:44)
[2017-07-02] MEDS: LANSOPRAZOLE 30 MG TAB.RAP.DR PO SCH ×2 (06:10→17:56)
[2017-07-02 06:23] LABS: HEMATOCRIT 29.7 % (36.0-47.0); MEAN CORPUSCULAR HEMOGLOBIN 28.5 pg (27.0-33.4); MEAN CORPUSCULAR HGB CONC 33.7 g/dL (32.0-36.0); MEAN CORPUSCULAR VOLUME 85 fl (80-97); PLATELET COUNT 251 10^3/uL (150-450); RED CELL DISTRIBUTION WIDTH 17.3 % (11.5-14.0); WHITE BLOOD COUNT 6.5 10^3/uL (4.0-10.5)
[2017-07-02 06:44] LABS: BLOOD UREA NITROGEN 12 mg/dL (7-20); CALCIUM 9.4 mg/dL (8.4-10.2); GLUCOSE 73 mg/dL (75-110); MAGNESIUM 1.9 mg/dL (1.6-2.3)
[2017-07-02 07:24] LABS: ANION GAP 5 (5-19); CARBON DIOXIDE 22 mmol/L (22-30); CHLORIDE 108 mmol/L (98-107); POTASSIUM 3.8 mmol/L (3.6-5.0); SODIUM 135.1 mmol/L (137-145)
[2017-07-02] MEDS: IPRATROPIUM/ALBUTEROL 0.5-2.5 MG/3 ML AMPUL NEB SCH ×2 (07:51→15:55)
[2017-07-02] MEDS: SERTRALINE HCL 50 MG TABLET PO SCH (09:41)
[2017-07-02] MEDS: DOCUSATE SODIUM 100 MG CAPSULE PO SCH ×2 (09:41→17:54)
[2017-07-02] MEDS: ENOXAPARIN SODIUM INJ 80 MG/0.8 ML DISP.SYRIN SUBCUT SCH ×2 (09:42→21:32)
[2017-07-02] MEDS: KETOCONAZOLE 2% SHAMPOO 120 ML BOTTLE TP SCH ×2 (09:45→21:32)
--- NOTE | 2017-07-02 11:21 | PDOC TRANSFER SUMMARY ---
General - Admit/Disc Date/PCP Admission Date/Primary Care Provider: 06/27/17 20:37 LEO SILVA MD Oncologist: Dr. Darnell Discharge Date: 07/02/17 - Discharge Diagnosis (1) Sepsis Is this a current diagnosis for this admission?: Yes Summary: Previously documented as severe sepsis. The patient did have leukocytosis, low- grade fever, tachypnea and evidence of infection. I do not believe this meets the criteria for severe sepsis. In any event her sepsis is likely due to a urinary tract infection and infected pancreatic pseudocyst. She is improved at this point and her sepsis symptoms have resolved (2) Candiduria Is this a current diagnosis for this admission?: Yes Summary: She will complete a course of Diflucan (3) Pancreatic pseudocyst Is this a current diagnosis for this admission?: Yes Summary: No further treatment during this hospitalization (4) Lung cancer Is this a current diagnosis for this admission?: Yes Summary: No longer considered a candidate for further treatment. The patient states that she is not ready to pursue a purely palliative care approach. She does not want to get hospice involved at this point. She would like to have home health physical therapy and occupational therapy set up at her assisted living facility at discharge. (5) Hx pulmonary embolism Is this a current diagnosis for this admission?: Yes Summary: She will be sent out on full dose Lovenox. (6) Fecal impaction Is this a current diagnosis for this admission?: Yes Summary: She was manually disimpacted. She will continue bowel regimen. (7) Ileus Is this a current diagnosis for this admission?: Yes Summary: Secondary to acute illness and fecal impaction. Resolved. (8) Anemia Is this a current diagnosis for this admission?: Yes Summary: This is an anemia of chronic disease. She has a normocytic anemia likely due to her underlying malignancy. (9) Hypokalemia Is this a current diagnosis for this admission?: Yes Summary: Repleted and resolved (10) Full code status Is this a current diagnosis for this admission?: Yes - Additional Information Resuscitation Status: Full Code Discharge Diet: Cardiac Discharge Activity: Activity As Tolerated, Balance Activity w/Rest, Slowly Increase Activity, Supervised Activity Prescriptions: Hydrocodone/Acetaminophen [Nicollet 5-325 mg Tablet] 1 tab PO Q6HP PRN #20 tablet PRN Reason: For Pain Ondansetron HCl [Zofran 4 mg Tablet] 1 tab PO Q6HP PRN #30 tablet PRN Reason: NAUSEA Alprazolam [Xanax 0.25 mg Tablet] 0.25 mg PO TIDP PRN #20 tablet PRN Reason: Anxiety Bisacodyl [Dulcolax 10 mg Supp.rect] 10 mg TX DAILYP PRN #20 supp.rect PRN Reason: Docusate Sodium [Colace 100 mg Capsule] 100 mg PO BID #60 capsule Dronabinol [Marinol 2.5 mg Capsule] 2.5 mg PO BID #60 capsule Enoxaparin Sodium [Lovenox Inj 80 mg/0.8 ml Disp.syrin] 70 mg SUBCUT Q12 #60 disp.syrin Fluconazole [Diflucan 100 mg Tablet] 200 mg PO QPM #4 tablet Ketoconazole [Nizoral 2% Shampoo 120 ml Bottle] 1 applic TP Q12 #1 bottle Lansoprazole [Prevacid 30 mg Odt Tablet] 30 mg PO Q12@0600,1700 #60 tab.rap. Sertraline HCl [Zoloft 50 mg Tablet] 50 mg PO DAILY #30 tablet Home Medications: Alprazolam [Xanax 0.25 mg Tablet] 0.25 mg PO TIDP PRN #20 tablet 07/02/17 Bisacodyl [Dulcolax 10 mg Supp.rect] 10 mg TX DAILYP PRN #20 supp.rect 07/02/17 Docusate Sodium [Colace 100 mg Capsule] 100 mg PO BID #60 capsule 07/02/17 Dronabinol [Marinol 2.5 mg Capsule] 2.5 mg PO BID #60 capsule 07/02/17 Enoxaparin Sodium [Lovenox Inj 80 mg/0.8 ml Disp.syrin] 70 mg SUBCUT Q12 #60 disp.syrin 07/02/17 Fluconazole [Diflucan 100 mg Tablet] 200 mg PO QPM #4 tablet 07/02/17 Hydrocodone/Acetaminophen [Nicollet 5-325 mg Tablet] 1 tab PO Q6HP PRN #20 tablet 07/02/17 Ketoconazole [Nizoral 2% Shampoo 120 ml Bottle] 1 applic TP Q12 #1 bottle Lansoprazole [Prevacid 30 mg Odt Tablet] 30 mg PO Q12@0600,1700 #60 tab. 07/02/17 Ondansetron HCl [Zofran 4 mg Tablet] 1 tab PO Q6HP PRN #30 tablet 07/02/17 Sertraline HCl [Zoloft 50 mg Tablet] 50 mg PO DAILY #30 tablet 07/02/17 History of Present Illness Admission Date/PCP: 06/27/17 20:37 LEO SILVA MD History of Present Illness: XIOMARA SETHI is a 66 year old female with past medical history of necrotic pancreatic pseudocyst, C. difficile colitis, COPD, pulmonary emboli, non-small cell lung cancer with generalized debility. Patient presents after complaining of rectal pain and hypotension. In the emergency room she is found to have sepsis with a blood pressure of 80/50, severe fecal impaction, and a urinary tract infection. She received manual disimpaction, started on empiric antibiotics and referred to the hospitalist for admission. Patient is an extremely poor historian and unable to provide history. Chemotherapy was discontinued 3 months ago secondary to intolerance. Hospital Course Hospital Course: The patient was admitted to the hospital. She was initially started on broad- spectrum antibiotics however her urine culture ultimately grew Lisbeth. At this point she was changed to Diflucan. She made a slow but steady recovery. At the time of admission the patient was in the process of transitioning to [facility] assisted living but became ill and had to come to the hospital. At this point she will be discharged back to [facility]. She is much improved but is still significantly debilitated. He did have a long talk with the patient regarding a possible transition to a palliative care approach and to get hospice involved. She is not ready for this at this time and states that she wants to get back on her feet. She is requesting home health physical therapy and Occupational Therapy be set up at discharge. I have made the referral to our discharge planners. At this point maximum hospital benefit has been reached. The patient will be discharged to [facility] in stable condition as soon as they have a bed available. Physical Exam Vital Signs: Temp Pulse Resp BP Pulse Ox 97.4 F 72 16 139/81 H 96 07/02/17 07:54 07/02/17 07:54 07/02/17 07:54 07/02/17 07:54 07/02/17 07:54 Intake & Output 07/01/17 07/02/17 07/03/17 06:59 06:59 06:59 Intake Total 1500 1326 Balance 1500 1326 Weight 58 kg 57.6 kg General appearance: PRESENT: no acute distress, thin, other - Chronically ill- appearing Head exam: PRESENT: atraumatic, normocephalic Eye exam: PRESENT: conjunctiva pink, EOMI, PERRLA. ABSENT: scleral icterus Mouth exam: PRESENT: moist, tongue midline Respiratory exam: PRESENT: clear to auscultation melinda. ABSENT: rales, rhonchi, wheezes Cardiovascular exam: PRESENT: RRR. ABSENT: diastolic murmur, rubs, systolic murmur GI/Abdominal exam: PRESENT: normal bowel sounds, soft. ABSENT: distended, guarding, mass, organolmegaly, rebound, tenderness Rectal exam: PRESENT: deferred Extremities exam: PRESENT: full ROM. ABSENT: calf tenderness, clubbing, pedal edema Neurological exam: PRESENT: alert, awake, oriented to person, oriented to place , oriented to time, oriented to situation, CN II-XII grossly intact. ABSENT: motor sensory deficit Psychiatric exam: PRESENT: appropriate affect, normal mood. ABSENT: homicidal ideation, suicidal ideation Skin exam: PRESENT: dry, intact, warm. ABSENT: cyanosis, rash Results Laboratory Results: 07/02/17 06:00 07/02/17 06:00 07/02/17 07/02/17 06:00 06:00 WBC 6.5 RBC 3.50 L Hgb 10.0 L Hct 29.7 L MCV 85 MCH 28.5 MCHC 33.7 RDW 17.3 H Plt Count 251 Sodium 135.1 L Potassium 3.8 Chloride 108 H Carbon Dioxide 22 Anion Gap 5 BUN 12 Creatinine 0.54 Est GFR ( Amer) > 60 Est GFR (Non-Af Amer) > 60 Glucose 73 L Calcium 9.4 Magnesium 1.9 06/28/17 06/28/17 06/28/17 00:16 00:16 07:45 Creatine Kinase 20 L < 20 L CK-MB (CK-2) 0.43 Troponin I 0.019 06/28/17 06/28/17 06/28/17 07:45 12:24 12:24 Creatine Kinase < 20 L CK-MB (CK-2) 0.51 0.54 Troponin I 0.020 0.019 Impressions: Chest X-Ray 06/27/17 17:28 IMPRESSION: NO ACUTE RADIOGRAPHIC FINDING IN THE CHEST. KUB X-Ray 06/28/17 16:41 IMPRESSION: There is mild gaseous distention of multiple bowel loops most consistent with an ileus pattern although the possibility of an underlying obstruction cannot be completely excluded. Other findings as noted above Transfer Plan - Disposition Transfer Plan: The patient will be transitioned to [facility] soon as a bed is found. - Time Spent with Patient Time spent with patient: Greater than 30 Minutes
--- NOTE | 2017-07-02 11:24 | PDOC PROGRESS REPORT ---
Subjective Progress Note for:: 07/02/17 Subjective:: The patient is resting in her bed and has no complaints today. She states that she is ready to be transitioned onto the house as soon as they have a bed available. The discharge planners are checking on this. Reason For Visit: SEPSIS UTI FECAL IMPACTION Physical Exam Vital Signs: Temp Pulse Resp BP Pulse Ox 97.4 F 72 16 139/81 H 96 07/02/17 07:54 07/02/17 07:54 07/02/17 07:54 07/02/17 07:54 07/02/17 07:54 Intake & Output 07/01/17 07/02/17 07/03/17 06:59 06:59 06:59 Intake Total 1500 1326 Balance 1500 1326 Weight 58 kg 57.6 kg General appearance: PRESENT: no acute distress, well-developed, well-nourished Head exam: PRESENT: atraumatic, normocephalic Mouth exam: PRESENT: moist, tongue midline Respiratory exam: PRESENT: clear to auscultation melinda. ABSENT: rales, rhonchi, wheezes Cardiovascular exam: PRESENT: RRR. ABSENT: diastolic murmur, rubs, systolic murmur GI/Abdominal exam: PRESENT: normal bowel sounds, soft. ABSENT: distended, guarding, mass, organolmegaly, rebound, tenderness Extremities exam: PRESENT: full ROM. ABSENT: calf tenderness, clubbing, pedal edema Neurological exam: PRESENT: alert, awake, oriented to person, oriented to place , oriented to time, oriented to situation, CN II-XII grossly intact. ABSENT: motor sensory deficit Psychiatric exam: PRESENT: appropriate affect, normal mood. ABSENT: homicidal ideation, suicidal ideation Skin exam: PRESENT: dry, intact, warm. ABSENT: cyanosis, rash Results Laboratory Results: 07/02/17 06:00 07/02/17 06:00 07/02/17 07/02/17 06:00 06:00 WBC 6.5 RBC 3.50 L Hgb 10.0 L Hct 29.7 L MCV 85 MCH 28.5 MCHC 33.7 RDW 17.3 H Plt Count 251 Sodium 135.1 L Potassium 3.8 Chloride 108 H Carbon Dioxide 22 Anion Gap 5 BUN 12 Creatinine 0.54 Est GFR ( Amer) > 60 Est GFR (Non-Af Amer) > 60 Glucose 73 L Calcium 9.4 Magnesium 1.9 06/28/17 06/28/17 06/28/17 00:16 00:16 07:45 Creatine Kinase 20 L < 20 L CK-MB (CK-2) 0.43 Troponin I 0.019 06/28/17 06/28/17 06/28/17 07:45 12:24 12:24 Creatine Kinase < 20 L CK-MB (CK-2) 0.51 0.54 Troponin I 0.020 0.019 Impressions: Chest X-Ray 06/27/17 17:28 IMPRESSION: NO ACUTE RADIOGRAPHIC FINDING IN THE CHEST. KUB X-Ray 06/28/17 16:41 IMPRESSION: There is mild gaseous distention of multiple bowel loops most consistent with an ileus pattern although the possibility of an underlying obstruction cannot be completely excluded. Other findings as noted above Assessment & Plan - Diagnosis (1) Sepsis Is this a current diagnosis for this admission?: Yes Plan: Previously documented to severe sepsis. The patient did have leukocytosis, low- grade fever, tachypnea and evidence of infection. I do not believe this meets the criteria for severe sepsis. In any event her sepsis is likely due to a urinary tract infection and infected pancreatic pseudocyst. She is improved at this point and her sepsis symptoms have resolved (2) Candiduria Is this a current diagnosis for this admission?: Yes Plan: Continue Diflucan. (3) Pancreatic pseudocyst Is this a current diagnosis for this admission?: Yes Plan: Stable (4) Lung cancer Qualifiers: Laterality: unspecified laterality Lung location: unspecified part of lung Qualified Code(s): C34.90 - Malignant neoplasm of unspecified part of unspecified bronchus or lung Is this a current diagnosis for this admission?: Yes Plan: No longer considered a candidate for therapy. She will be discharged to an assisted living facility as soon as a bed is available. I did discuss the possible transition to hospice and she is not ready for this at this point. (5) Hx pulmonary embolism Is this a current diagnosis for this admission?: Yes Plan: She has an IVC filter in place. Continue full dose Lovenox (6) Fecal impaction Is this a current diagnosis for this admission?: Yes Plan: She was disimpacted and has had no further issues. (7) Ileus Is this a current diagnosis for this admission?: Yes Plan: Resolved (8) Anemia Qualifiers: Anemia type: unspecified type Qualified Code(s): D64.9 - Anemia, unspecified Is this a current diagnosis for this admission?: Yes Plan: This is an anemia of chronic disease related to her underlying malignancy. (9) Hypokalemia Is this a current diagnosis for this admission?: Yes Plan: Resolved (10) Full code status Is this a current diagnosis for this admission?: Yes - Time Time Spent with patient: 25-34 minutes Disposition: She will be transitioned to [facility] with home health physical therapy and occupational therapy as soon as a bed was found - Inpatient Certification Medical Necessity: Other - Inpatient hospitalization remains necessary for disposition. Overall the patient is doing well and is stable for transfer as soon as a bed is found. We will be setting up home health physical therapy and occupational therapy at discharge.
[2017-07-02] MEDS: FLUCONAZOLE 100 MG TABLET PO SCH (17:55)
[2017-07-03] MEDS: IPRATROPIUM/ALBUTEROL 0.5-2.5 MG/3 ML AMPUL NEB SCH ×2 (00:22→07:57)
[2017-07-03] MEDS: LANSOPRAZOLE 30 MG TAB.RAP.DR PO SCH (06:13)
[2017-07-03] MEDS: SERTRALINE HCL 50 MG TABLET PO SCH (10:50)
[2017-07-03] MEDS: ENOXAPARIN SODIUM INJ 80 MG/0.8 ML DISP.SYRIN SUBCUT SCH (10:51)
[2017-07-03] MEDS: KETOCONAZOLE 2% SHAMPOO 120 ML BOTTLE TP SCH (10:56)
[2017-07-03] MEDS: DOCUSATE SODIUM 100 MG CAPSULE PO SCH (10:56)
[2017-07-03 11:58] VITALS: BP 126/81
--- NOTE | 2017-07-03 13:21 | Progress Note ---
Provider Note Provider Note: No complaints voiced by patient Physical exam Vital signs noted General NAD ENT: [place] and moist oral nasal mucosa. PERRLA. EOMI Neck: No JVD, no HJR. No thyromegaly Heart: RRR, no murmurs or gallops Lungs: Clear to auscultation Abdomen: nondistended no masses tenderness or visceromegaly Extremities: No edema cyanosis or clubbing Neurologic: Alert and oriented 3 Assessment and plan: To proceed with discharge to schedule since stable
== END 2017-07-03 12:39 | disposition short-term general hospital (02) | DRG 872 ==
LOC: ER 16:59 → EH 20:37 → 4S 06-28 00:05
PROVIDERS: ADMIT Internal Medicine; ATTEND Internal Medicine
PROC: 3E0F73Z Introduction of Anti-inflammatory into Respiratory Tract, Via Natural or Artificial Opening (ICD-10-PCS; principal; 2017-06-27)
PROC: 3E0234Z Introduction of Serum, Toxoid and Vaccine into Muscle, Percutaneous Approach (ICD-10-PCS; 2017-07-03)
DX: A41.9 Sepsis, unspecified organism (principal); N39.0 Urinary tract infection, site not specified; K86.3 Pseudocyst of pancreas; C34.90 Malignant neoplasm of unspecified part of unspecified bronchus or lung; K56.7 Ileus, unspecified; K56.41 Fecal impaction; B37.9 Candidiasis, unspecified; D63.8 Anemia in other chronic diseases classified elsewhere; E87.6 Hypokalemia; J44.9 Chronic obstructive pulmonary disease, unspecified; I10 Essential (primary) hypertension; F32.9 Major depressive disorder, single episode, unspecified; E78.00 Pure hypercholesterolemia, unspecified; M19.90 Unspecified osteoarthritis, unspecified site; F41.9 Anxiety disorder, unspecified; I95.9 Hypotension, unspecified; Z23 Encounter for immunization; Z86.711 Personal history of pulmonary embolism; Z79.899 Other long term (current) drug therapy; Z90.710 Acquired absence of both cervix and uterus; Z87.891 Personal history of nicotine dependence; Z88.6 Allergy status to analgesic agent; Z88.0 Allergy status to penicillin; Z88.8 Allergy status to other drugs, medicaments and biological substances; Z82.49 Family history of ischemic heart disease and other diseases of the circulatory system
CPT/HCPCS: 36415; 71045; 74018; 80048; 80053; 81001; 82272; 82550; 82553; 82607; 82728; 82746; 83540; 83550; 83605; 83690; 83735; 84484; 85025; 85027; 85045; 85610; 85730; 86850; 86900; 86901; 87086; 90686; 93005; 93010; 94640; 96361; 96374; 99291; J0696; J1650; J3010; J3475; J3480; J3490; J7030; J7620

== ENCOUNTER → 2017-08-07 | Outpatient (CLI) | payer MEDICARE, OTHER ==
--- NOTE | 2017-08-08 07:31 | RADIOLOGY REPORT (SQ) ---
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 TECHNIQUE: Blood glucose level was verified. Above dose of FDG was injected intravenously. 2-D seg mented attenuation correction images were obtained from the base of the skull to the midthighs. Nonc ontrast CT images were obtained for attenuation correction and fusion with emission images. CT image s were performed without oral or intravenous contrast and are not sensitive for parenchymal lesions. A series of overlapping emission PET images were obtained. Images reviewed and manipulated at [facility] work station by the radiologist. Images stored on PACS. LIMITATIONS: None. FINDINGS: HEAD AND NECK: No areas of abnormal metabolic activity in the soft tissues of the head and neck. CHEST: No areas of abnormal metabolic activity in the chest. The 1.6 cm nodule in the posterior right upper lobe seen on 11/13/2016 has resolved. There is no at 12 mm diameter thin walled cavity on axial image 62 without metabolic activity. A non metabolic 1.4 x 1 cm pretracheal lymph node is present on image 71. ABDOMEN AND PELVIS: No areas of abnormal metabolic activity in the abdomen or pelvis. Expected physi ologic activity is present in the genitourinary system and bowel. The pancreatic pseudocyst has resolved. There is still a small air bubble in the retroperitoneum kevin ng the ventral edge of the pancreatic body in the area of pseudocyst seen on 04/27/2017. No increase d metabolic activity in the retroperitoneum along the pancreas. PROXIMAL LOWER EXTREMITIES: No areas of abnormal metabolic activity in the soft tissues of the lower extremities. BONES: No abnormal metabolic activity in the visualized skeleton. ADDITIONAL CT FINDINGS: 1.6 cm cyst left lobe liver. Small hiatal hernia. Post cholecystectomy. IV C filter. Right lower pole thyroid nodule 14 mm in size, stable. OTHER: Liver background SUV 1.4. Blood pool background activity 1.3 SUV IMPRESSION: No CT evidence of recurrent or metastatic squamous cell lung cancer. TECHNICAL DOCUMENTATION: JOB ID: [id number] [employer]- All Rights Reserved Reading location - IP/workstation name: [email or web address]
== END ==
LOC: RAD 16:38
PROVIDERS: ATTEND Internal Medicine Medical Oncology
DX: C34.92 Malignant neoplasm of unspecified part of left bronchus or lung (principal); E04.1 Nontoxic single thyroid nodule; K44.9 Diaphragmatic hernia without obstruction or gangrene; K76.89 Other specified diseases of liver
CPT/HCPCS: 78815; A9552

== ENCOUNTER 2018-11-30 20:42 | Emergency (ER) | payer MEDICARE, MEDICAID ==
--- NOTE | 2018-11-30 20:57 | ER Document Report ---
ED General - General Stated Complaint: LEG PAIN Time Seen by Provider: 11/30/18 20:47 Primary Care Provider: JURGEN COTE MD [NO LOCAL MD] - 12/02/18 Notes: Patient is a 68-year-old female who presents emergency department with a chief complaint of left leg pain. She is currently a resident at [facility] and she is wheelchair-bound. Her primary care provider had noticed that she had discoloration of her lower extremities and a venous Doppler study was done and she has a DVT in her left lower extremity. Her right lower extremity is negative for any DVT. She was then brought to the hospital once the results are positive. Denies any chest pain, shortness of breath, difficulty breathing, or any other symptoms. Patient's past medical history includes acute pancreatitis, acute cholecystitis, lung cancer, anemia, kidney cysts, hypertension, GERD, anxiety, chronic pain. TRAVEL OUTSIDE OF THE [place] IN LAST 30 DAYS: No - Related Data Allergies/Adverse Reactions: aspirin [Aspirin] Allergy (Verified 01/03/17 12:57) lorazepam [From Ativan] Allergy (Verified 01/03/17 12:57) Penicillins Allergy (Verified 01/03/17 12:57) Past Medical History - Social History Smoking Status: Former Smoker Family History: Hypertension - Past Medical History Cardiac Medical History: Reports: Hx Hypercholesterolemia, Hx Hypertension, Hx Pulmonary Embolism Denies: Hx Atrial Fibrillation, Hx Coronary Artery Disease, Hx Heart Attack Pulmonary Medical History: Reports: Hx COPD Denies: Hx Asthma, Hx Bronchitis, Hx Pneumonia, Hx Sleep Apnea Neurological Medical History: Denies: Hx Cerebrovascular Accident, Hx Seizures Endocrine Medical History: Denies: Hx Diabetes Mellitus Type 1, Hx Diabetes Mellitus Type 2, Hx Hyperthyroidism, Hx Hypothyroidism Renal/ Medical History: Denies: Hx Peritoneal Dialysis Malignancy Medical History: Reports: Hx Lung Cancer - On chemotherapy for same GI Medical History: Denies: Hx Cirrhosis, Hx Gastroesophageal Reflux Disease, Hx Hepatitis Musculoskeletal Medical History: Reports Hx Arthritis Psychiatric Medical History: Reports: Hx Anxiety, Hx Depression Infectious Medical History: Reports: Hx C-Diff. Denies: Hx Hepatitis Past Surgical History: Reports: Hx Abdominal Surgery - IR pancreatic pseudocyst drainage, february 2017, Hx Hysterectomy, Other - IR pancreatic pseudocyst drainage - Immunizations Hx Diphtheria, Pertussis, Tetanus Vaccination: No Review of Systems - Review of Systems Notes: REVIEW OF SYSTEMS: CONSTITUTIONAL : Denies recent illness. Denies recent unintentional weight loss. Denies fever, chills, or sweats. EENT: Denies eye, ear, throat, or mouth pain, discharge, or symptoms. Denies nasal or sinus congestion. CARDIOVASCULAR: Denies chest pain. RESPIRATORY: Denies shortness of breath, cough, congestion, difficulty breathing, or wheezing. GASTROINTESTINAL: Denies nausea, vomiting, and diarrhea. Denies abdominal pain. Denies constipation. GENITOURINARY: Denies difficulty urinating, burning, blood in urine, urgency or frequency. MUSCULOSKELETAL: See HPI. SKIN: Denies rash, itchiness, or lesions HEMATOLOGIC : Denies easy bruising or bleeding. LYMPHATIC: Denies swollen, painful, enlarged glands. NEUROLOGICAL: Denies no numbness or tingling denies weakness. Denies headache. Denies altered mental status. Denies alteration in speech. PSYCHIATRIC: Denies stress, anxiety, alteration in sleep patterns, or depression. All other systems reviewed and negative. Physical Exam - Vital signs Vitals: Resp Pulse Ox 23 H 94 11/30/18 20:59 11/30/18 20:59 - Notes Notes: PHYSICAL EXAMINATION: GENERAL: Appears age, well-nourished, no acute distress. HEAD: Normocephalic, atraumatic. EYES: PERRL, conjunctiva normal, all extraocular movements intact, sclera nonicteric ENT: Moist mucous membranes. NECK: Supple, no noticeable swelling, redness, rash. Normal range of motion. LUNGS: Equal breath sounds bilaterally and clear to auscultation. No wheezes rales or rhonchi. CARDIOVASCULAR: S1-S2, regular rate, regular rhythm. Radial pulses 2+, normal. Left dorsalis pedis 2+. Right dorsalis pedis found via Doppler. ABDOMEN: Normoactive bowel sounds. Soft, nontender, no guarding, no rebound tenderness, and no masses palpated. EXTREMITIES: Normal strength and range of motion, no pitting or edema. No cyanosis. NEUROLOGICAL: Moves all extremities upon command. Strength 5/5 in all extremities. PSYCH: Normal mood, normal affect. SKIN: Warm, dry. No rash, lesions, ulcerations noted. Normal skin turgor. Course - Re-evaluation Re-evalutation: 11/30/18 22:01 At this time the patient will be treated with Lovenox here in the emergency department and will be sent home with rivaroxaban. She will then follow-up with her primary care provider in regards to this visit. At this time she is stable to go back to [facility]. I have a very low suspicion for a p ulmonary emboli, as the patient denies any shortness of breath, difficulty breathing, or any other symptoms. She denies any chest pain. Follow-up precautions were given. Verbal discharge instructions were given to the patient. They verbalized understanding. They are stable for discharge. - Vital Signs Vital signs: Temp Pulse Resp BP Pulse Ox 98.0 F 64 19 123/64 94 11/30/18 23:55 11/30/18 23:55 11/30/18 23:55 11/30/18 23:55 11/30/18 23:55 Discharge - Discharge Clinical Impression: DVT (deep venous thrombosis) Qualifiers: DVT location: lower extremity Affected thrombotic vein of extremity: unspecified vein of extremity Chronicity: acute Laterality: left Qualified Code(s): I82.402 - Acute embolism and thrombosis of unspecified deep veins of left lower extremity Condition: Stable Disposition: HOME-SNF (ED ONLY) Additional Instructions: You have been diagnosed with a clot in your extremity. You have been started on a blood thinner called rivaroxaban. You need to take 15 mg twice daily for the first 21 days. You have been prescribed this medication for the first 3 weeks. It is very important that you follow-up with your primary care physician because after the first 3 weeks, you will be transitioned to 20 mg once daily. Please return to emergency department if you notice worsening pain to the affected area, you began having rectal bleeding, hit your head, develop shortness of breath or chest pain, or have any other symptoms that are concerning to you. Prescriptions: Rivaroxaban [Xarelto 15 mg Tablet] 15 mg PO BID 21 Days #42 tablet Referrals: JURGEN COTE MD [NO LOCAL MD] - 12/02/18
[2018-11-30] MEDS ORDERED: ENOXAPARIN SODIUM INJ 80 MG/0.8 ML DISP.SYRIN SUBCUT ONE (21:58)
[2018-11-30 23:59] VITALS: BP 123/64
== END 2018-11-30 23:58 ==
LOC: ER 20:42
DX: I82.402 Acute embolism and thrombosis of unspecified deep veins of left lower extremity (principal); I10 Essential (primary) hypertension; J44.9 Chronic obstructive pulmonary disease, unspecified; Z86.711 Personal history of pulmonary embolism; Z99.3 Dependence on wheelchair; Z85.118 Personal history of other malignant neoplasm of bronchus and lung; Z87.891 Personal history of nicotine dependence; Z88.8 Allergy status to other drugs, medicaments and biological substances; Z88.0 Allergy status to penicillin
CPT/HCPCS: 99284; 96372; J1650

== ENCOUNTER 2019-07-11 08:38 | Inpatient (IN) | payer MEDICAID, MEDICARE ==
[2019-07-11 09:19] LABS: HEMOGLOBIN 12.1 g/dL (12.0-15.5); MEAN CORPUSCULAR HEMOGLOBIN 29.6 pg (27.0-33.4); MEAN CORPUSCULAR HGB CONC 33.5 g/dL (32.0-36.0); MEAN CORPUSCULAR VOLUME 88 fl (80-97); PLATELET COUNT 126 10^3/uL (150-450); RED BLOOD COUNT 4.07 10^6/uL (3.72-5.28); RED CELL DISTRIBUTION WIDTH 14.4 % (11.5-14.0)
[2019-07-11 09:20] LABS: PARTIAL THROMBOPLASTIN TIME 37.8 SEC (23.5-35.8)
[2019-07-11 09:23] LABS: PROTHROMBIN TIME 23.2 SEC (11.4-15.4)
[2019-07-11 09:24] LABS: INTERNATIONAL RATION (INR) 2.02
--- NOTE | 2019-07-11 09:25 | RADIOLOGY REPORT (SQ) ---
EXAM DESCRIPTION: CT HEAD WITHOUT COMPLETED DATE/TIME: 07/11/2019 9:14 am REASON FOR STUDY: fall, hit head, on XARELTO COMPARISON: CT of the head without contrast from 01/08/2017. TECHNIQUE: Axial images acquired through the brain without intravenous contrast. Images reviewed wi th bone, brain and subdural windows. Additional sagittal and coronal reconstructions were generated. Images stored on PACS. All CT scanners at this facility use dose modulation, iterative reconstruction, and/or weight based d osing when appropriate to reduce radiation dose to as low as reasonably achievable (ALARA). [facility]: Dose Right [facility]: CareDose [facility]: Dose Right [facility]: Teradose 4D [facility]: [employer] RADIATION DOSE: CT Rad equipment meets quality standard of care and radiation dose reduction techniq ues were employed. CTDIvol: 53.2 mGy. DLP: 937 mGy-cm. LIMITATIONS: None. FINDINGS: The areas of hypoattenuation within the supratentorial periventricular and subcortical whi te matter are unchanged and could represent the sequela of chronic microvascular ischemia. There is no acute intracranial hemorrhage, vascular territorial infarct, extra-axial fluid collection, mass ef fect or midline shift. There is no effacement of cerebral sulci or basal subarachnoid cisterns. The dave-white matter differentiation is preserved. The caliber the ventricles is concordant with the d egree of sulcation. The globes are aphakic. The orbits are intact. There is no fracture of the calvarium. The paranasa l sinuses are clear. IMPRESSION: No acute intracranial abnormality. If there is persistent concern for an acute CVA daryl elation with MRI is recommended. EVIDENCE OF ACUTE STROKE: NO. COMMENT: Quality ID # [id number]: Final reports with documentation of one or more dose reduction techniques (e.g., Automated exposure control, adjustment of the mA and/or kV according to patient size, use of iterative reconstruction technique) TECHNICAL DOCUMENTATION: JOB ID: [id number] [employer]- All Rights Reserved Reading location - IP/workstation name: [email or web address]
[2019-07-11 09:33] LABS: ALBUMIN 3.1 g/dL (3.5-5.0); ALKALINE PHOSPHATASE 90 U/L (38-126); ANION GAP 11 (5-19); ASPARTATE AMINO TRANSFERASE 18 U/L (14-36); BILIRUBIN,DIRECT 0.4 mg/dL (0.0-0.4); BLOOD UREA NITROGEN 33 mg/dL (7-20); CALCIUM 9.3 mg/dL (8.4-10.2); CARBON DIOXIDE 21 mmol/L (22-30); CHLORIDE 106 mmol/L (98-107); CREATINE KINASE 120 U/L (30-135); GLUCOSE 92 mg/dL (75-110); POTASSIUM 3.9 mmol/L (3.6-5.0); TOTAL PROTEIN 6.1 g/dL (6.3-8.2)
[2019-07-11 09:45] LABS: CREATINE KINASE MB 1.53 ng/mL (<4.55)
--- NOTE | 2019-07-11 09:50 | RADIOLOGY REPORT (SQ) ---
EXAM DESCRIPTION: CHEST SINGLE VIEW COMPLETED DATE/TIME: 07/11/2019 9:40 am REASON FOR STUDY: stroke protocol COMPARISON: Chest films 01/13/2017, 01/20/2015, 06/24/2012 EXAM PARAMETERS: NUMBER OF VIEWS: One view. TECHNIQUE: Single frontal radiographic view of the chest acquired. RADIATION DOSE: NA LIMITATIONS: None. FINDINGS: LUNGS AND PLEURA: No opacities, masses or pneumothorax. No pleural effusion. MEDIASTINUM AND HILAR STRUCTURES: No masses. Contour normal. HEART AND VASCULAR STRUCTURES: Stable mild cardiomegaly BONES: No acute findings. HARDWARE: None in the chest. OTHER: No other significant finding. IMPRESSION: NO ACUTE RADIOGRAPHIC FINDING IN THE CHEST. TECHNICAL DOCUMENTATION: JOB ID: [id number] [employer]- All Rights Reserved Reading location - IP/workstation name: [email or web address]
[2019-07-11 09:54] LABS: ABSOLUTE LYMPHOCYTES# (MANUAL) 0.1 10^3/uL (0.5-4.7); BASOPHILS % (MANUAL) 0 % (0-2); EOSINOPHILS % (MANUAL) 0 % (0-6); LYMPHOCYTES % (MANUAL) 4 % (13-45); METAMYELOCYTES % (MANUAL) 1 % (0-1); MONOCYTES % (MANUAL) 0 % (3-13); SEGMENTED NEUTROPHILS % (MAN) 84 % (42-78); TOTAL CELLS COUNTED 100
[2019-07-11 09:55] LABS: ANISOCYTOSIS SLIGHT; BAND NEUTROPHILS % (MANUAL) 11 % (3-5); TOXIC GRANULATION SLIGHT; TOXIC VACUOLATION PRESENT; TROPONIN I 0.104 ng/mL
[2019-07-11 09:56] LABS: PLATELET COMMENT DECREASED
[2019-07-11 10:48] LABS: AMORPHOUS SEDIMENT,URINE 1+ /HPF; APPEARANCE,URINE CLOUDY; BILIRUBIN,URINE NEGATIVE (NEGATIVE); COLOR,URINE AMBER; GLUCOSE, URINE NEGATIVE (NEGATIVE); KETONES,URINE NEGATIVE (NEGATIVE); LEUKOCYTE ESTERASE,URINE MODERATE (NEGATIVE); NITRITE,URINE NEGATIVE (NEGATIVE); PROTEIN,URINE 100 mg/dL (NEGATIVE); URINE SPECIFIC GRAVITY 1.014; UROBILINOGEN,URINE NEGATIVE mg/dL (<2.0)
[2019-07-11] MEDS ORDERED: ACETAMINOPHEN 650 MG SUPP.RECT PR ONE (11:22)
[2019-07-11] MEDS ORDERED: LEVOFLOXACIN 750 MG/D5W RTU 750 MG/150 ML RTUPB IV ONE (12:23)
[2019-07-11] MEDS ORDERED: NORMAL SALINE 1000 ML 1,000 ML IV ONE ×2 (12:23→17:45)
--- NOTE | 2019-07-11 12:55 | ER Document Report ---
Entered by TREMAINE DRIVER SCRIBE 07/11/19 1223 Acting as scribe for:RYLIE OSORIO MD ED GI/ - General Chief Complaint: Nausea/Vomiting/Diarrhea Stated Complaint: FALL - NAUSEA/VOMITING/DIAHERRA Time Seen by Provider: 07/11/19 12:11 Mode of Arrival: Ambulatory Information source: Patient Notes: This 69 year old female patient presents to the emergency department today with complaints of difficulty swallowing. Patient states that for the last three days she has been unable to eat anything and if she wants to drink something she has to drink it slowly or it will also "not go down". Patient may have had an esophageal dilation performed at [facility] a few years ago--she does seem to have some dementia and confusion. Patient reports diarrhea on Sunday night and Sunday night. TRAVEL OUTSIDE OF THE [place] IN LAST 30 DAYS: No - Related Data Allergies/Adverse Reactions: aspirin [Aspirin] Allergy (Verified 01/03/17 12:57) lorazepam [From Ativan] Allergy (Verified 01/03/17 12:57) Penicillins Allergy (Verified 01/03/17 12:57) Home Medications: Xarelto Past Medical History - General Information source: Patient - Social History Smoking Status: Never Smoker Cigarette use (# per day): No Chew tobacco use (# tins/day): No Frequency of alcohol use: None Drug Abuse: None Lives with: Family Family History: Reviewed & Not Pertinent, Hypertension Patient has suicidal ideation: No Patient has homicidal ideation: No - Past Medical History Cardiac Medical History: Reports: Hx Hypercholesterolemia, Hx Hypertension, Hx Pulmonary Embolism Pulmonary Medical History: Reports: Hx COPD Malignancy Medical History: Reports: Hx Lung Cancer - On chemotherapy for same Musculoskeletal Medical History: Reports Hx Arthritis Psychiatric Medical History: Reports: Hx Anxiety, Hx Depression Infectious Medical History: Reports: Hx C-Diff Past Surgical History: Reports: Hx Abdominal Surgery - IR pancreatic pseudocyst drainage, february 2017, Hx Hysterectomy, Other - IR pancreatic pseudocyst drainage - Immunizations Hx Diphtheria, Pertussis, Tetanus Vaccination: No Review of Systems - Review of Systems Constitutional: No symptoms reported EENT: See HPI Cardiovascular: No symptoms reported Respiratory: No symptoms reported Gastrointestinal: See HPI, Abdominal pain, Diarrhea Genitourinary: No symptoms reported Female Genitourinary: No symptoms reported Musculoskeletal: No symptoms reported Skin: No symptoms reported Hematologic/Lymphatic: No symptoms reported Neurological/Psychological: No symptoms reported -: Yes All other systems reviewed and negative Physical Exam - Vital signs Vitals: Pulse Ox 93 07/11/19 09:06 - Notes Notes: Physical Exam: General: Alert, appears well. HEENT: Normocephalic. Atraumatic. PERRL. Extraocular movements intact. Oropharynx clear. Mouth appears to be dry. Neck: Supple. Non-tender. Respiratory: No respiratory distress. Clear and equal breath sounds bilaterally. Cardiovascular: Regular rate and rhythm. Abdominal: Diffuse abdominal tenderness to palpation, more tender in the right lower quadrant, resonant to percussion throughout. No distension. Active bowel sounds. Back: No gross abnormalities. Extremities: Moves all four extremities. Upper extremities: Normal inspection. Normal ROM. Lower extremities: Normal inspection. No edema. Normal ROM. Neurological: Patient is alert. She is oriented to person and place. She does show some dementia. Normal speech. Psychological: Normal affect. Normal Mood. Skin: Warm. Dry. Normal color. Course - Re-evaluation Re-evalutation: 07/11/19 14:02 Patient developed localized erythema and itching just above the IV site after about 40 mL's of Levaquin gone in. Levaquin was stopped, and she was given Pepcid and Benadryl IV. A new antibiotic was started, ceftriaxone which she has received in the past. 07/11/19 15:23 In reviewing the patient's chart I found that she had a blood pressure of 88/60 recorded at 10:46 AM. 45 minutes earlier it was recorded as 185/163 and prior to that 144/116. I was not made aware of that low blood pressure reading. I later found out that with a manual pressure. I went back in the room with the nurse to repeat a manual pressure to confirm that her pressure actually was that low and this occurred at 2:30 PM today. I also found that the patient's normal saline that had been ordered at 1224 had almost none of the fluid run in. It was on a pump and was being held, allowing the antibiotics to go in. I was able to get the antibiotic in and the fluid running again by about 3:15 PM. At this time her blood pressure is up to 92 systolic. She is tolerating low blood pressure well. 07/11/19 16:01 Patient is now had 1 L of IV fluid infused. Her blood pressure was seen to drop to 78 systolic. In talking with the patient, she states it must be because she slept with her window open and it was 30 degrees outside last night. She does seem to be pleasantly demented and most of her history is unreliable and unhelpful and trying to sort out what is going on with her today. - Vital Signs Vital signs: Temp Pulse Resp BP Pulse Ox 99.2 F 100 29 H 88/60 L 96 07/11/19 13:32 07/11/19 10:46 07/11/19 12:02 07/11/19 10:46 07/11/19 12:00 - Laboratory Result Diagrams: 07/11/19 09:00 07/11/19 09:00 Laboratory results interpreted by me: 07/11/19 07/11/19 07/11/19 09:00 09:00 09:00 WBC 3.0 L RDW 14.4 H Plt Count 126 L Seg Neuts % (Manual) 84 H Band Neutrophils % 11 H Lymphocytes % (Manual) 4 L Monocytes % (Manual) 0 L Abs Lymphs (Manual) 0.1 L Abs Monocytes (Manual) 0.0 L PT 23.2 H APTT 37.8 H Carbon Dioxide 21 L BUN 33 H Creatinine 1.47 H Est GFR ( Amer) 42 L Est GFR (MDRD) Non-Af 35 L Total Protein 6.1 L Albumin 3.1 L Urine Protein Urine Blood Ur Leukocyte Esterase 07/11/19 09:55 WBC RDW Plt Count Seg Neuts % (Manual) Band Neutrophils % Lymphocytes % (Manual) Monocytes % (Manual) Abs Lymphs (Manual) Abs Monocytes (Manual) PT APTT Carbon Dioxide BUN Creatinine Est GFR ( Amer) Est GFR (MDRD) Non-Af Total Protein Albumin Urine Protein 100 H Urine Blood MODERATE H Ur Leukocyte Esterase MODERATE H - Diagnostic Test Radiology reviewed: Image reviewed, Reports reviewed - Chest x-ray and CT scan of the head did not show acute process. - EKG Interpretation by Me EKG shows normal: Sinus rhythm, [place], Intervals, QRS Complexes. abnormal: ST-T Waves - Diffuse borderline T abnormalities Rate: Tachycardia - 112 Rhythm: APC's Voltage: Decreased voltage, Throughout Critical Care Note - Critical Care Note Total time excluding time spent on procedures (mins): 45 Discharge - Discharge Clinical Impression: Abdominal pain Qualifiers: Abdominal location: generalized Qualified Code(s): R10.84 - Generalized abdominal pain Urinary tract infection Qualifiers: Urinary tract infection type: site unspecified Hematuria presence: with hematuria Qualified Code(s): N39.0 - Urinary tract infection, site not specified Hypotension Qualifiers: Hypotension type: unspecified hypotension type Qualified Code(s): I95.9 - Hypotension, unspecified Fever Qualifiers: Fever type: unspecified Qualified Code(s): R50.9 - Fever, unspecified Condition: Fair Disposition: ADMITTED INPATIENT Admitting Provider: [facility] (Hospitalist) Unit Admitted: [facility] Scribe Attestation: 07/11/19 12:55 I personally performed the services described in the documentation, reviewed and edited the documentation which was dictated to the scribe in my presence, and it accurately records my words and actions. I personally performed the services described in the documentation, reviewed and edited the documentation which was dictated to the scribe in my presence, and it accurately records my words and actions.
--- NOTE | 2019-07-11 13:01 | EKG REPORT ---
SEVERITY:- ABNORMAL ECG - SINUS TACHYCARDIA ATRIAL PREMATURE COMPLEX LOW VOLTAGE THROUGHOUT BORDERLINE T ABNORMALITIES, DIFFUSE LEADS : Confirmed by: Royce Yeung 11-Jul-2019 12:59:59
--- NOTE | 2019-07-11 13:39 | RADIOLOGY REPORT (SQ) ---
EXAM DESCRIPTION: ABDOMEN 2 VIEWS COMPLETED DATE/TIME: 07/11/2019 1:17 pm REASON FOR STUDY: Nausea, vomiting, RLQ abd pain COMPARISON: None. NUMBER OF VIEWS: Two views. TECHNIQUE: Supine and erect/decubitus radiographic images of the abdomen acquired. LIMITATIONS: None. FINDINGS: FREE AIR: None. LUNG BASES: Excluded from the [id number]. BOWEL GAS PATTERN: Air-filled nondilated loops of bowel throughout the abdomen in a nonobstructive pa ttern. There are no differential refer levels. CALCIFICATIONS: No calcifications. SOFT TISSUES: No abnormality HARDWARE: IVC filter and surgical clips in the right upper quadrant. BONES: No acute findings. OTHER: No other finding. IMPRESSION: Nonobstructive bowel gas pattern. TECHNICAL DOCUMENTATION: JOB ID: [id number] [employer]- All Rights Reserved Reading location - IP/workstation name: [email or web address]
[2019-07-11] MEDS ORDERED: FAMOTIDINE INJ/PF 20 MG/2 ML SDV IV ONE (14:01)
[2019-07-11] MEDS ORDERED: CEFTRIAXONE 1 GM/D5W RTU 1 GM/50 ML RTUPB IV ONE ×2 (14:01→15:00)
[2019-07-11] MEDS ORDERED: DIPHENHYDRAMINE HCL 50 MG/ML VIAL IV ONE (14:01)
[2019-07-11] MEDS ORDERED: DEXTROSE 5%-LACTATED RINGERS 1,000 ML IV ONE (14:27)
--- NOTE | 2019-07-11 18:00 | PDOC H&P ---
History of Present Illness Admission Date/PCP: 07/11/19 17:00 Patient complains of: Nausea, vomiting, body aches, polyuria History of Present Illness: XIOMARA SETHI is a 69 year old female with a history of left lung cancer, COPD, dementia, hyperlipidemia, hypertension, pulmonary embolism, pancreatic tail abscess, who was sent to the hospital from [facility] for evaluation of nausea vomiting and body aches. Patient has been experiencing symptoms for the past few days and endorses an episode of diarrhea yesterday and 2 episodes today. Patient also endorses polyuria. She notes some abdominal pain and also more generalized pain in her knees and ankles. Patient's history is not the most reliable as she seems to endorse multiple symptoms. In the ER, patient was noted to be hypotensive. Urinalysis was positive. Subsequently referred to hospitalist service for admission for treatment of urinary tract infection and hypotension. Patient denies any shortness of breath cough or chest pain at this time. Past Medical History Cardiac Medical History: Reports: Hyperlipidema, Hypertension, Pulmonary Embolism Denies: Atrial Fibrillation, Coronary Artery Disease, Myocardial Infarction Pulmonary Medical History: Reports: Chronic Obstructive Pulmonary Disease (COPD) Denies: Asthma, Bronchitis, Pneumonia, Sleep Apnea Neurological Medical History: Denies: Seizures Endocrine Medical History: Denies: Diabetes Mellitus Type 1, Diabetes Mellitus Type 2, Hyperthyroidism, Hypothyroidism Malignancy Medical History: Reports: Lung Cancer - On chemotherapy for same GI Medical History: Denies: Cirrhosis, Gastroesophageal Reflux Disease, Hepatitis Musculoskeltal Medical History: Reports: Arthritis Psychiatric Medical History: Reports: Depression Hematology: Denies: Anemia Infectious Medical History: Reports: Clostridium Difficile Past Surgical History Past Surgical History: Reports: Hysterectomy, Other - IR pancreatic pseudocyst drainage Social History Lives with: Family Smoking Status: Never Smoker Electronic Cigarette use?: No Frequency of Alcohol Use: None Hx Recreational Drug Use: No Drugs: None Hx Prescription Drug Abuse: No - Advance Directive Resuscitation Status: Full Code Family History Family History: Reviewed & Not Pertinent, Hypertension Parental Family History Reviewed: Yes Children Family History Reviewed: Unknown Sibling(s) Family History Reviewed.: Unknown Medication/Allergy Home Medications: Acetaminophen [Tylenol] 650 mg PO Q6HP PRN 07/11/19 Alprazolam [Xanax 0.25 mg Tablet] 0.25 mg PO Q8HP PRN 07/11/19 Bisacodyl [Dulcolax 10 mg Supp.rect] 10 mg [place] DAILYP PRN 07/11/19 Clopidogrel Bisulfate [Plavix 75 mg Tablet] 75 mg PO DAILY 07/11/19 Docusate Sodium [Colace 100 mg Capsule] 100 mg PO DAILY 07/11/19 Guaifenesin [Robitussin Syrup 200 mg/10 ml Ud Cup] 10 ml PO Q4HP PRN 07/11/19 Hydrocodone/Acetaminophen [[place] 5-325 mg Tablet] 1 tab PO Q6HP PRN 07/11/19 Lisinopril 20 mg PO DAILY 07/11/19 Melatonin [Melatonin 3 mg Tablet] 3 mg PO QHS 07/11/19 Pantoprazole Sodium [Protonix [address] Tablet] 40 mg PO Q6AM 07/11/19 Rivaroxaban [Xarelto] 20 mg PO DAILY 07/11/19 Sertraline HCl [Zoloft 50 mg Tablet] 50 mg PO DAILY 07/11/19 Allergies/Adverse Reactions: aspirin [Aspirin] Allergy (Verified 01/03/17 12:57) lorazepam [From Ativan] Allergy (Verified 01/03/17 12:57) Penicillins Allergy (Verified 01/03/17 12:57) Review of Systems Constitutional: ABSENT: fatigue, fever(s) Eyes: ABSENT: visual disturbances Nose, Mouth, and Throat: ABSENT: headache(s) Cardiovascular: ABSENT: chest pain, orthropnea, palpitations Respiratory: ABSENT: dyspnea Gastrointestinal: PRESENT: abdominal pain, diarrhea, nausea, vomiting Genitourinary: ABSENT: difficulty urinating, dysuria Musculoskeletal: PRESENT: back pain Integumentary: ABSENT: diaphoresis Neurological: PRESENT: frequent falls, weakness. ABSENT: dizziness Psychiatric: ABSENT: anxiety, depression Endocrine: PRESENT: polyuria Physical Exam Vital Signs: Temp Pulse Resp BP Pulse Ox 99.2 F 100 20 118/70 91 L 07/11/19 13:32 07/11/19 10:46 07/11/19 17:30 07/11/19 17:30 07/11/19 17:30 Intake & Output 07/10/19 07/11/19 07/12/19 06:59 06:59 06:59 Intake Total 1000 Balance 1000 Weight 85.2 kg General appearance: PRESENT: no acute distress, cooperative, obese Eye exam: ABSENT: scleral icterus Mouth exam: PRESENT: dry mucosa Neck exam: ABSENT: JVD Respiratory exam: PRESENT: rales - Minimal fine rails in left lung otherwise clear, symmetrical, unlabored. ABSENT: tachypnea, wheezes Cardiovascular exam: PRESENT: RRR, +S1, +S2. ABSENT: tachycardia GI/Abdominal exam: PRESENT: normal bowel sounds, soft, tenderness - Generalized. ABSENT: distended, firm, guarding, rebound, rigid Extremities exam: PRESENT: tenderness - Right knee. ABSENT: joint swelling Neurological exam: PRESENT: alert, awake, oriented to person, oriented to place, oriented to time Psychiatric exam: ABSENT: agitated, anxious Focused psych exam: ABSENT: pressured speech Results Laboratory Results: 07/11/19 09:00 07/11/19 09:00 07/11/19 07/11/19 07/11/19 09:00 09:00 09:55 WBC 3.0 L RBC 4.07 Hgb 12.1 Hct 36.0 MCV 88 MCH 29.6 MCHC 33.5 RDW 14.4 H Plt Count 126 L Seg Neutrophils % Not Reportable Sodium 137.9 Potassium 3.9 Chloride 106 Carbon Dioxide 21 L Anion Gap 11 BUN 33 H Creatinine 1.47 H Est GFR ( Amer) 42 L Glucose 92 Lactic Acid Calcium 9.3 Total Bilirubin 1.0 AST 18 Alkaline Phosphatase 90 Total Protein 6.1 L Albumin 3.1 L Urine Color TOBIAS Urine Appearance CLOUDY Urine pH 7.0 Ur Specific [place] 1.014 Urine Protein 100 H Urine Glucose (UA) NEGATIVE Urine Ketones NEGATIVE Urine Blood MODERATE H Urine Nitrite NEGATIVE Ur Leukocyte Esterase MODERATE H Urine WBC (Auto) >182 Urine RBC (Auto) 36 07/11/19 14:06 WBC RBC Hgb Hct MCV MCH MCHC RDW Plt Count Seg Neutrophils % Sodium Potassium Chloride Carbon Dioxide Anion Gap BUN Creatinine Est GFR ( Amer) Glucose Lactic Acid 0.9 Calcium Total Bilirubin AST Alkaline Phosphatase Total Protein Albumin Urine Color Urine Appearance Urine pH Ur Specific [place] Urine Protein Urine Glucose (UA) Urine Ketones Urine Blood Urine Nitrite Ur Leukocyte Esterase Urine WBC (Auto) Urine RBC (Auto) 07/11/19 07/11/19 09:00 09:00 Creatine Kinase 120 CK-MB (CK-2) 1.53 Troponin I 0.104 Impressions: Head CT 07/11/19 00:00 IMPRESSION: No acute intracranial abnormality. If there is persistent concern for an acute CVA correlation with MRI is recommended. EVIDENCE OF ACUTE STROKE: NO. Chest X-Ray 07/11/19 09:06 IMPRESSION: NO ACUTE RADIOGRAPHIC FINDING IN THE CHEST. Abdomen X-Ray 07/11/19 12:26 IMPRESSION: Nonobstructive bowel gas pattern. Assessment and Plan - Diagnosis (1) Hypotension Qualifiers: Hypotension type: unspecified hypotension type Qualified Code(s): I95.9 - Hypotension, unspecified Is this a current diagnosis for this admission?: Yes Plan: Possibly secondary hypovolemia versus sepsis/infection (though doesn't really appear septic and with normal lactic acid) Patient did appear dry on exam. Will give IV fluids aggressively. BP has been responding to IV fluids. Receiving second liter at time of encounter. Will give 1 more liter and run on continuous IV fluids Admit to IMCU for monitoring (2) UTI (urinary tract infection) Qualifiers: Urinary tract infection type: site unspecified Hematuria presence: with hematuria Qualified Code(s): N39.0 - Urinary tract infection, site not specified; R31.9 - Hematuria, unspecified Is this a current diagnosis for this admission?: Yes Plan: Ceftriaxone Follow-up urine and blood cultures. (3) Acute kidney injury Is this a current diagnosis for this admission?: Yes Plan: Likely secondary to hypotension. Baseline creatinine of 0.7. Currently 1.4. Monitor for fluid response. (4) Abdominal pain Qualifiers: Abdominal location: generalized Qualified Code(s): R10.84 - Generalized abdominal pain Is this a current diagnosis for this admission?: Yes Plan: Associated with vomiting and diarrhea. Abdominal x-ray showing nonobstructive bowel gas pattern. Check CT abdomen and pelvis given history of C. difficile infection and peripancreatic abscess. Check C. difficille during patient's history of of C. difficile (5) Elevated troponin Is this a current diagnosis for this admission?: Yes Plan: 0.1. EKG showing no new changes as compared to prior. Patient endorses no chest pain or shortness of breath. Likely demand ischemia in setting of hypotension and tachycardia. Trend troponin. (6) Lung cancer Qualifiers: Laterality: left Lung location: unspecified part of lung Qualified Code(s): C34.92 - Malignant neoplasm of unspecified part of left bronchus or lung Is this a current diagnosis for this admission?: Yes Plan: s/p chemo and radiation per patient - Time Time Spent with patient: 35 or more minutes
[2019-07-11] MEDS ORDERED: ACETAMINOPHEN 325 MG TABLET PO PRN (19:06)
[2019-07-11] MEDS ORDERED: VANCOMYCIN HCL 0 MG in DEXTROSE 5%-WATER 250 ML IV NR (19:30)
[2019-07-11] MEDS ORDERED: VANCOMYCIN HCL 1,250 MG in DEXTROSE 5%-WATER 250 ML IV ONE (19:30)
[2019-07-11] MEDS ORDERED: HEPARIN SOD (PORCINE) 1,000 UNIT/ML 10 ML VIAL IV PRN (19:30)
[2019-07-11] MEDS ORDERED: CLOPIDOGREL BISULFATE 75 MG TABLET PO ONE (19:45)
[2019-07-11] MEDS ORDERED: NORMAL SALINE 1000 ML 2,000 ML IV ONE (20:30)
[2019-07-11] MEDS ORDERED: VANCOMYCIN HCL 1,250 MG in DEXTROSE 5%-WATER 250 ML IV SCH ×2 (21:00→22:00)
[2019-07-11] MEDS: HYDROCODONE/ACETAMINOPHEN 5-325 MG TABLET PO PRN (21:48)
[2019-07-11] MEDS: ALPRAZOLAM 0.25 MG TABLET PO PRN (21:48)
[2019-07-11] MEDS: NORMAL SALINE 1000 ML 1,000 ML IV PRN (21:49)
[2019-07-11] MEDS ORDERED: RIVAROXABAN 10 MG TABLET PO SCH (22:00)
[2019-07-11] MEDS ORDERED: MELATONIN 3 MG TABLET PO SCH (22:00)
[2019-07-11] MEDS ORDERED: HEPARIN SOD (PORCINE) 5,000 UNIT/ML 1 ML VIAL SUBCUT SCH (22:00)
[2019-07-11 22:16] LABS: HEMATOCRIT 33.4 % (36.0-47.0); HEMOGLOBIN 11.1 g/dL (12.0-15.5); MEAN CORPUSCULAR HEMOGLOBIN 29.6 pg (27.0-33.4); MEAN CORPUSCULAR HGB CONC 33.3 g/dL (32.0-36.0); MEAN CORPUSCULAR VOLUME 89 fl (80-97); PLATELET COUNT 115 10^3/uL (150-450); RED BLOOD COUNT 3.76 10^6/uL (3.72-5.28); RED CELL DISTRIBUTION WIDTH 14.7 % (11.5-14.0)
[2019-07-11 22:25] LABS: INTERNATIONAL RATION (INR) 1.86; PROTHROMBIN TIME 21.7 SEC (11.4-15.4)
[2019-07-11 22:26] LABS: PARTIAL THROMBOPLASTIN TIME 52.4 SEC (23.5-35.8)
[2019-07-11] MEDS: HEPARIN SODIUM,PORCINE/D5W 25,000 UNIT/250 ML RTUINJ IV PRN (22:38)
--- NOTE | 2019-07-11 22:51 | RADIOLOGY REPORT (SQ) ---
EXAM DESCRIPTION: US RETROPERITONEUM COMPLETED DATE/TME: 07/11/2019 00:00 CLINICAL HISTORY: 69 years, Female, kidneystone COMPARISON: Prior CT abdomen/pelvis dated 04/27/2017 TECHNIQUE: Axial 2-D grayscale images of the retroperitoneum were acquired. Doppler was utilized. LIMITATIONS: None. FINDINGS: Left kidney measures 12.2 x 4.5 x 5.7 cm in size. Right kidney measures 11.3 x 5.4 x 5.2 cm in size. It contains a hypoechoic lesion about the upper pole measuring 2.5 x 2.0 x 2.0 cm in size, indeterminate on this examination. There is no hydronephrosis. IMPRESSION: No evidence of hydronephrosis. Hypoechoic lesion located about the upper pole of the right kidney, indeterminate on this examination. Suggest further assessment with renal mass protocol CT or MR. copyright 2010 [employer]- All Rights Reserved
[2019-07-11 23:04] LABS: APPEARANCE,URINE CLOUDY; BILIRUBIN,URINE NEGATIVE (NEGATIVE); COLOR,URINE YELLOW; GLUCOSE, URINE NEGATIVE (NEGATIVE); KETONES,URINE NEGATIVE (NEGATIVE); LEUKOCYTE ESTERASE,URINE LARGE (NEGATIVE); NITRITE,URINE NEGATIVE (NEGATIVE); PROTEIN,URINE 100 mg/dL (NEGATIVE); URINE SPECIFIC GRAVITY 1.008; UROBILINOGEN,URINE NEGATIVE mg/dL (<2.0)
[2019-07-11] MEDS ORDERED: INFLUENZA QUAD (6MOS+) 2019-20 VAC 0.5 ML SYR IM ONE (23:59)
--- NOTE | 2019-07-12 01:47 | CRITICAL CARE ADMISSION REPORT ---
[facility] Date:: 07/11/19 Time:: 23:00 Reason for ICU Reason:: UTI, possible NSTEMI HPI: 69 year old female with a history of left lung cancer, COPD, dementia, hyperlipidemia, hypertension, pulmonary embolism, pancreatic tail abscess, who was sent to the hospital SN[facility] for evaluation of nausea vomiting, diarrhea, body aches abdominal pain and polyuria. Patient's history is not the most reliable as she seems to endorse multiple symptoms. In the ER, patient was noted to be h ypotensive. Urinalysis was positive. She was initially admitted to the hospitalist service for treatment of UTI but then developed ST depressions with elevated troponins and was transferred to ICU for more aggressive observation and treatment. Since arrival in the intensive care unit she has been placed on a heparin drip and her troponins continue to trend downward. She has been normotensive. History obtained from:: Medical Records - Diagnosis/Plan (1) Acute kidney injury Is this a current diagnosis for this admission?: Yes Plan: Continue volume resuscitation with normal saline at 120 mL/h. Recheck renal panel in a.m. (2) Elevated troponin Is this a current diagnosis for this admission?: Yes Plan: Continue surveillance with serial troponins. Continue heparin drip at 1000 units/h. Repeat EKG in a.m. (3) UTI (urinary tract infection) Qualifiers: Urinary tract infection type: site unspecified Hematuria presence: with hematuria Qualified Code(s): N39.0 - Urinary tract infection, site not specified; R31.9 - Hematuria, unspecified Is this a current diagnosis for this admission?: Yes Plan: Continue ceftriaxone. Follow-up urine culture results. Continue volume resuscitation with 120 mL an hour of normal saline. PRN hydrocodone/Tylenol for discomfort. Past Medical History Cardiac Medical History: Reports: Hyperlipidema, Hypertension, Pulmonary Embolism Denies: Atrial Fibrillation, Coronary Artery Disease, Myocardial Infarction Pulmonary Medical History: Reports: Chronic Obstructive Pulmonary Disease (COPD) Denies: Asthma, Bronchitis, Pneumonia, Sleep Apnea Neurological Medical History: Denies: Seizures Endocrine Medical History: Denies: Diabetes Mellitus Type 1, Diabetes Mellitus Type 2, Hyperthyroidism, Hypothyroidism Malignancy Medical History: Reports: Lung Cancer - On chemotherapy for same GI Medical History: Denies: Cirrhosis, Gastroesophageal Reflux Disease, Hepatitis Musculoskeltal Medical History: Reports: Arthritis Psychiatric Medical History: Reports: Depression Hematology: Denies: Anemia Infectious Medical History: Reports: Clostridium Difficile Past Surgical History Past Surgical History: Reports: Hysterectomy, Other - IR pancreatic pseudocyst drainage Social/Family History - Social History Lives with: Family Smoking Status: Never Smoker Frequency of Alcohol Use: None Hx Recreational Drug Use: No Drugs: None Hx Prescription Drug Abuse: No - Medication/Allergies Home Medications: Acetaminophen [Tylenol] 650 mg PO Q6HP PRN 07/11/19 Alprazolam [Xanax 0.25 mg Tablet] 0.25 mg PO Q8HP PRN 07/11/19 Bisacodyl [Dulcolax 10 mg Supp.rect] [address] DAILYP PRN 07/11/19 Clopidogrel Bisulfate [Plavix 75 mg Tablet] 75 mg PO DAILY 07/11/19 Docusate Sodium [Colace 100 mg Capsule] 100 mg PO DAILY 07/11/19 Guaifenesin [Robitussin Syrup 200 mg/10 ml Ud Cup] 10 ml PO Q4HP PRN 07/11/19 Hydrocodone/Acetaminophen [[place] 5-325 mg Tablet] 1 tab PO Q6HP PRN 07/11/19 Lisinopril 20 mg PO DAILY 07/11/19 Melatonin [Melatonin 3 mg Tablet] 3 mg PO QHS 07/11/19 Pantoprazole Sodium [Protonix [address] Tablet] 40 mg PO Q6AM 07/11/19 Rivaroxaban [Xarelto] 20 mg PO DAILY 07/11/19 Sertraline HCl [Zoloft 50 mg Tablet] 50 mg PO DAILY 07/11/19 Allergies/Adverse Reactions: aspirin [Aspirin] Allergy (Verified 01/03/17 12:57) lorazepam [From Ativan] Allergy (Verified 01/03/17 12:57) Penicillins Allergy (Verified 01/03/17 12:57) Review of Systems Constitutional: PRESENT: as per HPI Cardiovascular: ABSENT: chest pain Respiratory: ABSENT: dyspnea Gastrointestinal: PRESENT: abdominal pain, diarrhea, nausea Genitourinary: PRESENT: as per HPI Musculoskeletal: ABSENT: muscle weakness Integumentary: ABSENT: erythema, rash, wounds Neurological: PRESENT: weakness Physical Exam Vital Signs: Temp Pulse Resp BP Pulse Ox 99 F 86 21 H 114/77 96 07/11/19 23:52 07/11/19 21:26 07/11/19 21:26 07/11/19 21:26 07/11/19 21:26 Intake & Output 07/10/19 07/11/19 07/12/19 06:59 06:59 06:59 Intake Total 4250 Output Total 375 Balance 3875 Weight 85.1 kg Weight/Height Weight 85.1 kg Height 5 ft 5 in General appearance: PRESENT: no acute distress Head exam: PRESENT: atraumatic, normocephalic Eye exam: PRESENT: EOMI, PERRLA Mouth exam: PRESENT: moist, neck supple Neck exam: ABSENT: JVD, tenderness Respiratory exam: PRESENT: clear to auscultation melinda, unlabored. ABSENT: accessory muscle use, rales, rhonchi, wheezes Cardiovascular exam: PRESENT: RRR, +S1, +S2 Pulses: PRESENT: normal carotid pulses, normal radial pulses Vascular exam: PRESENT: normal capillary refill GI/Abdominal exam: PRESENT: normal bowel sounds. ABSENT: ascites, distended Musculoskeletal exam: PRESENT: normal inspection Neurological exam: PRESENT: alert, awake, CN II-XII grossly intact Laboratory/Radiographs Laboratory Results: 07/11/19 22:04 07/11/19 09:00 07/11/19 07/11/19 07/11/19 09:00 09:00 09:55 WBC 3.0 L RBC 4.07 Hgb 12.1 Hct 36.0 MCV 88 MCH 29.6 MCHC 33.5 RDW 14.4 H Plt Count 126 L Seg Neutrophils % Not Reportable Sodium 137.9 Potassium 3.9 Chloride 106 Carbon Dioxide 21 L Anion Gap 11 BUN 33 H Creatinine 1.47 H Est GFR ( Amer) 42 L Glucose 92 Lactic Acid Calcium 9.3 Total Bilirubin 1.0 AST 18 Alkaline Phosphatase 90 Total Protein 6.1 L Albumin 3.1 L Urine Color TOBIAS Urine Appearance CLOUDY Urine pH 7.0 Ur Specific [place] 1.014 Urine Protein 100 H Urine Glucose (UA) NEGATIVE Urine Ketones NEGATIVE Urine Blood MODERATE H Urine Nitrite NEGATIVE Ur Leukocyte Esterase MODERATE H Urine WBC (Auto) >182 Urine RBC (Auto) 36 07/11/19 07/11/19 07/11/19 14:06 22:04 22:35 WBC 10.0 D RBC 3.76 Hgb 11.1 L Hct 33.4 L MCV 89 MCH 29.6 MCHC 33.3 RDW 14.7 H Plt Count 115 L Seg Neutrophils % Sodium Potassium Chloride Carbon Dioxide Anion Gap BUN Creatinine Est GFR ( Amer) Glucose Lactic Acid 0.9 Calcium Total Bilirubin AST Alkaline Phosphatase Total Protein Albumin Urine Color YELLOW Urine Appearance CLOUDY Urine pH 7.0 Ur Specific [place] 1.008 Urine Protein 100 H Urine Glucose (UA) NEGATIVE Urine Ketones NEGATIVE Urine Blood MODERATE H Urine Nitrite NEGATIVE Ur Leukocyte Esterase LARGE H Urine WBC (Auto) 158 Urine RBC (Auto) 11 07/11/19 07/11/19 07/11/19 09:00 09:00 17:44 Creatine Kinase 120 CK-MB (CK-2) 1.53 Troponin I 0.104 0.276 07/11/19 23:18 Creatine Kinase CK-MB (CK-2) Troponin I 0.189 Impressions: Head CT 07/11/19 00:00 IMPRESSION: No acute intracranial abnormality. If there is persistent concern for an acute CVA correlation with MRI is recommended. EVIDENCE OF ACUTE STROKE: NO. Renal Ultrasound 07/11/19 00:00 IMPRESSION: No evidence of hydronephrosis. Hypoechoic lesion located about the upper pole of the right kidney, indeterminate on this examination. Suggest further assessment with renal mass protocol CT or MR. copyright 2011 [employer]- All Rights Reserved Chest X-Ray 07/11/19 09:06 IMPRESSION: NO ACUTE RADIOGRAPHIC FINDING IN THE CHEST. Abdomen X-Ray 07/11/19 12:26 IMPRESSION: Nonobstructive bowel gas pattern. All labs, radiographs, diagnostic studies and EKGs were personally reviewed: Yes In addition, reports of radiographic and diagnostic studies were read: Yes Critical Time Critical Time (minutes): 70 -: The care of a critically ill patient is dynamic. This note represents a static moment in the admission process. Orders and treatments may be given simultaneously and urgently, and time is not claims service representative of the treatment process. This patient requires Critical Care secondary to life threatening organ or limb dysfunction. Without Critical Care services, the patient is at risk for in creased mortality and morbidity.
[2019-07-12 04:11] LABS: C DIFFICILE GDH POSITIVE (NEGATIVE)
[2019-07-12] MEDS: NORMAL SALINE 1000 ML 1,000 ML IV PRN ×3 (05:17→22:58)
[2019-07-12] MEDS: PANTOPRAZOLE SODIUM 40 MG TABLET.DR PO SCH (05:17)
[2019-07-12] MEDS ORDERED: NORMAL SALINE 100 ML with INSULIN REGULAR, HUMAN 100 UNIT IV PRN ×2 (06:49)
[2019-07-12] MEDS ORDERED: GLUCAGON,HUMAN RECOMB 1 MG INJ IM PRN (06:49)
[2019-07-12] MEDS ORDERED: DEXTROSE 50%-WATER 25 GM/50 ML DISP.SYRIN IV PRN ×2 (06:49)
[2019-07-12] MEDS ORDERED: DEXTROSE 40% GEL 15 GM TUBE PO PRN ×2 (06:49)
[2019-07-12 07:07] LABS: ABSOLUTE EOSINOPHILS # (AUTO) 0.2 10^3/uL (0.0-0.6); ABSOLUTE LYMPHOCYTES (AUTO) 0.6 10^3/uL (0.5-4.7); ABSOLUTE MONOCYTES (AUTO) 0.5 10^3/uL (0.1-1.4); ABSOLUTE NEUT (AUTO) 7.6 10^3/uL (1.7-8.2); BASOPHILS % (AUTO) 0.3 % (0-2); EOSINOPHILS % (AUTO) 2.5 % (0-6); HEMOGLOBIN 10.9 g/dL (12.0-15.5); LYMPHOCYTES % (AUTO) 6.6 % (13-45); MEAN CORPUSCULAR HGB CONC 33.9 g/dL (32.0-36.0); MEAN CORPUSCULAR VOLUME 88 fl (80-97); MONOCYTES % (AUTO) 5.4 % (3-13); PLATELET COUNT 110 10^3/uL (150-450); RED BLOOD COUNT 3.63 10^6/uL (3.72-5.28); RED CELL DISTRIBUTION WIDTH 14.7 % (11.5-14.0); SEGMENTED NEUTROPHILS % (AUTO) 85.2 % (42-78); TOTAL CELLS COUNTED % (AUTO) 100 %; WHITE BLOOD COUNT 8.9 10^3/uL (4.0-10.5)
[2019-07-12 07:18] LABS: ALBUMIN 2.5 g/dL (3.5-5.0); ALKALINE PHOSPHATASE 74 U/L (38-126); ANION GAP 6 (5-19); ASPARTATE AMINO TRANSFERASE 20 U/L (14-36); BILIRUBIN,TOTAL 0.4 mg/dL (0.2-1.3); BLOOD UREA NITROGEN 26 mg/dL (7-20); CALCIUM 8.7 mg/dL (8.4-10.2); CARBON DIOXIDE 21 mmol/L (22-30); CHLORIDE 113 mmol/L (98-107); GLUCOSE 79 mg/dL (75-110); PHOSPHORUS 2.6 mg/dL (2.5-4.5); POTASSIUM 3.5 mmol/L (3.6-5.0); TOTAL PROTEIN 5.1 g/dL (6.3-8.2)
[2019-07-12] MEDS ORDERED: RINGERS SOLUTION,LACTATED 1,000 ML IV ONE (09:13)
--- NOTE | 2019-07-12 11:24 | PDOC CRITICAL CARE PROG REPORT ---
General Date:: 07/12/19 - Critical Care Attending Note Resuscitation Status: Full Code Events in the past 12 to 24 Hours:: Pt was transferred to the ICU last night for hypotension. Today her SBP in the 130s. She has no complaints. Reason for ICU Addmission:: UTI, possible NSTEMI - Medications: Medications reviewed and adjusted accordingly: Yes Physical Exam Vital Signs: Temp Pulse Resp BP Pulse Ox 98.9 F 64 17 111/67 100 07/12/19 10:00 07/12/19 10:00 07/12/19 10:00 07/12/19 10:00 07/12/19 10:00 Intake & Output 07/11/19 07/12/19 07/13/19 06:59 06:59 06:59 Intake Total 5146 Output Total 900 600 Balance 4246 -600 Weight 85.6 kg 85.6 kg Weight/Height Weight 85.6 kg Height 5 ft 5 in General appearance: PRESENT: no acute distress, well-developed, well-nourished Head exam: PRESENT: atraumatic, normocephalic Respiratory exam: PRESENT: clear to auscultation melinda, unlabored Cardiovascular exam: PRESENT: RRR GI/Abdominal exam: PRESENT: soft Gentrourinary exam: PRESENT: indwelling catheter Neurological exam: PRESENT: alert, awake Laboratory/Radiographs Laboratory Results: 07/12/19 06:12 07/12/19 06:12 07/11/19 07/11/19 07/11/19 09:00 14:06 19:15 WBC 3.0 L RBC 4.07 Hgb 12.1 Hct 36.0 MCV 88 MCH 29.6 MCHC 33.5 RDW 14.4 H Plt Count 126 L Seg Neutrophils % Sodium Potassium Chloride Carbon Dioxide Anion Gap BUN Creatinine Est GFR ( Amer) Glucose Lactic Acid 0.9 Calcium Phosphorus Magnesium Total Bilirubin AST Alkaline Phosphatase Total Protein Albumin Urine Color Urine Appearance Urine pH Ur Specific [place] Urine Protein Urine Glucose (UA) Urine Ketones Urine Blood Urine Nitrite Ur Leukocyte Esterase Urine WBC (Auto) Urine RBC (Auto) Stl C.difficile Tox PCR NEGATIVE 07/11/19 07/11/19 07/12/19 22:04 22:35 06:12 WBC 10.0 D 8.9 RBC 3.76 3.63 L Hgb 11.1 L 10.9 L Hct 33.4 L 32.0 L MCV 89 88 MCH 29.6 30.0 MCHC 33.3 33.9 RDW 14.7 H 14.7 H Plt Count 115 L 110 L Seg Neutrophils % 85.2 H Sodium Potassium Chloride Carbon Dioxide Anion Gap BUN Creatinine Est GFR ( Amer) Glucose Lactic Acid Calcium Phosphorus Magnesium Total Bilirubin AST Alkaline Phosphatase Total Protein Albumin Urine Color YELLOW Urine Appearance CLOUDY Urine pH 7.0 Ur Specific [place] 1.008 Urine Protein 100 H Urine Glucose (UA) NEGATIVE Urine Ketones NEGATIVE Urine Blood MODERATE H Urine Nitrite NEGATIVE Ur Leukocyte Esterase LARGE H Urine WBC (Auto) 158 Urine RBC (Auto) 11 Stl C.difficile Tox PCR 07/12/19 06:12 WBC RBC Hgb Hct MCV MCH MCHC RDW Plt Count Seg Neutrophils % Sodium 140.3 Potassium 3.5 L Chloride 113 H Carbon Dioxide 21 L Anion Gap 6 BUN 26 H Creatinine 1.18 Est GFR ( Amer) 55 L Glucose 79 Lactic Acid Calcium 8.7 Phosphorus 2.6 Magnesium 1.7 Total Bilirubin 0.4 AST 20 Alkaline Phosphatase 74 Total Protein 5.1 L Albumin 2.5 L Urine Color Urine Appearance Urine pH Ur Specific [place] Urine Protein Urine Glucose (UA) Urine Ketones Urine Blood Urine Nitrite Ur Leukocyte Esterase Urine WBC (Auto) Urine RBC (Auto) Stl C.difficile Tox PCR 07/11/19 07/11/19 07/11/19 09:00 09:00 17:44 Creatine Kinase 120 CK-MB (CK-2) 1.53 Troponin I 0.104 0.276 07/11/19 23:18 Creatine Kinase CK-MB (CK-2) Troponin I 0.189 Impressions: Head CT 07/11/19 00:00 IMPRESSION: No acute intracranial abnormality. If there is persistent concern for an acute CVA correlation with MRI is recommended. EVIDENCE OF ACUTE STROKE: NO. Renal Ultrasound 07/11/19 00:00 IMPRESSION: No evidence of hydronephrosis. Hypoechoic lesion located about the upper pole of the right kidney, indeterminate on this examination. Suggest further assessment with renal mass protocol CT or MR. copyright 2010 [employer]- All Rights Reserved Chest X-Ray 07/11/19 09:06 IMPRESSION: NO ACUTE RADIOGRAPHIC FINDING IN THE CHEST. Abdomen X-Ray 07/11/19 12:26 IMPRESSION: Nonobstructive bowel gas pattern. All labs, radiographs, diagnostic studies and EKGs were personally reviewed: Yes Assessment and Plan - Diagnosis (1) UTI (urinary tract infection) Qualifiers: Urinary tract infection type: site unspecified Hematuria presence: with hematuria Qualified Code(s): N39.0 - Urinary tract infection, site not specified; R31.9 - Hematuria, unspecified Is this a current diagnosis for this admission?: Yes (2) Sepsis Is this a current diagnosis for this admission?: Yes (3) Elevated troponin Is this a current diagnosis for this admission?: Yes (4) Acute kidney injury Is this a current diagnosis for this admission?: Yes Plan Summary: Assessment: 69 yo woman with UTI, sepsis, ROCK, elevated troponin, h/o PE. Plan: 1. Respiratory: stable on nasal cannula. Wean to RA as tolerated 2. CV: hypotension has resolved with IVF. SBP now in the 130s. Elevated troponin. On heparin drip. On asa. Echo ordered. Pt is without chest pain. Troponin is 0.189. Troponin elevation may be due to demand ischemia in the setting of her sepsis and hypotension. 3. Pulmonary: h/o PE. On xarelto as outpt. Currently on heparin drip. h/o lung cancer 4. ID: sepsis, UTI. Continue rocephin 5. Disposition: stable for transfer to telemetry floor. Critical Time Critical Time (minutes): 0 Level of Care: TELE -: 1. The care of a critical patient is a dynamic process. This note is a hobbies and crafts sales representative synopsis but static in nature. The timeframe for treatments given in order is not necessarily the actual time these treatments may have been done. 2. This patient requires critical care secondary to ongoing requirements for therapy not offered or safe outside the critical care environment. Transfer to a lower level of care will result in altered life or limb morbidity and mortality. 3. Multidisciplinary rounds completed. 4. ABCDE bundle addressed.
[2019-07-12] MEDS: CEFTRIAXONE 1 GM/D5W RTU 1 GM/50 ML RTUPB IV SCH (12:00)
[2019-07-12] MEDS: HYDROCODONE/ACETAMINOPHEN 5-325 MG TABLET PO PRN ×2 (12:00→17:46)
[2019-07-12] MEDS: ALPRAZOLAM 0.25 MG TABLET PO PRN (12:00)
[2019-07-12] MEDS: SERTRALINE HCL 50 MG TABLET PO SCH (12:01)
[2019-07-12] MEDS: CLOPIDOGREL BISULFATE 75 MG TABLET PO SCH (12:01)
[2019-07-12] MEDS: HEPARIN SODIUM,PORCINE/D5W 25,000 UNIT/250 ML RTUINJ IV PRN (20:44)
--- NOTE | 2019-07-12 23:33 | EKG REPORT ---
SEVERITY:- BORDERLINE ECG - SINUS RHYTHM, APCs LOW VOLTAGE THROUGHOUT : Confirmed by: Royce Yeung 12-Jul-2019 23:32:37
[2019-07-13] MEDS: HYDROCODONE/ACETAMINOPHEN 5-325 MG TABLET PO PRN ×2 (02:45→21:19)
[2019-07-13 05:58] LABS: ABSOLUTE EOSINOPHILS # (AUTO) 0.2 10^3/uL (0.0-0.6); ABSOLUTE LYMPHOCYTES (AUTO) 0.7 10^3/uL (0.5-4.7); ABSOLUTE MONOCYTES (AUTO) 0.5 10^3/uL (0.1-1.4); ABSOLUTE NEUT (AUTO) 5.7 10^3/uL (1.7-8.2); BASOPHILS % (AUTO) 0.1 % (0-2); EOSINOPHILS % (AUTO) 2.4 % (0-6); HEMATOCRIT 30.4 % (36.0-47.0); HEMOGLOBIN 10.5 g/dL (12.0-15.5); LYMPHOCYTES % (AUTO) 9.3 % (13-45); MEAN CORPUSCULAR HEMOGLOBIN 30.4 pg (27.0-33.4); MEAN CORPUSCULAR HGB CONC 34.5 g/dL (32.0-36.0); MEAN CORPUSCULAR VOLUME 88 fl (80-97); MONOCYTES % (AUTO) 7.1 % (3-13); PLATELET COUNT 118 10^3/uL (150-450); RED BLOOD COUNT 3.45 10^6/uL (3.72-5.28); RED CELL DISTRIBUTION WIDTH 14.8 % (11.5-14.0); SEGMENTED NEUTROPHILS % (AUTO) 81.1 % (42-78); TOTAL CELLS COUNTED % (AUTO) 100 %
[2019-07-13 06:20] LABS: ALBUMIN 2.3 g/dL (3.5-5.0); ALKALINE PHOSPHATASE 66 U/L (38-126); ANION GAP 5 (5-19); ASPARTATE AMINO TRANSFERASE 14 U/L (14-36); BILIRUBIN,TOTAL 0.2 mg/dL (0.2-1.3); BLOOD UREA NITROGEN 17 mg/dL (7-20); CALCIUM 8.6 mg/dL (8.4-10.2); CARBON DIOXIDE 21 mmol/L (22-30); CHLORIDE 113 mmol/L (98-107); GLUCOSE 87 mg/dL (75-110); POTASSIUM 3.5 mmol/L (3.6-5.0); TOTAL PROTEIN 4.8 g/dL (6.3-8.2)
[2019-07-13] MEDS: PANTOPRAZOLE SODIUM 40 MG TABLET.DR PO SCH (09:49)
[2019-07-13] MEDS: CLOPIDOGREL BISULFATE 75 MG TABLET PO SCH (09:49)
[2019-07-13] MEDS: SERTRALINE HCL 50 MG TABLET PO SCH (09:49)
[2019-07-13] MEDS: CEFTRIAXONE 1 GM/D5W RTU 1 GM/50 ML RTUPB IV SCH (09:49)
--- NOTE | 2019-07-13 13:13 | PDOC PROGRESS REPORT ---
Subjective Progress Note for:: 07/13/19 Subjective:: Patient transferred back to hospitalist service from ICU. Patient only stayed in the ICU for about a day and required no pressors. Blood pressure responded to fluids. Patient currently complains of bilateral neck pain. Thinks is from how she slept. Denies any abdominal pain at this moment. Reason For Visit: HYPOTENSION,UROSEPSIS Physical Exam Vital Signs: Temp Pulse Resp BP Pulse Ox 98.4 F 66 17 119/60 97 07/13/19 08:00 07/13/19 08:00 07/13/19 08:00 07/13/19 08:00 07/13/19 08:00 Intake & Output 07/12/19 07/13/19 07/14/19 06:59 06:59 06:59 Intake Total 5146 2871 1163 Output Total 900 1160 875 Balance 4246 1711 288 Weight 85.6 kg 88.3 kg Results Laboratory Results: 07/13/19 05:09 07/13/19 05:09 07/13/19 07/13/19 05:09 05:09 WBC 7.0 RBC 3.45 L Hgb 10.5 L Hct 30.4 L MCV 88 MCH 30.4 MCHC 34.5 RDW 14.8 H Plt Count 118 L Seg Neutrophils % 81.1 H Sodium 139.0 Potassium 3.5 L Chloride 113 H Carbon Dioxide 21 L Anion Gap 5 BUN 17 Creatinine 0.95 Est GFR ( Amer) > 60 Glucose 87 Calcium 8.6 Total Bilirubin 0.2 AST 14 Alkaline Phosphatase 66 Total Protein 4.8 L Albumin 2.3 L 07/11/19 14:06 Blood Blood Culture (PCR) - Final Escherichia Coli 07/11/19 07/11/19 07/11/19 09:00 09:00 17:44 Creatine Kinase 120 CK-MB (CK-2) 1.53 Troponin I 0.104 0.276 07/11/19 23:18 Creatine Kinase CK-MB (CK-2) Troponin I 0.189 Impressions: Head CT 07/11/19 00:00 IMPRESSION: No acute intracranial abnormality. If there is persistent concern for an acute CVA correlation with MRI is recommended. EVIDENCE OF ACUTE STROKE: NO. Renal Ultrasound 07/11/19 00:00 IMPRESSION: No evidence of hydronephrosis. Hypoechoic lesion located about the upper pole of the right kidney, indeterminate on this examination. Suggest further assessment with renal mass protocol CT or MR. copyright 2010 [employer]- All Rights Reserved Chest X-Ray 07/11/19 09:06 IMPRESSION: NO ACUTE RADIOGRAPHIC FINDING IN THE CHEST. Abdomen X-Ray 07/11/19 12:26 IMPRESSION: Nonobstructive bowel gas pattern. Assessment and Plan - Diagnosis (1) UTI (urinary tract infection) Qualifiers: Urinary tract infection type: acute cystitis Hematuria presence: with hematuria Qualified Code(s): N30.01 - Acute cystitis with hematuria Is this a current diagnosis for this admission?: Yes Plan: Likely E. coli. Urine culture growing gram-negative rods. Follow-up sensitivities and speciation. Continue ceftriaxone day 3 (2) E coli bacteremia Is this a current diagnosis for this admission?: Yes Plan: Secondary to UTI. Continue antibiotics and repeat blood cultures today. (3) Sepsis Qualifiers: Sepsis type: Escherichia coli Sepsis acute organ dysfunction status: with acute organ dysfunction Severe sepsis acute organ dysfunction type: acute renal failure Acute renal failure type: unspecified Severe sepsis shock status: without septic shock Qualified Code(s): A41.51 - Sepsis due to Escherichia coli [E. coli]; R65.20 - Severe sepsis without septic shock; N17.9 - Acute kidney failure, unspecified Is this a current diagnosis for this admission?: Yes Plan: Secondary to urinary tract infection and associated with hypotension but did not require any pressors while in the ICU. Adequately fluid resuscitated. We will go ahead and discontinue fluids at this time. Continue antibiotics. (4) Acute kidney injury Is this a current diagnosis for this admission?: Yes Plan: Likely secondary to hypotension. Resolved. (5) Abdominal pain Qualifiers: Abdominal location: generalized Qualified Code(s): R10.84 - Generalized abdominal pain Is this a current diagnosis for this admission?: Yes Plan: Likely secondary to sepsis. C. difficile negative. Abdominal pain resolved. (6) Elevated troponin Is this a current diagnosis for this admission?: Yes Plan: Likely demand ischemia in setting of hypotension and tachycardia. ACS unlikely. I have discontinued heparin drip which was on for 48 hours. Resume patient's usual anticoagulation. (7) Lung cancer Qualifiers: Laterality: left Lung location: unspecified part of lung Qualified Code(s): C34.92 - Malignant neoplasm of unspecified part of left bronchus or alfred g Is this a current diagnosis for this admission?: Yes - Time Time Spent with patient: 15-24 minutes
[2019-07-13] MEDS: CYCLOBENZAPRINE HCL 10 MG TABLET PO SCH ×2 (15:00→21:19)
[2019-07-13] MEDS: RIVAROXABAN 10 MG TABLET PO SCH (17:13)
[2019-07-14] MEDS: CYCLOBENZAPRINE HCL 10 MG TABLET PO SCH ×2 (06:55→13:36)
[2019-07-14] MEDS: PANTOPRAZOLE SODIUM 40 MG TABLET.DR PO SCH (06:56)
[2019-07-14] MEDS: SERTRALINE HCL 50 MG TABLET PO SCH (09:37)
[2019-07-14] MEDS: CEFTRIAXONE 1 GM/D5W RTU 1 GM/50 ML RTUPB IV SCH (09:37)
[2019-07-14] MEDS: CLOPIDOGREL BISULFATE 75 MG TABLET PO SCH (09:37)
--- NOTE | 2019-07-14 11:11 | PDOC DISCHARGE SUMMARY ---
Impression - Admit/DC Date/PCP Admission Date/Primary Care Provider: 07/11/19 17:00 Discharge Date: 07/14/19 - Discharge Diagnosis (1) UTI (urinary tract infection) Is this a current diagnosis for this admission?: Yes (2) E coli bacteremia Is this a current diagnosis for this admission?: Yes (3) Sepsis Is this a current diagnosis for this admission?: Yes (4) Acute kidney injury Is this a current diagnosis for this admission?: Yes (5) Abdominal pain Is this a current diagnosis for this admission?: Yes (6) Elevated troponin Is this a current diagnosis for this admission?: Yes (7) Lung cancer Is this a current diagnosis for this admission?: Yes (8) Stiffness of both knees Is this a current diagnosis for this admission?: Yes - Additional Information Resuscitation Status: Full Code Prescriptions: Prednisone [Deltasone 20 mg Tablet] 20 mg PO DAILY 5 Days #5 tablet Levofloxacin [Levaquin 500 mg Tablet] 500 mg PO DAILY 6 Days #6 tablet Home Medications: Acetaminophen [Tylenol] 650 mg PO Q6HP PRN 07/11/19 Alprazolam [Xanax 0.25 mg Tablet] 0.25 mg PO Q8HP PRN 07/11/19 Bisacodyl [Dulcolax 10 mg Supp.rect] 10 mg ME DAILYP PRN 07/11/19 Clopidogrel Bisulfate [Plavix 75 mg Tablet] 75 mg PO DAILY 07/11/19 Docusate Sodium [Colace 100 mg Capsule] 100 mg PO DAILY 07/11/19 Guaifenesin [Robitussin Syrup 200 mg/10 ml Ud Cup] 10 ml PO Q4HP PRN 07/11/19 Hydrocodone/Acetaminophen [[place] 5-325 mg Tablet] 1 tab PO Q6HP PRN 07/11/19 Lisinopril 20 mg PO DAILY 07/11/19 Melatonin [Melatonin 3 mg Tablet] 3 mg PO QHS 07/11/19 Pantoprazole Sodium [Protonix [address] Tablet] 40 mg PO Q6AM 07/11/19 Rivaroxaban [Xarelto] 20 mg PO DAILY 07/11/19 Sertraline HCl [Zoloft 50 mg Tablet] 50 mg PO DAILY 07/11/19 Cyclobenzaprine HCl [Flexeril 10 mg Tablet] 5 mg PO Q8HP PRN 10 Days tablet 07/14/19 Levofloxacin [Levaquin 500 mg Tablet] 500 mg PO DAILY 6 Days #6 tablet 07/14/19 Prednisone [Deltasone 20 mg Tablet] 20 mg PO DAILY 5 Days #5 tablet 07/14/19 History of Present Illiness History of Present Illness: XIOMARA SETHI is a 69 year old female with a history of left lung cancer, COPD, dementia, hyperlipidemia, hypertension, pulmonary embolism, pancreatic tail abscess, who was sent to the hospital from [facility] for evaluation of nausea vomiting and body aches. Patient has been experiencing symptoms for the past few days and endorses an episode of diarrhea yesterday and 2 episodes today. Patient also endorses polyuria. She notes some abdominal pain and also more generalized pain in her knees and ankles. Patient's history is not the most reliable as she seems to endorse multiple symptoms. In the ER, patient was noted to be hypotensive. Urinalysis was positive. Subsequently referred to hospitalist service for admission for treatment of urinary tract infection and hypotension. Patient denies any shortness of breath cough or chest pain at this time. Hospital Course Hospital Course: Patient initially complained of generalized body aches, polyuria and abdominal pain and was admitted for severe sepsis secondary to urinary tract infection. Patient did not notably have bandemia with leukopenia, hypotension and ROCK. C. difficile testing was negative. Abdominal x-rays showed nonobstructive bowel gas pattern. Patient was given aggressive IV fluids and transferred almost immediately upon admission to the intensive care unit given persistence of hypotension. However, patient never required pressors and later started to respond adequately to IV fluids. Patient was placed on ceftriaxone and vancomycin initially but vancomycin was later discontinued. Patient was stable in the ICU and later transferred back to the medical floor. Patient's urine culture grew out Proteus and blood culture grew out gram-negative rods and E. coli. Patient has remained stable on ceftriaxone and her WBC count has normalized. ROCK has also resolved. Patient also notably had elevated troponin on admission without any EKG changes and peaked around 0.2 then down trended. Of note she never had any chest pain or shortness of breath throughout. This troponin elevation was likely secondary to type II NSTEMI i.e. demand perfusion mismatch secondary to severe sepsis and hypotension. Patient did however receive therapeutic heparin treatment for 48 hours then discontinued and placed back on her home anticoagulation. Patient does endorse some polyarthritis involving her knees with morning stiffness. She has never received a diagnosis of rheumatoid arthritis but states that his symptoms are chronic for the past se veral years. I will give her a trial of baby dose of prednisone for a few days to alleviate symptoms. Patient is safe and stable for discharge at this time will be discharged on Levaquin to complete treatment of acute urinary tract infection with E. coli bacteremia. Patient will need follow-up with her primary care provider for further care. Physical Exam Vital Signs: Temp Pulse Resp BP Pulse Ox 98.2 F 75 18 130/88 H 98 07/14/19 07:58 07/14/19 07:58 07/14/19 07:58 07/14/19 07:58 07/14/19 07:58 Intake & Output 07/13/19 07/14/19 07/15/19 06:59 06:59 06:59 Intake Total 2871 1621 Output Total 1160 1400 Balance 1711 221 Weight 88.3 kg 84 kg General appearance: PRESENT: no acute distress, cooperative Neck exam: ABSENT: JVD Respiratory exam: PRESENT: clear to auscultation melinda Cardiovascular exam: PRESENT: +S1, +S2 GI/Abdominal exam: PRESENT: normal bowel sounds, soft, tenderness - mild. ABSENT: distended, firm, guarding, rebound, rigid Results Laboratory Results: WBC 7.0 10^3/uL (4.0-10.5) 07/13/19 05:09 RBC 3.45 10^6/uL (3.72-5.28) L 07/13/19 05:09 Hgb 10.5 g/dL (12.0-15.5) L 07/13/19 05:09 Hct 30.4 % (36.0-47.0) L 07/13/19 05:09 MCV 88 fl (80-97) 07/13/19 05:09 MCH 30.4 pg (27.0-33.4) 07/13/19 05:09 MCHC 34.5 g/dL (32.0-36.0) 07/13/19 05:09 RDW 14.8 % (11.5-14.0) H 07/13/19 05:09 Plt Count 118 10^3/uL (150-450) L 07/13/19 05:09 Lymph % (Auto) 9.3 % (13-45) L 07/13/19 05:09 Boyd % (Auto) 7.1 % (3-13) 07/13/19 05:09 Eos % (Auto) 2.4 % (0-6) 07/13/19 05:09 Baso % (Auto) 0.1 % (0-2) 07/13/19 05:09 Absolute Neuts (auto) 5.7 10^3/uL (1.7-8.2) 07/13/19 05:09 Absolute Lymphs (auto) 0.7 10^3/uL (0.5-4.7) 07/13/19 05:09 Absolute Monos (auto) 0.5 10^3/uL (0.1-1.4) 07/13/19 05:09 Absolute Eos (auto) 0.2 10^3/uL (0.0-0.6) 07/13/19 05:09 Absolute Basos (auto) 0.0 10^3/uL (0.0-0.2) 07/13/19 05:09 Total Counted 100 07/11/19 09:00 Seg Neutrophils % 81.1 % (42-78) H 07/13/19 05:09 Seg Neuts % (Manual) 84 % (42-78) H 07/11/19 09:00 Band Neutrophils % 11 % (3-5) H 07/11/19 09:00 Lymphocytes % (Manual) 4 % (13-45) L 07/11/19 09:00 Monocytes % (Manual) 0 % (3-13) L 07/11/19 09:00 Eosinophils % (Manual) 0 % (0-6) 07/11/19 09:00 Basophils % (Manual) 0 % (0-2) 07/11/19 09:00 Metamyelocytes % 1 % (0-1) 07/11/19 09:00 Abs Neuts (Manual) 2.9 10^3/uL (1.7-8.2) 07/11/19 09:00 Abs Lymphs (Manual) 0.1 10^3/uL (0.5-4.7) L 07/11/19 09:00 Abs Monocytes (Manual) 0.0 10^3/uL (0.1-1.4) L 07/11/19 09:00 Absolute Eos (Manual) 0.0 10^3/uL (0.0-0.6) 07/11/19 09:00 Abs Basophils (Manual) 0.0 10^3/uL (0.0-0.2) 07/11/19 09:00 Toxic Granulation SLIGHT 07/11/19 09:00 Toxic Vacuolation PRESENT 07/11/19 09:00 Platelet Comment DECREASED 07/11/19 09:00 Anisocytosis SLIGHT 07/11/19 09:00 PT 21.7 SEC (11.4-15.4) H 07/11/19 22:04 INR 1.86 07/11/19 22:04 APTT 49.1 SEC (23.5-35.8) H 07/13/19 05:09 Sodium 139.0 mmol/L (137-145) 07/13/19 05:09 Potassium 3.5 mmol/L (3.6-5.0) L 07/13/19 05:09 Chloride 113 mmol/L (98-107) H 07/13/19 05:09 Carbon Dioxide 21 mmol/L (22-30) L 07/13/19 05:09 Anion Gap 5 (5-19) 07/13/19 05:09 BUN 17 mg/dL (7-20) 07/13/19 05:09 Creatinine 0.95 mg/dL (0.52-1.25) 07/13/19 05:09 Est GFR ( Amer) > 60 (>60) 07/13/19 05:09 Est GFR (MDRD) Non-Af 58 (>60) L 07/13/19 05:09 Glucose 87 mg/dL (75-110) 07/13/19 05:09 Lactic Acid 0.9 mmol/L (0.7-2.1) 07/11/19 14:06 Calcium 8.6 mg/dL (8.4-10.2) 07/13/19 05:09 Phosphorus 2.6 mg/dL (2.5-4.5) 07/12/19 06:12 Magnesium 1.7 mg/dL (1.6-2.3) 07/12/19 06:12 Total Bilirubin 0.2 mg/dL (0.2-1.3) 07/13/19 05:09 Direct Bilirubin 0.0 mg/dL (0.0-0.4) 07/13/19 05:09 Neonat Total Bilirubin Not Reportable 07/13/19 05:09 Neonat Direct Bilirubin Not Reportable 07/13/19 05:09 Neonat Indirect Bili Not Reportable 07/13/19 05:09 AST 14 U/L (14-36) 07/13/19 05:09 ALT 6 U/L (<35) 07/13/19 05:09 Alkaline Phosphatase 66 U/L (38-126) 07/13/19 05:09 Creatine Kinase 120 U/L (30-135) 07/11/19 09:00 CK-MB (CK-2) 1.53 ng/mL (<4.55) 07/11/19 09:00 Troponin I 0.189 ng/mL 07/11/19 23:18 Total Protein 4.8 g/dL (6.3-8.2) L 07/13/19 05:09 Albumin 2.3 g/dL (3.5-5.0) L 07/13/19 05:09 Urine Color YELLOW 07/11/19 22:35 Urine Appearance CLOUDY 07/11/19 22:35 Urine pH 7.0 (5.0-9.0) 07/11/19 22:35 Ur Specific [place] 1.008 07/11/19 22:35 Urine Protein 100 mg/dL (NEGATIVE) H 07/11/19 22:35 Urine Glucose (UA) NEGATIVE mg/dL (NEGATIVE) 07/11/19 22:35 Urine Ketones NEGATIVE mg/dL (NEGATIVE) 07/11/19 22:35 Urine Blood MODERATE (NEGATIVE) H 07/11/19 22:35 Urine Nitrite NEGATIVE (NEGATIVE) 07/11/19 22:35 Urine Bilirubin NEGATIVE (NEGATIVE) 07/11/19 22:35 Urine Urobilinogen NEGATIVE mg/dL (<2.0) 07/11/19 22:35 Ur Leukocyte Esterase LARGE (NEGATIVE) H 07/11/19 22:35 Urine WBC (Auto) 158 /HPF 07/11/19 22:35 Urine RBC (Auto) 11 /HPF 07/11/19 22:35 Urine Bacteria (Auto) TRACE /HPF 07/11/19 22:35 Urine WBC Clumps FEW /HPF 07/11/19 22:35 Squamous Epi Cells Auto 2 /HPF 01/31/20 22:35 U Non-Squamous Epis Auto 2 /HPF 07/11/19 09:55 Amorphous Sediment Auto 1+ /HPF 07/11/19 09:55 Urine Mucus (Auto) RARE /LPF 07/11/19 22:35 Urine Ascorbic Acid NEGATIVE (NEGATIVE) 07/11/19 22:35 Stl C. Difficile GDH Ag POSITIVE (NEGATIVE) 07/11/19 19:15 Stl C.difficile Tox A&B NEGATIVE (NEGATIVE) 07/11/19 19:15 Stl C.difficile Tox PCR NEGATIVE (NEGATIVE) 07/11/19 19:15 07/11/19 07/11/19 07/11/19 09:00 17:44 23:18 CK-MB (CK-2) 1.53 Troponin I 0.104 0.276 0.189 Impressions: Head CT 07/11/19 00:00 IMPRESSION: No acute intracranial abnormality. If there is persistent concern for an acute CVA correlation with MRI is recommended. EVIDENCE OF ACUTE STROKE: NO. Renal Ultrasound 07/11/19 00:00 IMPRESSION: No evidence of hydronephrosis. Hypoechoic lesion located about the upper pole of the right kidney, indeterminate on this examination. Suggest further assessment with renal mass protocol CT or MR. copyright 2011 [employer]- All Rights Reserved Chest X-Ray 07/11/19 09:06 IMPRESSION: NO ACUTE RADIOGRAPHIC FINDING IN THE CHEST. Abdomen X-Ray 07/11/19 12:26 IMPRESSION: Nonobstructive bowel gas pattern. Plan Time Spent: Greater than 30 Minutes Stroke Is this a Stroke Patient?: No Acute Heart Failure - Is this a Heart Failure Patient?: No
[2019-07-14 13:23] LABS: PATH REVIEW PATHOLOGIST REVIEWED
[2019-07-14 15:32] VITALS: BP 117/83
[2019-07-14] MEDS: RIVAROXABAN 10 MG TABLET PO SCH (16:33)
== END 2019-07-14 16:59 | DRG 871 ==
LOC: ER 08:38 → EH 17:00 → 3S 19:40 → ICU 21:26 → 4N 07-12 23:15
PROVIDERS: ADMIT Internal Medicine; ATTEND Internal Medicine
DX: A41.51 Sepsis due to Escherichia coli [E. coli] (principal); I21.A1 Myocardial infarction type 2; N39.0 Urinary tract infection, site not specified; C34.92 Malignant neoplasm of unspecified part of left bronchus or lung; N17.9 Acute kidney failure, unspecified; B96.4 Proteus (mirabilis) (morganii) as the cause of diseases classified elsewhere; R65.20 Severe sepsis without septic shock; I10 Essential (primary) hypertension; R31.9 Hematuria, unspecified; J44.9 Chronic obstructive pulmonary disease, unspecified; F41.9 Anxiety disorder, unspecified; M19.90 Unspecified osteoarthritis, unspecified site; I95.9 Hypotension, unspecified; F03.90 Unspecified dementia, unspecified severity, without behavioral disturbance, psychotic disturbance, mood disturbance, and anxiety; R79.89 Other specified abnormal findings of blood chemistry; E78.5 Hyperlipidemia, unspecified; Z79.02 Long term (current) use of antithrombotics/antiplatelets; Z88.8 Allergy status to other drugs, medicaments and biological substances; Z88.6 Allergy status to analgesic agent; Z88.0 Allergy status to penicillin; Z86.711 Personal history of pulmonary embolism; Z79.899 Other long term (current) drug therapy; Z90.710 Acquired absence of both cervix and uterus
CPT/HCPCS: 36415; 70450; 71045; 74019; 76770; 80053; 81001; 82550; 82553; 83605; 83735; 84100; 84484; 85025; 85610; 85730; 87040; 87077; 87086; 87088; 87150; 87186; 87324; 87449; 87493; 93005; 93010; 96365; 96366; 96368; 96375; 99291; J0696; J1200; J1644; J1956; J3370; J3490; J7030; J7060; J7121; S0028

== ENCOUNTER 2019-10-20 22:51 | Emergency (ER) | payer MEDICARE ==
[2019-10-20 23:32] LABS: ABSOLUTE EOSINOPHILS # (AUTO) 0.1 10^3/uL (0.0-0.6); ABSOLUTE MONOCYTES (AUTO) 0.5 10^3/uL (0.1-1.4); BASOPHILS % (AUTO) 0.6 % (0-2); TOTAL CELLS COUNTED % (AUTO) 100 %
[2019-10-20 23:37] LABS: INTERNATIONAL RATION (INR) 2.63; PROTHROMBIN TIME 28.6 SEC (11.4-15.4)
[2019-10-20 23:38] LABS: ABSOLUTE LYMPHOCYTES (AUTO) 1.6 10^3/uL (0.5-4.7); ABSOLUTE NEUT (AUTO) 5.1 10^3/uL (1.7-8.2); EOSINOPHILS % (AUTO) 1.8 % (0-6); HEMATOCRIT 34.9 % (36.0-47.0); HEMOGLOBIN 12.4 g/dL (12.0-15.5); LYMPHOCYTES % (AUTO) 22.1 % (13-45); MEAN CORPUSCULAR HEMOGLOBIN 29.8 pg (27.0-33.4); MEAN CORPUSCULAR HGB CONC 35.4 g/dL (32.0-36.0); MEAN CORPUSCULAR VOLUME 84 fl (80-97); PLATELET COUNT 252 10^3/uL (150-450); RED BLOOD COUNT 4.15 10^6/uL (3.72-5.28); RED CELL DISTRIBUTION WIDTH 14.6 % (11.5-14.0); SEGMENTED NEUTROPHILS % (AUTO) 68.5 % (42-78); WHITE BLOOD COUNT 7.4 10^3/uL (4.0-10.5)
[2019-10-20 23:42] LABS: ALBUMIN 3.6 g/dL (3.5-5.0); ALKALINE PHOSPHATASE 102 U/L (38-126); ANION GAP 6 (5-19); ASPARTATE AMINO TRANSFERASE 15 U/L (14-36); BILIRUBIN,TOTAL 0.3 mg/dL (0.2-1.3); BLOOD UREA NITROGEN 25 mg/dL (7-20); CARBON DIOXIDE 25 mmol/L (22-30); CHLORIDE 104 mmol/L (98-107); GLUCOSE 102 mg/dL (75-110); POTASSIUM 4.5 mmol/L (3.6-5.0)
--- NOTE | 2019-10-21 00:07 | ER Document Report ---
ED Respiratory Problem - General Chief Complaint: Cough Stated Complaint: COUGHING UP BLOOD Time Seen by Provider: 10/20/19 23:10 Primary Care Provider: LIBRA NIETO MD [ACTIVE STAFF] - Follow up in 1 week IVY TOTH MD [ACTIVE STAFF] - Follow up in 3-5 days Notes: Patient is a 69-year-old female who presents to the emergency department with a chief complaint of hemoptysis. Patient states that she has been coughing up blood for the past few months. Denies vomiting blood. Patient stated that was told that it might have been from her inhaled steroids that she was placed on. Patient is a resident at [facility]. Patient has history of a DVT and is currently on Xarelto. TRAVEL OUTSIDE OF THE [place] IN LAST 30 DAYS: No - Related Data Allergies/Adverse Reactions: aspirin [Aspirin] Allergy (Verified 01/03/17 12:57) lorazepam [From Ativan] Allergy (Verified 01/03/17 12:57) Penicillins Allergy (Verified 01/03/17 12:57) Past Medical History - General Information source: Patient - Social History Smoking Status: Former Smoker Family History: Reviewed & Not Pertinent, Hypertension - Past Medical History Cardiac Medical History: Reports: Hx Hypercholesterolemia, Hx Hypertension, Hx Pulmonary Embolism Denies: Hx Atrial Fibrillation, Hx Coronary Artery Disease, Hx Heart Attack Pulmonary Medical History: Reports: Hx COPD Denies: Hx Asthma, Hx Bronchitis, Hx Pneumonia, Hx Sleep Apnea Neurological Medical History: Denies: Hx Cerebrovascular Accident, Hx Seizures Endocrine Medical History: Denies: Hx Diabetes Mellitus Type 1, Hx Diabetes Mellitus Type 2, Hx Hyperthyroidism, Hx Hypothyroidism Renal/ Medical History: Denies: Hx Peritoneal Dialysis Malignancy Medical History: Reports: Hx Lung Cancer - On chemotherapy for same GI Medical History: Denies: Hx Cirrhosis, Hx Gastroesophageal Reflux Disease, Hx Hepatitis Musculoskeletal Medical History: Reports Hx Arthritis Psychiatric Medical History: Reports: Hx Anxiety, Hx Depression Infectious Medical History: Reports: Hx C-Diff. Denies: Hx Hepatitis Past Surgical History: Reports: Hx Abdominal Surgery - IR pancreatic pseudocyst drainage, february 2017, Hx Hysterectomy, Other - IR pancreatic pseudocyst drainage - Immunizations Hx Diphtheria, Pertussis, Tetanus Vaccination: No Review of Systems - Review of Systems Notes: REVIEW OF SYSTEMS: CONSTITUTIONAL : Denies recent illness. Denies recent unintentional weight loss. Denies fever, chills, or sweats. EENT: Denies eye, ear, throat, or mouth pain, discharge, or symptoms. Denies nasal or sinus congestion. CARDIOVASCULAR: Denies chest pain. RESPIRATORY: See HPI. GASTROINTESTINAL: Denies nausea, vomiting, and diarrhea. Denies abdominal pain. Denies constipation. GENITOURINARY: Denies difficulty urinating, burning, blood in urine, urgency or frequency. MUSCULOSKELETAL: Denies neck and back pain. Denies joint pain or swelling. SKIN: Denies rash, itchiness, or lesions HEMATOLOGIC : Denies easy bruising or bleeding. LYMPHATIC: Denies swollen, painful, enlarged glands. NEUROLOGICAL: Denies no numbness or tingling denies weakness. Denies headache. Denies altered mental status. Denies alteration in speech. PSYCHIATRIC: Denies stress, anxiety, alteration in sleep patterns, or depression. All other systems reviewed and negative. Physical Exam - Vital signs Vitals: Temp 98.9 F 10/20/19 22:51 - Notes Notes: PHYSICAL EXAMINATION: GENERAL: Appears well, healthy, well-nourished, no acute distress. HEAD: Normocephalic, atraumatic. EYES: PERRL, conjunctiva normal, all extraocular movements intact, sclera nonicteric ENT: Moist mucous membranes. NECK: Supple, no noticeable swelling, redness, rash. Normal range of motion. LUNGS: Equal breath sounds bilaterally and clear to auscultation. No wheezes rales or rhonchi. CARDIOVASCULAR: S1-S2, regular rate, regular rhythm. Radial pulses 2+, normal. ABDOMEN: Normoactive bowel sounds. Soft, nontender, no guarding, no rebound tenderness, and no masses palpated. EXTREMITIES: Normal strength and range of motion, no pitting or edema. No cyan osis. NEUROLOGICAL: Moves all extremities upon command. Strength 5/5 in all extremities. PSYCH: Normal mood, normal affect. SKIN: Warm, dry. No rash, lesions, ulcerations noted. Normal skin turgor. Course - Re-evaluation Re-evalutation: 10/21/19 02:19 At this time, the patient has not had any hemoptysis here in the emergency department. I discussed this case with Dr. Malik, my attending. She agrees with me that the patient can be managed outpatient, as she has had a month of hemoptysis and labs and CT are stable. CT shows metastatic disease, which the patient knows that she had lung cancer. We also do agree that the patient should continue her Xarelto, as the benefits outweigh the risks as the patient is primarily wheelchair and bedbound in the group home. The patient states that she has not seen Dr. Darnell, her oncologist in over a year, but Dr. Darnell is not practicing at this time. Will refer to Dr. Julio C Nieto. Patient will follow-up with her primary care provider at the group home. He has a moderate amount of leukocytes in her urine, but denies any dysuria. She was just recently seen here in the hospital for urosepsis and treated with antibiotics. Patient does not appear septic at this time. Abdomen is soft and nontender. We will send urine for culture. Patient is in agreement with this plan. Follow-up precautions were given. Verbal discharge instructions were given to the patient. They verbalized understanding. They are stable for discharge. - Vital Signs Vital signs: Temp Pulse Resp BP Pulse Ox 98.2 F 19 106/67 96 10/20/19 23:01 10/21/19 02:01 10/21/19 02:01 10/21/19 00:01 - Laboratory Result Diagrams: 10/20/19 23:00 10/20/19 23:00 Laboratory results interpreted by me: 10/20/19 10/20/19 10/20/19 23:00 23:00 23:00 Hct 34.9 L RDW 14.6 H PT 28.6 H ABG pO2 ABG HCO3 ABG Total CO2 ABG O2 Saturation Sodium 135.2 L BUN 25 H Est GFR (MDRD) Non-Af 56 L Lactic Acid Urine Blood Leukocyte Esterase Rfl 10/20/19 10/20/19 10/21/19 23:29 23:29 00:19 Hct RDW PT ABG pO2 68.3 L ABG HCO3 25.0 H ABG Total CO2 26.4 H ABG O2 Saturation 93.2 L Sodium BUN Est GFR (MDRD) Non-Af Lactic Acid 0.6 L Urine Blood SMALL H Leukocyte Esterase Rfl MODERATE H Discharge - Discharge Clinical Impression: Hemoptysis Lung cancer Qualifiers: Laterality: unspecified laterality Lung location: unspecified part of lung Qualified Code(s): C34.90 - Malignant neoplasm of unspecified part of unspecified bronchus or lung Condition: Stable Disposition: HOME-SNF (ED ONLY) Additional Instructions: You were seen today in the emergency department for coughing up blood. Please follow-up with your primary care provider at your group home and also see 1 of the oncologist below. Have them evaluate you. If you end up coughing up more blood, develop shortness of breath, please return to the emergency department. Referrals: LIBRA NIETO MD [ACTIVE STAFF] - Follow up in 1 week IVY TOTH MD [ACTIVE STAFF] - Follow up in 3-5 days
[2019-10-21 00:17] LABS: ARTERIAL BLOOD BASE EXCESS -0.5 mmol/L; ARTERIAL BLOOD H2CO3 1.33 mmol/L (1.05-1.35); ARTERIAL BLOOD O2 SATURATION 93.2 % (94-98); ARTERIAL BLOOD PCO2 44.1 mmHg (35-45); ARTERIAL BLOOD PH 7.37 (7.35-7.45); ARTERIAL BLOOD PO2 68.3 mmHg (80-100); ARTERIAL BLOOD TOTAL CO2 26.4 mmol/L (21-25)
[2019-10-21 00:18] LABS: ARTERIAL BLOOD FIO2 ROOM AIR
--- NOTE | 2019-10-21 00:18 | RADIOLOGY REPORT (SQ) ---
EXAM DESCRIPTION: XR CHEST 1 VIEW COMPLETED DATE/TME: 10/20/2019 23:17 CLINICAL HISTORY: 69 years, Female, coughing up blood COMPARISON: 07/11/2019 chest NUMBER OF VIEWS: 1 TECHNIQUE: Portable chest LIMITATIONS: None. FINDINGS: The heart size is normal. Osteopenia. Lungs are clear. No pneumothorax IMPRESSION: No acute cardiopulmonary process copyright 2011 [employer]- All Rights Reserved
[2019-10-21 00:55] LABS: APPEARANCE,URINE SLIGHTLY-CLOUDY; BILIRUBIN,URINE NEGATIVE (NEGATIVE); COLOR,URINE YELLOW; GLUCOSE, URINE NEGATIVE (NEGATIVE); KETONES,URINE NEGATIVE (NEGATIVE); PROTEIN,URINE NEGATIVE (NEGATIVE); URINE SPECIFIC GRAVITY 1.014; UROBILINOGEN,URINE NEGATIVE mg/dL (<2.0)
--- NOTE | 2019-10-21 01:14 | RADIOLOGY REPORT (SQ) ---
CT ANGIOGRAM CHEST WITH IV CONTRAST: 10/21/2019 12:09 AM CDT HISTORY: 69-year old patient with hemoptysis. TECHNIQUE: Postcontrast CT through the chest was performed per protocol for CT angiography. 3D Multiplanar reformations were performed at the workstation. Reconstructed sagittal and coronal images were also obtained through the chest. This exam was performed according to our departmental dose-optimization program, which includes automated exposure control, adjustment of the mA and/or KV according to the patient's size and/or use of iterative reconstruction technique. COMPARISON: None available FINDINGS: The heart size is within normal limits of size. A pretracheal lymph node measures at least 2.5 x 3.6 cm. A precarinal lymph node measures at least 1.9 cm in short axis dimension. A right hilar lymph node measures at least 1.2 cm in short axis dimension. The thoracic aorta is within normal limits of size. There are numerous nodules noted throughout the lungs which are predominantly subcentimeter. The largest one at the right upper lobe measures at least 1.4 cm. These are concerning for metastatic disease. No filling defects are seen within the pulmonary arteries to suggest a pulmonary artery embolism. There is suggestion of a right thyroid nodule measuring up to 1.0 cm which is substernal location. A The esophagus is patulous. The central tracheobronchial tree is patent. There is no evidence of a focal consolidative airspace opacity. There is no evidence of pleural effusions or a pneumothorax. The bones demonstrate no suspicious lytic or blastic lesion. The visualized portions of the upper abdomen appear grossly unremarkable. There is at least one hypodense lesion within the liver which may represent cysts. Evaluation of the hepatic parenchyma is limited by the arterial phase. The gallbladder is surgically absent. IMPRESSION: There are multiple abnormal nodules concerning for metastatic disease. These are most pronounced on the right side. There are also abnormal mediastinal lymph nodes. No filling defect is seen to suggest a pulmonary artery embolism. No acute airspace opacities are seen.
[2019-10-21 02:26] VITALS: BP 106/67
--- NOTE | 2019-10-22 08:38 | EKG REPORT ---
SEVERITY:- ABNORMAL ECG - SINUS RHYTHM LOW VOLTAGE THROUGHOUT : Confirmed by: Royce Yeung 22-Oct-2019 08:36:53
--- NOTE | 2019-10-22 20:42 | EKG REPORT ---
SEVERITY:- ABNORMAL ECG - ATRIAL FIBRILLATION, V-RATE 96-128 MULTIFORM VENTRICULAR PREMATURE COMPLEXES RBBB AND LPFB : Confirmed by: Royce Yeung 22-Oct-2019 20:41:37
== END 2019-10-21 04:10 ==
LOC: ER 22:51
DX: R04.2 Hemoptysis (principal); C34.90 Malignant neoplasm of unspecified part of unspecified bronchus or lung; E78.00 Pure hypercholesterolemia, unspecified; I10 Essential (primary) hypertension; Z88.6 Allergy status to analgesic agent; Z88.0 Allergy status to penicillin; Z86.718 Personal history of other venous thrombosis and embolism; Z79.01 Long term (current) use of anticoagulants
CPT/HCPCS: 36415; 71045; 71275; 80053; 81001; 82803; 83605; 85025; 85610; 87040; 87086; 87088; 87186; 93005; 93010; 99285

== ENCOUNTER 2019-12-09 12:13 | Emergency (ER) | payer MEDICARE ==
[2019-12-09 13:16] LABS: ABSOLUTE EOSINOPHILS # (AUTO) 0.1 10^3/uL (0.0-0.6); ABSOLUTE LYMPHOCYTES (AUTO) 1.3 10^3/uL (0.5-4.7); ABSOLUTE MONOCYTES (AUTO) 0.5 10^3/uL (0.1-1.4); ABSOLUTE NEUT (AUTO) 4.5 10^3/uL (1.7-8.2); BASOPHILS % (AUTO) 0.4 % (0-2); EOSINOPHILS % (AUTO) 1.6 % (0-6); HEMATOCRIT 30.7 % (36.0-47.0); LYMPHOCYTES % (AUTO) 19.8 % (13-45); MEAN CORPUSCULAR HGB CONC 32.6 g/dL (32.0-36.0); MEAN CORPUSCULAR VOLUME 83 fl (80-97); MONOCYTES % (AUTO) 7.5 % (3-13); PLATELET COUNT 293 10^3/uL (150-450); RED BLOOD COUNT 3.71 10^6/uL (3.72-5.28); RED CELL DISTRIBUTION WIDTH 15.4 % (11.5-14.0); SEGMENTED NEUTROPHILS % (AUTO) 70.7 % (42-78); TOTAL CELLS COUNTED % (AUTO) 100 %; WHITE BLOOD COUNT 6.4 10^3/uL (4.0-10.5)
[2019-12-09 13:27] LABS: ALBUMIN 3.4 g/dL (3.5-5.0); ALKALINE PHOSPHATASE 101 U/L (38-126); ANION GAP 6 (5-19); ASPARTATE AMINO TRANSFERASE 16 U/L (14-36); BILIRUBIN,TOTAL 0.4 mg/dL (0.2-1.3); BLOOD UREA NITROGEN 28 mg/dL (7-20); CALCIUM 9.7 mg/dL (8.4-10.2); CARBON DIOXIDE 25 mmol/L (22-30); CHLORIDE 107 mmol/L (98-107); CREATINE KINASE 31 U/L (30-135); GLUCOSE 100 mg/dL (75-110); POTASSIUM 4.3 mmol/L (3.6-5.0); TOTAL PROTEIN 6.9 g/dL (6.3-8.2)
[2019-12-09 13:28] LABS: INTERNATIONAL RATION (INR) 1.65; PROTHROMBIN TIME 19.7 SEC (11.4-15.4)
[2019-12-09] MEDS ORDERED: IPRATROPIUM/ALBUTEROL 0.5-2.5 MG/3 ML AMPUL NEB ONE (13:36)
[2019-12-09 13:38] LABS: CREATINE KINASE MB 0.95 ng/mL (<4.55); TROPONIN I 0.02 ng/mL
--- NOTE | 2019-12-09 13:38 | ER Document Report ---
ED General - General Chief Complaint: Shortness Of Breath Stated Complaint: DIFFICULTY BREATHING Time Seen by Provider: 12/09/19 13:18 Primary Care Provider: LIBRA ORELLANA MD [Primary Care Provider] - Follow up as needed Mode of Arrival: Medic Information source: Patient Notes: Patient is a 69-year-old female presenting to the emergency department concern for coughing up blood. Patient reports this has been ongoing for the last month. She states she was seen here about 6 weeks ago for similar symptoms and was told that possibly her lung cancer had returned. She is awaiting a repeat CAT scan that is scheduled for 12/11/2019. She reports increased shortness of breath lately, states that she has been too scared to come to the hospital due to COVID-19. She denies any fever or chills. She resides at a long-term care [facility]. She denies any chest pain. TRAVEL OUTSIDE OF THE [place] IN LAST 30 DAYS: No - Related Data Allergies/Adverse Reactions: aspirin [Aspirin] Allergy (Verified 01/03/17 12:57) lorazepam [From Ativan] Allergy (Verified 01/03/17 12:57) Penicillins Allergy (Verified 01/03/17 12:57) Past Medical History - General Information source: Patient - Social History Smoking Status: Former Smoker Family History: Reviewed & Not Pertinent, Hypertension - Past Medical History Cardiac Medical History: Reports: Hx Hypercholesterolemia, Hx Hypertension, Hx Pulmonary Embolism Denies: Hx Atrial Fibrillation, Hx Coronary Artery Disease, Hx Heart Attack Pulmonary Medical History: Reports: Hx COPD Denies: Hx Asthma, Hx Bronchitis, Hx Pneumonia, Hx Sleep Apnea Neurological Medical History: Denies: Hx Cerebrovascular Accident, Hx Seizures Endocrine Medical History: Denies: Hx Diabetes Mellitus Type 1, Hx Diabetes Mellitus Type 2, Hx Hyperthyroidism, Hx Hypothyroidism Renal/ Medical History: Denies: Hx Peritoneal Dialysis Malignancy Medical History: Reports: Hx Lung Cancer - Completed chemotherapy in 2018 GI Medical History: Denies: Hx Cirrhosis, Hx Gastroesophageal Reflux Disease, Hx Hepatitis Musculoskeletal Medical History: Reports Hx Arthritis Psychiatric Medical History: Reports: Hx Anxiety, Hx Depression Infectious Medical History: Reports: Hx C-Diff. Denies: Hx Hepatitis Past Surgical History: Reports: Hx Abdominal Surgery - IR pancreatic pseudocyst drainage, february 2017, Hx Hysterectomy, Other - IR pancreatic pseudocyst drainage - Immunizations Hx Diphtheria, Pertussis, Tetanus Vaccination: No Review of Systems - Review of Systems Constitutional: No symptoms reported EENT: No symptoms reported Cardiovascular: No symptoms reported Respiratory: Hemoptysis, Short of breath Gastrointestinal: No symptoms reported Genitourinary: No symptoms reported Female Genitourinary: No symptoms reported Musculoskeletal: No symptoms reported Skin: No symptoms reported Hematologic/Lymphatic: No symptoms reported Neurological/Psychological: No symptoms reported Physical Exam - Vital signs Vitals: Temp 98.6 F 12/09/19 12:26 - Notes Notes: PHYSICAL EXAMINATION: GENERAL: Well-nourished in no acute distress. HEAD: Atraumatic, normocephalic. EYES: Pupils equal round and reactive to light, extraocular movements intact, conjunctiva are normal. ENT: Nares patent, oropharynx clear without exudates. Moist mucous membranes. NECK: Normal range of motion, supple without lymphadenopathy LUNGS: Rhonchi noted to bilateral lower lobes. HEART: Regular rate and rhythm without murmurs ABDOMEN: Soft, nontender, nondistended abdomen. No guarding, no rebound. No masses appreciated. Female : deferred Musculoskeletal: Normal range of motion, no pitting or edema. No cyanosis. NEUROLOGICAL: Cranial nerves grossly intact. Normal speech. Normal sensory, motor exams PSYCH: Normal mood, normal affect. SKIN: Warm, Dry, normal turgor, no rashes or lesions noted. Course - Re-evaluation Re-evalutation: 12/09/19 16:05 Chest X-Ray 12/09/19 13:06 IMPRESSION: HEART ENLARGED WITHOUT FAILURE. NO OTHER SIGNIFICANT RADIOGRAPHIC FINDING IN THE CHEST. Chest/Abdomen CTA 12/09/19 13:36 IMPRESSION: Increasing pulmonary metastases. Mediastinal adenopathy. No pulmonary embolus. No aortic aneurysm or dissection. Low-density lesion in the right lobe of the thyroid gland. Laboratory 12/09/19 12/09/19 12/09/19 12:16 12:16 12:16 WBC 6.4 RBC 3.71 L Hgb 10.0 L Hct 30.7 L MCV 83 MCH 27.0 MCHC 32.6 RDW 15.4 H Plt Count 293 Lymph % (Auto) 19.8 [place] % (Auto) 7.5 Eos % (Auto) 1.6 Baso % (Auto) 0.4 Absolute Neuts (auto) 4.5 Absolute Lymphs (auto) 1.3 Absolute Monos (auto) 0.5 Absolute Eos (auto) 0.1 Absolute Basos (auto) 0.0 Seg Neutrophils % 70.7 PT INR VBG pH VBG pCO2 VBG HCO3 VBG Base Excess Sodium 138.3 Potassium 4.3 Chloride 107 Carbon Dioxide 25 Anion Gap 6 BUN 28 H Creatinine 1.03 Est GFR ( Amer) > 60 Est GFR (MDRD) Non-Af 53 L Glucose 100 Calcium 9.7 Total Bilirubin 0.4 Direct Bilirubin 0.0 Neonat Total Bilirubin Not Reportable Neonat Direct Bilirubin Not Reportable Neonat Indirect Bili Not Reportable AST 16 ALT 6 Alkaline Phosphatase 101 Creatine Kinase 31 CK-MB (CK-2) 0.95 Troponin I 0.020 Total Protein 6.9 Albumin 3.4 L 12/09/19 12/09/19 12:16 15:19 WBC RBC Hgb Hct MCV MCH MCHC RDW Plt Count Lymph % (Auto) [place] % (Auto) Eos % (Auto) Baso % (Auto) Absolute Neuts (auto) Absolute Lymphs (auto) Absolute Monos (auto) Absolute Eos (auto) Absolute Basos (auto) Seg Neutrophils % PT 19.7 H INR 1.65 VBG pH 7.30 VBG pCO2 39.1 VBG HCO3 18.9 L VBG Base Excess -6.8 Sodium Potassium Chloride Carbon Dioxide Anion Gap BUN Creatinine Est GFR ( Amer) Est GFR (MDRD) Non-Af Glucose Calcium Total Bilirubin Direct Bilirubin Neonat Total Bilirubin Neonat Direct Bilirubin Neonat Indirect Bili AST ALT Alkaline Phosphatase Creatine Kinase CK-MB (CK-2) Troponin I Total Protein Albumin Spoke with Dr. Kunz Regarding patient's CTA of the chest. Dr. Kunz indicated that patient would probably not be a very good candidate for chemotherapy given her age and conditioning at this time. I will discuss this with the patient. 12/09/19 16:54 Spoke with patient regarding patient's cancer return. Patient reports that she is not surprised as her symptoms made her think that her lung cancer had returned. She is agreeable to hospice and wants us to help get that set up. 12/09/19 17:10 Called [facility] and spoke with India Dumont and relayed that they need to stop Plavix per the recommendation of Dr. Blanca. she asked if we can place in a doctor's order specifying this. Patient's work-up today showed probable return of her lung cancer. Her labs were reassuring. She did have an elevated troponin on the redraw. Patient adamantly denies any chest pain. Her EKG was unchanged from previous. Upon review of patient's records patient has had elevated troponins in the past. - Vital Signs Vital signs: Temp Pulse Resp BP Pulse Ox 98.6 F 101 H 19 112/69 91 L 12/09/19 12:32 12/09/19 12:32 12/09/19 17:01 12/09/19 17:00 12/09/19 18:00 - Laboratory Result Diagrams: 12/09/19 12:16 12/09/19 12:16 Laboratory results interpreted by me: 12/09/19 12/09/19 12/09/19 12:16 12:16 12:16 RBC 3.71 L Hgb 10.0 L Hct 30.7 L RDW 15.4 H PT 19.7 H VBG HCO3 BUN 28 H Est GFR (MDRD) Non-Af 53 L Albumin 3.4 L 12/09/19 15:19 RBC Hgb Hct RDW PT VBG HCO3 18.9 L BUN Est GFR (MDRD) Non-Af Albumin - Diagnostic Test Radiology reviewed: Image reviewed, Reports reviewed - EKG Interpretation by Me EKG shows normal: Sinus rhythm Rate: Normal When compared to previous EKG there are: No significant change - No ST segment elevations or depressions to suggest ischemia Discharge - Discharge Clinical Impression: Shortness of breath, Hemoptysis Lung cancer Qualifiers: Laterality: unspecified laterality Lung location: unspecified part of lung Qualified Code(s): C34.90 - Malignant neoplasm of unspecified part of unspecified bronchus or lung Condition: Fair Disposition: HOME, SELF-CARE Additional Instructions: Please discontinue Plavix or any other blood thinners immediately. We have put in an order to set up hospice. Please return to the emergency department with any new or worsening concerns. Referrals: LIBRA ORELLANA MD [Primary Care Provider] - Follow up as needed
--- NOTE | 2019-12-09 14:00 | RADIOLOGY REPORT (SQ) ---
EXAM DESCRIPTION: CHEST SINGLE VIEW IMAGES COMPLETED DATE/TIME: 12/09/2019 1:41 pm REASON FOR STUDY: SOB COMPARISON: 10/20/2019 NUMBER OF VIEWS: One view. TECHNIQUE: Single frontal radiographic view of the chest acquired. LIMITATIONS: None. FINDINGS: LUNGS AND PLEURA: No opacities, masses or pneumothorax. No pleural effusion. MEDIASTINUM AND HILAR STRUCTURES: No masses. Contour normal. HEART AND VASCULAR STRUCTURES: Heart enlarged without failure. Normal vasculature. BONES: No acute findings. HARDWARE: None in the chest. OTHER: No other significant finding. IMPRESSION: HEART ENLARGED WITHOUT FAILURE. NO OTHER SIGNIFICANT RADIOGRAPHIC FINDING IN THE CHEST. TECHNICAL DOCUMENTATION: JOB ID: [id number] 2010 [employer]- All Rights Reserved Reading location - IP/workstation name: [email or web address]
--- NOTE | 2019-12-09 14:34 | RADIOLOGY REPORT (SQ) ---
EXAM DESCRIPTION: CTA CHEST IMAGES COMPLETED DATE/TIME: 12/09/2019 2:18 pm REASON FOR STUDY: hemoptysis, hx of lung ca COMPARISON: 10/21/2019 TECHNIQUE: CT scan of the chest performed using helical scanning technique with dynamic intravenous contrast injection. Images reviewed with lung, soft tissue and bone windows. Reconstructed coronal and sagittal MPR images reviewed. Additional 3 dimensional post-processing performed to develop Maximal Intensity Projection images (FL P). All images stored on PACS. All CT scanners at this facility use dose modulation, iterative reconstruction, and/or weight based d osing when appropriate to reduce radiation dose to as low as reasonably achievable (ALARA). [facility]: Dose Right [facility]: CareDose [facility]: Dose Right [facility]: Teradose 4D [facility]: [email or web address] CONTRAST TYPE AND DOSE: contrast/concentration: Isovue 350.00 mmol/ml; Total Contrast Delivered: 67. 0 ml; Total Saline Delivered: 57.6 ml Contrast bolus adequate for pulmonary arteries and aorta. RENAL FUNCTION: BUN 28 creatinine 1.03 RADIATION DOSE: CT Rad equipment meets quality standard of care and radiation dose reduction techniq ues were employed. CTDIvol: 6.6 - 18.7 mGy. DLP: 608 mGy-cm. . LIMITATIONS: None. FINDINGS: LUNGS AND PLEURA: Multiple pulmonary nodules. The largest is in the right upper lobe and measures 14.8 mm compared to 13.4 on the earlier study. AORTA AND GREAT VESSELS: No aneurysm. No dissection. HEART: No pericardial effusion. Moderate to marked coronary artery calcifications. PULMONARY ARTERIES: No emboli visualized in the main pulmonary arteries or the segmental branches. HILAR AND MEDIASTINAL STRUCTURES: There is confluent adenopathy in the mediastinum. HARDWARE: None in the chest. UPPER ABDOMEN: See separate report of the CT of the abdomen. THYROID AND OTHER SOFT TISSUES: There is low-density lesion in the right lobe of the thyroid gland. BONES: No acute or significant finding. 3D MIPS: Confirm above findings. OTHER: No other significant finding. IMPRESSION: Increasing pulmonary metastases. Mediastinal adenopathy. No pulmonary embolus. No aor tic aneurysm or dissection. Low-density lesion in the right lobe of the thyroid gland. COMMENT: Quality ID # [id number]: Final reports with documentation of one or more dose reduction techniques (e.g., Automated exposure control, adjustment of the mA and/or kV according to patient size, use of iterative reconstruction technique) TECHNICAL DOCUMENTATION: JOB ID: [id number] 2010 [employer]- All Rights Reserved Reading location - IP/workstation name: [email or web address]
--- NOTE | 2019-12-09 14:43 | EKG REPORT ---
SEVERITY:- BORDERLINE ECG - BORDERLINE R WAVE PROGRESSION, ANTERIOR LEADS BORDERLINE T ABNORMALITIES, ANT-LAT LEADS SINUS RHYTHM : Confirmed by: Aixa Albright MD 09-Dec-2019 14:42:32
[2019-12-09 16:01] LABS: VENOUS BLOOD BASE EXCESS -6.8 mmol/L; VENOUS BLOOD HCO3 18.9 mmol/L (20-32); VENOUS BLOOD PCO2 39.1 mmHg (35-63); VENOUS BLOOD PH 7.3 (7.30-7.42)
[2019-12-09 18:05] VITALS: BP 112/69
== END 2019-12-09 18:06 | disposition home or self-care (01) ==
LOC: ER 12:13
DX: C34.90 Malignant neoplasm of unspecified part of unspecified bronchus or lung (principal); R06.02 Shortness of breath; R04.2 Hemoptysis; R06.00 Dyspnea, unspecified; E78.00 Pure hypercholesterolemia, unspecified; I10 Essential (primary) hypertension; Z88.6 Allergy status to analgesic agent; Z88.0 Allergy status to penicillin; Z86.711 Personal history of pulmonary embolism
CPT/HCPCS: 93005; 94640; 99285; 36415; 82553; 82550; 85025; 85610; 80053; 84484; 82803; 71045; 71275; 93010; A9270; J7620